=== PATIENT | female | born 1950 | race Caucasian/White ===

== ENCOUNTER → 2017-12-02 12:42 | Outpatient (CLI) | payer MEDICARE, OTHER, SELFPAY ==
[2017-12-02 14:00] LABS: BUN Creatinine Ratio 22.5 (6-22); Blood Urea Nitrogen 18 mg/dL (7-17); Carbon Dioxide 34 mmol/L (22-32); Chloride 103 mmol/L (98-107); Estimated Glomerular Filt Rate > 60.0 mL/min (>60); Glucose 76 mg/dL (80-110); HEMOLYSIS < 15 (0-50); Sodium 144 mmol/L (137-145)
== END ==
PROVIDERS: Visit Provider Internal Medicine
DX: M81.0 Age-related osteoporosis without current pathological fracture (principal)
CPT/HCPCS: 36415; 80048

== ENCOUNTER 2021-02-16 01:27 | Emergency (ER) | payer MEDICARE, SELFPAY ==
[2021-02-16] VITALS (14 sets, daily range): BP systolic 96–146; BP diastolic 52–76; PULSE 59–124; RESP 9–26; TEMP 36.6; O2SAT 96–100; BMI 19.6
--- NOTE | 2021-02-16 01:38 | DI.RAD.S_ITS ---
PROCEDURE: XR CHEST 1V INDICATIONS: chest pain TECHNIQUE: One view of the chest was acquired. COMPARISON: None. FINDINGS: Surgical changes and devices: None. Lungs and pleura: Lungs are clear. A nodular density in the left apex is probably caused by costochondral calcification of the. No pleural effusions or pneumothorax. Mediastinum: Mediastinal contours appear normal. Heart size is normal. Bones and chest wall: No suspicious bony lesions. Mild scoliosis. Overlying soft tissues appear unremarkable. IMPRESSION: No acute cardiopulmonary disease. A nodular density in the left apex is likely caused by costochondral calcification of the 1st rib. A nonurgent chest CT is suggested for follow-up. Dictated by: Marine Li M.D. on 02/16/2021 at 2:04 Approved by: Marine Li M.D. on 02/16/2021 at 2:04
--- NOTE | 2021-02-16 01:40 | ED_ITS ---
HPI - Chest Pain General Chief Complaint: Chest Pain Stated Complaint: Afib chest pain Time Seen by Provider: 02/16/21 01:35 History of Present Illness HPI narrative: 70-year-old female nonsmoker with history of hypertension presents by EMS for evaluation of a severe, 10 on a 10 retrosternal chest pressure that woke her from sleep just prior to arrival. She states she went to bed in her normal state of health and has had no other symptoms such as dizziness, weakness or lightheadedness. She denies any obvious provocation, palliation or radiation. She denies associated symptoms such as fatigue, nausea, vomiting or unexplained diaphoresis. She has never had any symptoms like this in the past. She denies any recent travel, injury or trauma. On arrival EMS found her to be in a rapid atrial fibrillation in the 130s with ST depressions, she was given diltiazem 15 mg and slowed to the upper 90s but has persistent symptoms. She was given a few nitro EN route and her pain improved to a 6 or 7 but states it is slowly creeping back up Related Data Previous Rx's Medication Instructions Recorded apixaban 5 mg tablet (Eliquis) 5 mg PO BID #60 tab 02/16/21 Allergies Allergy/AdvReac Type Severity Reaction Status Date / Time Sulfa (Sulfonamide Allergy Hives Verified 02/16/21 01:38 Antibiotics) Review of Systems Review of Systems Narrative: GENERAL: Denies chills, fatigue, malaise, fever, sweats. HEENT: Denies sinus pain, ear pain, sore throat, difficulty swallowing, dizz iness. RESPIRATORY: Denies dyspnea, cough, wheezing, hemoptysis, sputum. CARDIOVASCULAR: See HPI GASTROINTESTINAL: Denies nausea, vomiting, abdominal pain, diarrhea, constipation, melena. : Denies dysuria, frequency, incontinence, hematuria, urinary retention. MUSCULOSKELETAL: denies weakness, joint pain, or bony pain SKIN: Denies rash, skin lesions, or other NEUROLOGIC: Denies weakness, headache, numbness, change in speech, confusion, seizures, incoordination. PSYCHIATRIC: No concerning psychosocial issues. 12 point review of systems is negative except for those stated above Patient History Social History Smoking Status: Never smoker Exam Narrative Exam Narrative: GENERAL: [70 year old patient appears stated age. Well-developed patient, in moderate distress, obviously uncomfortable HEAD: Atraumatic. Normocephalic. EYES: Pupils equal round and reactive. Extraocular motions intact. No scleral icterus. No injection or drainage. ENT: Nose without bleeding, purulent drainage. Throat without erythema, tonsillar hypertrophy or exudate. Airway patent. NECK: Trachea midline. Non tender CARDIOVASCULAR: Tachycardic and irregular rhythm without murmurs, gallops, or rubs. RESPIRATORY: Clear to auscultation. Breath sounds equal bilaterally. No wheezes, rales, or rhonchi. GASTROINTESTINAL: Abdomen soft, non-tender, nondistended. EXTREMITIES: No edema or joint tenderness. BACK: Nontender without deformity or crepitance. No flank tenderness. NEURO: AOx3. SKIN: No rash or erythema of visible areas Initial Vital Signs Initial Vital Signs: Vital Signs Temperature 97.8 F 02/16/21 01:38 Pulse Rate 120 H 02/16/21 01:38 Respiratory Rate 19 02/16/21 01:38 Blood Pressure 146/76 H 02/16/21 01:38 Pulse Oximetry 98 02/16/21 01:38 Procedures Cardioversion Consent Signed: Yes Indication: Rapid AFib with chest pain ST segmental depressions Stability: Unstable Number of attempts (shocks): 1 Joules used: 120 Cardiac rhythm post-cardioversion: Normal sinus Procedural Sedation Consent signed: Yes Time out performed: Yes Indication: cardioversion ASA Class: II Preparation: color television console monitor applied, pulse oximeter, capnometry used, supplemental O2 applied and suction/airway equipment at bedside IV Propofol dose (mg): 100 Intraservice time/total sedation time (min): 12 ED Sedation Level: Moderate (Concious) Patient Tolerated Procedure: Well Complications: hypoventilation Interventions: Airway repositioned and Oxygen applied Course Orders Ordered: ED Orders 02/16/21 01:33 EKG-12 Lead Routine 02/16/21 01:38 XR chest 1V Stat COVID19 - ADMIT (STEAM ENGINEER swab/PCR) Stat 02/16/21 01:44 Complete Blood Count AUTO DIFF Stat Comprehensive Metabolic Panel Stat 02/16/21 02:11 EKG-12 Lead Routine Discontinued Medications Apixaban (Apixaban 5 Mg Tablet) 5 mg PO NOW ONE Stop: 02/16/21 02:34 Last Admin: 02/16/21 02:46 Dose: 5 mg Documented by: FAMILIA Sodium Chloride (Normal Saline 0.9%) 1,000 mls @ 1,000 mls/hr IV BOLUS ONE Stop: 02/16/21 03:23 Last Admin: 02/16/21 02:26 Dose: 1,000 mls/hr Documented by: FAMILIA Propofol (Propofol 200 Mg/20 Ml Vial) 95 mg 2 mg/kg (95 mg) IV NOW ONE Stop: 02/16/21 01:45 Last Admin: 02/16/21 02:21 Dose: 95 mg Documented by: FAMILIA Vital Signs Vital signs: Vital Signs - 8 hr 02/16/21 01:38 02/16/21 02:04 02/16/21 02:05 Temperature 97.8 F Pulse Rate 120 H 124 H 120 H Respiratory Rate 19 14 9 L Blood Pressure 146/76 H 113/74 Pulse Oximetry 98 100 100 02/16/21 02:10 02/16/21 02:15 02/16/21 02:20 Temperature Pulse Rate 72 62 62 Respiratory Rate 26 H 19 15 Blood Pressure 100/58 L 96/52 L 105/58 L Pulse Oximetry 99 96 97 02/16/21 02:25 02/16/21 02:30 02/16/21 02:35 Temperature Pulse Rate 60 62 60 Respiratory Rate 14 17 17 Blood Pressure 113/57 L 114/57 L 121/59 L Pulse Oximetry 99 98 99 02/16/21 02:40 02/16/21 02:45 02/16/21 03:00 Temperature Pulse Rate 59 L 63 61 Respiratory Rate 14 18 12 Blood Pressure 124/59 L 127/60 136/66 Pulse Oximetry 100 100 100 02/16/21 03:15 02/16/21 03:30 Temperature Pulse Rate 61 64 Respiratory Rate 16 21 Blood Pressure 129/62 134/67 Pulse Oximetry 99 99 MDM - Chest Pain Lab Data Result diagrams: 02/16/21 01:44 02/16/21 01:44 Labs: Lab Results 02/16/21 02/16/21 Range/Units 01:44 01:44 WBC 7.4 (4.5-11.0) X10^3/uL RBC 4.53 (4.0-5.2) X10^6/uL Hgb 14.9 (12.0-16.0) g/dL Hct 44.0 (36-46) % MCV 97.0 (80-100) fL MCH 32.9 (26-34) PG MCHC 33.9 (30-36) % RDW 13.2 (11.6-14.8) % Plt Count 293 (150-400) X10^3/uL Neut % (Auto) 47.7 L (50-75) % Lymph % (Auto) 35.5 (25-40) % [place] % (Auto) 11.6 (3-14) % Eos % (Auto) 1.5 L (2-4) % Baso % (Auto) 3.7 H (0-2) % Neut # (Auto) 3500 (7592-3311) /uL Lymph # (Auto) 2600 (0549-0771) /uL [place] # (Auto) 900 (0-900) /uL Eos # (Auto) 100 (0-450) /uL Baso # (Auto) 300 H (0-100) /uL Sodium 141 (137-145) mmol/L Potassium 3.5 (3.4-5.1) mmol/L Chloride 103 (98-107) mmol/L Carbon Dioxide 29 (22-32) mmol/L BUN 24 H (7-17) mg/dL Creatinine 1.10 H (0.52-1.04) mg/dL Estimated GFR 48.8 L (>60) mL/min BUN/Creatinine Ratio 21.8 (6-22) Glucose 98 (80-110) mg/dL Calcium 10.4 H (8.4-10.2) mg/dL Total Bilirubin 0.5 (0.2-1.3) mg/dL AST 29 (14-36) IU/L ALT 16 (<35) IU/L Alkaline Phosphatase 30 L (38-126) U/L Total Protein 7.8 (6.3-8.2) g/dL Albumin 4.7 (3.5-5.0) g/dL Globulin 3.1 (1.7-4.1) g/dL Albumin/Globulin Ratio 1.5 (1.0-2.8) Point of Care Testing Test Results Not applicable [facility] Narrative Medical decision making narrative: Patient presents with chest pain and a rapid irregular heart rate. Initially, when tachycardic she had ST depressions which resolved along with the rapid AFib. Her symptoms had only been present for a few hours, she was having chest pain and ST changes and was therefore clearly a good candidate for procedural sedation and cardioversion. She tolerated the procedure well, was observed for an hour afterwards and had complete resolution of symptoms. Return precautions given and questions answered to her apparent satisfaction Discharge Plan Departure Patient Disposition: Home Clinical Impression: Atrial fibrillation with rapid ventricular response Instructions: DI for Atrial Fibrillation Activity Restrictions/Additional Instructions: *You have been diagnosed with [rapid atrial fibrillation which has been controlled with electrocardioversion *What to do: *Please continue to take your regular medications as directed. [x ] New medication prescriptions sent to your pharmacy: [[facility]] [ ] New medication written as a paper prescription [ ] No new medications given *Please follow up with your primary care provider in 2-3 days, call for an appointment. Let them know you were seen in the Emergency Department and that we ask that you be seen in follow up. We will electronically transmit a record of today's note if your PCP is in our system *If you do not have a primary care provider please contact the [facility] Resource line at [phone]. They will ask some questions about your medical history and help get you set up with a doctor in the community. *Return to Emergency Department if you should have any new, worsening or concerning symptoms, such as [fever greater than 101 F, shaking chills, worsening pain, persistent vomiting or other bothersome symptoms] * as we discussed I have included the contact information for both of the cardiology offices here in town and electronically transmitted a copy of today's note. Please call them later today and let them know that you were seen in the emergency department and we request that you were seen in follow-up Prescriptions: New Eliquis 5 mg tablet 5 mg PO BID Qty: 60 0RF Referrals: Jose Francisco Bowling MD [Non-Staff] - Gabby Downing MD [Physician] -
[2021-02-16 01:49] LABS: Add Manual Diff / Slide Review NO; Basophils Absolute Auto 300 /uL (0-100); Basophils Percent Auto 3.7 % (0-2); Eosinophils Absolute Auto 100 /uL (0-450); Eosinophils Percent Auto 1.5 % (2-4); Hemoglobin 14.9 g/dL (12.0-16.0); Lymphocytes Absolute Auto 2600 /uL (1100-4500); Lymphocytes Percent Auto 35.5 % (25-40); Mean Corpuscular HGB Conc 33.9 % (30-36); Mean Corpuscular Hemoglobin 32.9 PG (26-34); Monocytes Absolute Auto 900 /uL (0-900); Monocytes Percent Auto 11.6 % (3-14); Neutrophils Absolute Auto 3500 /uL (1500-7000); Neutrophils Percent Auto 47.7 % (50-75); Platelet Count 293 X10^3/uL (150-400); Red Blood Cell Count 4.53 X10^6/uL (4.0-5.2); Red Cell Distribution Width 13.2 % (11.6-14.8); White Blood Cell Count 7.4 X10^3/uL (4.5-11.0)
[2021-02-16 01:53] LABS: Alanine Aminotransferase 16 IU/L (<35); Albumin 4.7 g/dL (3.5-5.0); Albumin Globulin Ratio 1.5 (1.0-2.8); Alkaline Phosphatase 30 U/L (38-126); Aspartate Aminotransferase 29 IU/L (14-36); BUN Creatinine Ratio 21.8 (6-22); Bilirubin Total 0.5 mg/dL (0.2-1.3); Blood Urea Nitrogen 24 mg/dL (7-17); Calcium 10.4 mg/dL (8.4-10.2); Carbon Dioxide 29 mmol/L (22-32); Chloride 103 mmol/L (98-107); Estimated Glomerular Filt Rate 48.8 mL/min (>60); Globulin 3.1 g/dL (1.7-4.1); Glucose 98 mg/dL (80-110); HEMOLYSIS 31 (0-50); Potassium 3.5 mmol/L (3.4-5.1); Sodium 141 mmol/L (137-145); Total Protein 7.8 g/dL (6.3-8.2)
[2021-02-16] MEDS: propofoL 200 MG/20 ML VIAL 95 MG IV (02:21)
[2021-02-16] MEDS: SODIUM CHLORIDE 0.9% 1,000 ML 1000 ML IV (02:26)
[2021-02-16] MEDS: APIXABAN 5 MG TABLET PO (02:46)
== END 2021-02-16 03:40 | disposition home or self-care (01) ==
PROVIDERS: Emergency Provider Emergency Medicine
DX: I48.91 Unspecified atrial fibrillation (principal)
CPT/HCPCS: 71045; 80053; 85025; 92960; 93005; 96360; 99152; 99285; J2704

== ENCOUNTER → 2021-02-28 14:12 | Outpatient (CLI) | payer MEDICARE, SELFPAY ==
--- NOTE | 2021-02-28 | DI.ECHO.S_ITS ---
[facility]---------+ [facility] +---------+ : : [address] : : : : [id number] : : : : Phone: [phone]+ Echocardiogram Report + + :Name: CHANO HAAS Study Date: 02/28/2021 Height: 61 in : :[facility] ReadingLocation: Weight: 104 lb : : Gender: Female BSA: 1.4 m2 : :: 1950 Age: 70 yrs BP: 137/66 mmHg: :Reason For Study: HYPERTENSION : :Ordering Physician: NATHANAEL, : :FLETCHER Performed By: Shantell Balderrama : :Referring: FLETCHER HUFFMAN : + + Interpretation Summary The ejection fraction is estimated to be 65-70%. Diastolic parameters suggest probable normal left ventricular diastolic function and normal filling pressures. The right ventricle is normal in size and function. There is trace aortic regurgitation. PASP is approximately 25 to 30 mmHg. Procedure: A two-dimensional transthoracic echocardiogram with color flow and Doppler was performed. The study quality was technically adequate. There is no prior echocardiogram noted for this patient. The patient was in sinus bradycardia with heart rates between 49-55 bpm during the exam. Left Ventricle: The left ventricle is normal in size and wall thickness. The ejection fraction is estimated to be 65-70%. Diastolic parameters suggest probable normal left ventricular diastolic function and normal filling pressures. Right Ventricle: The right ventricle is normal in size and function. Atria: The left atrium is borderline dilated. Right atrial size is normal. There is no Doppler evidence for an interatrial shunt. Mitral Valve: The mitral valve is normal in structure and function. There is mild mitral regurgitation. Aortic Valve: The aortic valve is trileaflet. The aortic valve opens well. There is no aortic valve stenosis. There is trace aortic regurgitation. Tricuspid Valve: The tricuspid valve is normal in structure and function. There is trace tricuspid regurgitation. PASP is approximately 25 to 30 mmHg. Pulmonic Valve: The pulmonic valve leaflets are thin and pliable; valve motion is normal. There is mild pulmonic regurgitation. Great Vessels: The aortic root is normal size. The dimensions of the ascending aorta are normal. The IVC is of normal diameter and collapses greater than 50% with a sniff. This suggests a low right atrial pressure of 3 mm Hg. Pericardium/ Pleura There is a trivial pericardial effusion noted. MMode/2D Measurements & Calculations LVIDd: 4.8 cm LVOT diam: 2.0 cm LVIDs: 2.8 cm Ao root diam: 3.4 cm FS: 41.6 % asc Aorta Diam: 2.9 cm IVSd: 0.55 cm Ao Arch Diam (Prox Trans): 2.8 cm LVPWd: 0.75 cm LV hogue. diameter/BSA (cm/m^2): 3.3 LV sys. diameter/BSA (cm/m^2): 1.9 LA A2 area: 19.1 cm2 RA long axis: 5.4 cm LA A4 area: 14.3 cm2 RA area: 15.9 cm2 LA length (vol): 4.8 cm RA vol: 39.7 ml LA vol: 48.1 ml RA : 27.8 ml/m2 LA vol index: 33.6 ml/m2 IVC diam: 1.7 cm RVD1 (basal): 3.4 cm TAPSE: 2.5 cm Doppler Measurements & Calculations Ao V2 max: 102.6 cm/sec LVOT Max Navin: 102.2 cm/sec Ao V2 mean: 65.9 cm/sec LV V1 max P.2 mmHg Ao max P.2 mmHg LV V1 VTI: 24.3 cm Ao mean P.0 mmHg MEI(I,D): 3.4 cm2 Ao V2 VTI: 22.1 cm MEI(V,D): 3.1 cm2 sev ratio: 1.1 MEI indexed to BSA (cm^2/m^2): 2.4 MV E max navin: 79.6 cm/sec TR max navin: 225.5 cm/sec MV A max navin: 52.8 cm/sec TR max P.3 mmHg MV E/A: 1.5 PA V2 max: 89.9 cm/sec Med Peak E' Navin: 8.1 cm/sec PA V2 mean: 59.4 cm/sec E/E' med: 9.8 PA mean P.6 mmHg Lat Peak E' Navin: 9.1 cm/sec PA pr(Accel): 44.7 mmHg E/E' lat: 8.8 E/e' average: 9.3 MV dec time: 0.27 sec SV(LVOT): 75.3 ml Reading Physician:04:35 PM
== END ==
PROVIDERS: PCP Internal Medicine Critical Care Medicine; Referring Provider Internal Medicine Critical Care Medicine; Visit Provider Internal Medicine Critical Care Medicine
DX: I34.0 Nonrheumatic mitral (valve) insufficiency (principal); I37.1 Nonrheumatic pulmonary valve insufficiency; I10 Essential (primary) hypertension; G47.00 Insomnia, unspecified; I48.0 Paroxysmal atrial fibrillation
CPT/HCPCS: 93306

== ENCOUNTER 2022-05-19 18:21 | Emergency (ER) | payer MEDICARE, SELFPAY ==
[2022-05-19 18:38] VITALS: BP 150/67; PULSE 64; RESP 18; TEMP 36.7; O2SAT 99; BMI 18.7
[2022-05-19] MEDS: ERYTHROMYCIN OPHTH 1 GM OINT 1 APPLIC EYE-LEFT (19:41)
[2022-05-19] MEDS: PROPARACAINE 0.5% OPHTH SOL 1 DROPS EYE-LEFT (19:42)
[2022-05-19] MEDS: FLUORESCEIN 1 MG STRIP EYE-LEFT (19:43)
--- NOTE | 2022-05-19 19:55 | ED.EYEPROB ---
HPI - Eye Problem <TAMI Lindquist - Last Filed: 05/19/22 20:03> General Chief complaint: Eye Problems Stated complaint: L eye issue Time Seen by Provider: 05/19/22 19:23 Source: patient Mode of arrival: Ambulatory History of Present Illness HPI Narrative: This is 71-year-old female with history of glaucoma, AFib with RVR, is anticoagulated on apixaban, states that she has a right eye implant for glaucoma and presents with concern for a left upper eyelid which has been red, more tender and painful over the last 2 days. She denies vision changes or eye pain with eye movement and endorses eyelid discomfort. She was seen in urgent care 2 days ago and prescribed ofloxacin which she states is not helping this go away. She denies any eye injury, denies discharge coming from her eye. Denies any pain to the lower eyelid, states that she thought it was a stye but the urgent care PA did not see this on her. Related Data Previous Rx's Medication Instructions Recorded apixaban 5 mg tablet (Eliquis) 5 mg PO BID #60 tabs 02/16/21 Allergies Allergy/AdvReac Type Severity Reaction Status Date / Time Sulfa (Sulfonamide Allergy Hives Verified 02/16/21 01:38 Antibiotics) Review of Systems <TAMI Lindquist - Last Filed: 05/19/22 20:03> Review of Systems ROS Unobtainable: All systems reviewed & are unremarkable except as noted in HPI and below Patient History <TAMI Lindquist - Last Filed: 05/19/22 20:03> Social History Smoking Status: Never smoker Smoking Status: Never smoker alcohol intake frequency: 0-2 drinks per day Substance Use Type: does not use Exam <TAMI Lindquist - Last Filed: 05/19/22 20:03> Narrative Exam Narrative: Reviewed vitals signs and nursing notes. General: cooperative, comfortable, in no acute distress, well groomed HEENT: symmetrical facial expressions, moist mucous membranes, upper eyelid with mild erythema and edema centralized, everted upper eyelid and there is a white central aspect which looks most like a chalazion, no discharge no conjunctival injection bilaterally, EOMI, pupils are equal and pinpoint/small at baseline without discharge coming from the eye Fluorescein exam with proparacaine does not show evidence of corneal abrasion, no uptake of fluorescein over the cornea or areas of her eye. Skin: brisk capillary refill, without pallor or erythema no periorbital cellulitis or diffuse edema surrounding the eye, without pain with eye movement Neuro: normal speech and cognition, A&O x3, ambulatory, clear speech Psych: mental status is grossly normal, congruent mood, normal affect, pleasant and cooperative Initial Vital Signs Initial Vital Signs: Vital Signs Temperature 98.1 F 05/19/22 18:38 Pulse Rate 64 05/19/22 18:38 Respiratory Rate 18 05/19/22 18:38 Blood Pressure 150/67 H 05/19/22 18:38 Pulse Oximetry 99 05/19/22 18:38 Oxygen Delivery Method 05/19/22 18:38 <Amparo Pete DO - Last Filed: 05/28/22 01:55> Initial Vital Signs Initial Vital Signs: Vital Signs Temperature 98.1 F 05/19/22 18:38 Pulse Rate 64 05/19/22 18:38 Respiratory Rate 18 05/19/22 18:38 Blood Pressure 150/67 H 05/19/22 18:38 Pulse Oximetry 99 05/19/22 18:38 Oxygen Delivery Method 05/19/22 18:38 Course <TAMI Lindquist - Last Filed: 05/19/22 20:03> Orders Ordered: Discontinued Medications Erythromycin (Erythromycin Ophth 1 Gm Oint) 1 applic EYE-LEFT NOW ONE Stop: 05/19/22 19:24 Last Admin: 05/19/22 19:41 Dose: 1 applic Documented By: BS Fluorescein Sodium (Fluorescein 1 Mg Strip) 1 mg EYE-LEFT NOW ONE Stop: 05/19/22 19:35 Last Admin: 05/19/22 19:43 Dose: 1 mg Documented By: BS Proparacaine HCl (Proparacaine 0.5% Ophth Jami) 1 drops EYE-LEFT NOW ONE Stop: 05/19/22 19:35 Last Admin: 05/19/22 19:42 Dose: 1 drop Documented By: BS Vital Signs Vital signs: Vital Signs - 8 hr 05/19/22 18:38 Temperature 98.1 F Pulse Rate 64 Respiratory Rate 18 Blood Pressure 150/67 H Pulse Oximetry 99 Oxygen Delivery Method Room Air <Amparo Pete DO - Last Filed: 05/28/22 01:55> Orders Ordered: Discontinued Medications Erythromycin (Erythromycin Ophth 1 Gm Oint) 1 applic EYE-LEFT NOW ONE Stop: 05/19/22 19:24 Last Admin: 05/19/22 19:41 Dose: 1 applic Documented By: BS Fluorescein Sodium (Fluorescein 1 Mg Strip) 1 mg EYE-LEFT NOW ONE Stop: 05/19/22 19:35 Last Admin: 05/19/22 19:43 Dose: 1 mg Documented By: BS Proparacaine HCl (Proparacaine 0.5% Ophth Jami) 1 drops EYE-LEFT NOW ONE Stop: 05/19/22 19:35 Last Admin: 05/19/22 19:42 Dose: 1 drop Documented By: BS Vital Signs Vital signs: Vital Signs - 8 hr 05/19/22 18:38 Temperature 98.1 F Pulse Rate 64 Respiratory Rate 18 Blood Pressure 150/67 H Pulse Oximetry 99 Oxygen Delivery Method Room Air MDM - Eye Problem <TAMI Lindquist - Last Filed: 05/19/22 20:03> MDM Narrative Medical decision making narrative: Chief Complaint: Left eyelid pain Independent historian: Patient Differential diagnoses include but are not limited to: Chalazion, hordeolum, periorbital cellulitis, dacryocystitis, conjunctivitis, iritis, foreign body I have independently reviewed the patient's vital signs and nursing notes as well as prior records if available. Fluorescein exam does not show evidence of uptake over the cornea or other areas concerning for trauma to the eye. On eversion of upper eyelid, there is evidence of chalazion to the upper eyelid. Encourage patient to start doing warm compresses 4 times a day, printed off information about chalazion versus hordeolum, she has a software development specialist name Dr. Cantu whom I encouraged her to follow-up with urgently for a recheck. She has an appointment with Dermatology tomorrow, she will follow-up with dermatology about this, I prescribed for her erythromycin ointment as she states the ofloxacin drops are not doing anything. I told her that this is more functional obstruction than a bacterial 1 as it does not appear to have evidence of bacterial infection today. She states that she is leaving town and was very concerned about periorbital infection so I gave her prescription of cephalexin to start if she develops redness or brought in edema to the periorbital skin but I told her that she needs to be re-evaluated if it progresses to that as soon as possible. She is anticoagulated so I did not treat her NSAIDs. Encouraged to continue with Tylenol, use the erythromycin ointment 4 times a day as a lubricant as needed. Social considerations that may affect disposition: none Questions are addressed and there is agreement with the plan and for follow-up. Patient is appropriate for outpatient management. MIPS: This encounter doesn't have any diagnosis' associated with MIPS criteria. Discharge Plan Departure Patient Disposition: Home Clinical Impression: Chalazion left upper eyelid Instructions: Chalazion Activity Restrictions/Additional Instructions: *You have been diagnosed with chalazion of your left upper eyelid. This is similar to a stye, warm compresses are the treatment, please make an appointment with your software development specialist and tell them you are in the emergency department for a left upper eyelid chalazion, and you have worsening of your symptoms and need urgent follow-up. No evidence of corneal abrasion on exam today, please use a warm washcloth lightly compress for 15-20 minutes at a time at least 4 times a day. Use the eye ointment to lubricate and prevent infection of this if it is worsening. Thank you for trusting us with your care, I hope this gets better soon and it should not get worse. This is typically not treated with antibiotics but if this worsens and you have a puffy whole eye, redness and edema surrounding the whole eyelid, please start the oral antibiotic. I want you to be seen urgently if this worsens a lot. Please call and or e-mail Dr. Cantu's office for urgent follow-up. Jessy Cantu M.D. [email or web address] tel:[phone] If you are not able to get in with Dr. Cantu, please call 1 of software development specialist attached below. *What to do: *Please continue to take your regular medications as directed. [x ] New medication prescriptions sent to your pharmacy: [ [facility]] [ ] New medication written as a paper prescription [ ] No new medications given *Please follow up with your primary care provider in 2-3 days, call for an appointment. Let them know you were seen in the Emergency Department and that we asked that you be seen for follow-up. We will electronically transmit a record of today's note if your PCP is in our system *If you do not have a primary care provider please contact [phone] to establish care with one of the [facility] primary care providers. *Return to Emergency Department if you should have any new, worsening, or concerning symptoms, such as [fever greater than 101F, chills, worsening pain, persistent vomiting or other bothersome symptoms]. Prescriptions: No Action Eliquis 5 mg tablet 5 mg PO BID Qty: 60 0RF Referrals: Mahad Lynch MD [Physician] - Sergio Hardwick MD [Primary Care Provider] - Sugar Cantu MD [Non-Staff] - ([email or web address] ) Stand Alone Forms: Patient Portal/API <Amparo Pete DO - Last Filed: 05/28/22 01:55> Cosign ED Attending Mary Kateature Attestation: I was immediately available in the department for consultation. Documentation has been reviewed.
== END 2022-05-19 20:04 | disposition home or self-care (01) ==
PROVIDERS: Emergency Provider Nurse Practitioner Critical Care Medicine; PCP Internal Medicine Critical Care Medicine
DX: H00.14 Chalazion left upper eyelid (principal); Z79.01 Long term (current) use of anticoagulants
CPT/HCPCS: 99282

== ENCOUNTER 2022-07-16 10:04 | Emergency (ER) | payer MEDICARE, SELFPAY ==
[2022-07-16] VITALS (16 sets, daily range): BP systolic 142–189; BP diastolic 69–101; PULSE 57–66; RESP 12–27; TEMP 36.6; O2SAT 96–99; BMI 19.1
--- NOTE | 2022-07-16 10:30 | DI.CT.S_ITS ---
PROCEDURE: CT ABDOMEN PELVIS W CON INDICATIONS: Constipation, left-sided abdominal pain, eval for obstructio TECHNIQUE: After the administration of intravenous contrast, axial sections acquired from the lung bases to the pubic symphysis. Coronal and sagittal reformats were performed. For radiation dose reduction, the following was used: automated exposure control, adjustment of mA and/or kV according to patient size. COMPARISON: None. FINDINGS: Image quality: Excellent. Lung bases: Minor left lower lung scarring. Heart: Slightly enlarged heart with very small pericardial effusion. ABDOMEN: Liver: No suspicious masses. Gallbladder: Partially decompressed. Biliary ducts: Nondilated. Pancreas: Normal. Spleen: Normal size. Adrenal Glands: No nodules. Kidneys and Ureters: Moderate to severe, chronic appearing right-sided hydronephrosis and mild left hydronephrosis. Punctate left lower pole intrarenal calculus. No hydroureter. No visible ureteral calcifications. Stomach and Bowel: Mildly increased quantity of solid stool throughout the colon. Stomach contains of small amount of fluid. Small bowel loops are nondilated. There are a few pelvic bowel loops demonstrating slight wall thickening and enhancement but no focal strictures or pathologic bowel dilatation. Peritoneum: No abnormal intraperitoneal fluid. No free air. Ventral Wall: No hernias. Abdominal Nodes: No retroperitoneal or mesenteric adenopathy by size criteria. Vessels: Aorta and inferior vena cava are normal in size. Moderate abdominal aortic atherosclerotic calcification. PELVIS: Pelvic Organs: The uterus is present, retroverted, and age-appropriate in size. Bladder: The urinary bladder is mildly distended and the wall is somewhat thickened. No stones. Pelvic Nodes: No enlarged lymph nodes. Miscellaneous: No hernias are seen. Bones: Multilevel lumbar disc degeneration. Anterolisthesis L4 on five. IMPRESSION: 1. Mild colonic obstipation. 2. Decompressed small bowel, with some scattered wall thickening suggesting enteritis. 3. Chronic hydronephrosis, right more severe than left. This may be secondary to chronic over distension of the urinary bladder. 4. Mild urinary bladder wall thickening may indicate cystitis. Correlate with UA. Dictated by: Loyda Nance M.D. on 07/16/2022 at 11:36 Approved by: Loyda Nance M.D. on 07/16/2022 at 11:42
--- NOTE | 2022-07-16 10:31 | ED.GENADULT ---
HPI - General Adult General Chief complaint: Abdominal Pain Stated complaint: severe abdominal pain for 10 days Time Seen by Provider: 07/16/22 10:17 Source: patient and family Mode of arrival: Ambulatory Limitations: no limitations History of Present Illness HPI narrative: Patient is a 71-year-old female. Approximately 4 weeks had an episode of diarrhea. At the time she had been several weeks into a trip to [facility]. The patient's who was with her also had diarrhea the time. He stated that symptoms lasted approximately 24 hours and then resolved however her diarrhea lasted for approximately 1 week afterwards. They stated was after the use the water in the hotel room to brush her teeth which they were warned not to do. At the time she was not having any other symptoms. She did take 1 dose of Keflex that was given to her by her primary doctor prior to leaving on a trip to take in case they need any antibiotics. She was also on antimalarial medication at the time. Since the episode of diarrhea the patient now has had issues with constipation. She was having hard stools up until approximately 7-10 days ago where she states that constipation became more of an issue. She is not having any vomiting. For the past 3 days she has had left upper quadrant abdominal pain. No fevers. No rashes. No urinary symptoms. No prior history of abdominal surgeries. Related Data Previous Rx's Medication Instructions Recorded apixaban 5 mg tablet (Eliquis) 5 mg PO BID #60 tabs 02/16/21 Allergies Allergy/AdvReac Type Severity Reaction Status Date / Time Sulfa (Sulfonamide Allergy Hives Verified 02/16/21 01:38 Antibiotics) Review of Systems Review of Systems ROS Unobtainable: All systems reviewed & are unremarkable except as noted in HPI and below Patient History Social History Smoking Status: Never smoker Smoking Status: Never smoker alcohol intake frequency: 0-2 drinks per day Substance Use Type: does not use Exam Initial Vital Signs Initial Vital Signs: Vital Signs Pulse Rate 66 07/16/22 10:10 Pulse Oximetry 98 07/16/22 10:10 Const General: cooperative, comfortable and No ill appearing HENMT Head: normal to inspection and normocephalic Resp Effort & Inspection: normal respiratory effort Auscultation: clear to auscultation bilaterally Cardio Rate: regular rate Rhythm: regular rhythm GI Inspection: normal to inspection Palpation: soft, No guarding and tender (Left upper quadrant) Skin General: no rashes or lesions noted Neuro General: patient alert, patient awake and patient oriented x3 Extrem General: normal to inspection and capillary refill normal Psych Appearance: grossly normal Course Orders Ordered: ED Orders 07/16/22 10:17 GI Panel (Film Array) Stat 07/16/22 10:23 Complete Blood Count AUTO DIFF Stat Comprehensive Metabolic Panel Stat Lipase Stat 07/16/22 10:30 CT abdomen pelvis w con Stat Discontinued Medications Al Hydrox/Mg Hydrox/Simethicone 20 ml/ Lidocaine HCl 15 ml 0 ml PO NOW ONE Stop: 07/16/22 12:00 Last Admin: 07/16/22 12:03 Dose: 35 ml Documented By: BHARAT Sodium Chloride (Normal Saline 0.9%) 1,000 mls @ 1,000 mls/hr IV BOLUS ONE Stop: 07/16/22 11:16 Last Infusion: 07/16/22 11:44 Dose: 0 mls/hr Documented By: Admin: 07/16/22 10:39 Dose: 1,000 mls/hr Documented By: BHARAT Vital Signs Vital signs: Vital Signs - 8 hr 07/16/22 10:14 07/16/22 10:10 07/16/22 10:12 Temperature 97.8 F Pulse Rate 62 66 Respiratory Rate 20 Blood Pressure 189/82 H 189/82 H Pulse Oximetry 99 98 Oxygen Delivery Method Room Air 07/16/22 10:12 07/16/22 10:15 07/16/22 10:15 Temperature Pulse Rate 64 60 Respiratory Rate 12 Blood Pressure 156/79 H Pulse Oximetry 99 99 Oxygen Delivery Method 07/16/22 10:23 07/16/22 10:23 07/16/22 10:30 Temperature Pulse Rate 60 Respiratory Rate Blood Pressure 158/78 H 156/76 H Pulse Oximetry 98 Oxygen Delivery Method 07/16/22 10:30 07/16/22 10:40 07/16/22 10:40 Temperature Pulse Rate 58 L 57 L Respiratory Rate 27 H 23 Blood Pressure 142/69 H Pulse Oximetry 98 98 Oxygen Delivery Method 07/16/22 10:50 07/16/22 10:50 07/16/22 11:09 Temperature Pulse Rate 59 L 63 Respiratory Rate 24 17 Blood Pressure 155/74 H Pulse Oximetry 97 99 Oxygen Delivery Method 07/16/22 11:30 07/16/22 11:57 07/16/22 11:57 Temperature Pulse Rate 61 64 Respiratory Rate 23 25 H Blood Pressure 146/101 H Pulse Oximetry 97 99 Oxygen Delivery Method 07/16/22 12:00 07/16/22 12:01 07/16/22 12:01 Temperature Pulse Rate 60 59 L Respiratory Rate 22 22 Blood Pressure 159/73 H Pulse Oximetry 98 98 Oxygen Delivery Method Medical Decision Making Lab Data Lab results reviewed: Yes I reviewed the patient's lab results. 07/16/22 10:23 07/16/22 10:23 Labs: Lab Results 07/16/22 07/16/22 Range/Units 10: 10:23 WBC 10.4 (4.5-11.0) X10^3/uL RBC 4.58 (4.0-5.2) X10^6/uL Hgb 15.2 (12.0-16.0) g/dL Hct 44.8 (36-46) % MCV 97.9 (80-100) fL MCH 33.2 (26-34) PG MCHC 33.9 (30-36) % RDW 12.9 (11.6-14.8) % Plt Count 306 (150-400) X10^3/uL Neut % (Auto) 80.4 H (50-75) % Lymph % (Auto) 10.9 L (25-40) % [place] % (Auto) 7.3 (3-14) % Eos % (Auto) 0.7 L (2-4) % Baso % (Auto) 0.7 (0-2) % Neut # (Auto) 8400 H (8281-5972) /uL Lymph # (Auto) 1100 (1806-1129) /uL [place] # (Auto) 800 (0-900) /uL Eos # (Auto) 100 (0-450) /uL Baso # (Auto) 100 (0-100) /uL Sodium 138 (137-145) mmol/L Potassium 4.0 (3.4-5.1) mmol/L Chloride 102 (98-107) mmol/L Carbon Dioxide 30 (22-32) mmol/L BUN 10 (7-17) mg/dL Creatinine 0.60 (0.52-1.04) mg/dL Estimated GFR > 60 (>60) mL/min BUN/Creatinine Ratio 16.7 (6-22) Glucose 119 H (80-110) mg/dL Calcium 8.9 (8.4-10.2) mg/dL Total Bilirubin 0.5 (0.2-1.3) mg/dL AST 22 (14-36) IU/L ALT 20 (<35) IU/L Alkaline Phosphatase 45 (38-126) U/L Total Protein 7.1 (6.3-8.2) g/dL Albumin 4.0 (3.5-5.0) g/dL Globulin 3.1 (1.7-4.1) g/dL Albumin/Globulin Ratio 1.3 (1.0-2.8) Lipase 153 (23-300) U/L Urine Dip Bedside Urine Glucose Negative Bedside Urine Bilirubin - Negative Bedside Urine Ketone - Negative Urine Specific [place] 1.005 Bedside Urine Occult Blood - Negative Bedside Urine pH 7.5 Bedside Urine Protein - Negative Bedside Urine Urobilinogen - Negative Bedside Urine Nitrite - Negative Bedside Urine Leukocytes - Negative Esterase Point of care testing: Urine Dip Bedside Urine Glucose Negative Bedside Urine Bilirubin - Negative Bedside Urine Ketone - Negative Urine Specific [place] 1.005 Bedside Urine Occult Blood - Negative Bedside Urine pH 7.5 Bedside Urine Protein - Negative Bedside Urine Urobilinogen - Negative Bedside Urine Nitrite - Negative Bedside Urine Leukocytes - Negative Esterase Imaging Data CT scan - abdomen/pelvis: Radiologist's Impression: PROCEDURE:? CT ABDOMEN PELVIS W CON ? INDICATIONS:? Constipation, left-sided abdominal pain, eval for obstructio ? TECHNIQUE:? After the administration of intravenous contrast, axial sections acquired from the lung bases to the pubic symphysis.? Coronal and sagittal reformats were performed.? For radiation dose reduction, the following was used:? automated exposure control, adjustment of mA and/or kV according to patient size.? ? COMPARISON:? None. ? FINDINGS:? Image quality:? Excellent.? ? Lung bases:? Minor left lower lung scarring. Heart:? Slightly enlarged heart with very small pericardial effusion. ? ABDOMEN: Liver:? No suspicious masses. Gallbladder:? Partially decompressed. Biliary ducts:? Nondilated. Pancreas:? Normal. Spleen:? Normal size. Adrenal Glands:? No nodules. Kidneys and Ureters:? Moderate to severe, chronic appearing right-sided hydronephrosis and mild left hydronephrosis.? Punctate left lower pole intrarenal calculus.? No hydroureter.? No visible ureteral calcifications. ? Stomach and Bowel:? Mildly increased quantity of solid stool throughout the colon.? Stomach contains of small amount of fluid.? Small bowel loops are nondilated.? There are a few pelvic bowel loops demonstrating slight wall thickening and enhancement but no focal strictures or pathologic bowel dilatation. Peritoneum:? No abnormal intraperitoneal fluid.? No free air.? ? Ventral Wall: ? No hernias.? Abdominal Nodes:? No retroperitoneal or mesenteric adenopathy by size criteria.? Vessels:? Aorta and inferior vena cava are normal in size.? Moderate abdominal aortic atherosclerotic calcification.? ? PELVIS: Pelvic Organs:? The uterus is present, retroverted, and age-appropriate in size. Bladder: The urinary bladder is mildly distended and the wall is somewhat thickened.? No stones. Pelvic Nodes: No enlarged lymph nodes.? Miscellaneous: No hernias are seen. ? ? ? Bones:? Multilevel lumbar disc degeneration.? Anterolisthesis L4 on five. ? ? IMPRESSION:? ? 1. Mild colonic obstipation. ? 2. Decompressed small bowel, with some scattered wall thickening suggesting enteritis. ? 3. Chronic hydronephrosis, right more severe than left.? This may be secondary to chronic over distension of the urinary bladder. ? 4. Mild urinary bladder wall thickening may indicate cystitis.? Correlate with UA.? MDM Narrative Medical decision making narrative: Labs are reassuring and CT scan here in the emergency department does show findings that are consistent with constipation. No indication for acute surgical consultation. No indication for antibiotics. Constipation does also fit her presenting symptoms. I did discuss this with her and her at bedside. We did discuss the use of laxatives at home. She does have MiraLax already at home. We discussed return precautions and follow-up instructions. She expressed understanding and agreement. Discharge Plan Departure Patient Disposition: Home Clinical Impression: Constipation Instructions: DI for Constipation Activity Restrictions/Additional Instructions: I recommend that you continue to take all of your medications as directed. I also recommend that she start using the MiraLax like we discussed. Contact your primary doctor for follow-up and return to the emergency department for any new or worsening symptoms. Prescriptions: No Action Eliquis 5 mg tablet 5 mg PO BID Qty: 60 0RF Referrals: Sergio Hardwick MD [Primary Care Provider] - Stand Alone Forms: Patient Portal/API
[2022-07-16 10:32] LABS: Add Manual Diff / Slide Review NO; Basophils Absolute Auto 100 /uL (0-100); Basophils Percent Auto 0.7 % (0-2); Eosinophils Absolute Auto 100 /uL (0-450); Eosinophils Percent Auto 0.7 % (2-4); Hematocrit 44.8 % (36-46); Hemoglobin 15.2 g/dL (12.0-16.0); Lymphocytes Absolute Auto 1100 /uL (1100-4500); Lymphocytes Percent Auto 10.9 % (25-40); Mean Corpuscular HGB Conc 33.9 % (30-36); Mean Corpuscular Hemoglobin 33.2 PG (26-34); Mean Corpuscular Volume 97.9 fL (80-100); Monocytes Absolute Auto 800 /uL (0-900); Monocytes Percent Auto 7.3 % (3-14); Neutrophils Absolute Auto 8400 /uL (1500-7000); Neutrophils Percent Auto 80.4 % (50-75); Platelet Count 306 X10^3/uL (150-400); Red Blood Cell Count 4.58 X10^6/uL (4.0-5.2); Red Cell Distribution Width 12.9 % (11.6-14.8); White Blood Cell Count 10.4 X10^3/uL (4.5-11.0)
[2022-07-16] MEDS: SODIUM CHLORIDE 0.9% 1,000 ML 1000 ML IV (10:39)
[2022-07-16 10:48] LABS: Alanine Aminotransferase 20 IU/L (<35); Albumin Globulin Ratio 1.3 (1.0-2.8); Alkaline Phosphatase 45 U/L (38-126); Aspartate Aminotransferase 22 IU/L (14-36); BUN Creatinine Ratio 16.7 (6-22); Bilirubin Total 0.5 mg/dL (0.2-1.3); Blood Urea Nitrogen 10 mg/dL (7-17); Calcium 8.9 mg/dL (8.4-10.2); Carbon Dioxide 30 mmol/L (22-32); Chloride 102 mmol/L (98-107); Estimated Glomerular Filt Rate > 60 mL/min (>60); Globulin 3.1 g/dL (1.7-4.1); Glucose 119 mg/dL (80-110); HEMOLYSIS < 15 (0-50); Lipase 153 U/L (23-300); Sodium 138 mmol/L (137-145); Total Protein 7.1 g/dL (6.3-8.2)
[2022-07-16] MEDS: MAG HYDROX/ALUMINUM/SIMETH SUS 20 ML, LIDOCAINE VISCOUS 2% 15 ML PO (12:03)
== END 2022-07-16 12:52 | disposition home or self-care (01) ==
PROVIDERS: Emergency Provider Emergency Medicine; PCP Internal Medicine Critical Care Medicine
DX: K59.00 Constipation, unspecified (principal); R10.9 Unspecified abdominal pain; Z79.01 Long term (current) use of anticoagulants
CPT/HCPCS: 36415; 74177; 80053; 81003; 83690; 85025; 99284; Q9967

== ENCOUNTER 2022-08-02 17:23 | Inpatient (IN) | payer MEDICARE, SELFPAY ==
[2022-08-02 17:44] VITALS: BP 146/66; PULSE 63; RESP 18; TEMP 36.2; O2SAT 98; BMI 17.9
--- NOTE | 2022-08-02 20:56 | ED_ITS ---
HPI - Female Genitourinary General Chief complaint: Urogenital-Female Stated complaint: Can't urinate Time Seen by Provider: 08/02/22 20:55 Source: patient Mode of arrival: Ambulatory History of Present Illness HPI Narrative: 71-year-old female nonsmoker with history of atrial fibrillation presents with her in the chief complaint of concerns about an inability to urinate. She is been having issues ever since returning from travel to [place] in which she developed GI symptoms that initially started with diarrhea and if since tr ansitioned into constipation. She had seen her primary care provider and had been put on various laxatives which have largely been effective. She had seen him a few days ago and on his exam and palpating her abdomen he felt she warranted a CT of the abdomen and pelvis as an outpatient. She states that she has this test or tomorrow but is here today because she had been feeling dizzy, lightheaded and a bit week if not slightly confused earlier today and was concerned that she was not producing urine. She denies fever or chills. She denies any chest pain or shortness of breath. She denies abdominal pain. She does admit that she would urinated a few hours prior to arrival and was also ab le to produce a urine early in her visit. Nursing bladder scan performed post void noting 31-50mL Related Data Previous Rx's Medication Instructions Recorded apixaban 5 mg tablet (Eliquis) 5 mg PO BID #60 tabs 02/16/21 Allergies Allergy/AdvReac Type Severity Reaction Status Date / Time Sulfa (Sulfonamide Allergy Hives Verified 08/02/22 21:02 Antibiotics) Review of Systems Review of Systems Narrative: GENERAL: See HPI HEENT: Denies sinus pain, ear pain, sore throat, difficulty swallowing, di zziness. RESPIRATORY: Denies dyspnea, cough, wheezing, hemoptysis, sputum. CARDIOVASCULAR: Denies chest pain, palpitations, orthopnea, edema, GASTROINTESTINAL: See HPI : See HPI MUSCULOSKELETAL: denies weakness, joint pain, or bony pain SKIN: Denies rash, skin lesions, or other NEUROLOGIC: Denies weakness, headache, numbness, change in speech, confusion, seizures, incoordination. PSYCHIATRIC: No concerning psychosocial issues. 12 point review of systems is negative except for those stated above Patient History alcohol intake frequency: a few times a week Alcohol type: wine Substance Use Type: does not use Exam Narrative Exam Narrative: GENERAL: [71] year old patient appears stated age. Well-developed patient, in mild distress. GCS 14 (confused) HEAD: Atraumatic. Normocephalic. EYES: Pupils equal round and reactive. Extraocular motions intact. No scleral icterus. No injection or drainage. ENT: Dry mucous membranes Nose without bleeding, purulent drainage. Throat without erythema, tonsillar hypertrophy or exudate. Airway patent. NECK: Trachea midline. Non tender CARDIOVASCULAR: Regular rate and rhythm without murmurs, gallops, or rubs. RESPIRATORY: Clear to auscultation. Breath sounds equal bilaterally. No wheezes, rales, or rhonchi. GASTROINTESTINAL: Abdomen soft, non-tender, nondistended. EXTREMITIES: No edema or joint tenderness. BACK: Nontender without deformity or crepitance. No flank tenderness. NEURO: AOx3. SKIN: No rash or erythema of visible areas Initial Vital Signs Initial Vital Signs: Vital Signs Temperature 97.2 F L 08/02/22 17:44 Pulse Rate 63 08/02/22 17:44 Respiratory Rate 18 08/02/22 17:44 Blood Pressure 146/66 H 08/02/22 17:44 Pulse Oximetry 98 08/02/22 17:44 Oxygen Delivery Method Room Air 08/02/22 17:44 Course Orders Ordered: ED Orders 08/02/22 21:53 XR acute abdomen series Stat 08/02/22 22:00 Complete Blood Count AUTO DIFF Stat Comprehensive Metabolic Panel Stat 08/02/22 23:25 COVID19 -Nasal RAPID Stat Acetaminophen (Acetaminophen 325 Mg Tablet) 650 mg PO Q6H PRN PRN Reason: Fever/Mild Pain (1-3) Heparin Sodium (Porcine) (Heparin 5,000 Unit/Ml Vial) 5,000 unit SUBCUT BID SAMSON Sodium Chloride (Normal Saline 0.9%) 1,000 mls @ 100 mls/hr IV CONT SAMSON Last Admin: 08/03/22 01:15 Dose: 100 mls/hr Documented By: DANIEL Naloxone HCl (Naloxone 0.4 Mg/Ml Vial) 0.2 mg IV Q2MIN PRN PRN Reason: Opiate Reversal Ondansetron HCl (Ondansetron 4 Mg/2 Ml Inj) 4 mg IV Q8HR PRN PRN Reason: Nausea And Vomiting Discontinued Medications Sodium Chloride (Normal Saline 0.9%) 1,000 mls @ 1,000 mls/hr IV BOLUS ONE Stop: 08/02/22 22:52 Last Infusion: 08/02/22 23:12 Dose: 0 mls/hr Documented By: Admin: 08/02/22 22:11 Dose: 1,000 mls/hr Documented By: MILTON Vital Signs Vital signs: Vital Signs - 8 hr 08/02/22 17:44 Temperature 97.2 F L Pulse Rate 63 Respiratory Rate 18 Blood Pressure 146/66 H Pulse Oximetry 98 Oxygen Delivery Method Room Air MDM - Female Genitourinary Lab Data 08/02/22 22:00 08/02/22 22:00 Labs: Lab Results 08/02/22 08/02/22 Range/Units 22:00 22:00 WBC 10.6 (4.5-11.0) X10^3/uL RBC 4.38 (4.0-5.2) X10^6/uL Hgb 14.7 (12.0-16.0) g/dL Hct 42.0 (36-46) % MCV 96.0 (80-100) fL MCH 33.6 (26-34) PG MCHC 35.0 (30-36) % RDW 12.5 (11.6-14.8) % Plt Count 304 (150-400) X10^3/uL Neut % (Auto) 75.0 (50-75) % Lymph % (Auto) 15.0 L (25-40) % [place] % (Auto) 9.2 (3-14) % Eos % (Auto) 0.3 L (2-4) % Baso % (Auto) 0.5 (0-2) % Neut # (Auto) 7900 H (0949-7336) /uL Lymph # (Auto) 1600 (9134-3754) /uL [place] # (Auto) 1000 H (0-900) /uL Eos # (Auto) 0 (0-450) /uL Baso # (Auto) 0 (0-100) /uL Sodium 125 L (137-145) mmol/L Potassium 4.2 (3.4-5.1) mmol/L Chloride 91 L (98-107) mmol/L Carbon Dioxide 27 (22-32) mmol/L BUN 8 (7-17) mg/dL Creatinine 0.62 (0.52-1.04) mg/dL Estimated GFR > 60 (>60) mL/min BUN/Creatinine Ratio 12.9 (6-22) Glucose 95 (80-110) mg/dL Calcium 7.9 L (8.4-10.2) mg/dL Total Bilirubin 0.5 (0.2-1.3) mg/dL AST 25 (14-36) IU/L ALT 26 (<35) IU/L Alkaline Phosphatase 39 (38-126) U/L Total Protein 6.6 (6.3-8.2) g/dL Albumin 4.2 (3.5-5.0) g/dL Globulin 2.4 (1.7-4.1) g/dL Albumin/Globulin Ratio 1.8 (1.0-2.8) Urine Dip Bedside Urine Glucose Negative Bedside Urine Bilirubin - Negative Bedside Urine Ketone +/- 5 Urine Specific [place] 1.010 Bedside Urine Occult Blood - Negative Bedside Urine pH 6 Bedside Urine Protein - Negative Bedside Urine Urobilinogen - Negative Bedside Urine Nitrite - Negative Bedside Urine Leukocytes - Negative Esterase MDM Narrative Medical decision making narrative: 71-year-old female slightly confused, concerned about inability to urinate has otherwise largely reassuring physical exam other than some dry mucous membranes, poor skin turgor. Heart and lungs without abnormality, abdomen is soft bowel sounds present. Labs ordered and she is found to be hyponatremic. Patient is certainly symptomatic and her dizziness, lightheadedness, shakiness and confusion most likely due to hyponatremia. Patient will need hospitalization for ongoing evaluation and stabilization. Dr. Nunes and I have discussed the clinical course and he will see patient in the ED. Discharge Plan Departure Patient Disposition: Admitted As Inpatient Clinical Impression: Acute hyponatremia Admit Date/Time: 08/02/22 23:24 Admit Provider: Monster Nunes
--- NOTE | 2022-08-02 21:53 | DI.RAD.S_ITS ---
PROCEDURE: XR ACUTE ABDOMEN SERIES INDICATIONS: Abdominal pain TECHNIQUE: One view chest and two views of the abdomen were acquired. COMPARISON: None. FINDINGS: Surgical changes and devices: None. Chest: Lungs are clear. Heart size is normal. No pleural effusions. No pneumoperitoneum. Abdomen: Bowel gas pattern is normal. No suspicious calcifications. Bones: No suspicious bony lesions. IMPRESSION: 1. No acute intra-abdominal radiographic abnormality. Dictated by: Hermes Aguilera M.D. on 08/02/2022 at 23:22 Approved by: Hermes Aguilera M.D. on 08/02/2022 at 23:22
[2022-08-02] MEDS: SODIUM CHLORIDE 0.9% 1,000 ML 1000 ML IV (22:11)
[2022-08-02 22:16] LABS: Add Manual Diff / Slide Review NO; Basophils Absolute Auto 0 /uL (0-100); Basophils Percent Auto 0.5 % (0-2); Eosinophils Absolute Auto 0 /uL (0-450); Eosinophils Percent Auto 0.3 % (2-4); Hemoglobin 14.7 g/dL (12.0-16.0); Lymphocytes Absolute Auto 1600 /uL (1100-4500); Mean Corpuscular Hemoglobin 33.6 PG (26-34); Monocytes Absolute Auto 1000 /uL (0-900); Monocytes Percent Auto 9.2 % (3-14); Neutrophils Absolute Auto 7900 /uL (1500-7000); Platelet Count 304 X10^3/uL (150-400); Red Blood Cell Count 4.38 X10^6/uL (4.0-5.2); Red Cell Distribution Width 12.5 % (11.6-14.8); White Blood Cell Count 10.6 X10^3/uL (4.5-11.0)
[2022-08-02 22:21] LABS: Alanine Aminotransferase 26 IU/L (<35); Albumin 4.2 g/dL (3.5-5.0); Albumin Globulin Ratio 1.8 (1.0-2.8); Alkaline Phosphatase 39 U/L (38-126); Aspartate Aminotransferase 25 IU/L (14-36); BUN Creatinine Ratio 12.9 (6-22); Bilirubin Total 0.5 mg/dL (0.2-1.3); Blood Urea Nitrogen 8 mg/dL (7-17); Calcium 7.9 mg/dL (8.4-10.2); Carbon Dioxide 27 mmol/L (22-32); Chloride 91 mmol/L (98-107); Estimated Glomerular Filt Rate > 60 mL/min (>60); Globulin 2.4 g/dL (1.7-4.1); Glucose 95 mg/dL (80-110); HEMOLYSIS 15 (0-50); Potassium 4.2 mmol/L (3.4-5.1); Sodium 125 mmol/L (137-145); Total Protein 6.6 g/dL (6.3-8.2)
[2022-08-02 23:49] LABS: COVID19 -Nasal RAPID Negative (Negative)
--- NOTE | 2022-08-02 23:53 | DI.CT.S_ITS ---
PROCEDURE: CT ABDOMEN PELVIS W CON INDICATIONS: abdominal discomfort, recent imaging with hydro, any change? TECHNIQUE: After the administration of IV contrast, axial sections were acquired from the lung bases to the pubic symphysis. Coronal and sagittal reformats were performed. For radiation dose reduction, the following was used: automated exposure control, adjustment of mA and/or kV according to patient size. COMPARISON: [facility], CT, CT ABDOMEN PELVIS W CON, 07/16/2022, 10:51. FINDINGS: Image quality: Excellent. Lung bases: Unremarkable. Heart: Heart is normal in size. There is a small pericardial effusion. ABDOMEN: Liver: No mass lesion. Gallbladder: Within normal limits without calcified gallstones. Biliary ducts: No biliary ductal dilatation. Pancreas: Unremarkable. Spleen: Normal in size. Adrenal Glands: No adrenal nodules. Kidneys and Ureters: There is bilateral hydronephrosis, moderate on the right and [id number] on the left, which appears slightly increased on the left. These demonstrate a transition at the ureteropelvic junction suggestive of chronic UPJ obstructions. No discrete obstructing stone or mass visualized. The ureters are nondistended. Stomach and Bowel: Stomach, small bowel loops, and colon are normal in caliber and wall thickness. Peritoneum: No abnormal intraperitoneal fluid. No free air. Ventral Wall: No hernia. Abdominal Nodes: No retroperitoneal or mesenteric adenopathy by size criteria. Vessels: Aorta and inferior vena cava are normal in size. PELVIS: Pelvic Organs: Unremarkable. Bladder: There is increased concentric bladder wall thickening.. Pelvic Nodes: No enlarged lymph nodes. Miscellaneous: No inguinal hernias are seen. Bones: Visualized osseous structures demonstrate no suspicious focal lesions. IMPRESSION: 1. Persistent bilateral hydronephrosis, including slight increase in [id number] hydronephrosis on the left. 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 No discrete obstructing stone or mass visualized. 2. Increased bladder wall thickening suggestive of a cystitis. Recommend correlation with urinalysis. Dictated by: Hermes Aguilera M.D. on 08/03/2022 at 1:28 Approved by: Hermes Aguilera M.D. on 08/03/2022 at 1:34
[2022-08-03] VITALS (7 sets, daily range): BP systolic 103–162; BP diastolic 41–67; PULSE 56–98; RESP 14–20; TEMP 36.2–36.6; O2SAT 96–99; BMI 17.9
[2022-08-03] MEDS: SODIUM CHLORIDE 0.9% 1,000 ML 100 ML IV ×3 (01:15→20:24)
--- NOTE | 2022-08-03 01:22 | PC.NURSE ---
Received patient from Ed in no distress via wheelchair. Patient awake alert and asking for something to eat. Able to walk to bathroom without assistance and UA. Patient oriented to room and family at bedside.
[2022-08-03 01:36] LABS: Creatinine Urine Random 6.1 mg/dL; Sodium Urine Random 15 mmol/L (30-90)
[2022-08-03 01:39] LABS: Appearance Urine UA CLEAR; Bilirubin Urine UA NEGATIVE (NEGATIVE); Glucose Urine UA NEGATIVE (Negative); Ketones Urine UA TRACE (NEGATIVE); Leukocyte Esterase Urine UA NEGATIVE (NEGATIVE); Nitrite Urine UA NEGATIVE (Negative); Occult Blood Urine UA NEGATIVE (Negative); Protein Urine UA NEGATIVE (Negative); Specific Gravity Urine UA <=1.005 (1.000-1.035); Urobilinogen Urine UA 0.2 E.U./dL (0.2)
[2022-08-03 01:41] LABS: Color Urine UA Straw
[2022-08-03 01:59] LABS: RBC Urine None Seen (0-5/HPF); WBC Urine None Seen (0-5/HPF)
[2022-08-03 02:00] LABS: Bacteria Urine None Seen; Culture Indicated Urine Cult Not Indicated
--- NOTE | 2022-08-03 03:15 | P.HP_ITS ---
History of Present Illness History of Present Illness Date Patient Seen: 08/03/22 Time Patient Seen: 00:30 Chief complaint: Can't urinate Narrative: Ms. Ortiz is a 71W with PMH atrial fibrillation who presents to the hospital with confusion and dehydration. She states she has had issues with her GI system since she traveled to [facility] weeks ago. She came back and initially was having diarrhea. Eventually she began to have constipation. She saw her PCP who pres cribed her laxatives. She has been taking them frequently and having diarrhea. She has been having dizziness, weakness, and feeling dehydrated. She has developed word finding difficulties and confusion. She has no fevers/chills. No cough. No vomiting. She has gas pain in her abdomen and sometimes feels bloated. In the ED workup was done, vitals notable for afebrile, heart rate in 60s, blood pressure 140s/60s, sats 98% on room air. Labs reviewed by me and notable for WBC 10.6, hgb 14.7, plts 304. Na 125, creatinine 0.62. LFTs normal. UA negative for infection. Chest xray reviewed by me and negative for infection. CT abdomen and pelvis shows persistent bilateral hydronephrosis consistent with chronic upj obstructions with notable mass or obstructing stone visualized. Thickened bladder wall also noted. [facility] Social History household members: spouse Smoking Status: Never smoker Meds Home Medications and Allergies Home Medications Medication Instructions Recorded Confirmed Type apixaban 5 mg tablet (Eliquis) 5 mg PO BID #60 tabs 02/16/21 Rx Allergies Allergy/AdvReac Type Severity Reaction Status Date / Time Sulfa (Sulfonamide Allergy Hives Verified 08/02/22 21:02 Antibiotics) Review of Systems Review of Systems Narrative: 14 systems reviewed and negative aside from what is noted in HPI Exam Vital Signs (past 8 hours): - 08/03/22 00:35 08/03/22 00:55 Temperature 97.2 F L Pulse Rate 59 L 56 L Respiratory Rate 18 20 Blood Pressure 162/67 H 150/55 H Pulse Oximetry 98 99 Oxygen Flow Rate 0 Oxygen Delivery Method Room Air Oxygen Flow Rate 0 Narrative Exam Narrative: GEN: confused, word finding difficulty HEENT: dry mucous membranes, PERRL NECK; trachea midline, no jvd PULM: clear bilaterally CV: irregular, no murmurs ABD: slightly distended, soft, no tenderness EXT; warm and well perfused with no edema NEURO: slight confusion noted, no other focal deficits noted Objective Labs 08/03/22 04:53 08/03/22 04:53 Labs: Laboratory Results - last 24 hr 08/02/22 08/02/22 08/02/22 22:00 22:00 23:25 WBC 10.6 RBC 4.38 Hgb 14.7 Hct 42.0 MCV 96.0 MCH 33.6 MCHC 35.0 RDW 12.5 Plt Count 304 Neut % (Auto) 75.0 Lymph % (Auto) 15.0 L [place] % (Auto) 9.2 Eos % (Auto) 0.3 L Baso % (Auto) 0.5 Neut # (Auto) 7900 H Lymph # (Auto) 1600 [place] # (Auto) 1000 H Eos # (Auto) 0 Baso # (Auto) 0 Sodium 125 L Potassium 4.2 Chloride 91 L Carbon Dioxide 27 BUN 8 Creatinine 0.62 Estimated GFR > 60 BUN/Creatinine Ratio 12.9 Glucose 95 Calcium 7.9 L Total Bilirubin 0.5 AST 25 ALT 26 Alkaline Phosphatase 39 Total Protein 6.6 Albumin 4.2 Globulin 2.4 Albumin/Globulin Ratio 1.8 Urine Color Urine Appearance Urine pH Ur Specific [place] Urine Protein Urine Glucose (UA) Urine Ketones Urine Occult Blood Urine Nitrate Urine Bilirubin Urine Urobilinogen Ur Leukocyte Esterase Urine RBC Urine WBC Urine Bacteria Ur Culture Indicated? Ur Random Sodium Urine Creatinine SARS-CoV-2 (PCR) Negative 08/03/22 08/03/22 01:19 01:23 WBC RBC Hgb Hct MCV MCH MCHC RDW Plt Count Neut % (Auto) Lymph % (Auto) [place] % (Auto) Eos % (Auto) Baso % (Auto) Neut # (Auto) Lymph # (Auto) [place] # (Auto) Eos # (Auto) Baso # (Auto) Sodium Potassium Chloride Carbon Dioxide BUN Creatinine Estimated GFR BUN/Creatinine Ratio Glucose Calcium Total Bilirubin AST ALT Alkaline Phosphatase Total Protein Albumin Globulin Albumin/Globulin Ratio Urine Color Straw Urine Appearance Clear Urine pH 7.0 Ur Specific [place] <=1.005 Urine Protein Negative Urine Glucose (UA) Negative Urine Ketones Trace H Urine Occult Blood Negative Urine Nitrate Negative Urine Bilirubin Negative Urine Urobilinogen 0.2 Ur Leukocyte Esterase Negative Urine RBC None seen Urine WBC None seen Urine Bacteria None seen Ur Culture Indicated? Cult not indicated Ur Random Sodium 15 L Urine Creatinine 6.1 SARS-CoV-2 (PCR) Assessment & Plan Assessment & Plan narrative: 1. Acute hyponatremia with encephalopathy -labs notable for na of 125, with last sodium less than 3 weeks ago was 138 -urine sodium low, unlikely to be siadh -etiology most likely secondary to laxative use -stop laxatives -continue gentle iv fluid resuscitation -check sodium in AM 2. Constipation -etiolgoy not clear -has been having diarrhea with laxatives 3. Hydronephrosis -chronic on her imaging -may be related to her abdominal symptoms -UA fairly unremarkale -also has thick urinary bladder wall -will probably benefit from follow up with urology, possibly with outpatient referral 4. Atrial fibrillation -rate is currently controlled -continue eliquis I have discussed plan and obtained history from patient and . I have discussed plan of care with ED physician and bedside nurse. I have reviewed labs and imaging CODE: Full Proxy: Pee Dhaliwalt, Quality VTE Deep Vein Thrombosis/Pulmonary Embolism Present on Admission: No [facility] - Meds 'Current medications' to include all prescriptions, [id number] products, herbals, cannabis/cannabidiol products, and vitamin/mineral/dietary (nutritional) supplements. I have utilized all available resources to obtain, update, or review the patient?s current medications. [If Yes, STOP here]: Yes
[2022-08-03 05:51] LABS: Add Manual Diff / Slide Review NO; Basophils Absolute Auto 100 /uL (0-100); Basophils Percent Auto 0.7 % (0-2); Eosinophils Absolute Auto 0 /uL (0-450); Eosinophils Percent Auto 0.2 % (2-4); Hematocrit 40.1 % (36-46); Hemoglobin 13.6 g/dL (12.0-16.0); Lymphocytes Absolute Auto 1200 /uL (1100-4500); Lymphocytes Percent Auto 9.5 % (25-40); Mean Corpuscular HGB Conc 33.8 % (30-36); Mean Corpuscular Hemoglobin 32.9 PG (26-34); Mean Corpuscular Volume 97.3 fL (80-100); Monocytes Absolute Auto 1300 /uL (0-900); Monocytes Percent Auto 10.2 % (3-14); Neutrophils Absolute Auto 9900 /uL (1500-7000); Neutrophils Percent Auto 79.4 % (50-75); Platelet Count 295 X10^3/uL (150-400); Red Blood Cell Count 4.12 X10^6/uL (4.0-5.2); Red Cell Distribution Width 12.4 % (11.6-14.8); White Blood Cell Count 12.5 X10^3/uL (4.5-11.0)
[2022-08-03 06:12] LABS: BUN Creatinine Ratio 10.6 (6-22); Blood Urea Nitrogen 7 mg/dL (7-17); Calcium 7.7 mg/dL (8.4-10.2); Carbon Dioxide 28 mmol/L (22-32); Chloride 103 mmol/L (98-107); Estimated Glomerular Filt Rate > 60 mL/min (>60); Glucose 112 mg/dL (80-110); HEMOLYSIS < 15 (0-50); Potassium 4.3 mmol/L (3.4-5.1); Sodium 135 mmol/L (137-145)
[2022-08-03] MEDS: APIXABAN 5 MG TABLET PO ×2 (10:11→20:20)
--- NOTE | 2022-08-03 10:36 | CM.DANOTE ---
Initial Discharge Assessment Note: Case reviewed, met with patient. Introduced self and role. Payer: Yuliana Soares and self pay PCP: Sergio Hardwick 71 year old female admitted yesterday for constipation/diarrhea. On imaging a mass/obstruction in kidney observed. Patient sitting up in bed, talkative, alert and oriented, in no apparent distress. Patient lives with spouse in [place] and is independent. She and spouse Pee were recently in [place] and she thinks this is where her troubles started. Plan: When medically cleared, return home to previous living arrangement. MASSIEL Discharge Planning/Care Management CM Discharge Assessment Start: 08/03/22 09:39 Freq: Status: Active Protocol: Document 08/03/22 09:39 (Rec: 08/03/22 10:35 [id number]) Discharge Planning Assessment Assigned Rn Birthing Maggie Reza RN/DCP Advance Directives? Yes Advance Directives on File Yes History Provided By Patient Prior Living Arrangements House Household Members spouse Type of transporation used prior to Drives own vehicle admit Independent with ADL's Yes Is patient alert and oriented? Yes Caregiver for Another No Discharge Plan Home Review Status In Process Next Review Type Continued Stay Review
[2022-08-03] MEDS: ACETAMINOPHEN 325 MG TABLET 650 MG PO (12:41)
--- NOTE | 2022-08-03 13:13 | PM.PN.1 ---
Subjective Subjective Interval history: Feeling slightly better but frustrated with being sick. Still has a generally not well feeling stomach but no real pain. Loose stools have subsided mostly/ Exam Vital Signs (past 8 hours): - 08/03/22 06:00 08/03/22 07:00 Temperature 97.8 F Pulse Rate 57 L Respiratory Rate 16 Blood Pressure 103/41 L Pulse Oximetry 97 96 Oxygen Delivery Method Room Air Oxygen Flow Rate 0 Oxygen Delivery Method Room Air Oxygen Flow Rate 0 Narrative Exam Narrative: GEN: In no acute medical distress HEENT: most mucous membranes, PERRL NECK; trachea midline, no jvd PULM: clear bilaterally CV: irregular, no murmurs ABD: soft, no tenderness, bowel sounds normal EXT; warm and well perfused with no edema NEURO: Currently no confusion, no other focal deficits noted Objective Labs 08/03/22 04:53 08/03/22 04:53 Labs: Laboratory Results - last 24 hr 08/02/22 08/02/22 08/02/22 22:00 22:00 23:25 WBC 10.6 RBC 4.38 Hgb 14.7 Hct 42.0 MCV 96.0 MCH 33.6 MCHC 35.0 RDW 12.5 Plt Count 304 Neut % (Auto) 75.0 Lymph % (Auto) 15.0 L [place] % (Auto) 9.2 Eos % (Auto) 0.3 L Baso % (Auto) 0.5 Neut # (Auto) 7900 H Lymph # (Auto) 1600 [place] # (Auto) 1000 H Eos # (Auto) 0 Baso # (Auto) 0 Sodium 125 L Potassium 4.2 Chloride 91 L Carbon Dioxide 27 BUN 8 Creatinine 0.62 Estimated GFR > 60 BUN/Creatinine Ratio 12.9 Glucose 95 Calcium 7.9 L Total Bilirubin 0.5 AST 25 ALT 26 Alkaline Phosphatase 39 Total Protein 6.6 Albumin 4.2 Globulin 2.4 Albumin/Globulin Ratio 1.8 Urine Color Urine Appearance Urine pH Ur Specific [place] Urine Protein Urine Glucose (UA) Urine Ketones Urine Occult Blood Urine Nitrate Urine Bilirubin Urine Urobilinogen Ur Leukocyte Esterase Urine RBC Urine WBC Urine Bacteria Ur Culture Indicated? Ur Random Sodium Urine Creatinine SARS-CoV-2 (PCR) Negative 08/03/22 08/03/22 08/03/22 01:19 01:23 04:53 WBC 12.5 H RBC 4.12 Hgb 13.6 Hct 40.1 MCV 97.3 MCH 32.9 MCHC 33.8 RDW 12.4 Plt Count 295 Neut % (Auto) 79.4 H Lymph % (Auto) 9.5 L [place] % (Auto) 10.2 Eos % (Auto) 0.2 L Baso % (Auto) 0.7 Neut # (Auto) 9900 H Lymph # (Auto) 1200 [place] # (Auto) 1300 H Eos # (Auto) 0 Baso # (Auto) 100 Sodium Potassium Chloride Carbon Dioxide BUN Creatinine Estimated GFR BUN/Creatinine Ratio Glucose Calcium Total Bilirubin AST ALT Alkaline Phosphatase Total Protein Albumin Globulin Albumin/Globulin Ratio Urine Color Straw Urine Appearance Clear Urine pH 7.0 Ur Specific [place] <=1.005 Urine Protein Negative Urine Glucose (UA) Negative Urine Ketones Trace H Urine Occult Blood Negative Urine Nitrate Negative Urine Bilirubin Negative Urine Urobilinogen 0.2 Ur Leukocyte Esterase Negative Urine RBC None seen Urine WBC None seen Urine Bacteria None seen Ur Culture Indicated? Cult not indicated Ur Random Sodium 15 L Urine Creatinine 6.1 SARS-CoV-2 (PCR) 08/03/22 04:53 WBC RBC Hgb Hct MCV MCH MCHC RDW Plt Count Neut % (Auto) Lymph % (Auto) [place] % (Auto) Eos % (Auto) Baso % (Auto) Neut # (Auto) Lymph # (Auto) [place] # (Auto) Eos # (Auto) Baso # (Auto) Sodium 135 L D Potassium 4.3 Chloride 103 Carbon Dioxide 28 BUN 7 Creatinine 0.66 Estimated GFR > 60 BUN/Creatinine Ratio 10.6 Glucose 112 H Calcium 7.7 L Total Bilirubin AST ALT Alkaline Phosphatase Total Protein Albumin Globulin Albumin/Globulin Ratio Urine Color Urine Appearance Urine pH Ur Specific [place] Urine Protein Urine Glucose (UA) Urine Ketones Urine Occult Blood Urine Nitrate Urine Bilirubin Urine Urobilinogen Ur Leukocyte Esterase Urine RBC Urine WBC Urine Bacteria Ur Culture Indicated? Ur Random Sodium Urine Creatinine SARS-CoV-2 (PCR) [facility] Social History household members: spouse Smoking Status: Never smoker Assessment & Plan Assessment & Plan narrative: 1. Acute hyponatremia with encephalopathy -labs notable for na of 125, with last sodium less than 3 weeks ago was 138, today improved to 135 -urine sodium low, unlikely to be siadh -etiology most likely secondary to laxative use (Miralax, which patient normally uses) -stopped laxatives on admission -continue gentle iv fluid resuscitation -check sodium in AM, continue 2. Constipation -etiolgoy not clear, was treating with MiraLax -has been having diarrhea with laxatives 3. Hydronephrosis -chronic on her imaging -may be related to her abdominal symptoms -UA fairly unremarkale -also has thick urinary bladder wall -will probably benefit from follow up with urology, possibly with outpatient referral 4. Atrial fibrillation -rate is currently controlled -continue eliquis 5. Leukocytosis -this is new today since admission -follow tomorrow and obtain urinalysis/urine culture if indicated. With diarrhea there is a significant increase in urinary tract infection. Follow labs and patient clinically. DVT prophylaxis: Patient is on Eliquis CODE: Full Proxy: Pee Ortiz, Quality VTE Deep Vein Thrombosis/Pulmonary Embolism Present on Admission: No
[2022-08-03 18:07] LABS: Appearance Urine UA CLEAR; Bilirubin Urine UA NEGATIVE (NEGATIVE); Color Urine UA YELLOW; Glucose Urine UA NEGATIVE (Negative); Ketones Urine UA NEGATIVE (NEGATIVE); Leukocyte Esterase Urine UA TRACE (NEGATIVE); Nitrite Urine UA NEGATIVE (Negative); Occult Blood Urine UA NEGATIVE (Negative); Protein Urine UA NEGATIVE (Negative)
[2022-08-03 18:29] LABS: Bacteria Urine None Seen; Culture Indicated Urine Cult Not Indicated; Mucus Urine 1+ (Negative); RBC Urine None Seen (0-5/HPF); WBC Urine 0-1/HPF (0-5/HPF)
[2022-08-03] MEDS: SIMETHICONE 80 MG TABLET PO (21:38)
[2022-08-04] VITALS: BP 128/55; PULSE 49; RESP 14; TEMP 36.6; O2SAT 97
[2022-08-04 05:12] LABS: Add Manual Diff / Slide Review NO; Basophils Absolute Auto 100 /uL (0-100); Basophils Percent Auto 1.2 % (0-2); Eosinophils Absolute Auto 100 /uL (0-450); Eosinophils Percent Auto 0.8 % (2-4); Hematocrit 36.7 % (36-46); Hemoglobin 12.6 g/dL (12.0-16.0); Lymphocytes Absolute Auto 1300 /uL (1100-4500); Lymphocytes Percent Auto 15.3 % (25-40); Mean Corpuscular HGB Conc 34.4 % (30-36); Mean Corpuscular Hemoglobin 33.4 PG (26-34); Mean Corpuscular Volume 97.1 fL (80-100); Monocytes Absolute Auto 900 /uL (0-900); Monocytes Percent Auto 11.1 % (3-14); Neutrophils Absolute Auto 6000 /uL (1500-7000); Neutrophils Percent Auto 71.6 % (50-75); Platelet Count 244 X10^3/uL (150-400); Red Blood Cell Count 3.78 X10^6/uL (4.0-5.2); Red Cell Distribution Width 12.5 % (11.6-14.8); White Blood Cell Count 8.3 X10^3/uL (4.5-11.0)
[2022-08-04 05:14] LABS: BUN Creatinine Ratio 13.6 (6-22); Blood Urea Nitrogen 8 mg/dL (7-17); Calcium 7.4 mg/dL (8.4-10.2); Carbon Dioxide 24 mmol/L (22-32); Chloride 109 mmol/L (98-107); Estimated Glomerular Filt Rate > 60 mL/min (>60); Glucose 83 mg/dL (80-110); HEMOLYSIS < 15 (0-50); Sodium 136 mmol/L (137-145)
[2022-08-04] MEDS: SODIUM CHLORIDE 0.9% 1,000 ML 100 ML IV (05:31)
[2022-08-04] MEDS: SIMETHICONE 80 MG TABLET PO ×2 (05:33→20:50)
[2022-08-04 06:00] VITALS: BP 114/51; PULSE 50; RESP 15; TEMP 36.2; O2SAT 100
[2022-08-04 07:00] VITALS: O2SAT 97
[2022-08-04] MEDS: CALCIUM GLUCONATE 4.65 MEQ in SODIUM CHLORIDE 0.9% 50 ML 180 MEQ IV (07:53)
[2022-08-04 08:05] VITALS: BP 121/53; PULSE 54; RESP 22; TEMP 36.2; O2SAT 97
[2022-08-04] MEDS: APIXABAN 5 MG TABLET PO ×2 (09:18→20:50)
--- NOTE | 2022-08-04 12:21 | CM.DPNOTE ---
Discharge Planning Note: Patient improving, tests are pending. Spouse visiting. Possible dc? Plan: When medically cleared, dc home to care of who will transport. Maggie Reza RN/DCP
--- NOTE | 2022-08-04 14:33 | P.PN_ITS ---
Subjective Subjective Interval history: Feeling somewhat better today with clear mind. How has ever is c oncerned that over the last couple of months she has had intermittent confusion. Wonders if related to intermittent hypo natremia and what could cause this. Discussed the various causes with the patient and in regards to hyponatremia. We will assess the patient for type 2 diabetes with a hemoglobin A1c to see if patient intermittently has had hyperglycemia as a cause of hyponatremia. Also patient complaining of intestinal gas and significant abdominal pain in regards to this. Exam Vital Signs (past 8 hours): - 08/04/22 08:05 08/04/22 07:00 Temperature 97.2 F L Pulse Rate 54 L Respiratory Rate 22 Blood Pressure 121/53 L Pulse Oximetry 97 97 Oxygen Delivery Method Room Air Oxygen Flow Rate 0 Oxygen Delivery Method Room Air Oxygen Flow Rate 0 Narrative Exam Narrative: GEN:? In no acute medical distress HEENT: most mucous membranes, PERRL NECK; trachea midline, no jvd PULM: clear bilaterally CV: irregular, no murmurs ABD:? soft, no tenderness, bowel sounds hyperactive EXT; warm and well perfused with no edema NEURO:? Currently no confusion, no other focal deficits noted Objective Labs 08/04/22 04:43 08/04/22 04:43 Labs: Laboratory Results - last 24 hr 08/03/22 08/04/22 08/04/22 18:00 04:43 04:43 WBC 8.3 RBC 3.78 L Hgb 12.6 Hct 36.7 MCV 97.1 MCH 33.4 MCHC 34.4 RDW 12.5 Plt Count 244 Neut % (Auto) 71.6 Lymph % (Auto) 15.[address] [place] % (Auto) 11.1 Eos % (Auto) 0.8 L Baso % (Auto) 1.2 Neut # (Auto) 6000 Lymph # (Auto) 1300 [place] # (Auto) 900 Eos # (Auto) 100 Baso # (Auto) 100 Sodium 136 L Potassium 4.0 Chloride 109 H Carbon Dioxide 24 BUN 8 Creatinine 0.59 Estimated GFR > 60 BUN/Creatinine Ratio 13.6 Glucose 83 Calcium 7.4 L Urine Color Yellow Urine Appearance Clear Urine pH 7.0 Ur Specific [place] 1.020 Urine Protein Negative Urine Glucose (UA) Negative Urine Ketones Negative Urine Occult Blood Negative Urine Nitrate Negative Urine Bilirubin Negative Urine Urobilinogen 1.0 Ur Leukocyte Esterase Trace H Urine RBC None seen Urine WBC 0-1/hpf Urine Bacteria None seen Urine Mucus 1+ H Ur Culture Indicated? Cult not indicated PFSH Social History household members: spouse Smoking Status: Never smoker Assessment & Plan Assessment & Plan narrative: 1. Acute hyponatremia with encephalopathy -labs notable for na of 125, with last sodium less than 3 weeks ago was 138, today improved to 136 -urine sodium low, unlikely to be siadh improvement with intravenous fluids. -etiology most likely secondary to laxative use (Miralax, which patient normally uses) -stopped laxatives on admission -continue gentle iv fluid resuscitation -check sodium in AM, continue -hemoglobin A1c pending in regards to potential cause of hyponatremia 2. Constipation -etiolgoy not clear, was treating with MiraLax -has been having diarrhea with laxatives -still episode of loose stools this morning and then a formed stool. Continue to monitor. -plain film x-ray of abdomen today to assess for persistent fecal loading 3. Hydronephrosis -chronic on her imaging -may be related to her abdominal symptoms -UA fairly unremarkale -also has thick urinary bladder wall -will probably benefit from follow up with urology, possibly with outpatient referral -on discharge we will refer to Urology. -intermittent constipation may be the cause of her hydronephrosis. We will obtain a abdominal plain films today to assess for fecal loading. 4. Atrial fibrillation -rate is currently controlled -continue eliquis 5. Leukocytosis -this is new today since admission -follow tomorrow and obtain urinalysis/urine culture if indicated.? Urinalysis yesterday not indicative of doing the urine culture. Leukocytosis resolved today. 6. Hypocalcemia -intravenous replacement today and follow 7. Intestinal gas with cramping -dicyclomine 20 mg p.o. q.6H as needed Follow labs and patient clinically. DVT prophylaxis:? Patient is on Eliquis CODE: Full Proxy: Pee Ortiz, Quality VTE Deep Vein Thrombosis/Pulmonary Embolism Present on Admission: No
--- NOTE | 2022-08-04 14:44 | DI.RAD.S_ITS ---
PROCEDURE: XR ABDOMEN 3V INDICATIONS: Assess for fecal loading TECHNIQUE: One view chest and two views of the abdomen were acquired. COMPARISON: None. FINDINGS: Surgical changes and devices: None. Chest: Lungs are clear. Heart size is normal. No pleural effusions. No pneumoperitoneum. Abdomen: Bowel gas pattern is normal. No suspicious calcifications. Visualized solid organ contours appear normal. Moderate stool. Bones: No suspicious bony lesions. Spondylitic changes of the lumbosacral junction. IMPRESSION: Moderate stool. Dictated by: Sergio Leslie M.D. on 08/04/2022 at 14:53 Approved by: Sergio Leslie M.D. on 08/04/2022 at 14:54
[2022-08-04] MEDS: DICYCLOMINE 10 MG CAPSULE 20 MG PO (16:17)
[2022-08-04 19:00] VITALS: O2SAT 100
[2022-08-04 21:00] VITALS: BP 148/56; PULSE 58; RESP 19; TEMP 36.3; O2SAT 100
[2022-08-05] VITALS: BP 133/58; PULSE 61; RESP 15; TEMP 36.2; O2SAT 98
[2022-08-05 05:37] LABS: Add Manual Diff / Slide Review NO; Basophils Absolute Auto 100 /uL (0-100); Basophils Percent Auto 1.3 % (0-2); Eosinophils Absolute Auto 100 /uL (0-450); Hematocrit 39.5 % (36-46); Hemoglobin 13.6 g/dL (12.0-16.0); Lymphocytes Absolute Auto 1500 /uL (1100-4500); Lymphocytes Percent Auto 18.5 % (25-40); Mean Corpuscular HGB Conc 34.3 % (30-36); Mean Corpuscular Hemoglobin 33.1 PG (26-34); Mean Corpuscular Volume 96.5 fL (80-100); Monocytes Absolute Auto 800 /uL (0-900); Monocytes Percent Auto 9.4 % (3-14); Neutrophils Absolute Auto 5600 /uL (1500-7000); Neutrophils Percent Auto 69.8 % (50-75); Platelet Count 257 X10^3/uL (150-400); Red Blood Cell Count 4.09 X10^6/uL (4.0-5.2); Red Cell Distribution Width 12.7 % (11.6-14.8)
[2022-08-05 06:00] VITALS: BP 142/62; PULSE 51; RESP 15; TEMP 36.3; O2SAT 99
[2022-08-05 06:01] LABS: BUN Creatinine Ratio 12.1 (6-22); Blood Urea Nitrogen 7 mg/dL (7-17); Calcium 8.2 mg/dL (8.4-10.2); Carbon Dioxide 27 mmol/L (22-32); Chloride 106 mmol/L (98-107); Estimated Glomerular Filt Rate > 60 mL/min (>60); Glucose 73 mg/dL (80-110); HEMOLYSIS < 15 (0-50); Potassium 3.8 mmol/L (3.4-5.1); Sodium 138 mmol/L (137-145)
[2022-08-05 07:00] VITALS: O2SAT 99
[2022-08-05 08:00] VITALS: BP 124/59; PULSE 65; RESP 17; TEMP 36.6; O2SAT 100
[2022-08-05] MEDS: APIXABAN 5 MG TABLET PO (08:40)
[2022-08-05] MEDS: SIMETHICONE 80 MG TABLET PO (08:44)
--- NOTE | 2022-08-05 11:27 | CM.DPC ---
DCP/continued: Reviewed EMR, per provider in AM rounds patient will be discharged today without any d/c planning needs. P: Home. GUMARO
--- NOTE | 2022-08-05 12:31 | PC.NURSE ---
Discharge Note Patient A&O, VSS, RA, no complaints of pain/discomfort. Patient agreeable to discharge plan. Discharge packet reviewed with patient all questions/concerns addressed. PIV/tele discontinued. Patient able to dress self and pack all belongings. Patient taken down via wheelchair to POV accompanied by .
--- NOTE | 2022-08-05 18:34 | PM.DS.1 ---
History of Present Illness History of Present Illness Date Patient Seen: 08/05/22 Chief complaint: Can't urinate Discharge Providers Provider Date of admission: 08/02/22 23:24 Discharge Date: 08/05/22 Primary care physician: Sergio Hardwick MD Consults: 08/03/22 01:06 Consult to Dietitian, Adult Routine Comment: Reason For Exam: food intake Discharge provider: Nickie Rodriguez MD Summary Hospital Course Discharge Diagnosis: Metabolic encephalopathy secondary to hyponatremia Constipation Hydronephrosis Atrial fibrillation Leukocytosis Hypocalcemia Intestinal gas with cramping Hospital Course: Ms. Ortiz is a 71W with PMH atrial fibrillation who presented to the hospital with confusion and dehydration. She states she has had issues with her GI system since she traveled to [place] weeks ago. She came back and initially was having diarrhea. Eventually she began to have constipation. She saw her PCP who prescribed her laxatives. She has been taking them frequently and having diarrhea. She has been having dizziness, weakness, and feeling dehydrated. She has developed word finding difficulties and confusion. She has no fevers/chills. No cough. No vomiting. She has gas pain in her abdomen and sometimes feels bloated. In the ED workup was done, vitals notable for afebrile, heart rate in 60s, blood pressure 140s/60s, sats 98% on room air. Labs reviewed by me and notable for WBC 10.6, hgb 14.7, plts 304. Na 125, creatinine 0.62. LFTs normal. UA negative for infection. Chest xray was negative for infection. CT abdomen and pelvis shows persistent bilateral hydronephrosis consistent with chronic upj obstructions the need to be further assessed with urological workup. Thickened bladder wall also noted. Patient continued to have significant fecal loading despite having repeated loose stools. She needs to continue on Mirapex program and only skip a daily noon dose if she has watery stools in the morning. She likely is chronically constipated and this was exacerbated in [place]. Her chronic constipation may be contributing to her hydronephrosis. This will be evaluated by a urologist as an outpatient. It was thought that her hyponatremia likely was secondary to decreased fluid intake however possible intermittent hyperglycemia was a possibility as well. To this determine this, hemoglobin A1c was ordered however the machine was not available for result on an urgent basis and therefore could not be assessed. Interestingly the patient did have a hypoglycemic blood tests on the morning of discharge and therefore it is highly unlikely that the patient has undiagnosed type 2 diabetes or and chronic hyperglycemia. With noted hypocalcemia the patient was given replacement and this improved during the hospital stay. Goal and discharges with the patient to have regular bowel movements without remaining fecal loading chronically and to have the bilateral hydronephrosis assessed by a urologist. Status at Discharge Cognitive/behavioral status at discharge: oriented Functional status at discharge: independent ambulation Overall status at discharge: patient is back to baseline Time Spent with Patient Time spent: Greater than 30 minutes Exam Vital Signs (past 8 hours): Oxygen Delivery Method Room Air Oxygen Flow Rate 0 Narrative Exam Narrative: GEN:? In no acute medical distress HEENT: most mucous membranes, PERRL NECK; trachea midline, no jvd PULM: clear bilaterally CV: irregular, no murmurs ABD:? soft, no tenderness, bowel sounds hyperactive EXT; warm and well perfused with no edema NEURO:? Currently no confusion, no other focal deficits noted Objective Labs 08/05/22 04:51 08/05/22 04:51 Labs: Laboratory Results - last 24 hr 08/05/22 08/05/22 04:51 04:51 WBC 8.0 RBC 4.09 Hgb 13.6 Hct 39.5 MCV 96.5 MCH 33.1 MCHC 34.3 RDW 12.7 Plt Count 257 Neut % (Auto) 69.8 Lymph % (Auto) 18.5 L [place] % (Auto) 9.4 Eos % (Auto) 1.0 L Baso % (Auto) 1.3 Neut # (Auto) 5600 Lymph # (Auto) 1500 [place] # (Auto) 800 Eos # (Auto) 100 Baso # (Auto) 100 Sodium 138 Potassium 3.8 Chloride 106 Carbon Dioxide 27 BUN 7 Creatinine 0.58 Estimated GFR > 60 BUN/Creatinine Ratio 12.1 Glucose 73 L Calcium 8.2 L PFSH Social History household members: spouse Smoking Status: Never smoker Discharge Plan Discharge Plan Patient Disposition: Home Discharge orders & Medications Prescriptions: New dicyclomine 10 mg Capsule 20 mg PO Q6HR Qty: 30 0RF simethicone [Gas Relief 80 (simethicone)] 80 mg Tablet,Chewable 80 mg PO QID PRN (Reason: Flatulence) Qty: 30 0RF Continued Eliquis 5 mg tablet 5 mg PO BID Qty: 60 0RF Follow up/Referrals: Sergio Hardwick MD [Primary Care Provider] - Visit Report/Discharge Packet Stand Alone Forms: Patient Portal/API, Stroke Signs & Symptoms Discharge Data Primary Care Provider: Sergio Hardwick Discharges patient from system. Discharge Date/Time: 08/05/22 12:30 Quality VTE Deep Vein Thrombosis/Pulmonary Embolism Present on Admission: No
[2022-08-06 08:10] LABS: x Labcorp Estim. Avg Glu (eAG) 108 mg/dL (.); x Labcorp Hemoglobin A1c 5.4 % (4.8-5.6)
== END 2022-08-05 12:30 | disposition home or self-care (01) | DRG 640 ==
LOC: ED 23:15 → AC 23:25
PROVIDERS: Neuromusculoskeletal Medicine, Sports Medicine; Admitting Provider Internal Medicine; Emergency Provider Emergency Medicine; PCP Internal Medicine Critical Care Medicine; Referring Provider Emergency Medicine; Visit Provider Internal Medicine
DX: E87.1 Hypo-osmolality and hyponatremia (principal); G93.41 Metabolic encephalopathy; N13.30 Unspecified hydronephrosis; K59.00 Constipation, unspecified; I48.91 Unspecified atrial fibrillation; E83.51 Hypocalcemia; R14.1 Gas pain; Z20.822 Contact with and (suspected) exposure to COVID-19; Z79.01 Long term (current) use of anticoagulants
CPT/HCPCS: 36415; 51798; 74021; 74022; 74177; 80048; 80053; 81001; 81003; 82570; 83036; 84300; 85025; 87635; 99284; C9803; J0612; Q9967

== ENCOUNTER → 2022-08-19 11:48 | Outpatient (CLI) | payer MEDICARE, SELFPAY ==
[2022-08-03 00:48] VITALS: BMI 17.9
[2022-08-19 13:01] LABS: Add Manual Diff / Slide Review NO; Basophils Absolute Auto 100 /uL (0-100); Basophils Percent Auto 0.9 % (0-2); Eosinophils Absolute Auto 100 /uL (0-450); Eosinophils Percent Auto 0.5 % (2-4); Hematocrit 42.2 % (36-46); Hemoglobin 14.3 g/dL (12.0-16.0); Lymphocytes Absolute Auto 900 /uL (1100-4500); Mean Corpuscular Hemoglobin 33.3 PG (26-34); Monocytes Absolute Auto 1000 /uL (0-900); Monocytes Percent Auto 9.9 % (3-14); Neutrophils Absolute Auto 8100 /uL (1500-7000); Neutrophils Percent Auto 79.7 % (50-75); Platelet Count 315 X10^3/uL (150-400); Red Cell Distribution Width 12.8 % (11.6-14.8); White Blood Cell Count 10.2 X10^3/uL (4.5-11.0)
[2022-08-19 13:20] LABS: BUN Creatinine Ratio 14.3 (6-22); Blood Urea Nitrogen 12 mg/dL (7-17); Carbon Dioxide 31 mmol/L (22-32); Chloride 96 mmol/L (98-107); Estimated Glomerular Filt Rate > 60 mL/min (>60); Glucose 82 mg/dL (80-110); HEMOLYSIS < 15 (0-50); Potassium 4.9 mmol/L (3.4-5.1); Sodium 132 mmol/L (137-145)
== END ==
PROVIDERS: PCP Family Medicine; Referring Provider Family Medicine; Visit Provider Family Medicine
DX: E87.1 Hypo-osmolality and hyponatremia (principal); N13.30 Unspecified hydronephrosis; K59.00 Constipation, unspecified; P76.1 Transitory ileus of newborn
CPT/HCPCS: 36415; 80048; 85025

== ENCOUNTER 2022-08-27 08:44 | Emergency (ER) | payer MEDICARE, SELFPAY ==
[2022-08-03 00:48] VITALS: BMI 17.9
[2022-08-27] VITALS (28 sets, daily range): BP systolic 124–147; BP diastolic 56–73; PULSE 58–76; RESP 17–24; TEMP 36.6; O2SAT 95–100; BMI 16.2
[2022-08-27 09:18] LABS: Add Manual Diff / Slide Review NO; Basophils Absolute Auto 0 /uL (0-100); Basophils Percent Auto 0.5 % (0-2); Eosinophils Absolute Auto 0 /uL (0-450); Eosinophils Percent Auto 0.2 % (2-4); Hematocrit 43.3 % (36-46); Hemoglobin 14.8 g/dL (12.0-16.0); Lymphocytes Absolute Auto 1100 /uL (1100-4500); Lymphocytes Percent Auto 10.7 % (25-40); Mean Corpuscular Hemoglobin 32.9 PG (26-34); Mean Corpuscular Volume 96.8 fL (80-100); Monocytes Absolute Auto 1000 /uL (0-900); Monocytes Percent Auto 9.7 % (3-14); Neutrophils Absolute Auto 7900 /uL (1500-7000); Neutrophils Percent Auto 78.9 % (50-75); Platelet Count 326 X10^3/uL (150-400); Red Blood Cell Count 4.48 X10^6/uL (4.0-5.2); Red Cell Distribution Width 12.7 % (11.6-14.8)
--- NOTE | 2022-08-27 09:31 | ED.WEAKNESS ---
HPI - Weakness General Chief complaint: Weakness Stated complaint: weak/loosing weight/lightheaded Time Seen by Provider: 08/27/22 09:05 Source: patient and family Mode of arrival: Ambulatory History of Present Illness HPI Narrative: Patient brought here from home by for complaints of generalized malaise weakness decreased appetite and weight loss. Three months ago she weighed 96 lb. Currently she is 86.5 lb this morning. Patient was admitted here August 02, 2022 for hyponatremia. Patient has progressively gotten more weak in the past 1 week with similar symptoms earlier this month. Patient states she did feel better after leaving the hospital earlier this month. CT scan imaging did show some chronic bilateral hydronephrosis. She states she is getting ultrasound outpatient for continued workup. Good variation denies any pain chest pain abdominal pain back pain. No fever chills. No night sweats. CT abdomen pelvis was done last admission here August 02, 2022. Denies any urinary complaints. No known history of cancer. Related Data Previous Rx's Medication Instructions Recorded apixaban 5 mg tablet (Eliquis) 5 mg PO BID #60 tabs 02/16/21 dicyclomine 10 mg capsule 20 mg PO Q6HR #30 caps 08/05/22 simethicone 80 mg chewable tablet 80 mg PO QID PRN Flatulence #30 08/05/22 (Gas Relief 80 (simethicone)) tabs metronidazole 250 mg tablet 250 mg PO TID #15 tabs 08/27/22 Allergies Allergy/AdvReac Type Severity Reaction Status Date / Time Sulfa (Sulfonamide Allergy Hives Verified 08/02/22 21:02 Antibiotics) Review of Systems Review of Systems Narrative: GENERAL: negative chills, positive fatigue, malaise, weight loss, negative fever, sweats. HEENT: negative sinus pain, ear pain, sore throat RESPIRATORY: negative dyspnea, cough CARDIOVASCULAR: negative chest pain, palpitations GASTROINTESTINAL: negative nausea, vomiting, abdominal pain : negative dysuria, frequency, hematuria MUSCULOSKELETAL: negative muscle or bony pain SKIN: negative rash, skin lesions NEUROLOGIC: negative weakness, numbness ROS Unobtainable: All systems reviewed & are unremarkable except as noted in HPI and below Patient History Social History household members: spouse Smoking Status: Never smoker Smoking Status: Never smoker alcohol intake frequency: a few times a week Alcohol type: wine Substance Use Type: does not use Exam Narrative Exam Narrative: GENERAL: in no distress, not toxic not dyspneic, patient is emaciated appearing HEAD: Normocephalic. EYES: Pupils equal round ENT: Mucous membranes moist. NECK: Trachea midline. CARDIOVASCULAR: Regular rate and rhythm without murmurs RESPIRATORY: Clear to auscultation. Breath sounds equal bilaterally. No wheezes, rales, or rhonchi. GASTROINTESTINAL: Abdomen soft, non-tender abdomen is soft flat nontender no peritoneal signs bowel sounds are present. EXTREMITIES: No gross deformities. BACK: No flank tenderness. NEURO: AOx4. SKIN: Warm and dry PSYCH: Not anxious, is cooperative Initial Vital Signs Initial Vital Signs: Vital Signs Temperature 97.9 F 08/27/22 08:51 Pulse Rate 67 08/27/22 08:51 Respiratory Rate 18 08/27/22 08:51 Blood Pressure 140/67 08/27/22 08:51 Pulse Oximetry 99 08/27/22 08:51 Oxygen Delivery Method Room Air 08/27/22 08:51 Course Orders Ordered: Discontinued Medications Sodium Chloride (Normal Saline 0.9%) 500 mls @ 1,000 mls/hr IV BOLUS ONE Stop: 08/27/22 10:00 Last Infusion: 08/27/22 10:36 Dose: 0 mls/hr Documented By: Admin: 08/27/22 09:35 Dose: 1,000 mls/hr Documented By: JL Sodium Chloride (Normal Saline 0.9%) 500 mls @ 1,000 mls/hr IV BOLUS ONE Stop: 08/27/22 11:39 Last Infusion: 08/27/22 12:45 Dose: 0 mls/hr Documented By: Admin: 08/27/22 11:22 Dose: 1,000 mls/hr Documented By: RB Metronidazole (Metronidazole 500 Mg Tablet) 250 mg PO NOW ONE Stop: 08/27/22 16:01 Last Admin: 08/27/22 16:27 Dose: 250 mg Documented By: FARHAD Vital Signs Vital signs: Vital Signs - 8 hr 08/27/22 10:30 08/27/22 10:30 08/27/22 11:00 Pulse Rate 63 67 Respiratory Rate 18 17 Blood Pressure 143/65 H Pulse Oximetry 99 100 Oxygen Delivery Method 08/27/22 11:30 08/27/22 11:30 08/27/22 11:45 Pulse Rate 60 61 Respiratory Rate 22 22 Blood Pressure 147/69 H Pulse Oximetry 100 100 Oxygen Delivery Method 08/27/22 11:45 08/27/22 12:00 08/27/22 12:00 Pulse Rate 70 Respiratory Rate 23 Blood Pressure 138/64 132/62 Pulse Oximetry 100 Oxygen Delivery Method 08/27/22 12:15 08/27/22 12:15 08/27/22 14:23 Pulse Rate 66 71 Respiratory Rate 24 Blood Pressure 145/69 H Pulse Oximetry 99 98 Oxygen Delivery Method Room Air 08/27/22 14:24 08/27/22 14:24 08/27/22 14:30 Pulse Rate 70 Respiratory Rate 17 Blood Pressure 135/63 125/65 Pulse Oximetry 98 Oxygen Delivery Method 08/27/22 14:30 08/27/22 14:45 08/27/22 14:45 Pulse Rate 65 66 Respiratory Rate 19 20 Blood Pressure 128/68 Pulse Oximetry 98 98 Oxygen Delivery Method 08/27/22 15:00 08/27/22 15:00 08/27/22 15:15 Pulse Rate 63 Respiratory Rate 21 Blood Pressure 124/62 128/64 Pulse Oximetry 97 Oxygen Delivery Method 08/27/22 15:15 08/27/22 15:30 08/27/22 15:30 Pulse Rate 61 62 Respiratory Rate 22 21 Blood Pressure 131/61 Pulse Oximetry 97 96 Oxygen Delivery Method 08/27/22 16:31 08/27/22 16:31 Pulse Rate 62 Respiratory Rate 19 Blood Pressure 135/73 Pulse Oximetry 97 Oxygen Delivery Method MDM - Weakness Lab Data 08/27/22 09:10 08/27/22 14:40 Labs: Lab Results 08/27/22 08/27/22 08/27/22 Range/Units 09:10 09:10 09:10 WBC 10.0 (4.5-11.0) X10^3/uL RBC 4.48 (4.0-5.2) X10^6/uL Hgb 14.8 (12.0-16.0) g/dL Hct 43.3 (36-46) % MCV 96.8 (80-100) fL MCH 32.9 (26-34) PG MCHC 34.0 (30-36) % RDW 12.7 (11.6-14.8) % Plt Count 326 (150-400) X10^3/uL Neut % (Auto) 78.9 H (50-75) % Lymph % (Auto) 10.7 L (25-40) % Glades % (Auto) 9.7 (3-14) % Eos % (Auto) 0.2 L (2-4) % Baso % (Auto) 0.5 (0-2) % Neut # (Auto) 7900 H (6467-1196) /uL Lymph # (Auto) 1100 (8773-6482) /uL Glades # (Auto) 1000 H (0-900) /uL Eos # (Auto) 0 (0-450) /uL Baso # (Auto) 0 (0-100) /uL Sodium 132 L (137-145) mmol/L Potassium 3.7 D (3.4-5.1) mmol/L Chloride 97 L (98-107) mmol/L Carbon Dioxide 28 (22-32) mmol/L BUN 17 (7-17) mg/dL Creatinine 0.64 (0.52-1.04) mg/dL Estimated GFR > 60 (>60) mL/min BUN/Creatinine Ratio 26.6 H (6-22) Glucose 102 (80-110) mg/dL Calcium 8.7 (8.4-10.2) mg/dL Magnesium 2.4 H (1.6-2.3) mg/dL Total Bilirubin 0.4 (0.2-1.3) mg/dL AST 31 (14-36) IU/L ALT 41 H (<35) IU/L Alkaline Phosphatase 37 L (38-126) U/L Total Protein 6.8 (6.3-8.2) g/dL Albumin 4.0 (3.5-5.0) g/dL Globulin 2.8 (1.7-4.1) g/dL Albumin/Globulin Ratio 1.4 (1.0-2.8) Vitamin B12 (239-931) pg/mL TSH 0.787 (0.47-4.68) uIU/mL 08/27/22 08/27/22 Range/Units 09:10 14:40 WBC (4.5-11.0) X10^3/uL RBC (4.0-5.2) X10^6/uL Hgb (12.0-16.0) g/dL Hct (36-46) % MCV (80-100) fL MCH (26-34) PG MCHC (30-36) % RDW (11.6-14.8) % Plt Count (150-400) X10^3/uL Neut % (Auto) (50-75) % Lymph % (Auto) (25-40) % Glades % (Auto) (3-14) % Eos % (Auto) (2-4) % Baso % (Auto) (0-2) % Neut # (Auto) (6946-6793) /uL Lymph # (Auto) (5531-4169) /uL Glades # (Auto) (0-900) /uL Eos # (Auto) (0-450) /uL Baso # (Auto) (0-100) /uL Sodium 133 L (137-145) mmol/L Potassium 3.9 (3.4-5.1) mmol/L Chloride 102 (98-107) mmol/L Carbon Dioxide 28 (22-32) mmol/L BUN 12 (7-17) mg/dL Creatinine 0.54 (0.52-1.04) mg/dL Estimated GFR > 60 (>60) mL/min BUN/Creatinine Ratio 22.2 H (6-22) Glucose 133 H (80-110) mg/dL Calcium 7.6 L (8.4-10.2) mg/dL Magnesium (1.6-2.3) mg/dL Total Bilirubin (0.2-1.3) mg/dL AST (14-36) IU/L ALT (<35) IU/L Alkaline Phosphatase (38-126) U/L Total Protein (6.3-8.2) g/dL Albumin (3.5-5.0) g/dL Globulin (1.7-4.1) g/dL Albumin/Globulin Ratio (1.0-2.8) Vitamin B12 270 (239-931) pg/mL TSH (0.47-4.68) uIU/mL Urine Dip Bedside Urine Glucose Negative Bedside Urine Bilirubin - Negative Bedside Urine Ketone +/- 5 Urine Specific Seltzer 1.005 Bedside Urine Occult Blood - Negative Bedside Urine pH 8.0 Bedside Urine Protein - Negative Bedside Urine Urobilinogen - Negative Bedside Urine Nitrite - Negative Bedside Urine Leukocytes - Negative Esterase Imaging Data CT chest abdomen pelvis: Radiologist Impression: [address] [address] [address] Scan Report Signed Patient: Chika Ortiz MR#: [id number] : 1950 Acct:[id number] Age/Sex: 71 / F Date of Service: 08/27/22 Loc: ED Accession Number: [id number] ?? Procedure: CT chest abd pel w con Ordering Provider: Sergio Mix MD PROCEDURE:? CT CHEST ABD PEL W CON ? INDICATIONS:? cough/wt loss ? TECHNIQUE:? After the administration of intravenous contrast, 5 mm thick sections acquired from the lung apices to the symphysis.? 5 mm coronal and sagittal reformats were performed, with additional 7 mm MIP reformats through the lungs.? For radiation dose reduction, the following was used:? automated exposure control, adjustment of mA and/or kV according to patient size.? ? COMPARISON:? [facility], CT, CT ABDOMEN PELVIS W CON, 08/03/2022, 0:36. ? FINDINGS:? Image quality:? Excellent.? ? CHEST:? Lungs and pleura:? No acute airspace opacities.? No pleural effusions or pneumothorax.? Central and peripheral airways appear patent and normal in caliber.? ? Mediastinum:? Heart size is normal.? Trace amount of pericardial effusion is seen measures up to 4 mm in thickness anterior to right ventricle..? No mediastinal or hilar adenopathy by size criteria.? Mild atherosclerotic calcifications in coronary vessels and thoracic aorta are seen.? Thoracic aorta and central pulmonary arteries are normal in size.? Esophagus is normal in caliber.? No hiatal hernia.? ? Chest wall:? No axillary or supraclavicular adenopathy by size criteria.? Thyroid gland is within normal limits..? ? ? ABDOMEN:? Solid organs:? Liver is normal in size and enhancement.? Gallbladder is within normal limits..? Biliary system is non dilated.? Pancreas enhances normally.? Spleen is normal in size and enhancement.? No adrenal nodules.? Kidneys demonstrate normal size and enhancement.? Bilateral moderate hydronephrosis worse on the right side is seen not significantly changed from previous study.? There is a transition at bilateral UPJ suggestive of chronic UPJ obstruction.? No obstructing stone is seen.? No hydroureter.? No significant perinephric fat stranding. ? Peritoneum and bowel:? Significant fecal stasis in the colon is seen.? Bowel loops demonstrate normal wall thickness and caliber.? No free fluid or air.? ? Nodes and vessels:? No retroperitoneal or mesenteric adenopathy by size criteria.? Aorta and inferior vena cava are normal in size.? ? Miscellaneous:? No ventral hernias.? ? ? PELVIS:? Genitourinary:? Mild diffuse bladder wall thickening is seen improved compared to prior study.? No pericystic fluid collection. ? Miscellaneous:? No inguinal hernias or adenopathy.? Generalized anasarca is seen. ? Bones:? No suspicious bony lesions.? No vertebral body compression fractures.? ? IMPRESSION:? ? 1. Persistent right worse than left bilateral moderate hydronephrosis.? Finding is concerning for bilateral chronic UPJ obstructions.? No obstructing stones.? No hydroureter.? No significant perinephric fat stranding or fluid collection. ? ? 2. Mild diffuse bladder wall thickening improved since 08/03/2022 study, concerning for cystitis. ? 3. No bowel obstruction or abnormal bowel wall thickening.? [id number] constipation.? No abscess collection.? No free fluid or free air. ? 4. Generalized anasarca. ? 5. Bilateral lungs are clear.? No mediastinal or hilar lymphadenopathy. ? 6. Trace amount of pericardial effusion.? ? Dictated by: Juan Jose Pradhan M.D. on 08/27/2022 at 9:53 ? ? Approved by: Juan Jose Pradhan M.D. on 08/27/2022 at 10:17 ? Renal ultrasound: Radiologist Impression: [address] [address] Ultrasound Report Signed Patient: Chika Ortiz MR#: [id number] : 1950 Acct:[id number] Age/Sex: 71 / F Date of Service: 08/27/22 Loc: ED Accession Number: [id number] ?? Procedure: US renal complete Ordering Provider: Sergio Mix MD PROCEDURE:? US RENAL COMPLETE ? INDICATIONS:? Hydronephrosis ? TECHNIQUE:? Real-time scanning was performed of the kidneys and bladder, with image documentation.? ? COMPARISON:? None. ? FINDINGS:? ? Kidneys:? Kidneys are normal in size.? Right kidney measures 12.2 cm long; left kidney measures 12.3 cm long.? Right renal cortical thickness is 1.7 cm; left renal cortical thickness is 0.8 cm.? Renal cortical echotexture is normal.? There is severe right hydronephrosis which persists after voiding. ? Bladder:? Pre-void bladder volume is 208 mL.? Post-void residual is 7 mL.? Pre-void images demonstrate no intraluminal masses or stones.? On pre-void images, bilateral ureteral jets are noted with color Doppler interrogation.? (Of note, ureteral jets may not be detectable in up to 25% of cases due to insufficient differences in specific gravity between ureteral and bladder urine).? ? Miscellaneous:? No free pelvic fluid.? ? IMPRESSION:? ? 1. Severe right hydronephrosis which does not resolve after void. ? 2. No significant postvoid residual. ? 3. Left renal cortical thinning.? ? ? Dictated by: Jessica Mcgarry M.D. on 08/27/2022 at 12:59 ? ? Approved by: Jessica Mcgarry M.D. on 08/27/2022 at 13:04 ? [facility] Narrative Medical decision making narrative: Patient brought here from home by for complaints of generalized malaise weakness decreased appetite and weight loss. Three months ago she weighed 96 lb. Currently she is 86.5 lb this morning. Patient was admitted here August 02, 2022 for hyponatremia. Patient has progressively gotten more weak in the past 1 week with similar symptoms earlier this month. Patient states she did feel better after leaving the hospital earlier this month. CT scan imaging did show some chronic bilateral hydronephrosis. She states she is getting ultrasound outpatient for continued workup. Good variation denies any pain chest pain abdominal pain back pain. No fever chills. No night sweats. CT abdomen pelvis was done last admission here August 02, 2022. Denies any urinary complaints. No known history of cancer. After history and exam CBC CMP urinalysis magnesium TSH vitamin B12 CT chest abdomen and pelvis EKG [facility] CC: Weakness and weight loss Complicating co-morbidities: None Data collected from: Patient and Medical records reviewed: Hospital records here at this [facility] August 02, 2022 Differential considered: Includes but not limited to cancer, failure to thrive, electrolyte imbalance/hypothyroidism, vitamin B12 deficiency Exam documented above, pertinent findings include: Thin-appearing/emaciated Lab Test results independently reviewed as above. Pertinent findings: WBC 10 hemoglobin 14.8 hematocrit 43.3 platelets 326 sodium 132 repeat 133, potassium 3.9 chloride 102 BUN 12 creatinine 0.54 GFR greater than 60 calcium 7.6 magnesium 2.4 AST 31 ALT 41 point of care urinalysis negative nitrite negative leukocyte Imaging studies independently reviewed: CT chest abdomen pelvis persistent right worse than left bilateral moderate hydronephrosis. Finding is concerning for bilateral chronic UPJ obstructions. No hydroureter. No significant perinephric fat stranding or fluid collection. Renal ultrasound results severe right hydronephrosis which does not resolve after void. No significant postvoid residual. Left renal cortical thinning Consultations: 11:10 a.m.. Spoke with hospitalist, Dr. Mays, at this time he has reviewed patient's chart from today as well as last visit. There is no admission criteria for today. Recommends giving IV normal saline here. Get dietary consult from here. We do not have infectious disease or gastroenterology. Patient will need outpatient referral for that. Patient needs to follow up for Urology regarding CT scan findings of hydronephrosis. Patient is scheduled for ultrasound of the kidneys. 11:23 a.m.. I spoke with [facility] Infectious Disease, Dr. Moon. No blood work indicated at this time. Patient does not have diarrhea or abdominal pain. Does have a lot of gas/flatus, this could be Giardia. Would recommend giving Flagyl 250 mg 3 times a day for 5 or 7 days. Or possibly give 2 g 1 time dose 12:11 p.m.. Spoke with [facility] Gastroenterology Dr. Shabbir Penaloza, recommends further evaluating for parasitic with ova and parasites before proceeding with outpatient endoscopy. Patient can follow up in the clinic outpatient 1:40 p.m.. Spoke with [facility] urology Dr Crews, given lack of flank pain no vomiting no fever still able to void make urine. This is likely incidental finding and no urgent intervention indicated. In addition these may be calices with cysts, recommends outpatient CT IVP to distinguish. Patient already had CT with IV contrast here today. We will need to do outpatient IVP. Again, nothing urgent emergent or surgical indicated. No stents indicated this time. Treatments: Normal saline Re-evaluations: 11:00 a.m.. Reviewed results so far with patient and . At this time sodium levels are low but not critical as he was last visit. I will speak with hospitalist as well as suggestions for further testing. Also I will reach out to Infectious Disease and Gastroenterology at [facility] as we do not have those services here. I will also reach out to urology services. 5:00 p.m.. I spoke with patient and results of my discussions with Urology as well as Gastroenterology as well as Infectious Disease and they hospitalist. They do agree with treatment plan. We are still waiting for dietary consult. Patient has already met with social alyce Gonzalez as well. Discussion: Appropriate for discharge home. I have spoken with multiple providers at this time no indication for admission or observation. Patient can have outpatient follow-up each of their services. Return precautions reviewed with patient and . Social work has seen patient as well. Patient has met with medical social worker as well with dietary/pasteurizing machine operator Diagnosis: Acute hyponatremia Discharge Plan Departure Patient Disposition: Home Clinical Impression: Acute hyponatremia Instructions: DI for Hyponatremia Activity Restrictions/Additional Instructions: Please continue antibiotics tomorrow morning. If not improving in next 48 hours then call provided gastroenterology Dr. Penaloza's office discussed show endoscopy/colonoscopy. Please call office for please see your family doctor to schedule outpatient CT IVP of your kidneys as requested by urology services. Please use resources follow instructions provided by dietary consult from our department. Keep well hydrated. I do encourage increased salts in your diet to maintain good sodium levels. See family doctor this week for repeat outpatient sodium levels. Return if worse if any questions or concerns Prescriptions: New metronidazole 250 mg tablet 250 mg PO TID Qty: 15 0RF No Action Eliquis 5 mg tablet 5 mg PO BID Qty: 60 0RF dicyclomine 10 mg Capsule 20 mg PO Q6HR Qty: 30 0RF simethicone [Gas Relief 80 (simethicone)] 80 mg Tablet,Chewable 80 mg PO QID PRN (Reason: Flatulence) Qty: 30 0RF Referrals: Sergio Hardwick DO [Primary Care Provider] - Sergio Penaloza MD [Non-Staff] - Velvet Crews MD [Non-Staff] - Stand Alone Forms: Patient Portal/API
[2022-08-27 09:32] LABS: Alanine Aminotransferase 41 IU/L (<35); Albumin Globulin Ratio 1.4 (1.0-2.8); Alkaline Phosphatase 37 U/L (38-126); Aspartate Aminotransferase 31 IU/L (14-36); BUN Creatinine Ratio 26.6 (6-22); Bilirubin Total 0.4 mg/dL (0.2-1.3); Blood Urea Nitrogen 17 mg/dL (7-17); Calcium 8.7 mg/dL (8.4-10.2); Carbon Dioxide 28 mmol/L (22-32); Chloride 97 mmol/L (98-107); Estimated Glomerular Filt Rate > 60 mL/min (>60); Globulin 2.8 g/dL (1.7-4.1); Glucose 102 mg/dL (80-110); HEMOLYSIS < 15 (0-50); Magnesium 2.4 mg/dL (1.6-2.3); Potassium 3.7 mmol/L (3.4-5.1); Sodium 132 mmol/L (137-145); Total Protein 6.8 g/dL (6.3-8.2)
[2022-08-27] MEDS: SODIUM CHLORIDE 0.9% 500 ML 1000 ML IV ×2 (09:35→11:22)
--- NOTE | 2022-08-27 09:37 | DI.CT.S_ITS ---
PROCEDURE: CT CHEST ABD PEL W CON INDICATIONS: cough/wt loss TECHNIQUE: After the administration of intravenous contrast, 5 mm thick sections acquired from the lung apices to the symphysis. 5 mm coronal and sagittal reformats were performed, with additional 7 mm MIP reformats through the lungs. For radiation dose reduction, the following was used: automated exposure control, adjustment of mA and/or kV according to patient size. COMPARISON: [facility], CT, CT ABDOMEN PELVIS W CON, 08/03/2022, 0:36. FINDINGS: Image quality: Excellent. CHEST: Lungs and pleura: No acute airspace opacities. No pleural effusions or pneumothorax. Central and peripheral airways appear patent and normal in caliber. Mediastinum: Heart size is normal. Trace amount of pericardial effusion is seen measures up to 4 mm in thickness anterior to right ventricle.. No mediastinal or hilar adenopathy by size criteria. Mild atherosclerotic calcifications in coronary vessels and thoracic aorta are seen. Thoracic aorta and central pulmonary arteries are normal in size. Esophagus is normal in caliber. No hiatal hernia. Chest wall: No axillary or supraclavicular adenopathy by size criteria. Thyroid gland is within normal limits.. ABDOMEN: Solid organs: Liver is normal in size and enhancement. Gallbladder is within normal limits.. Biliary system is non dilated. Pancreas enhances normally. Spleen is normal in size and enhancement. No adrenal nodules. Kidneys demonstrate normal size and enhancement. Bilateral moderate hydronephrosis worse on the right side is seen not significantly changed from previous study. There is a transition at bilateral UPJ suggestive of chronic UPJ obstruction. No obstructing stone is seen. No hydroureter. No significant perinephric fat stranding. Peritoneum and bowel: Significant fecal stasis in the colon is seen. Bowel loops demonstrate normal wall thickness and caliber. No free fluid or air. Nodes and vessels: No retroperitoneal or mesenteric adenopathy by size criteria. Aorta and inferior vena cava are normal in size. Miscellaneous: No ventral hernias. PELVIS: Genitourinary: Mild diffuse bladder wall thickening is seen improved compared to prior study. No pericystic fluid collection. Miscellaneous: No inguinal hernias or adenopathy. Generalized anasarca is seen. Bones: No suspicious bony lesions. No vertebral body compression fractures. IMPRESSION: 1. Persistent right worse than left bilateral moderate hydronephrosis. Finding is concerning for bilateral chronic UPJ obstructions. No obstructing stones. No hydroureter. No significant perinephric fat stranding or fluid collection. 2. Mild diffuse bladder wall thickening improved since 08/03/2022 study, concerning for cystitis. 3. No bowel obstruction or abnormal bowel wall thickening. [id number] constipation. No abscess collection. No free fluid or free air. 4. Generalized anasarca. 5. Bilateral lungs are clear. No mediastinal or hilar lymphadenopathy. 6. Trace amount of pericardial effusion. Dictated by: Juan Jose Pradhan M.D. on 08/27/2022 at 9:53 Approved by: Juan Jose Pradhan M.D. on 08/27/2022 at 10:17
[2022-08-27 10:22] LABS: Thyroid Stimulating Hormone 0.787 uIU/mL (0.47-4.68)
[2022-08-27 10:44] LABS: Vitamin B12 270 pg/mL (239-931)
--- NOTE | 2022-08-27 11:15 | DI.US.S_ITS ---
PROCEDURE: US RENAL COMPLETE INDICATIONS: Hydronephrosis TECHNIQUE: Real-time scanning was performed of the kidneys and bladder, with image documentation. COMPARISON: None. FINDINGS: Kidneys: Kidneys are normal in size. Right kidney measures 12.2 cm long; left kidney measures 12.3 cm long. Right renal cortical thickness is 1.7 cm; left renal cortical thickness is 0.8 cm. Renal cortical echotexture is normal. There is severe right hydronephrosis which persists after voiding. Bladder: Pre-void bladder volume is 208 mL. Post-void residual is 7 mL. Pre-void images demonstrate no intraluminal masses or stones. On pre-void images, bilateral ureteral jets are noted with color Doppler interrogation. (Of note, ureteral jets may not be detectable in up to 25% of cases due to insufficient differences in specific gravity between ureteral and bladder urine). Miscellaneous: No free pelvic fluid. IMPRESSION: 1. Severe right hydronephrosis which does not resolve after void. 2. No significant postvoid residual. 3. Left renal cortical thinning. Dictated by: Jessica Mcgarry M.D. on 08/27/2022 at 12:59 Approved by: Jessica Mcgarry M.D. on 08/27/2022 at 13:04
[2022-08-27 14:57] LABS: BUN Creatinine Ratio 22.2 (6-22); Blood Urea Nitrogen 12 mg/dL (7-17); Calcium 7.6 mg/dL (8.4-10.2); Carbon Dioxide 28 mmol/L (22-32); Chloride 102 mmol/L (98-107); Estimated Glomerular Filt Rate > 60 mL/min (>60); Glucose 133 mg/dL (80-110); HEMOLYSIS < 15 (0-50); Potassium 3.9 mmol/L (3.4-5.1); Sodium 133 mmol/L (137-145)
[2022-08-27] MEDS: metroNIDAZOLE 500 MG TABLET 250 MG PO (16:27)
--- NOTE | 2022-08-27 18:32 | DIET.CONS ---
Dietary Consultation Note Assessment: 71y F in ED for ongoing unintentional weight loss and GI distress referred to nutrition for same. Pt travelled to [place] 1mo ago and accidentally used tap water to brush her teeth (despite signs posted it was not safe), within 4h pt had diarrhea which continued intermixed with constipation for several weeks. Pts spouse also sick with same but only for 1d. Since that time, pt has not recovered from GI sx though they are intermittent, largest complaint at this time is significant abd bloating which worsens as the day goes by. Walking and flatulence resolves but pt found no relief with Gas-x. Currently pt consuming daily: 1 egg omelet and a smoothie with 1/2 ensure max (low kcal), almond yogurt (low kcal, low pro) and fresh fruit. Pt has lost 13% body weight in 1mo (severe) with BMI 16.2 (severe). Pt starting tx with flagyl per ED physician. Ht: 154.94 cm Wt: 39.009 kg (-13% in 1mo, severe) BMI: 16.2 (severe) UBW: 44.9kg Last BM: 08/26/22 (08/27/22 09:01) Labs: RBC 4.48 X10^6/uL (4.0-5.2) 08/27/22 09:10 Hgb 14.8 g/dL (12.0-16.0) 08/27/22 09:10 Hct 43.3 % (36-46) 08/27/22 09:10 Creatinine 0.54 mg/dL (0.52-1.04) 08/27/22 14:40 Nutrition Diagnosis: Severe Acute Protein Calorie Malnutrition r/t GI sx aeb 13% unintentional weight loss in 1mo (severe), BMI 16.2 (severe), pt with GI distress since brushing teeth with non-potable water in [facility]. Interventions: 1. Encouraged pt to consume high kcal/high pro diet focusing intake early in the day when she feels the best. Collaborated on ways to improve content of current meals including switch to coconut yogurt from almond and change from Ensure Max to Ensure Plus. 2. Counselled pt extensively on past nutrition conditioning around long-term food restriction for figure preservation and maintaining body weight below 100#. Encouraged pt to eat when hungry and worry less on kcal content and portion sizes until weight meets or exceeds UBW. 3. Encouraged walking and light strength training to support lean body mass when pt feels energetic enough to support healthy weight. Pt enjoys walking pet dog. 4. Reiterated reccs from ED physician on getting adequate sodium in diet by drinking a small V8 juice or having a salty snack daily until sodium levels sustained longterm. Monitoring/Evaluations: RD to follow pt as OP Electronically Signed by: Margarita Rivera 08/27/22 18:32 Clinical Dietitian [address] [address]
--- NOTE | 2022-08-27 18:45 | CM.SWNOTE ---
ED DISPATCHER MAINTENANCE/DCP Note Patient is 71 y/o female who presents to ED due to continued GI issues, weight loss and no appetite. Patient recently discharged from on 08/05/22 due to similar presentation and concern for low sodium levels. Patient endorses she was going to go to PCP in today but decided she needed to go to ED instead due to discomfort. Patient's PCP is Sergio Hardwick at [facility] in [place], [place], patient has [facility] [employer], [employer] and Medicare insurance. DISPATCHER MAINTENANCE enters room to meet with patient, patient presents as A/Ox3, anxious and frustrated about pain from gas and how it is impacting her daily life the last 10 days. Patient endorses independence with ADLs, patient endorses preference to stay with current PCP for now. Patient resides with spouse in [place]. Patient denies needs from DISPATCHER MAINTENANCE and endorses plan to f/u with ED providers suggestions and recommendations. Staff Radiation Therapist consult was placed and referral for gastoenterologist for endoscopy or colonoscopy. Plan: patient to d/c to home with spouse upon medical clearance. , patient to f/u with gastroentologist and to f/u with ground service equipment mechanic's recommendations. DISPATCHER MAINTENANCE encouraged patient to f/u with PCP as well. ERNESTO Talavera
== END 2022-08-27 18:34 | disposition home or self-care (01) ==
PROVIDERS: Emergency Provider Emergency Medicine; PCP Family Medicine
DX: E87.1 Hypo-osmolality and hyponatremia (principal); R63.4 Abnormal weight loss; N13.30 Unspecified hydronephrosis; Z68.1 Body mass index [BMI] 19.9 or less, adult
CPT/HCPCS: 71260; 74177; 76770; 80048; 80053; 81003; 82607; 83735; 84443; 85025; 99284; Q9967

== ENCOUNTER → 2022-08-29 11:17 | Outpatient (CLI) | payer MEDICARE, SELFPAY ==
[2022-08-03 00:48] VITALS: BMI 17.9
[2022-08-29 12:37] LABS: Add Manual Diff / Slide Review NO; Basophils Absolute Auto 100 /uL (0-100); Basophils Percent Auto 0.7 % (0-2); Eosinophils Absolute Auto 0 /uL (0-450); Eosinophils Percent Auto 0.2 % (2-4); Hematocrit 39.2 % (36-46); Hemoglobin 13.5 g/dL (12.0-16.0); Lymphocytes Absolute Auto 1000 /uL (1100-4500); Lymphocytes Percent Auto 14.1 % (25-40); Mean Corpuscular HGB Conc 34.6 % (30-36); Mean Corpuscular Hemoglobin 33.1 PG (26-34); Mean Corpuscular Volume 95.7 fL (80-100); Monocytes Absolute Auto 500 /uL (0-900); Monocytes Percent Auto 7.3 % (3-14); Neutrophils Absolute Auto 5500 /uL (1500-7000); Neutrophils Percent Auto 77.7 % (50-75); Platelet Count 319 X10^3/uL (150-400); Red Blood Cell Count 4.09 X10^6/uL (4.0-5.2); Red Cell Distribution Width 12.9 % (11.6-14.8); White Blood Cell Count 7.1 X10^3/uL (4.5-11.0)
[2022-08-29 12:44] LABS: Alanine Aminotransferase 39 IU/L (<35); Albumin 3.5 g/dL (3.5-5.0); Albumin Globulin Ratio 1.4 (1.0-2.8); Alkaline Phosphatase 28 U/L (38-126); Aspartate Aminotransferase 30 IU/L (14-36); Bilirubin Total 0.2 mg/dL (0.2-1.3); Blood Urea Nitrogen 12 mg/dL (7-17); Calcium 7.9 mg/dL (8.4-10.2); Carbon Dioxide 31 mmol/L (22-32); Chloride 98 mmol/L (98-107); Estimated Glomerular Filt Rate > 60 mL/min (>60); Globulin 2.5 g/dL (1.7-4.1); Glucose 99 mg/dL (80-110); HEMOLYSIS < 15 (0-50); Potassium 4.1 mmol/L (3.4-5.1); Sodium 132 mmol/L (137-145)
== END ==
PROVIDERS: PCP Family Medicine; Referring Provider Family Medicine; Visit Provider Family Medicine
DX: K59.9 Functional intestinal disorder, unspecified (principal); K59.00 Constipation, unspecified; E87.1 Hypo-osmolality and hyponatremia
CPT/HCPCS: 36415; 80053; 85025

== ENCOUNTER → 2022-09-05 12:06 | Outpatient (CLI) | payer MEDICARE, SELFPAY ==
[2022-08-03 00:48] VITALS: BMI 17.9
[2022-09-05 20:47] LABS: Clostridium Difficile Tox PCR Negative for C. diff (Negative)
[2022-09-07 18:19] LABS: Fats, Neutral Normal (.); Fats, Total Normal (.)
[2022-09-09 15:20] LABS: H. Pylori Antigen Stool Negative (Negative)
== END ==
PROVIDERS: PCP Family Medicine; Referring Provider Family Medicine; Visit Provider Family Medicine
DX: K59.9 Functional intestinal disorder, unspecified (principal); K59.00 Constipation, unspecified; Z65.8 Other specified problems related to psychosocial circumstances; K58.9 Irritable bowel syndrome, unspecified
CPT/HCPCS: 82705; 87177; 87205; 87338; 87493

== ENCOUNTER 2022-10-21 20:56 | Emergency (ER) | payer MEDICARE, SELFPAY ==
[2022-08-03 00:48] VITALS: BMI 17.9
[2022-10-21 21:19] VITALS: BP 135/67; PULSE 66; RESP 16; TEMP 36.6; O2SAT 97; BMI 18.5
--- NOTE | 2022-10-21 21:29 | ED_ITS ---
HPI - Abdominal Pain General Chief Complaint: Abdominal Pain Stated Complaint: ABD pain Time Seen by Provider: 10/21/22 21:24 Source: patient Mode of arrival: Ambulatory History of Present Illness HPI narrative: 71-year-old female nonsmoker, atrial fibrillation on Eliquis and Giardia presents with her in the chief complaint of feeling bloated and gassy again. She denies nausea, vomiting or diarrhea. She has had no fevers. She states it seems to come and go without obvious provocation or palliation. She states it was quite severe earlier in the day but is essentially gone at this point in time. She states she is been employing a mild diet and does not consume alcohol or spicy foods. Her symptoms started initially upon return from a trip to [place]. She had a visit to the emergency department in July and after thorough evaluation she was started on a trial of Flagyl given concern for possible Giardia. She felt significant improvement for few weeks but then symptoms started again. She saw her primary care provider and was started on another round of Flagyl along with ciprofloxacin which made little to no improv ement. Since then she is had various episodes of crampy abdominal pain and bloating and is establishing with a new primary care provider soon. Related Data Previous Rx's Medication Instructions Recorded apixaban 5 mg tablet (Eliquis) 5 mg PO BID #60 tabs 02/16/21 dicyclomine 10 mg capsule 20 mg PO Q6HR #30 caps 08/05/22 simethicone 80 mg chewable tablet 80 mg PO QID PRN Flatulence #30 08/05/22 (Gas Relief 80 (simethicone)) tabs metronidazole 250 mg tablet 250 mg PO TID #15 tabs 08/27/22 dicyclomine 20 mg tablet 20 mg PO QID PRN abdominal pain 10/22/22 #30 tabs Allergies Allergy/AdvReac Type Severity Reaction Status Date / Time Sulfa (Sulfonamide Allergy Hives Verified 08/02/22 21:02 Antibiotics) Review of Systems Review of Systems Narrative: GENERAL: Denies chills, fatigue, malaise, fever, sweats. HEENT: Denies sinus pain, ear pain, sore throat, difficulty swallowing, d izziness. RESPIRATORY: Denies dyspnea, cough, wheezing, hemoptysis, sputum. CARDIOVASCULAR: Denies chest pain, palpitations, orthopnea, edema, GASTROINTESTINAL: See HPI : Denies dysuria, frequency, incontinence, hematuria, urinary retention. MUSCULOSKELETAL: denies weakness, joint pain, or bony pain SKIN: Denies rash, skin lesions, or other NEUROLOGIC: Denies weakness, headache, numbness, change in speech, confusion, seizures, incoordination. PSYCHIATRIC: No concerning psychosocial issues. 12 point review of systems is negative except for those stated above Patient History Social History household members: spouse Smoking Status: Never smoker Smoking Status: Never smoker alcohol intake frequency: a few times a week Alcohol type: wine Substance Use Type: does not use Exam Narrative Exam Narrative: GENERAL: [71] year old patient appears stated age. Well-developed patient, in mild distress. HEAD: Atraumatic. Normocephalic. EYES: Pupils equal round and reactive. Extraocular motions intact. No scleral icterus. No injection or drainage. ENT: Nose without bleeding, purulent drainage. Throat without erythema, tonsillar hypertrophy or exudate. Airway patent. NECK: Trachea midline. Non tender CARDIOVASCULAR: Regular rate and rhythm without murmurs, gallops, or rubs. RESPIRATORY: Clear to auscultation. Breath sounds equal bilaterally. No wheezes, rales, or rhonchi. GASTROINTESTINAL: Abdomen soft, non-tender, nondistended. Bowel sounds present in all 4 quadrants EXTREMITIES: No edema or joint tenderness. BACK: Nontender without deformity or crepitance. No flank tenderness. NEURO: AOx3. SKIN: No rash or erythema of visible areas Initial Vital Signs Initial Vital Signs: Vital Signs Temperature 97.9 F 10/21/22 21:19 Pulse Rate 66 10/21/22 21:19 Respiratory Rate 16 10/21/22 21:19 Blood Pressure 135/67 10/21/22 21:19 Pulse Oximetry 97 10/21/22 21:19 Oxygen Delivery Method Room Air 10/21/22 21:19 Course Orders Ordered: ED Orders 10/21/22 21:54 Complete Blood Count AUTO DIFF Stat Comprehensive Metabolic Panel Stat Lipase Stat Discontinued Medications Sodium Chloride (Normal Saline 0.9%) 1,000 mls @ 1,000 mls/hr IV BOLUS ONE Stop: 10/21/22 22:29 Last Infusion: 10/21/22 22:46 Dose: 0 mls/hr Documented By: Admin: 10/21/22 21:51 Dose: 1,000 mls/hr Documented By: Pantoprazole Sodium (Pantoprazole 40 Mg Vial) 40 mg IV NOW ONE Stop: 10/21/22 21:31 Last Admin: 10/21/22 21:51 Dose: 40 mg Documented By: Vital Signs Vital signs: Vital Signs - 8 hr 10/22/22 01:12 Pulse Rate 53 L Respiratory Rate 16 Blood Pressure 166/70 H Pulse Oximetry 99 Oxygen Delivery Method Room Air MDM - Abdominal Pain Lab Data 10/21/22 21:54 10/21/22 21:54 Labs: Lab Results 10/21/22 10/21/22 Range/Units 21:54 21:54 WBC 9.2 (4.5-11.0) X10^3/uL RBC 4.29 (4.0-5.2) X10^6/uL Hgb 14.1 (12.0-16.0) g/dL Hct 41.9 (36-46) % MCV 97.6 (80-100) fL MCH 32.9 (26-34) PG MCHC 33.7 (30-36) % RDW 14.1 (11.6-14.8) % Plt Count 273 (150-400) X10^3/uL Neut % (Auto) 74.3 (50-75) % Lymph % (Auto) 15.0 L (25-40) % [place] % (Auto) 9.8 (3-14) % Eos % (Auto) 0.3 L (2-4) % Baso % (Auto) 0.6 (0-2) % Neut # (Auto) 6800 (8575-0557) /uL Lymph # (Auto) 1400 (3205-5698) /uL [place] # (Auto) 900 (0-900) /uL Eos # (Auto) 0 (0-450) /uL Baso # (Auto) 100 (0-100) /uL Sodium 136 L (137-145) mmol/L Potassium 4.1 (3.4-5.1) mmol/L Chloride 101 (98-107) mmol/L Carbon Dioxide 30 (22-32) mmol/L BUN 18 H (7-17) mg/dL Creatinine 0.69 (0.52-1.04) mg/dL Estimated GFR > 60 (>60) mL/min BUN/Creatinine Ratio 26.1 H (6-22) Glucose 99 (80-110) mg/dL Calcium 9.3 (8.4-10.2) mg/dL Total Bilirubin 0.4 (0.2-1.3) mg/dL AST 23 (14-36) IU/L ALT 20 (<35) IU/L Alkaline Phosphatase 32 L (38-126) U/L Total Protein 6.9 (6.3-8.2) g/dL Albumin 4.1 (3.5-5.0) g/dL Globulin 2.8 (1.7-4.1) g/dL Albumin/Globulin Ratio 1.5 (1.0-2.8) Lipase 218 (23-300) U/L MDM Narrative Medical decision making narrative: CC: 71-year-old female with episodes of crampy abdominal pain Complicating co-morbidities: He age, atrial fibrillation, anticoagulation Data collected from: Patient Medical records reviewed: Prior notes reviewed in our EMR Differential considered, but not limited to: Irritable bowel syndrome versus bowel obstruction versus constipation versus other Exam documented above, pertinent findings include: Heart rate regular, lungs clear, abdomen soft and nontender with bowel sounds present Lab Test results independently reviewed as above. Pertinent findings: No significant abnormalities that would require a specific or immediate intervention Independently reviewed EKG as above Imaging studies independently reviewed: Acute abdominal series without acute findings Discussion: Patient with multiple months of episodes of crampy abdominal pain in the absence of fever, vomiting or diarrhea. At 1 point she had improved symptoms after a round of Flagyl but since then has had no improvement with subsequent rounds of antibiotics. She is never had evaluation by Gastroenterology and likely would benefit from colonoscopy. She has been employing a mild diet which may help somewhat. She had previously been prescribed a prescription for Bentyl but never took it. We discussed the likely benefit of taking this medication prior to her upcoming appointment with her newly established primary care provider. Return precautions discussed include increasing severity or persistence of pain, vomiting, fever or shaking chills or other bothersome symptoms Disposition: see below, along with detailed discharge instructions that have been reviewed with patient as well as indications for ED re-evaluation and additional outpatient follow up Discharge Plan Departure Patient Disposition: Home Clinical Impression: Abdominal bloating with cramps Instructions: DI for Abdominal Pain-Adult Activity Restrictions/Additional Instructions: *You have been diagnosed with [episodic crampingabdominal pain] * As we discussed your history and physical exam as well as labs and imaging are very reassuring. There is no evidence of any severe diagnoses that would require a specific or immediate intervention. *What to do: *Please consider the use of the dicyclomine you have been prescribed *Please follow up with Dr. Lindquist as previously planned *Return to Emergency Department if you should have any new, worsening or concerning symptoms, such as [fever greater than 101 F, shaking chills, worsening pain, persistent vomiting or other bothersome symptoms] Prescriptions: New dicyclomine 20 mg tablet 20 mg PO QID PRN (Reason: abdominal pain) Qty: 30 0RF No Action Eliquis 5 mg tablet 5 mg PO BID Qty: 60 0RF metronidazole 250 mg tablet 250 mg PO TID Qty: 15 0RF dicyclomine 10 mg Capsule 20 mg PO Q6HR Qty: 30 0RF simethicone [Gas Relief 80 (simethicone)] 80 mg Tablet,Chewable 80 mg PO QID PRN (Reason: Flatulence) Qty: 30 0RF Referrals: Sergio Hardwick DO [Primary Care Provider] - Stand Alone Forms: Patient Portal/API
--- NOTE | 2022-10-21 21:30 | DI.RAD.S_ITS ---
PROCEDURE: XR ACUTE ABDOMEN SERIES INDICATIONS: abdominal pain, cramping TECHNIQUE: One view chest and two views of the abdomen were acquired. COMPARISON: [facility], , XR ACUTE ABDOMEN SERIES, 08/02/2022, 22:12. FINDINGS: Surgical changes and devices: None. Chest: Lungs are clear. Heart size is normal. No pleural effusions. No pneumoperitoneum. Abdomen: Bowel gas pattern is normal. No suspicious calcifications. Bones: No suspicious bony lesions. IMPRESSION: 1. No acute intra-abdominal radiographic abnormality. 2. No acute cardiopulmonary disease. Dictated by: Hermes Aguilera M.D. on 10/21/2022 at 22:45 Approved by: Hermes Aguilera M.D. on 10/21/2022 at 22:46
[2022-10-21] MEDS: SODIUM CHLORIDE 0.9% 1,000 ML 1000 ML IV (21:51)
[2022-10-21] MEDS: PANTOPRAZOLE 40 MG VIAL IV (21:51)
[2022-10-21 22:09] LABS: Add Manual Diff / Slide Review NO; Basophils Absolute Auto 100 /uL (0-100); Basophils Percent Auto 0.6 % (0-2); Eosinophils Absolute Auto 0 /uL (0-450); Eosinophils Percent Auto 0.3 % (2-4); Hematocrit 41.9 % (36-46); Hemoglobin 14.1 g/dL (12.0-16.0); Lymphocytes Absolute Auto 1400 /uL (1100-4500); Mean Corpuscular HGB Conc 33.7 % (30-36); Mean Corpuscular Hemoglobin 32.9 PG (26-34); Mean Corpuscular Volume 97.6 fL (80-100); Monocytes Absolute Auto 900 /uL (0-900); Monocytes Percent Auto 9.8 % (3-14); Neutrophils Absolute Auto 6800 /uL (1500-7000); Neutrophils Percent Auto 74.3 % (50-75); Platelet Count 273 X10^3/uL (150-400); Red Blood Cell Count 4.29 X10^6/uL (4.0-5.2); Red Cell Distribution Width 14.1 % (11.6-14.8); White Blood Cell Count 9.2 X10^3/uL (4.5-11.0)
[2022-10-21 22:18] LABS: Alanine Aminotransferase 20 IU/L (<35); Albumin 4.1 g/dL (3.5-5.0); Albumin Globulin Ratio 1.5 (1.0-2.8); Alkaline Phosphatase 32 U/L (38-126); Aspartate Aminotransferase 23 IU/L (14-36); BUN Creatinine Ratio 26.1 (6-22); Bilirubin Total 0.4 mg/dL (0.2-1.3); Blood Urea Nitrogen 18 mg/dL (7-17); Calcium 9.3 mg/dL (8.4-10.2); Carbon Dioxide 30 mmol/L (22-32); Chloride 101 mmol/L (98-107); Estimated Glomerular Filt Rate > 60 mL/min (>60); Globulin 2.8 g/dL (1.7-4.1); Glucose 99 mg/dL (80-110); HEMOLYSIS < 15 (0-50); Lipase 218 U/L (23-300); Potassium 4.1 mmol/L (3.4-5.1); Sodium 136 mmol/L (137-145); Total Protein 6.9 g/dL (6.3-8.2)
[2022-10-22 01:12] VITALS: BP 166/70; PULSE 53; RESP 16; O2SAT 99
== END 2022-10-22 01:13 | disposition home or self-care (01) ==
PROVIDERS: Emergency Provider Emergency Medicine; PCP Family Medicine
DX: R10.9 Unspecified abdominal pain (principal); Z79.01 Long term (current) use of anticoagulants
CPT/HCPCS: 36415; 74022; 80053; 83690; 85025; 96361; 96374; 99284; C9113

== ENCOUNTER 2022-10-23 19:41 | Emergency (ER) | payer MEDICARE, SELFPAY ==
[2022-08-03 00:48] VITALS: BMI 17.9
[2022-10-23 19:43] VITALS: BP 185/84; PULSE 67; RESP 16; TEMP 36.3; O2SAT 100; BMI 18.5
[2022-10-23 20:02] LABS: Add Manual Diff / Slide Review NO; Basophils Absolute Auto 100 /uL (0-100); Basophils Percent Auto 0.7 % (0-2); Eosinophils Absolute Auto 0 /uL (0-450); Eosinophils Percent Auto 0.1 % (2-4); Hematocrit 41.5 % (36-46); Hemoglobin 14.2 g/dL (12.0-16.0); Lymphocytes Absolute Auto 1200 /uL (1100-4500); Lymphocytes Percent Auto 13.5 % (25-40); Mean Corpuscular HGB Conc 34.2 % (30-36); Mean Corpuscular Hemoglobin 33.3 PG (26-34); Mean Corpuscular Volume 97.5 fL (80-100); Monocytes Absolute Auto 800 /uL (0-900); Monocytes Percent Auto 8.6 % (3-14); Neutrophils Absolute Auto 7000 /uL (1500-7000); Neutrophils Percent Auto 77.1 % (50-75); Platelet Count 265 X10^3/uL (150-400); Red Blood Cell Count 4.25 X10^6/uL (4.0-5.2); Red Cell Distribution Width 14.2 % (11.6-14.8); White Blood Cell Count 9.1 X10^3/uL (4.5-11.0)
[2022-10-23 20:18] LABS: Alanine Aminotransferase 19 IU/L (<35); Albumin 4.5 g/dL (3.5-5.0); Albumin Globulin Ratio 1.6 (1.0-2.8); Alkaline Phosphatase 37 U/L (38-126); Aspartate Aminotransferase 24 IU/L (14-36); Bilirubin Total 0.7 mg/dL (0.2-1.3); Blood Urea Nitrogen 17 mg/dL (7-17); Calcium 9.1 mg/dL (8.4-10.2); Carbon Dioxide 29 mmol/L (22-32); Chloride 101 mmol/L (98-107); Estimated Glomerular Filt Rate > 60 mL/min (>60); Globulin 2.9 g/dL (1.7-4.1); Glucose 88 mg/dL (80-110); HEMOLYSIS < 15 (0-50); Lipase 186 U/L (23-300); Potassium 3.4 mmol/L (3.4-5.1); Sodium 136 mmol/L (137-145); Total Protein 7.4 g/dL (6.3-8.2)
[2022-10-24] VITALS (7 sets, daily range): BP systolic 164–188; BP diastolic 78–95; PULSE 52–61; O2SAT 99–100
--- NOTE | 2022-10-24 00:50 | ED.ABDPAIN ---
HPI - Abdominal Pain General Chief Complaint: Abdominal Pain Stated Complaint: stomach issues Time Seen by Provider: 10/24/22 00:40 Source: patient Mode of arrival: Ambulatory History of Present Illness HPI narrative: Patient is a 71-year-old female who has a history of atrial fibrillation on Eliquis diagnosed with Giardia had 2 rounds of Flagyl the 2nd time she had Cipro Flagyl presents with a 2nd time this week with increasing abdominal pain. She reports that she is not having any more diarrhea she actually is constipated. She was given prescription for dicyclomine for abdominal cramping but she is been hesitant to use it. She was actually admitted in July for hyponatremia diarrhea dehydration. Seen again diagnosed with Giardia that time she had chest abdomen pelvis CT found to have some hydronephrosis but discharged. She was then seen again on the October 21 for increasing abdominal pain chin x-ray and blood work. Sodium was stable thought to be her regular pain. Tonight she reports that she still having some discomfort no nausea vomiting. Reports constipation says that the diarrhea has stopped. She is not taken Tylenol or ibuprofen confused about what she can take. Related Data Previous Rx's Medication Instructions Recorded apixaban 5 mg tablet (Eliquis) 5 mg PO BID #60 tabs 02/16/21 dicyclomine 10 mg capsule 20 mg PO Q6HR #30 caps 08/05/22 simethicone 80 mg chewable tablet 80 mg PO QID PRN Flatulence #30 08/05/22 (Gas Relief 80 (simethicone)) tabs metronidazole 250 mg tablet 250 mg PO TID #15 tabs 08/27/22 dicyclomine 20 mg tablet 20 mg PO QID PRN abdominal pain 10/22/22 #30 tabs Allergies Allergy/AdvReac Type Severity Reaction Status Date / Time Sulfa (Sulfonamide Allergy Hives Verified 08/02/22 21:02 Antibiotics) Review of Systems Review of Systems ROS Unobtainable: All systems reviewed & are unremarkable except as noted in HPI and below Patient History Social History household members: spouse Smoking Status: Never smoker Smoking Status: Never smoker alcohol intake frequency: a few times a week Alcohol type: wine Substance Use Type: does not use Exam Initial Vital Signs Initial Vital Signs: Vital Signs Temperature 97.3 F L 10/23/22 19:43 Pulse Rate 67 10/23/22 19:43 Respiratory Rate 16 10/23/22 19:43 Blood Pressure 185/84 H 10/23/22 19:43 Pulse Oximetry 100 10/23/22 19:43 Oxygen Delivery Method Room Air 10/23/22 19:43 GENERAL: Alert pleasant thin 71-year-old female and in no acute distress. HEENT: Head atraumatic,EOMI, pupils reactive, face symmetric, moist mucous membranes CARDIOVASCULAR: Regular rate and rhythm without murmurs, rubs or gallops. RESPIRATORY: Breath sounds equal bilaterally, no wheezes rales or rhonchi. ABDOMEN: Soft, increased bowel sounds nondistended mildly tender left upper quadrant no guarding no rebound EXTREMITIES: Normal range of motion, no clubbing or edema. Neurovascularly intact NEUROLOGICAL: Alert and oriented x4.Normal gait and speech. SKIN: Warm, dry, no laceration, no petechiae, no rashes or lesions. Course Orders Ordered: ED Orders 10/24/22 01:05 CT abdomen pelvis w con Stat Discontinued Medications Ketorolac Tromethamine (Ketorolac 30 Mg/Ml Vial) 15 mg IV NOW ONE Stop: 10/24/22 01:06 Last Admin: 10/24/22 01:11 Dose: 15 mg Documented By: Ondansetron HCl (Ondansetron 4 Mg Odt) 4 mg PO NOW PRN PRN Reason: Nausea And Vomiting Ondansetron HCl (Ondansetron 4 Mg/2 Ml Inj) 4 mg IV NOW PRN PRN Reason: Nausea And Vomiting Vital Signs Vital signs: Vital Signs - 8 hr 10/24/22 00:32 10/24/22 00:33 10/24/22 00:33 Pulse Rate 53 L Blood Pressure 188/82 H Pulse Oximetry 100 100 10/24/22 01:00 10/24/22 01:00 10/24/22 01:30 Pulse Rate 56 L 61 Blood Pressure 164/95 H Pulse Oximetry 100 99 10/24/22 02:00 10/24/22 02:08 10/24/22 02:08 Pulse Rate 53 L 52 L Blood Pressure 177/78 H Pulse Oximetry 99 99 10/24/22 02:30 Pulse Rate 55 L Blood Pressure Pulse Oximetry 99 MDM - Abdominal Pain Lab Data 10/23/22 19:50 10/23/22 19:50 Labs: Lab Results 10/23/22 10/23/22 Range/Units 19:50 19:50 WBC 9.1 (4.5-11.0) X10^3/uL RBC 4.25 (4.0-5.2) X10^6/uL Hgb 14.2 (12.0-16.0) g/dL Hct 41.5 (36-46) % MCV 97.5 (80-100) fL MCH 33.3 (26-34) PG MCHC 34.2 (30-36) % RDW 14.2 (11.6-14.8) % Plt Count 265 (150-400) X10^3/uL Neut % (Auto) 77.1 H (50-75) % Lymph % (Auto) 13.5 L (25-40) % [place] % (Auto) 8.6 (3-14) % Eos % (Auto) 0.1 L (2-4) % Baso % (Auto) 0.7 (0-2) % Neut # (Auto) 7000 (6179-7852) /uL Lymph # (Auto) 1200 (9777-7906) /uL [place] # (Auto) 800 (0-900) /uL Eos # (Auto) 0 (0-450) /uL Baso # (Auto) 100 (0-100) /uL Sodium 136 L (137-145) mmol/L Potassium 3.4 (3.4-5.1) mmol/L Chloride 101 (98-107) mmol/L Carbon Dioxide 29 (22-32) mmol/L BUN 17 (7-17) mg/dL Creatinine 0.63 (0.52-1.04) mg/dL Estimated GFR > 60 (>60) mL/min BUN/Creatinine Ratio 27.0 H (6-22) Glucose 88 (80-110) mg/dL Calcium 9.1 (8.4-10.2) mg/dL Total Bilirubin 0.7 (0.2-1.3) mg/dL AST 24 (14-36) IU/L ALT 19 (<35) IU/L Alkaline Phosphatase 37 L (38-126) U/L Total Protein 7.4 (6.3-8.2) g/dL Albumin 4.5 (3.5-5.0) g/dL Globulin 2.9 (1.7-4.1) g/dL Albumin/Globulin Ratio 1.6 (1.0-2.8) Lipase 186 (23-300) U/L Imaging Data CT scan - abdomen/pelvis: Radiologist's Impression: PROCEDURE:? CT ABDOMEN PELVIS W CON ? INDICATIONS:? Persistent abdominal pain ? TECHNIQUE:? After the administration of IV contrast, axial sections were acquired from the lung bases to the pubic symphysis.? Coronal and sagittal reformats were performed.? For radiation dose reduction, the following was used:? automated exposure control, adjustment of mA and/or kV according to patient size. ? COMPARISON:? [facility], CT, CT ABDOMEN PELVIS W CON, 08/03/2022, 0:36. ? FINDINGS:? Image quality:? Excellent.? ? Lung bases:? Unremarkable.? ? Heart:? Heart is normal in size.? There is a small hiatal hernia. ? ? ABDOMEN: Liver:? No mass lesion. Gallbladder:? Within normal limits without calcified gallstones.? ? Biliary ducts:? No biliary ductal dilatation.? ? Pancreas:? Unremarkable.? ? Spleen:? Normal in size.? ? Adrenal Glands:? No adrenal nodules.? ? Kidneys and Ureters:? There is persistent bilateral hydronephrosis, moderate on the right and [id number] on the left extending to the ureteropelvic junctions.? No obstructing stones visualized.? The ureters are nondistended distal to the PEJ. ? Stomach and Bowel:? Stomach, small bowel loops, and colon are normal in caliber and wall thickness.? The appendix is normal.? Moderate stool demonstrated throughout the colon suggestive of constipation.? No evidence of bowel obstruction. Peritoneum:? No abnormal intraperitoneal fluid.? No free air.? ? Ventral Wall: ? No hernia.? Abdominal Nodes:? No retroperitoneal or mesenteric adenopathy by size criteria.? Vessels:? Aorta and inferior vena cava are normal in size.? ? PELVIS: Pelvic Organs:? Unremarkable.? ? Bladder:? Unremarkable.? ? Pelvic Nodes: No enlarged lymph nodes.? Miscellaneous: No inguinal hernias are seen. ? ? ? Bones:? There is anterolisthesis of L4 on L5 measuring approximately 0.7 cm.? Mild retrolisthesis demonstrated at T12-L1 and L1-L2.? Findings are similar to the prior study.? Visualized osseous structures demonstrate no suspicious focal lesions. ? IMPRESSION:? ? 1. 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 ? ? Dictated by: Hermes Aguilera M.D. on 10/24/2022 at 2:34 ? ? MDM Narrative Medical decision making narrative: Patient 71-year-old female feeling do the ongoing abdominal pain. She recently had a history of Giardia she is been to the ED handful of times for the same. She is taking Bentyl as needed for pain but it does not seem to be working and she is very worried about constipation. CT does not show any significant abnormality blood work is overall reassuring. Discussion with her of how you can still have some cramping after infection. Encouraged outpatient follow-up possible GI consultation but mostly this is just going to take time. He has some persistent right hydronephrosis which has been evaluated previously remains unchanged. No evidence of nephrolithiasis. Blood work does not show any clinical significant abnormality including leukocytosis anemia electrolyte abnormality CONNIE or elevated liver enzymes. She actually does have an appointment with a new primary care provider this week or next week. Discharge Plan Departure Patient Disposition: Home Clinical Impression: Abdominal bloating with cramps, Hydronephrosis Instructions: DI for Abdominal Pain-Adult Activity Restrictions/Additional Instructions: *You have been diagnosed with abdominal pain *What to do: At this time please talk with your PCP in regards to your ongoing abdominal pain. I think reasonable for GI referral possible colonoscopy. *Continue to take medications as directed *Follow up with your primary care provider in 2-3 days or call [phone] *Return to ER if you should have increasing pain persistent vomiting fever or any new, worsening or concerning symptoms Prescriptions: No Action Eliquis 5 mg tablet 5 mg PO BID Qty: 60 0RF metronidazole 250 mg tablet 250 mg PO TID Qty: 15 0RF dicyclomine 20 mg tablet 20 mg PO QID PRN (Reason: abdominal pain) Qty: 30 0RF dicyclomine 10 mg Capsule 20 mg PO Q6HR Qty: 30 0RF simethicone [Gas Relief 80 (simethicone)] 80 mg Tablet,Chewable 80 mg PO QID PRN (Reason: Flatulence) Qty: 30 0RF Referrals: Turner Lindquist MD [Physician] - Sergio Hardwick DO [Primary Care Provider] - Stand Alone Forms: Patient Portal/API
--- NOTE | 2022-10-24 01:05 | DI.CT.S_ITS ---
PROCEDURE: CT ABDOMEN PELVIS W CON INDICATIONS: Persistent abdominal pain TECHNIQUE: After the administration of IV contrast, axial sections were acquired from the lung bases to the pubic symphysis. Coronal and sagittal reformats were performed. For radiation dose reduction, the following was used: automated exposure control, adjustment of mA and/or kV according to patient size. COMPARISON: [facility], CT, CT ABDOMEN PELVIS W CON, 08/03/2022, 0:36. FINDINGS: Image quality: Excellent. Lung bases: Unremarkable. Heart: Heart is normal in size. There is a small hiatal hernia. ABDOMEN: Liver: No mass lesion. Gallbladder: Within normal limits without calcified gallstones. Biliary ducts: No biliary ductal dilatation. Pancreas: Unremarkable. Spleen: Normal in size. Adrenal Glands: No adrenal nodules. Kidneys and Ureters: There is persistent bilateral hydronephrosis, moderate on the right and [id number] on the left extending to the ureteropelvic junctions. No obstructing stones visualized. The ureters are nondistended distal to the PEJ. Stomach and Bowel: Stomach, small bowel loops, and colon are normal in caliber and wall thickness. The appendix is normal. Moderate stool demonstrated throughout the colon suggestive of constipation. No evidence of bowel obstruction. Peritoneum: No abnormal intraperitoneal fluid. No free air. Ventral Wall: No hernia. Abdominal Nodes: No retroperitoneal or mesenteric adenopathy by size criteria. Vessels: Aorta and inferior vena cava are normal in size. PELVIS: Pelvic Organs: Unremarkable. Bladder: Unremarkable. Pelvic Nodes: No enlarged lymph nodes. Miscellaneous: No inguinal hernias are seen. Bones: There is anterolisthesis of L4 on L5 measuring approximately 0.7 cm. Mild retrolisthesis demonstrated at T12-L1 and L1-L2. Findings are similar to the prior study. Visualized osseous structures demonstrate no suspicious focal lesions. IMPRESSION: 1. 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 Dictated by: Hermes Aguilera M.D. on 10/24/2022 at 2:34 Approved by: Hermes Aguilera M.D. on 10/24/2022 at 2:39
[2022-10-24] MEDS: KETOROLAC 30 MG/ML VIAL 15 MG IV (01:11)
== END 2022-10-24 03:07 | disposition home or self-care (01) ==
PROVIDERS: Emergency Provider Emergency Medicine; PCP Family Medicine
DX: R14.0 Abdominal distension (gaseous) (principal); N13.30 Unspecified hydronephrosis; K59.00 Constipation, unspecified
CPT/HCPCS: 36415; 74177; 80053; 83690; 85025; 93005; 96374; 99284; J1885; Q9967

== ENCOUNTER 2022-11-12 13:18 | Day surgery (SDC) | payer MEDICARE, SELFPAY ==
[2022-10-30 14:01] VITALS: BMI 17.9
[2022-11-12] VITALS (9 sets, daily range): BP systolic 154–186; BP diastolic 69–98; PULSE 58–69; RESP 12–22; TEMP 36.2–36.6; O2SAT 95–100; BMI 18.1
--- NOTE | 2022-11-12 | PATH_ITS ---
[facility] Accession Number: [id number] No. of containers..03 Tissue . 01 Material submitted: . PART A: gastrointestinal site - GASTRIC BIOPSIES PART B: esophagus - ESOPHAGUS BIOPSIES PART C: colon - RANDOM COLON BIOPSIES . 01 Diagnosis: A. Stomach, Biopsies: Gastric oxyntic mucosa with no diagnostic abnormality. No evidence of Helicobacter organisms on H/E stain. Negative for intestinal metaplasia. Negative for dysplasia or malignancy. . B. Esophagus, Biopsies: Squamous mucosa with no diagnostic abnormality. Intraepithelial eosinophils are not increased. Negative for dysplasia and malignancy. . C. Random Colon, Biopsies: Colonic mucosa with mild melanosis coli. Negative for active or microscopic colitis. Negative for granulomas, dysplasia or malignancy. [facility] 11/26/2022 1322 Local . 01 Electronically signed: . Camilo Helton MD, PhD, Pathologist NPI- [id number] . 01 Gross description: . Part A: GASTRIC BIOPSIES: Received in formalin is 1 fragment(s) of camacho, soft tissue measuring 0.4 x 0.3 x 0.2 cm submitted entirely in 1 cassette(s) Part B: ESOPHAGUS BIOPSIES: Received in formalin is multiple fragment(s) of camacho, soft tissue measuring 0.7 x 0.5 x 0.1 cm in aggregate submitted entirely in 1 cassette(s) Part C: RANDOM COLON BIOPSIES: Received in formalin is multiple fragment(s) of camacho, soft tissue measuring 1.0 x 0.7 x 0.1 cm in aggregate submitted entirely in 1 cassette(s) /AA 11/18/2022 2324 Local . 01 Pathologist provided ICD-10: R10.13, R13.10, R19.4, K52.89 . 01 CPT . 722165, 012523, 183041 Specimen Comment: A courtesy copy of this report has been sent to [phone] Performed at: 01 [facility] [address] [place] [address], [place], [place] [id number] MD Hermes Ledezma MD Phone: [phone]
[2022-11-12] MEDS: LACTATED RINGERS 1,000 ML 200 ML IV ×2 (13:59→14:53)
--- NOTE | 2022-11-12 14:04 | PM.PREOP ---
Pre-operative Note Interval Note History & Physical reviewed/Exam performed by Physician: Yes Changes to H&P: No
--- NOTE | 2022-11-12 15:38 | PM.OP.EC ---
Operative Date/Time/Diagnoses Date of procedure: 11/12/22 Time of procedure: 15:38 Pre-op diagnosis: Abdominal pain Post-op diagnosis: same Procedure & Clinicians Study performed: Diagnostic esophagoduodenoscopy and colonoscopy Same procedure as scheduled: Yes Indications: 72-year-old woman with persistent abdominal pain following travels to [place]. Infectious workup has been negative. Surgeon: Eber Doyle Procedure Notes Procedure in detail: The history and physical was performed/updated and the patient is ASA class is 2. The procedure was discussed in detail with the patient. Potential risks complications including infection, bleeding, missed diagnosis, perforation, need for surgery, and were explained. Their questions were answered and informed consent was obtained. Patient placed in left lateral decubitus position. Time out was performed. Procedural sedation was administered by Anesthesia. A bite block was placed. the scope was inserted into the mouth and advanced through the esophagus and into the stomach. The stomach had mild gastritis no ulcers biopsies of the stomach were performed with forceps. Duodenum was intubated and was normal in appearance. Scope was then withdrawn into the esophagus and GE junction was seen at 35 cm from the incisors. Biopsies of the esophagus were taken. The scope was withdrawn into the esophagus the Z line was seen at 35 cm from the incisions. There was no Blair's esophagitis, esophageal masses or strictures. Stomach was desufflated and scope removed. Examination began with a thorough inspection of the perianal area there was no evidence of fissures, fistulae, external hemorrhoids or cutaneous malignancy. The colonoscopy scope was then placed into the anal canal and was advanced to the cecum, which was identified by the ileocecal valve, the appendiceal orifice and the confluence of the taenia. The scope was then slowly withdrawn examining colon thoroughly in all directions, irrigating it of any residual stool. The entirety of the colon was notable for diffuse yellow plaques and mild colitis suggestive of C diff. numerous biopsy of the of the colon were performed The patient tolerated the procedure well. They will be discharged once criteria are met. The prep was of good/excellent quality. The withdrawl time was 8 minutes. Specimen(s): other (Gastric, esophagus, colon) Impression: Colitis Post-procedure Plan for aftercare: Will notify with biopsy results Disposition: same day surgery
== END 2022-11-12 17:24 | disposition home or self-care (01) ==
PROVIDERS: PCP Internal Medicine; Referring Provider Surgery; Visit Provider Surgery
PROC: 0DJ08ZZ Inspection of Upper Intestinal Tract, Via Natural or Artificial Opening Endoscopic (ICD-10-PCS; CPT 43235; principal; 2022-11-12 14:45)
PROC: 0DJD8ZZ Inspection of Lower Intestinal Tract, Via Natural or Artificial Opening Endoscopic (ICD-10-PCS; CPT 45378; 2022-11-12 14:45)
DX: R10.9 Unspecified abdominal pain (principal); K63.89 Other specified diseases of intestine
CPT/HCPCS: 45380; 43239; J2704

== ENCOUNTER 2022-11-17 22:26 | Emergency (ER) | payer MEDICARE, SELFPAY ==
[2022-10-30 14:01] VITALS: BMI 17.9
[2022-11-17 22:40] VITALS: BP 133/61; PULSE 68; RESP 18; TEMP 36.6; O2SAT 98; BMI 18.5
--- NOTE | 2022-11-17 22:54 | ED.GENADULT ---
HPI - General Adult General Chief complaint: Abdominal Pain Stated complaint: C DIFF post colonoscopy Time Seen by Provider: 11/17/22 22:35 Source: patient Mode of arrival: Ambulatory History of Present Illness HPI narrative: Patient is a 71-year-old female who has a history of atrial fibrillation on Eliquis diagnosed with Giardia had 2 rounds of Flagyl the 2nd time she had Cipro Flagyl with recent colonoscopy presents at the request of her primary care provider for evaluation of abdominal burning and cramping. She had a colonoscopy last Friday and findings were consistent with C diff. She was recently started on oral vancomycin. She denies fever or chills. She is not dizzy nor weak or lightheaded. She denies chest pain or shortness of breath. Related Data Home Medications Medication Instructions Recorded Confirmed amlodipine 2.5 mg tablet 2.5 mg PO DAILY 10/25/22 11/12/22 atorvastatin 10 mg tablet 10 mg PO DAILY 10/25/22 11/12/22 cholecalciferol (vitamin D3) 125 125 mcg PO DAILY 10/25/22 11/12/22 mcg (5,000 unit) capsule diltiazem HCl 120 mg 120 mg PO DAILY 10/25/22 11/12/22 capsule,extended release 24 hr flecainide 50 mg tablet 50 mg PO BID 10/25/22 11/12/22 olmesartan 40 mg tablet 40 mg PO DAILY 10/25/22 11/12/22 pregabalin 50 mg capsule 50 mg PO DAILY PRN 10/25/22 11/06/22 tafluprost (PF) 0.0015 % eye drops 1 drp EYE-BOTH ONCE PM 10/25/22 11/06/22 in a dropperette timolol maleate 0.5 % eye drops 0 drp EYE-BOTH 10/25/22 11/06/22 zolpidem 5 mg tablet (Ambien) 2.5 mg PO BEDTIME PRN 10/25/22 11/06/22 Previous Rx's Medication Instructions Recorded apixaban 5 mg tablet (Eliquis) 5 mg PO BID #60 tabs 02/16/21 dicyclomine 20 mg tablet 20 mg PO TID PRN abdominal pain 10/31/22 #90 tabs vancomycin 125 mg capsule 125 mg PO QID #40 caps 11/16/22 Allergies Allergy/AdvReac Type Severity Reaction Status Date / Time Sulfa (Sulfonamide Allergy Hives Verified 11/12/22 14:05 Antibiotics) Review of Systems Review of Systems Narrative: GENERAL: Denies chills, fatigue, malaise, fever, sweats. HEENT: Denies sinus pain, ear pain, sore throat, difficulty swallowing, dizziness. RESPIRATORY: Denies dyspnea, cough, wheezing, hemoptysis, sputum. CARDIOVASCULAR: Denies chest pain, palpitations, orthopnea, edema, GASTROINTESTINAL: See HPI : Denies dysuria, frequency, incontinence, hematuria, urinary retention. MUSCULOSKELETAL: denies weakness, joint pain, or bony pain SKIN: Denies rash, skin lesions, or other NEUROLOGIC: Denies weakness, headache, numbness, change in speech, confusion, seizures, incoordination. PSYCHIATRIC: No concerning psychosocial issues. 12 point review of systems is negative except for those stated above Patient History Medical History Chicken pox Chronic anticoagulation Essential hypertension (~2000) Irritable bowel syndrome Kidney stones Malaria Measles Melanoma (~2019) Mixed hyperlipidemia Osteopenia Osteoporosis Paroxysmal atrial fibrillation (~2021) Rubella Skin cancer (~2011) Slow transit constipation Social History marital status: household members: spouse lives independently: Yes occupational status: previously employed Smoking Status: Never smoker alcohol intake: current substance use type: does not use Smoking Status: Never smoker alcohol intake frequency: a few times a month Alcohol type: wine Substance Use Type: does not use Exam Narrative Exam Narrative: GENERAL: [72] year old patient appears stated age. Well-developed patient, in mild distress. HEAD: Atraumatic. Normocephalic. EYES: Pupils equal round and reactive. Extraocular motions intact. No scleral icterus. No injection or drainage. ENT: Nose without bleeding, purulent drainage. Throat without erythema, tonsillar hypertrophy or exudate. Airway patent. NECK: Trachea midline. Non tender CARDIOVASCULAR: Regular rate and rhythm without murmurs, gallops, or rubs. RESPIRATORY: Clear to auscultation. Breath sounds equal bilaterally. No wheezes, rales, or rhonchi. GASTROINTESTINAL: Soft, nontender, bowel sounds present in all 4 quadrants EXTREMITIES: No edema or joint tenderness. BACK: Nontender without deformity or crepitance. No flank tenderness. NEURO: AOx3. SKIN: No rash or erythema of visible areas Initial Vital Signs Initial Vital Signs: Vital Signs Temperature 97.9 F 11/17/22 22:40 Pulse Rate 68 11/17/22 22:40 Respiratory Rate 18 11/17/22 22:40 Blood Pressure 133/61 11/17/22 22:40 Pulse Oximetry 98 11/17/22 22:40 Oxygen Delivery Method Room Air 11/17/22 22:40 Course Orders Ordered: ED Orders 11/17/22 22:56 Urine Microscopic Stat 11/17/22 23:00 Complete Blood Count AUTO DIFF Stat Comprehensive Metabolic Panel Stat Lactate (Lactic Acid) Stat Lipase Stat Magnesium Stat 11/17/22 23:46 CT abdomen pelvis w con Stat Discontinued Medications Lactated Ringer's (Lactated Ringers) 1,000 mls @ 1,000 mls/hr IV BOLUS ONE Stop: 11/17/22 23:42 Last Infusion: 11/18/22 00:07 Dose: 0 mls/hr Documented By: Admin: 11/17/22 23:07 Dose: 1,000 mls/hr Documented By: OG Vital Signs Vital signs: Vital Signs - 8 hr 11/17/22 22:40 11/17/22 23:40 11/17/22 23:42 Temperature 97.9 F Pulse Rate 68 58 L 56 L Respiratory Rate 18 Blood Pressure 133/61 Pulse Oximetry 98 100 99 Oxygen Delivery Method Room Air 11/17/22 23:42 11/18/22 00:00 11/18/22 00:00 Temperature Pulse Rate 55 L Respiratory Rate 18 Blood Pressure 168/78 H 175/77 H Pulse Oximetry 99 Oxygen Delivery Method 11/18/22 02:18 11/18/22 00:02 11/18/22 00:18 Temperature 97.2 F L Pulse Rate 58 L Respiratory Rate Blood Pressure 167/80 H Pulse Oximetry 99 Oxygen Delivery Method 11/18/22 00:30 11/18/22 00:30 11/18/22 01:00 Temperature Pulse Rate 61 59 L Respiratory Rate Blood Pressure 169/79 H Pulse Oximetry 98 97 Oxygen Delivery Method 11/18/22 01:02 11/18/22 01:02 11/18/22 01:30 Temperature Pulse Rate 59 L 57 L Respiratory Rate Blood Pressure 171/76 H Pulse Oximetry 97 98 Oxygen Delivery Method 11/18/22 02:00 11/18/22 02:01 11/18/22 02:01 Temperature Pulse Rate 63 64 Respiratory Rate Blood Pressure 172/82 H Pulse Oximetry 96 97 Oxygen Delivery Method 11/18/22 02:15 11/18/22 02:18 Temperature Pulse Rate 59 L Respiratory Rate 16 Blood Pressure 169/81 H Pulse Oximetry 97 Oxygen Delivery Method Medical Decision Making Lab Data 11/17/22 23:00 11/17/22 23:00 Labs: Lab Results 11/17/22 11/17/22 11/17/22 Range/Units 22:56 23:00 23:00 WBC 9.1 (4.5-11.0) X10^3/uL RBC 4.46 (4.0-5.2) X10^6/uL Hgb 15.0 (12.0-16.0) g/dL Hct 43.3 (36-46) % MCV 97.2 (80-100) fL MCH 33.7 (26-34) PG MCHC 34.7 (30-36) % RDW 13.2 (11.6-14.8) % Plt Count 293 (150-400) X10^3/uL Neut % (Auto) 73.7 (50-75) % Lymph % (Auto) 15.8 L (25-40) % [facility] % (Auto) 9.4 (3-14) % Eos % (Auto) 0.3 L (2-4) % Baso % (Auto) 0.8 (0-2) % Neut # (Auto) 6700 (1785-8255) /uL Lymph # (Auto) 1400 (7255-8141) /uL [facility] # (Auto) 900 (0-900) /uL Eos # (Auto) 0 (0-450) /uL Baso # (Auto) 100 (0-100) /uL Sodium 138 (137-145) mmol/L Potassium 4.6 (3.4-5.1) mmol/L Chloride 105 (98-107) mmol/L Carbon Dioxide 26 (22-32) mmol/L BUN 22 H (7-17) mg/dL Creatinine 0.81 (0.52-1.04) mg/dL Estimated GFR > 60 (>60) mL/min BUN/Creatinine Ratio 27.2 H (6-22) Glucose 94 (80-110) mg/dL Lactate (0.7-2.1) mmol/L Calcium 9.4 (8.4-10.2) mg/dL Magnesium 2.2 (1.6-2.3) mg/dL Total Bilirubin 0.5 (0.2-1.3) mg/dL AST 27 (14-36) IU/L ALT 23 (<35) IU/L Alkaline Phosphatase 33 L (38-126) U/L Total Protein 7.3 (6.3-8.2) g/dL Albumin 4.3 (3.5-5.0) g/dL Globulin 3.0 (1.7-4.1) g/dL Albumin/Globulin Ratio 1.4 (1.0-2.8) Lipase 226 (23-300) U/L Urine RBC 0-1/hpf (0-5/HPF) Urine WBC None seen (0-5/HPF) Ur Squamous Epith Cells 1-5 /hpf (0-5/HPF) Calcium Oxalate Crystal Many H Urine Bacteria Occasional (0-1) (None) Hyaline Casts 0-1/lpf (None) Urine Mucus 2+ H (Negative) Ur Culture Indicated? Cult not indicated 11/17/22 Range/Units 23:00 WBC (4.5-11.0) X10^3/uL RBC (4.0-5.2) X10^6/uL Hgb (12.0-16.0) g/dL Hct (36-46) % MCV (80-100) fL MCH (26-34) PG MCHC (30-36) % RDW (11.6-14.8) % Plt Count (150-400) X10^3/uL Neut % (Auto) (50-75) % Lymph % (Auto) (25-40) % [facility] % (Auto) (3-14) % Eos % (Auto) (2-4) % Baso % (Auto) (0-2) % Neut # (Auto) (6724-0844) /uL Lymph # (Auto) (4853-3870) /uL [facility] # (Auto) (0-900) /uL Eos # (Auto) (0-450) /uL Baso # (Auto) (0-100) /uL Sodium (137-145) mmol/L Potassium (3.4-5.1) mmol/L Chloride (98-107) mmol/L Carbon Dioxide (22-32) mmol/L BUN (7-17) mg/dL Creatinine (0.52-1.04) mg/dL Estimated GFR (>60) mL/min BUN/Creatinine Ratio (6-22) Glucose (80-110) mg/dL Lactate 1.2 (0.7-2.1) mmol/L Calcium (8.4-10.2) mg/dL Magnesium (1.6-2.3) mg/dL Total Bilirubin (0.2-1.3) mg/dL AST (14-36) IU/L ALT (<35) IU/L Alkaline Phosphatase (38-126) U/L Total Protein (6.3-8.2) g/dL Albumin (3.5-5.0) g/dL Globulin (1.7-4.1) g/dL Albumin/Globulin Ratio (1.0-2.8) Lipase (23-300) U/L Urine RBC (0-5/HPF) Urine WBC (0-5/HPF) Ur Squamous Epith Cells (0-5/HPF) Calcium Oxalate Crystal Urine Bacteria (None) Hyaline Casts (None) Urine Mucus (Negative) Ur Culture Indicated? Urine Dip Bedside Urine Glucose Negative Bedside Urine Bilirubin - Negative Bedside Urine Ketone - Negative Urine Specific Alba 1.025 Bedside Urine Occult Blood +/- Bedside Urine pH 6 Bedside Urine Protein - Negative Bedside Urine Urobilinogen - Negative Bedside Urine Nitrite - Negative Bedside Urine Leukocytes - Negative Esterase Point of care testing: Urine Dip Bedside Urine Glucose Negative Bedside Urine Bilirubin - Negative Bedside Urine Ketone - Negative Urine Specific Alba 1.025 Bedside Urine Occult Blood +/- Bedside Urine pH 6 Bedside Urine Protein - Negative Bedside Urine Urobilinogen - Negative Bedside Urine Nitrite - Negative Bedside Urine Leukocytes - Negative Esterase MDM Narrative Medical decision making narrative: [72] year old patient presents with crampy lower abdominal pain Multiple etiologies for patient's symptoms considered including, but not limited to: [Clostridium difficile versus bowel perforation from procedure versus enteritis versus bowel obstruction versus other] Prior Charts reviewed in our EMR Primary Historian: patient Labs reviewed and interpreted by myself: No leukocytosis, left shift or signs of anemia, electrolytes without significant abnormalities Imaging reviewed: No evidence of perforation or obstruction Patient's history and physical exam are reassuring, she likely has a multifactorial set of elements contributing to her chronic abdominal issues which seemed to all stem from bowel infection after a trip to [place]. Patient's symptoms improved over duration of stay with above-stated therapies. Findings and discharge diagnosis discussed with patient/family followed by verbalization of understanding Return precautions discussed with patient/family whom verbalize understanding of diagnosis and plan Discharge Plan Departure Patient Disposition: Home Clinical Impression: Abdominal pain Instructions: DI for Abdominal Pain-Adult Activity Restrictions/Additional Instructions: *You have been diagnosed with [abdominal pain. As we discussed your history and physical exam as well as labs and imaging are very reassuring and there is no evidence of bowel perforation or other significant abnormality that is related to your recent colonoscopy.] *What to do: *Please continue to take your regular medications as directed. *Please follow up with your primary care provider in 2-3 days, call for an appointment. Let them know you were seen in the Emergency Department and that we ask that you be seen in follow up. We will electronically transmit a record of today's note if your PCP is in our system *If you do not have a primary care provider please contact the [facility] Resource line at [phone]. They will ask some questions about your medical history and help get you set up with a doctor in the community. *Return to Emergency Department if you should have any new, worsening or concerning symptoms, such as [fever greater than 101 F, shaking chills, worsening pain, persistent vomiting or other bothersome symptoms] Prescriptions: No Action dicyclomine 20 mg tablet 20 mg PO TID PRN (Reason: abdominal pain) Qty: 90 3RF vancomycin 125 mg capsule 125 mg PO QID Qty: 40 1RF atorvastatin 10 mg tablet 10 mg PO DAILY amlodipine 2.5 mg tablet 2.5 mg PO DAILY flecainide 50 mg tablet 50 mg PO BID diltiazem HCl 120 mg capsule,extended release 24hr 120 mg PO DAILY olmesartan 40 mg tablet 40 mg PO DAILY tafluprost (PF) 0.0015 % dropperette 1 drp EYE-BOTH ONCE PM timolol maleate 0.5 % drops 0 drp EYE-BOTH zolpidem [Ambien] 5 mg tablet 2.5 mg PO BEDTIME PRN pregabalin 50 mg capsule 50 mg PO DAILY PRN cholecalciferol (vitamin D3) 125 mcg (5,000 unit) capsule 125 mcg PO DAILY Eliquis 5 mg tablet 5 mg PO BID Qty: 60 0RF Referrals: Turner Lindquist MD [Primary Care Provider] - Stand Alone Forms: Patient Portal/API
[2022-11-17] MEDS: LACTATED RINGERS 1,000 ML 1000 ML IV (23:07)
[2022-11-17 23:08] LABS: Add Manual Diff / Slide Review NO; Basophils Absolute Auto 100 /uL (0-100); Basophils Percent Auto 0.8 % (0-2); Eosinophils Absolute Auto 0 /uL (0-450); Eosinophils Percent Auto 0.3 % (2-4); Hematocrit 43.3 % (36-46); Lymphocytes Absolute Auto 1400 /uL (1100-4500); Lymphocytes Percent Auto 15.8 % (25-40); Mean Corpuscular HGB Conc 34.7 % (30-36); Mean Corpuscular Hemoglobin 33.7 PG (26-34); Mean Corpuscular Volume 97.2 fL (80-100); Monocytes Absolute Auto 900 /uL (0-900); Monocytes Percent Auto 9.4 % (3-14); Neutrophils Absolute Auto 6700 /uL (1500-7000); Neutrophils Percent Auto 73.7 % (50-75); Platelet Count 293 X10^3/uL (150-400); Red Blood Cell Count 4.46 X10^6/uL (4.0-5.2); Red Cell Distribution Width 13.2 % (11.6-14.8); White Blood Cell Count 9.1 X10^3/uL (4.5-11.0)
[2022-11-17 23:15] LABS: Bacteria Urine Occasional (0-1); Calcium Oxalate Crystals Urine Many; Culture Indicated Urine Cult Not Indicated; Hyaline Casts Urine 0-1/LPF; Mucus Urine 2+ (Negative); RBC Urine 0-1/HPF (0-5/HPF); Squamous Epithelial Cell Urine 1-5 /HPF (0-5/HPF); WBC Urine None Seen (0-5/HPF)
[2022-11-17 23:19] LABS: Alanine Aminotransferase 23 IU/L (<35); Albumin 4.3 g/dL (3.5-5.0); Albumin Globulin Ratio 1.4 (1.0-2.8); Alkaline Phosphatase 33 U/L (38-126); Aspartate Aminotransferase 27 IU/L (14-36); BUN Creatinine Ratio 27.2 (6-22); Bilirubin Total 0.5 mg/dL (0.2-1.3); Blood Urea Nitrogen 22 mg/dL (7-17); Calcium 9.4 mg/dL (8.4-10.2); Carbon Dioxide 26 mmol/L (22-32); Chloride 105 mmol/L (98-107); Estimated Glomerular Filt Rate > 60 mL/min (>60); Glucose 94 mg/dL (80-110); HEMOLYSIS 43 (0-50); Lipase 226 U/L (23-300); Magnesium 2.2 mg/dL (1.6-2.3); Potassium 4.6 mmol/L (3.4-5.1); Sodium 138 mmol/L (137-145); Total Protein 7.3 g/dL (6.3-8.2)
[2022-11-17 23:20] LABS: Lactate (Lactic Acid) 1.2 mmol/L (0.7-2.1)
[2022-11-17 23:40] VITALS: PULSE 58; O2SAT 100
[2022-11-17 23:42] VITALS: BP 168/78; PULSE 56; O2SAT 99
--- NOTE | 2022-11-17 23:46 | DI.CT.S_ITS ---
PROCEDURE: CT ABDOMEN PELVIS W CON INDICATIONS: Abdominal pain after recent colonoscopy; worsening abdominal distention. TECHNIQUE: After the administration of intravenous contrast, axial sections acquired from the lung bases to the pubic symphysis. Coronal and sagittal reformats were performed. For radiation dose reduction, the following was used: automated exposure control, adjustment of mA and/or kV according to patient size. COMPARISON: [facility], CT, CT ABDOMEN PELVIS W CON, 10/24/2022, 1:18. [facility], CT, CT ABDOMEN PELVIS W CON, 08/03/2022, 0:36. FINDINGS: Image quality: Excellent. Lung bases: Unremarkable. Heart: No significant findings. ABDOMEN: Liver: Unremarkable. Gallbladder: Suspected non radiopaque gallstones. No signs of acute cholecystitis. Biliary ducts: Unremarkable. Pancreas: Unremarkable. Spleen: Unremarkable. Adrenal Glands: Unremarkable. Kidneys and Ureters: Stable moderate right and [id number] left hydronephrosis to the level of the ureteropelvic junctions. There is a 2 mm nonobstructing calculus at the inferior pole of left kidney. Kidneys are mildly malrotated bilaterally. Findings appear stable when compared to the exam from 10/24/2022. Stomach and Bowel: Moderate stool is seen throughout the colon. Small bowel loops and stomach are unremarkable. Normal appendix. Peritoneum: No abnormal intraperitoneal fluid. No free air. Ventral Wall: No hernias. Abdominal Nodes: No retroperitoneal or mesenteric adenopathy by size criteria. Vessels: Aorta and inferior vena cava are normal in size. PELVIS: Pelvic Organs: Unremarkable. Bladder: Unremarkable. Pelvic Nodes: No enlarged lymph nodes. Miscellaneous: No hernias are seen. Bones: Multilevel degenerative changes and degenerative spondylolisthesis in the spine. No acute osseous abnormality. IMPRESSION: 1. Moderate stool burden. No signs of bowel obstruction or perforation. 2. Bilateral hydronephrosis again seen, right greater than left, again likely secondary to chronic ureteropelvic junction obstructions and unchanged when compared to 10/24/2022. 3. Tiny nonobstructing 2 mm left renal calculus. Approved by: Ralph Nathan M.D. on 11/18/2022 at 0:33
[2022-11-18] VITALS (11 sets, daily range): BP systolic 167–175; BP diastolic 76–82; PULSE 55–64; RESP 16–18; TEMP 36.2; O2SAT 96–99
== END 2022-11-18 02:25 | disposition home or self-care (01) ==
PROVIDERS: Emergency Provider Emergency Medicine; PCP Internal Medicine
DX: R10.9 Unspecified abdominal pain (principal); Z79.899 Other long term (current) drug therapy
CPT/HCPCS: 36415; 74177; 80053; 81003; 81015; 83605; 83690; 83735; 85025; 96360; 99284; Q9967

== ENCOUNTER 2022-11-20 12:16 | Emergency (ER) | payer MEDICARE, SELFPAY ==
[2022-10-30 14:01] VITALS: BMI 17.9
[2022-11-20 12:35] VITALS: BP 129/60; PULSE 64; RESP 18; TEMP 36.6; O2SAT 97; BMI 18.3
[2022-11-20 13:13] LABS: Add Manual Diff / Slide Review NO; Basophils Absolute Auto 100 /uL (0-100); Basophils Percent Auto 0.7 % (0-2); Eosinophils Absolute Auto 0 /uL (0-450); Eosinophils Percent Auto 0.1 % (2-4); Hematocrit 42.5 % (36-46); Hemoglobin 14.7 g/dL (12.0-16.0); Lymphocytes Absolute Auto 1000 /uL (1100-4500); Lymphocytes Percent Auto 11.7 % (25-40); Mean Corpuscular HGB Conc 34.5 % (30-36); Mean Corpuscular Hemoglobin 33.6 PG (26-34); Mean Corpuscular Volume 97.3 fL (80-100); Monocytes Absolute Auto 700 /uL (0-900); Monocytes Percent Auto 8.5 % (3-14); Neutrophils Absolute Auto 6800 /uL (1500-7000); Platelet Count 294 X10^3/uL (150-400); Red Blood Cell Count 4.37 X10^6/uL (4.0-5.2); Red Cell Distribution Width 13.2 % (11.6-14.8); White Blood Cell Count 8.6 X10^3/uL (4.5-11.0)
[2022-11-20 13:35] LABS: Alanine Aminotransferase 28 IU/L (<35); Albumin 4.3 g/dL (3.5-5.0); Albumin Globulin Ratio 1.5 (1.0-2.8); Alkaline Phosphatase 39 U/L (38-126); Aspartate Aminotransferase 26 IU/L (14-36); BUN Creatinine Ratio 23.7 (6-22); Bilirubin Total 0.4 mg/dL (0.2-1.3); Blood Urea Nitrogen 14 mg/dL (7-17); Calcium 9.6 mg/dL (8.4-10.2); Carbon Dioxide 27 mmol/L (22-32); Chloride 102 mmol/L (98-107); Estimated Glomerular Filt Rate > 60 mL/min (>60); Globulin 2.8 g/dL (1.7-4.1); Glucose 95 mg/dL (80-110); HEMOLYSIS < 15 (0-50); Lipase 159 U/L (23-300); Potassium 4.3 mmol/L (3.4-5.1); Sodium 135 mmol/L (137-145); Total Protein 7.1 g/dL (6.3-8.2)
[2022-11-20 15:26] VITALS: BP 191/88; PULSE 59; O2SAT 95
[2022-11-20 15:30] VITALS: BP 143/74; PULSE 64; O2SAT 93
[2022-11-20 16:00] VITALS: BP 181/79; PULSE 55; O2SAT 98
--- NOTE | 2022-11-20 16:07 | ED_ITS ---
HPI - Abdominal Pain <Tigist Gonzalez PA-C - Last Filed: 11/20/22 18:44> General Chief Complaint: Abdominal Pain Stated Complaint: Cdef infection burning pain Time Seen by Provider: 11/20/22 15:20 Source: patient Mode of arrival: Ambulatory History of Present Illness HPI narrative: Patient is a 72-year-old woman who has a history of atrial fibrillation on Eliquis, diagnosed with Giardia after a trip to [place]: had 2 rounds of Flagyl the 2nd time she had Cipro Flagyl with recent colonoscopy presents with lower abdominal, mostly on the left lower quadrant, cramping and burning pain.? She had a colonoscopy last Friday and findings were consistent with C diff.? She was recently started on oral vancomycin.? She sees Dr. Lindquist who recommended she start a bowel regimen for likely constipation with seepage of liquid stool around the impacted fecal bolus. She was feeling better 2 days ago but then this morning had acute pain and presented to the emergency room. She is had no fever or chills, chest pain, nausea vomiting. She denies any urinary symptoms. She is taking tramadol 50 mg t.i.d. for pain and has as needed dicyclomine, which she is not taking because she is worried about the side effects, although she admits it has helped her in the past. Related Data Home Medications Medication Instructions Recorded Confirmed amlodipine 2.5 mg tablet 2.5 mg PO DAILY 10/25/22 11/21/22 atorvastatin 10 mg tablet 10 mg PO DAILY 10/25/22 11/21/22 cholecalciferol (vitamin D3) 125 125 mcg PO DAILY 10/25/22 11/21/22 mcg (5,000 unit) capsule diltiazem HCl 120 mg 120 mg PO DAILY 10/25/22 11/21/22 capsule,extended release 24 hr flecainide 50 mg tablet 50 mg PO BID 10/25/22 11/21/22 olmesartan 40 mg tablet 40 mg PO DAILY 10/25/22 11/21/22 pregabalin 50 mg capsule 50 mg PO DAILY PRN 10/25/22 11/21/22 tafluprost (PF) 0.0015 % eye drops 1 drp EYE-BOTH ONCE PM 10/25/22 11/21/22 in a dropperette timolol maleate 0.5 % eye drops 0 drp EYE-BOTH 10/25/22 11/21/22 zolpidem 5 mg tablet (Ambien) 2.5 mg PO BEDTIME PRN 10/25/22 11/21/22 Previous Rx's Medication Instructions Recorded apixaban 5 mg tablet (Eliquis) 5 mg PO BID #60 tabs 02/16/21 dicyclomine 20 mg tablet 20 mg PO TID PRN abdominal pain 10/31/22 #90 tabs vancomycin 125 mg capsule 125 mg PO QID #40 caps 11/16/22 tramadol 50 mg tablet 50 mg PO Q6H PRN pain #30 tabs 11/18/22 lorazepam 0.5 mg tablet 0.5 mg PO TID PRN abdominal 11/21/22 discomfort #30 tabs Allergies Allergy/AdvReac Type Severity Reaction Status Date / Time Sulfa (Sulfonamide Allergy Hives Verified 11/21/22 12:35 Antibiotics) Review of Systems <Tigist Gonzalez PA-C - Last Filed: 11/20/22 18:44> Review of Systems ROS Unobtainable: All systems reviewed & are unremarkable except as noted in HPI and below Patient History <Tigist Gonzalez PA-C - Last Filed: 11/20/22 18:44> Medical History Chicken pox Chronic anticoagulation Essential hypertension (~2000) Irritable bowel syndrome Kidney stones Malaria Measles Melanoma (~2019) Mixed hyperlipidemia Osteopenia Osteoporosis Paroxysmal atrial fibrillation (~2021) Rubella Skin cancer (~2011) Slow transit constipation Social History marital status: household members: spouse lives independently: Yes occupational status: previously employed Smoking Status: Never smoker alcohol intake: current substance use type: does not use Smoking Status: Never smoker alcohol intake frequency: a few times a month Alcohol type: wine Substance Use Type: does not use Exam <Tigist Gonzalez PA-C - Last Filed: 11/20/22 18:44> Narrative Exam Narrative: GENERAL: 72 year old patient appears stated age. Well-developed patient, in mild distress. NEURO: AOx3. Somewhat tangential speech, some word searching noted. HEAD: Atraumatic. Normocephalic. CARDIOVASCULAR: Regular rate and rhythm without murmurs, gallops, or rubs. RESPIRATORY: Clear to auscultation. Breath sounds equal bilaterally. No wheezes, rales, or rhonchi. GASTROINTESTINAL: Abdomen soft, nondistended, tender to palpation of the left lower quadrant. No peritoneal signs. SKIN: No rash or erythema of visible areas Initial Vital Signs Initial Vital Signs: Vital Signs Temperature 97.9 F 11/20/22 12:35 Pulse Rate 64 11/20/22 12:35 Respiratory Rate 18 11/20/22 12:35 Blood Pressure 129/60 11/20/22 12:35 Pulse Oximetry 97 11/20/22 12:35 Oxygen Delivery Method Room Air 11/20/22 12:35 <Aric Sosa DO - Last Filed: 11/22/22 14:54> Initial Vital Signs Initial Vital Signs: Vital Signs Temperature 97.9 F 11/20/22 12:35 Pulse Rate 64 11/20/22 12:35 Respiratory Rate 18 11/20/22 12:35 Blood Pressure 129/60 11/20/22 12:35 Pulse Oximetry 97 11/20/22 12:35 Oxygen Delivery Method Room Air 11/20/22 12:35 Course <Tigist Gonzalez PA-C - Last Filed: 11/20/22 18:44> Orders Ordered: Discontinued Medications Dicyclomine HCl (Dicyclomine 10 Mg Capsule) 20 mg PO NOW ONE Stop: 11/20/22 16:08 Last Admin: 11/20/22 16:39 Dose: 20 mg Documented By: GOMEZ Ondansetron HCl (Ondansetron 4 Mg Odt) 4 mg PO NOW PRN PRN Reason: Nausea And Vomiting Ondansetron HCl (Ondansetron 4 Mg/2 Ml Inj) 4 mg IV NOW PRN PRN Reason: Nausea And Vomiting Tramadol HCl (Tramadol 50 Mg Tablet) 50 mg PO NOW ONE Stop: 11/20/22 16:08 Last Admin: 11/20/22 16:39 Dose: 50 mg Documented By: GOMEZ Vital Signs Vital signs: Vital Signs - 8 hr 11/20/22 12:35 11/20/22 16:52 11/20/22 15:26 Temperature 97.9 F 98.2 F Pulse Rate 64 55 L Respiratory Rate 18 16 Blood Pressure 129/60 156/82 H 191/88 H Pulse Oximetry 97 99 Oxygen Delivery Method Room Air Room Air 11/20/22 15:26 11/20/22 15:30 11/20/22 15:30 Temperature Pulse Rate 59 L 64 Respiratory Rate Blood Pressure 143/74 H Pulse Oximetry 95 93 Oxygen Delivery Method 11/20/22 16:00 11/20/22 16:00 11/20/22 16:30 Temperature Pulse Rate 55 L Respiratory Rate Blood Pressure 181/79 H 181/79 H Pulse Oximetry 98 Oxygen Delivery Method 11/20/22 16:30 Temperature Pulse Rate 54 L Respiratory Rate Blood Pressure Pulse Oximetry 98 Oxygen Delivery Method <Aric Sosa, DO - Last Filed: 11/22/22 14:54> Orders Ordered: Discontinued Medications Dicyclomine HCl (Dicyclomine 10 Mg Capsule) 20 mg PO NOW ONE Stop: 11/20/22 16:08 Last Admin: 11/20/22 16:39 Dose: 20 mg Documented By: GOMEZ Ondansetron HCl (Ondansetron 4 Mg Odt) 4 mg PO NOW PRN PRN Reason: Nausea And Vomiting Ondansetron HCl (Ondansetron 4 Mg/2 Ml Inj) 4 mg IV NOW PRN PRN Reason: Nausea And Vomiting Tramadol HCl (Tramadol 50 Mg Tablet) 50 mg PO NOW ONE Stop: 11/20/22 16:08 Last Admin: 11/20/22 16:39 Dose: 50 mg Documented By: GOMEZ Vital Signs Vital signs: Vital Signs - 8 hr 11/20/22 12:35 11/20/22 16:52 11/20/22 15:26 Temperature 97.9 F 98.2 F Pulse Rate 64 55 L Respiratory Rate 18 16 Blood Pressure 129/60 156/82 H 191/88 H Pulse Oximetry 97 99 Oxygen Delivery Method Room Air Room Air 11/20/22 15:26 11/20/22 15:30 11/20/22 15:30 Temperature Pulse Rate 59 L 64 Respiratory Rate Blood Pressure 143/74 H Pulse Oximetry 95 93 Oxygen Delivery Method 11/20/22 16:00 11/20/22 16:00 11/20/22 16:30 Temperature Pulse Rate 55 L Respiratory Rate Blood Pressure 181/79 H 181/79 H Pulse Oximetry 98 Oxygen Delivery Method 11/20/22 16:30 Temperature Pulse Rate 54 L Respiratory Rate Blood Pressure Pulse Oximetry 98 Oxygen Delivery Method MDM - Abdominal Pain <Tigist Gonzalez PA-C - Last Filed: 11/20/22 18:44> Lab Data 11/20/22 12:55 11/20/22 12:55 Labs: Lab Results 11/20/22 11/20/22 Range/Units 12:55 12:55 WBC 8.6 (4.5-11.0) X10^3/uL RBC 4.37 (4.0-5.2) X10^6/uL Hgb 14.7 (12.0-16.0) g/dL Hct 42.5 (36-46) % MCV 97.3 (80-100) fL MCH 33.6 (26-34) PG MCHC 34.5 (30-36) % RDW 13.2 (11.6-14.8) % Plt Count 294 (150-400) X10^3/uL Neut % (Auto) 79.0 H (50-75) % Lymph % (Auto) 11.7 L (25-40) % Piatt % (Auto) 8.5 (3-14) % Eos % (Auto) 0.1 L (2-4) % Baso % (Auto) 0.7 (0-2) % Neut # (Auto) 6800 (8059-9189) /uL Lymph # (Auto) 1000 L (1397-0863) /uL Piatt # (Auto) 700 (0-900) /uL Eos # (Auto) 0 (0-450) /uL Baso # (Auto) 100 (0-100) /uL Sodium 135 L (137-145) mmol/L Potassium 4.3 (3.4-5.1) mmol/L Chloride 102 (98-107) mmol/L Carbon Dioxide 27 (22-32) mmol/L BUN 14 (7-17) mg/dL Creatinine 0.59 (0.52-1.04) mg/dL Estimated GFR > 60 (>60) mL/min BUN/Creatinine Ratio 23.7 H (6-22) Glucose 95 (80-110) mg/dL Calcium 9.6 (8.4-10.2) mg/dL Total Bilirubin 0.4 (0.2-1.3) mg/dL AST 26 (14-36) IU/L ALT 28 (<35) IU/L Alkaline Phosphatase 39 (38-126) U/L Total Protein 7.1 (6.3-8.2) g/dL Albumin 4.3 (3.5-5.0) g/dL Globulin 2.8 (1.7-4.1) g/dL Albumin/Globulin Ratio 1.5 (1.0-2.8) Lipase 159 (23-300) U/L MDM Narrative Medical decision making narrative: Multiple etiologies for patient's symptoms considered including, but not limited to: Colitis, diverticulitis, bowel perforation, small-bowel obstruction, UTI. Prior Charts reviewed: Dr. Sosa and Dr. Lindquist's last notes Labs reviewed and interpreted by myself: Labs today with no clinically significant abnormalities Imaging reviewed: Last CT Consultations: Discussed case with Dr. Sosa who knows the patient quite well. She has a nonsurgical abdomen today, stable vital signs, no fever. Advised supportive care and pain control, encouraged patient to take her dicyclomine since it does help her and to continue a bowel regimen as prescribed by Dr. Lindquist. She has follow-up tomorrow with Dr. Lindquist. She was given a dose of tramadol and a dose of dicyclomine while in the emergency department. Patient's symptoms improved over duration of stay with above-stated therapies. Findings and discharge diagnosis discussed with patient/family followed by verbalization of understanding Return precautions discussed with patient/family whom verbalize understanding of diagnosis and plan <Aric Sosa, DO - Last Filed: 11/22/22 14:54> Lab Data Labs: Lab Results 11/20/22 11/20/22 Range/Units 12:55 12:55 WBC 8.6 (4.5-11.0) X10^3/uL RBC 4.37 (4.0-5.2) X10^6/uL Hgb 14.7 (12.0-16.0) g/dL Hct 42.5 (36-46) % MCV 97.3 (80-100) fL MCH 33.6 (26-34) PG MCHC 34.5 (30-36) % RDW 13.2 (11.6-14.8) % Plt Count 294 (150-400) X10^3/uL Neut % (Auto) 79.0 H (50-75) % Lymph % (Auto) 11.7 L (25-40) % Piatt % (Auto) 8.5 (3-14) % Eos % (Auto) 0.1 L (2-4) % Baso % (Auto) 0.7 (0-2) % Neut # (Auto) 6800 (2811-3650) /uL Lymph # (Auto) 1000 L (9228-5832) /uL Piatt # (Auto) 700 (0-900) /uL Eos # (Auto) 0 (0-450) /uL Baso # (Auto) 100 (0-100) /uL Sodium 135 L (137-145) mmol/L Potassium 4.3 (3.4-5.1) mmol/L Chloride 102 (98-107) mmol/L Carbon Dioxide 27 (22-32) mmol/L BUN 14 (7-17) mg/dL Creatinine 0.59 (0.52-1.04) mg/dL Estimated GFR > 60 (>60) mL/min BUN/Creatinine Ratio 23.7 H (6-22) Glucose 95 (80-110) mg/dL Calcium 9.6 (8.4-10.2) mg/dL Total Bilirubin 0.4 (0.2-1.3) mg/dL AST 26 (14-36) IU/L ALT 28 (<35) IU/L Alkaline Phosphatase 39 (38-126) U/L Total Protein 7.1 (6.3-8.2) g/dL Albumin 4.3 (3.5-5.0) g/dL Globulin 2.8 (1.7-4.1) g/dL Albumin/Globulin Ratio 1.5 (1.0-2.8) Lipase 159 (23-300) U/L Discharge Plan Departure Patient Disposition: Home Clinical Impression: Abdominal pain Instructions: DI for Abdominal Pain-Adult Activity Restrictions/Additional Instructions: *You have been diagnosed with abdominal pain. Your labs are normal, your belly is soft, and I think you need to continue to manage your pain while your bowel heels. I would encourage you to take the dicyclomine as ordered and the tramadol. Follow-up with your primary care as scheduled. If you start vomiti ng, have an acute change where your abdomen becomes rigid and painful, or if you develop a fever, you should return for re-evaluation. *What to do: *Please continue to take your regular medications as directed. [ ] New medication prescriptions sent to your pharmacy: [ ] [ ] New medication written as a paper prescription [x ] No new medications given *Please follow up with your primary care provider in 2-3 days, call for an appointment. Let them know you were seen in the Emergency Department and that we ask that you be seen in follow up. We will electronically transmit a record of today's note if your PCP is in our system *If you do not have a primary care provider please contact the [facility] Resource line at [phone]. They will ask some questions about your medical history and help get you set up with a doctor in the community. *Return to Emergency Department if you should have any new, worsening or concerning symptoms, such as [fever greater than 101 F, shaking chills, worsening pain, persistent vomiting or other bothersome symptoms] Prescriptions: No Action dicyclomine 20 mg tablet 20 mg PO TID PRN (Reason: abdominal pain) Qty: 90 3RF vancomycin 125 mg capsule 125 mg PO QID Qty: 40 1RF atorvastatin 10 mg tablet 10 mg PO DAILY amlodipine 2.5 mg tablet 2.5 mg PO DAILY flecainide 50 mg tablet 50 mg PO BID diltiazem HCl 120 mg capsule,extended release 24hr 120 mg PO DAILY olmesartan 40 mg tablet 40 mg PO DAILY tafluprost (PF) 0.0015 % dropperette 1 drp EYE-BOTH ONCE PM timolol maleate 0.5 % drops 0 drp EYE-BOTH zolpidem [Ambien] 5 mg tablet 2.5 mg PO BEDTIME PRN pregabalin 50 mg capsule 50 mg PO DAILY PRN cholecalciferol (vitamin D3) 125 mcg (5,000 unit) capsule 125 mcg PO DAILY tramadol 50 mg tablet 50 mg PO Q6H PRN (Reason: pain) Qty: 30 1RF lorazepam 0.5 mg tablet 0.5 mg PO TID PRN (Reason: abdominal discomfort) Qty: 30 1RF Eliquis 5 mg tablet 5 mg PO BID Qty: 60 0RF Referrals: Turner Lindquist MD [Primary Care Provider] - Stand Alone Forms: Patient Portal/API <Aric Sosa DO - Last Filed: 11/22/22 14:54> Cosign ED Attending Cosignature Attestation: I was immediately available in the department for consultation. Documentation has been reviewed. I agree with assessment and plan.
[2022-11-20 16:30] VITALS: BP 181/79; PULSE 54; O2SAT 98
[2022-11-20] MEDS: TRAMADOL 50 MG TABLET PO (16:39)
[2022-11-20] MEDS: DICYCLOMINE 10 MG CAPSULE 20 MG PO (16:39)
[2022-11-20 16:52] VITALS: BP 156/82; PULSE 55; RESP 16; TEMP 36.8; O2SAT 99
== END 2022-11-20 16:54 | disposition home or self-care (01) ==
PROVIDERS: Emergency Medicine; Emergency Provider Physician Assistant; PCP Internal Medicine
DX: R10.30 Lower abdominal pain, unspecified (principal); I10 Essential (primary) hypertension
CPT/HCPCS: 36415; 80053; 83690; 85025; 93005; 99283; 99284

== ENCOUNTER → 2022-12-12 12:53 | Outpatient (CLI) | payer MEDICARE, SELFPAY ==
[2022-10-30 14:01] VITALS: BMI 17.9
--- NOTE | 2022-12-12 12:54 | DI.NM.S_ITS ---
PROCEDURE: NM RENAL FUNCTION W LASIX RADIOPHARMACEUTICAL: 11 0.0 mCi Tc-99m MAG3 IV and 20 mg furosemide IV. INDICATIONS: Bilateral Hydronephrosis TECHNIQUE: The patient was hydrated orally before the examination was begun. After intravenous administration of Tc-99m MAG3, posterior abdominal radionuclide angiogram and sequential (1 minute each frame) renal images were obtained. A time-activity curve for each kidney was generated and analyzed. To evaluate for obstruction, the patient was given 40 mg furosemide via slow intravenous injection after the start of the examination. Sequential images were obtained for up to an additional 20 minutes. COMPARISON: [facility], CT, CT ABDOMEN PELVIS W CON, 10/24/2022, 1:18. [facility], CT, CT ABDOMEN PELVIS W CON, 11/18/2022, 0:17. [facility], US, US RENAL COMPLETE, 08/27/2022, 11:51. FINDINGS: Perfusion: There is normal vascular flow to both kidneys. Morphology: Both kidneys are normal in size and shape. The right renal pelvis is dilated. The ureters and bladder fill with tracer, and appear normal. Function: Both kidneys demonstrate normal cortical tracer uptake, with [id number] activity ranging from 3 to 5 minutes. The right kidney contributes 45.3% of total renal function. The left kidney contributes 54.7% of total renal function. Lasix stimulation: After diuretic administration, there is prompt clearance of tracer activity from the renal collecting systems in both kidneys. The half-time of emptying of tracer activity from the right pelvicaliceal system is > 30 minutes. The half-time of emptying from the left pelvicaliceal system is 6 minutes. Normal emptying half-times are less than 10 minutes; borderline ranges are from 10 to 20 minutes. IMPRESSION: 1. Right UPJ obstruction. 2. Left kidney is not obstructed. 3. Right kidney contributes 45.3% of total renal function; left kidney contributes 54.7% of total renal function. Dictated by: Marine Li M.D. on 12/12/2022 at 17:09 Approved by: Marine Li M.D. on 12/13/2022 at 11:27
--- NOTE | 2022-12-12 12:54 | DI.RAD.S_ITS ---
PROCEDURE: XR KNEE RT 3V INDICATIONS: right knee pain TECHNIQUE: 3 views of the knee were acquired. COMPARISON: None. FINDINGS: Bones: No fractures or dislocations. No suspicious bony lesions. Mild tricompartmental osteoarthritis with osseous hypertrophy. Soft tissues: No joint effusion. No suspicious soft tissue calcifications. IMPRESSION: Mild right knee tricompartmental osteoarthritis. Dictated by: Loly Nayak MD, PhD on 12/12/2022 at 14:49 Approved by: Loly Nayak MD, PhD on 12/12/2022 at 14:49
== END ==
PROVIDERS: PCP Internal Medicine; Referring Provider Specialist; Visit Provider Specialist
DX: N13.5 Crossing vessel and stricture of ureter without hydronephrosis (principal); M17.11 Unilateral primary osteoarthritis, right knee; M25.561 Pain in right knee; G89.29 Other chronic pain
CPT/HCPCS: 73562; 78708; A9562

== ENCOUNTER 2023-01-18 01:43 | Emergency (ER) | payer MEDICARE, SELFPAY ==
[2022-10-30 14:01] VITALS: BMI 17.9
[2023-01-18] VITALS (9 sets, daily range): BP systolic 134–154; BP diastolic 65–77; PULSE 49–133; RESP 16–21; TEMP 36.5; O2SAT 91–98; BMI 17.9
--- NOTE | 2023-01-18 02:00 | DI.CT.S_ITS ---
PROCEDURE: CT HEAD/BRAIN WO CON INDICATIONS: Confusion. TECHNIQUE: Noncontrast 4.5 mm thick angled axial sections acquired from the foramen magnum to the vertex, with coronal and sagittal reformats. For radiation dose reduction, the following was used: automated exposure control, adjustment of mA and/or kV according to patient size. COMPARISON: None. FINDINGS: Image quality: Excellent. CSF spaces: Basal cisterns are patent. No extra-axial fluid collections. Ventricles are normal in size and shape. Brain: No midline shift. No intracranial masses or hemorrhage. Cox-white matter interface is normal. Skull and face: Calvarium and visualized facial bones are intact, without suspicious lesions. Sinuses: Visualized sinuses and mastoids are clear. IMPRESSION: Unremarkable CT of the brain Note: This final report is concordant with the preliminary after-hours interpretation provided by [facility] Approved by: Kyaw Christina M.D. on 01/18/2023 at 9:03
--- NOTE | 2023-01-18 02:00 | DI.RAD.S_ITS ---
PROCEDURE: XR CHEST 1V INDICATIONS: Confusion. TECHNIQUE: One view of the chest was acquired. COMPARISON: [facility], CR, XR CHEST 1V, 02/16/2021, 1:39. FINDINGS: Surgical changes and devices: None. Lungs and pleura: Lungs are clear. No pleural effusions or pneumothorax. Mediastinum: Mediastinal contours appear normal. Heart size is normal. Atherosclerotic vascular calcification noted in the aortic arch. Bones and chest wall: No suspicious bony lesions. Overlying soft tissues appear unremarkable. IMPRESSION: No acute cardiopulmonary findings Approved by: Kyaw Christina M.D. on 01/18/2023 at 9:04
[2023-01-18 02:40] LABS: Add Manual Diff / Slide Review NO; Basophils Absolute Auto 100 /uL (0-100); Basophils Percent Auto 0.9 % (0-2); Eosinophils Absolute Auto 100 /uL (0-450); Eosinophils Percent Auto 0.6 % (2-4); Hematocrit 39.8 % (36-46); Hemoglobin 13.7 g/dL (12.0-16.0); Lymphocytes Absolute Auto 2300 /uL (1100-4500); Lymphocytes Percent Auto 23.5 % (25-40); Mean Corpuscular HGB Conc 34.3 % (30-36); Mean Corpuscular Hemoglobin 33.4 PG (26-34); Mean Corpuscular Volume 97.2 fL (80-100); Monocytes Absolute Auto 900 /uL (0-900); Monocytes Percent Auto 9.6 % (3-14); Neutrophils Absolute Auto 6400 /uL (1500-7000); Neutrophils Percent Auto 65.4 % (50-75); Platelet Count 294 X10^3/uL (150-400); Red Cell Distribution Width 12.9 % (11.6-14.8); White Blood Cell Count 9.7 X10^3/uL (4.5-11.0)
[2023-01-18 02:41] LABS: INR 1.5 (0.9-1.3); Prothrombin Time 17.1 SECONDS (10.1-12.7)
[2023-01-18 02:44] LABS: PTT Partial Thromboplastin Tim 34 SECONDS (26-36)
[2023-01-18 02:59] LABS: Acetaminophen < 10 ug/mL (10-30); Alanine Aminotransferase 16 IU/L (<35); Albumin 4.5 g/dL (3.5-5.0); Albumin Globulin Ratio 1.6 (1.0-2.8); Alkaline Phosphatase 49 U/L (38-126); Aspartate Aminotransferase 24 IU/L (14-36); Bilirubin Total 0.6 mg/dL (0.2-1.3); Blood Urea Nitrogen 18 mg/dL (7-17); Calcium 10.4 mg/dL (8.4-10.2); Carbon Dioxide 27 mmol/L (22-32); Chloride 100 mmol/L (98-107); Estimated Glomerular Filt Rate > 60 mL/min (>60); Ethanol (ETOH) < 10 mg/dL; Globulin 2.8 g/dL (1.7-4.1); Glucose 79 mg/dL (80-110); HEMOLYSIS 16 (0-50); Potassium 3.3 mmol/L (3.4-5.1); Salicylate < 1.0 mg/dL (<20); Sodium 136 mmol/L (137-145); Total Protein 7.3 g/dL (6.3-8.2)
[2023-01-18 03:14] LABS: Prolactin 34.6 ng/mL (3.0-18.6)
[2023-01-18 03:26] LABS: Thyroid Stimulating Hormone 1.78 uIU/mL (0.47-4.68)
[2023-01-18 03:39] LABS: UR Morphine/Opiate cutoff 300 Positive (Negative); Ur Creatinine 20 (Normal); Ur Specific Gravity >1.030 (Normal); Urine Amphetamines Negative (Negative); Urine Barbiturates Negative (Negative); Urine Benzodiazepines Negative (Negative); Urine Cocaine Negative (Negative); Urine MDMA Negative (Negative); Urine Methadone Negative (Negative); Urine Methamphetamines Negative (Negative); Urine Oxycodone Negative (Negative); Urine Phencyclidine Negative (Negative); Urine Tetrahydrocannabinol Negative (Negative); Urine Tricyclic Antidepressant Negative (Negative); Urine pH 5 (Normal)
[2023-01-18 03:42] LABS: Appearance Urine UA CLEAR; Bilirubin Urine UA NEGATIVE (NEGATIVE); Color Urine UA YELLOW; Glucose Urine UA NEGATIVE (Negative); Ketones Urine UA NEGATIVE (NEGATIVE); Leukocyte Esterase Urine UA NEGATIVE (NEGATIVE); Nitrite Urine UA NEGATIVE (Negative); Occult Blood Urine UA NEGATIVE (Negative); Protein Urine UA NEGATIVE (Negative); Specific Gravity Urine UA >=1.030 (1.000-1.035); Urobilinogen Urine UA 0.2 E.U./dL (0.2)
--- NOTE | 2023-01-18 03:49 | ED.AMS ---
HPI - Altered Mental Status General Chief Complaint: Altered Mental Status Stated Complaint: confused/ thinks low sodium Time Seen by Provider: 01/18/23 01:59 Source: patient and family Mode of arrival: Ambulatory History of Present Illness HPI narrative: 72-year-old female presents for concern for altered mental status. Patient has some baseline history of dementia, atrial fibrillation on Eliquis, diltiazem and flecainide, hypertension, dyslipidemia, irritable bowel syndrome, osteopenia. Patient presents with her . He states her mentation seems to be improving at this time but this morning she was normal at her baseline, he states then he went and found her in the kitchen looking for things and see me confused. She is continued to be confused throughout the day although has had improvement this afternoon significantly improved this evening. Patient is alert, oriented to self and location, she denies headache, no chest pain no shortness of breath, no nausea or vomiting, no diarrhea. She is chronic constipation, no dysuria urgency or frequency, no new numbness, tingling or weakness. states no facial droop or difficulty with speech or slurred speech. States she had a similar episode where she had low sodium and was admitted. Patient has not had any new medication changes. No surgeries. Allergic to sulfa, no tobacco, alcohol or illicit. She does have a prescription for tramadol she takes this intermittently. Tobacco, occasional alcohol, no illicit or recreational drugs. She is accompanied by her . He notes that she did not eat as much today as she typically does but had dinner this evening. Dr. Lindquist is her primary care physician. Related Data Home Medications Medication Instructions Recorded Confirmed amlodipine 2.5 mg tablet 2.5 mg PO DAILY 10/25/22 01/14/23 atorvastatin 10 mg tablet 10 mg PO DAILY 10/25/22 01/14/23 cholecalciferol (vitamin D3) 125 125 mcg PO DAILY 10/25/22 01/14/23 mcg (5,000 unit) capsule diltiazem HCl 120 mg 120 mg PO DAILY 10/25/22 01/14/23 capsule,extended release 24 hr flecainide 50 mg tablet 50 mg PO BID 10/25/22 01/14/23 olmesartan 40 mg tablet 40 mg PO DAILY 10/25/22 01/14/23 pregabalin 50 mg capsule 50 mg PO DAILY PRN 10/25/22 01/14/23 tafluprost (PF) 0.0015 % eye drops 1 drp EYE-BOTH ONCE PM 10/25/22 01/14/23 in a dropperette timolol maleate 0.5 % eye drops 0 drp EYE-BOTH 10/25/22 01/14/23 zolpidem 5 mg tablet (Ambien) 2.5 mg PO BEDTIME PRN 10/25/22 01/14/23 Previous Rx's Medication Instructions Recorded apixaban 5 mg tablet (Eliquis) 5 mg PO BID #60 tabs 02/16/21 dicyclomine 20 mg tablet 20 mg PO TID PRN abdominal pain 10/31/22 #90 tabs lorazepam 0.5 mg tablet 0.5 mg PO TID PRN abdominal 11/21/22 discomfort #30 tabs denosumab 60 mg/mL subcutaneous 60 mg SUBCUT [id number] #1 mL 12/12/22 syringe (Prolia) tramadol 50 mg tablet 50 mg PO Q6H PRN pain #60 tabs 12/31/22 linaclotide 72 mcg capsule 72 mcg PO DAILY #30 caps 01/14/23 Allergies Allergy/AdvReac Type Severity Reaction Status Date / Time Sulfa (Sulfonamide Allergy Hives Verified 01/14/23 16:01 Antibiotics) Review of Systems Review of Systems ROS Unobtainable: All systems reviewed & are unremarkable except as noted in HPI and below Patient History Medical History Renal calculus, left Obstruction of right ureteropelvic junction (UPJ) Right inguinal hernia H/O nephrolithotomy with removal of calculi Osteopenia Rubella Measles Malaria Chicken pox Kidney stones Irritable bowel syndrome Skin cancer (~2011) Melanoma (~2019) Mixed hyperlipidemia Essential hypertension (~2000) Paroxysmal atrial fibrillation (~2021) Slow transit constipation Chronic anticoagulation Surgical History History of tubal ligation History of breast biopsy History of colon surgery Previous back surgery Family History Mother Cancer Hyperlipidemia Father CAD in [place] artery Hypertension Family/Other Bacterial UTI Social History marital status: number of children: 3 household members: spouse lives independently: Yes occupational status: previously employed Smoking Status: Never smoker alcohol intake: current substance use type: does not use Type(s) of exercise: walking frequency: daily Smoking Status: Never smoker alcohol intake frequency: 0-2 drinks per day Alcohol type: wine Substance Use Type: does not use Exam Narrative Exam Narrative: GEN: well nourished, well appearing female, alert and oriented, patient appears to be in mild distress. HEENT: Atraumatic, pupils are equal round reactive to light, extraocular movements are intact, nares are clear, TMs are clear with no fluid, there is no conjunctival pallor. Throat is clear without any exudates, erythema, tonsillar enlargement or uvular deviation, no facial droop. HEART: Regular rate and rhythm without murmur, clicks, rubs. pulses are equal in upper and lower extremities LUNGS:Lungs clear to auscultation, no wheezes, rales, crackles, chest moves symmetrically ABD:bowel sounds normal, soft, non-tender, no guarding, rebound, rigidity, no masses noted, no hepatosplenomegaly :No CVA tenderness MSCL: Non-tender, no muscle atrophy, muscles strength 5/5 upper and lower extremities, full range of motion, normal gait NEURO:CN 2-12 intact, sensation normal, finger nose finger test normal, heel pozo test normal, romberg normal SKIN: No rash, erythema or other skin changes Initial Vital Signs Initial Vital Signs: Vital Signs Temperature 97.7 F 01/18/23 01:47 Pulse Rate 59 L 01/18/23 01:47 Respiratory Rate 18 01/18/23 01:47 Blood Pressure 152/67 H 01/18/23 01:47 Pulse Oximetry 95 01/18/23 01:47 Oxygen Delivery Method Room Air 01/18/23 01:47 Scores NIH Stroke Scale Level of Conciousness: Alert, keenly responsive Ask month/age: Answers both questions correctly. Open/close eyes, close hand: Performs both tasks correctly Best gaze horizontal: Normal Visual georges: No visual loss Facial palsy: Normal symetrical movement Left arm drift: No drift for full 10 sec Right arm drift: No drift for full 10 sec Left leg drift: No drift for full 5 sec Right leg drift: No drift for full 5 sec Limb ataxia: Absent Sensory on face/arms/legs: Normal, no sensory loss Best language: No aphasia, normal Dysarthria: Normal Extinction or inattention: No abnormality Total NIH Stroke scale score: 0 Course Orders Ordered: ED Orders 01/18/23 01:59 EKG-12 Lead Stat 01/18/23 02:00 CT head/brain wo con Stat XR chest 1V Stat 01/18/23 02:25 Acetaminophen Stat Complete Blood Count AUTO DIFF Stat Comprehensive Metabolic Panel Stat Ethanol (ETOH) Stat Lactate (Lactic Acid) Stat Osmolality, Serum Stat PTT Partial Thromboplastin Uday Stat Prolactin Stat Prothrombin Time INR Stat Salicylate Stat Thyroid Stimulating Hormone Stat 01/18/23 02:30 Urinalysis and Microscopic Stat Urine Culture Stat Urine Drug Screen, Rapid Stat Vital Signs Vital signs: Vital Signs - 8 hr 01/18/23 01:47 01/18/23 02:32 01/18/23 02:34 Temperature 97.7 F Pulse Rate 59 L 54 L Respiratory Rate 18 Blood Pressure 152/67 H 154/68 H Pulse Oximetry 95 91 Oxygen Delivery Method Room Air 01/18/23 02:34 01/18/23 03:00 01/18/23 03:00 Temperature Pulse Rate 58 L 51 L Respiratory Rate 17 Blood Pressure 146/66 H Pulse Oximetry 98 97 Oxygen Delivery Method Room Air 01/18/23 03:38 01/18/23 03:40 01/18/23 03:40 Temperature Pulse Rate 133 H 52 L Respiratory Rate 18 20 Blood Pressure 148/70 H Pulse Oximetry 95 97 Oxygen Delivery Method 01/18/23 04:00 01/18/23 04:00 01/18/23 04:30 Temperature Pulse Rate 54 L Respiratory Rate 16 Blood Pressure 146/77 H 134/68 Pulse Oximetry 98 Oxygen Delivery Method 01/18/23 04:30 01/18/23 05:00 01/18/23 05:00 Temperature Pulse Rate 50 L 49 L Respiratory Rate 21 16 Blood Pressure 138/65 Pulse Oximetry 96 96 Oxygen Delivery Method Room Air MDM - Altered Mental Status Lab Data 01/18/23 02:25 01/18/23 02:25 Labs: Lab Results 01/18/23 01/18/23 Range/Units 02:25 02:30 WBC 9.7 (4.5-11.0) X10^3/uL RBC 4.10 (4.0-5.2) X10^6/uL Hgb 13.7 (12.0-16.0) g/dL Hct 39.8 (36-46) % MCV 97.2 (80-100) fL MCH 33.4 (26-34) PG MCHC 34.3 (30-36) % RDW 12.9 (11.6-14.8) % Plt Count 294 (150-400) X10^3/uL Neut % (Auto) 65.4 (50-75) % Lymph % (Auto) 23.5 L (25-40) % Ness % (Auto) 9.6 (3-14) % Eos % (Auto) 0.6 L (2-4) % Baso % (Auto) 0.9 (0-2) % Neut # (Auto) 6400 (7607-8543) /uL Lymph # (Auto) 2300 (6895-5779) /uL Ness # (Auto) 900 (0-900) /uL Eos # (Auto) 100 (0-450) /uL Baso # (Auto) 100 (0-100) /uL PT 17.1 H (10.1-12.7) SECONDS INR 1.5 H (0.9-1.3) APTT 34 (26-36) SECONDS Sodium 136 L (137-145) mmol/L Potassium 3.3 L (3.4-5.1) mmol/L Chloride 100 (98-107) mmol/L Carbon Dioxide 27 (22-32) mmol/L BUN 18 H (7-17) mg/dL Creatinine 0.82 (0.52-1.04) mg/dL Estimated GFR > 60 (>60) mL/min BUN/Creatinine Ratio 22.0 (6-22) Glucose 79 L (80-110) mg/dL Lactate 1.0 (0.7-2.1) mmol/L Calcium 10.4 H (8.4-10.2) mg/dL Total Bilirubin 0.6 (0.2-1.3) mg/dL AST 24 (14-36) IU/L ALT 16 (<35) IU/L Alkaline Phosphatase 49 (38-126) U/L Total Protein 7.3 (6.3-8.2) g/dL Albumin 4.5 (3.5-5.0) g/dL Globulin 2.8 (1.7-4.1) g/dL Albumin/Globulin Ratio 1.6 (1.0-2.8) TSH 1.78 (0.47-4.68) uIU/mL Prolactin 34.6 H (3.0-18.6) ng/mL Urine Color Yellow Urine Appearance Clear Urine pH 5.5 (4.5-8.0) Ur Specific [place] >=1.030 H (1.000-1.035) Urine Protein Negative (Negative) Urine Glucose (UA) Negative (Negative) g/dL Urine Ketones Negative (NEGATIVE) Urine Occult Blood Negative (Negative) Urine Nitrate Negative (Negative) Urine Bilirubin Negative (NEGATIVE) Urine Urobilinogen 0.2 (0.2) E.U./dL Ur Leukocyte Esterase Negative (NEGATIVE) Urine RBC None seen (0-5/HPF) Urine WBC 1-5/hpf (0-5/HPF) Ur Squamous Epith Cells 1-5 /hpf (0-5/HPF) Urine Bacteria None seen (None) Micro UA Comment * Salicylates < 1.0 (<20) mg/dL U Opiates 300ng/mL cut Positive H (Negative) Ur Oxycodone Screen Negative (Negative) Urine Methadone Screen Negative (Negative) Acetaminophen < 10 (10-30) ug/mL Ur Barbiturates Screen Negative (Negative) U Tricyclic Antidepress Negative (Negative) Ur Phencyclidine Scrn Negative (Negative) Ur Amphetamines Screen Negative (Negative) U Methamphetamines Scrn Negative (Negative) Ur MDMA Scrn (Ecstasy) Negative (Negative) U Benzodiazepines Scrn Negative (Negative) Urine Cocaine Screen Negative (Negative) U Marijuana (THC) Screen Negative (Negative) Ethyl Alcohol < 10 ( - 10) mg/dL Point of Care Testing Glucose POC [address] scan - head: Radiologist's Impression: No acute intra cranial abnormality. Chest x-ray: Radiologist's Impression: No acute change. ECG Data Attestation: I personally reviewed and interpreted this ECG as follows: Prior ECG tracings: available for review Interpretation: Sinus bradycardia rate of 52 [place] 176 QRS of 104 QTC 409, no acute ST elevation, nonspecific change. No acute change. Patient has prior from 11/20/2022 no acute changes appreciated. MDM Narrative Medical decision making narrative: 72-year-old female who presents with complaint of altered mental status states she was at her normal baseline yesterday morning and then later found her in the kitchen seemingly confused, no acute neurologic changes otherwise were noted such as weakness facial droop, no aphasia or dysarthria he states her sort of nonsensical. Patient exam is overall reassuring mentation appears to be at baseline at this time her NIH is 0, head CT showed no acute change, chest x-ray showed no acute changes. CBC shows a white count of 9.7 hemoglobin 13, platelets 294 INR is 1.5 electrolytes are appropriate including her sodium 136 with no hyponatremia, glucose is 79, on repeat was 70 and then 82, patient's LFTs are negative. Toxicology was positive for opiates, patient does take tramadol intermittently but not regularly discussed this could be component. UA did not show clear infection today. Pro who lactate was elevated but no reported seizure history patient and were in the house together the entire time he was seem less likely source. Discussed need for follow-up, watchful waiting and return precautions. Discharge Plan Departure Patient Disposition: Home Clinical Impression: Altered mental status Instructions: DI for Altered Mental Status Activity Restrictions/Additional Instructions: Please follow up with your physician for recheck. Your glucose was a little on the low side, this could be contributing to her symptoms, your tramadol could also potentially exacerbate or cause mental status changes and I would hold this medication to see if it makes any difference. You can continue your other home medications as prescribed. Please return for new or worsening symptoms, severe headaches, altered mental status, chest pain, shortness of breath, facial droop, difficulty with speech, numbness, tingling weakness or other new or concerning changes. Prescriptions: No Action dicyclomine 20 mg tablet 20 mg PO TID PRN (Reason: abdominal pain) Qty: 90 3RF tramadol 50 mg tablet 50 mg PO Q6H PRN (Reason: pain) Qty: 60 3RF atorvastatin 10 mg tablet 10 mg PO DAILY amlodipine 2.5 mg tablet 2.5 mg PO DAILY flecainide 50 mg tablet 50 mg PO BID diltiazem HCl 120 mg capsule,extended release 24hr 120 mg PO DAILY olmesartan 40 mg tablet 40 mg PO DAILY tafluprost (PF) 0.0015 % dropperette 1 drp EYE-BOTH ONCE PM timolol maleate 0.5 % drops 0 drp EYE-BOTH zolpidem [Ambien] 5 mg tablet 2.5 mg PO BEDTIME PRN pregabalin 50 mg capsule 50 mg PO DAILY PRN cholecalciferol (vitamin D3) 125 mcg (5,000 unit) capsule 125 mcg PO DAILY lorazepam 0.5 mg tablet 0.5 mg PO TID PRN (Reason: abdominal discomfort) Qty: 30 1RF Prolia 60 mg/mL syringe 60 mg SUBCUT [id number] Qty: 1 1RF linaclotide 72 mcg capsule 72 mcg PO DAILY Qty: 30 5RF Eliquis 5 mg tablet 5 mg PO BID Qty: 60 0RF Referrals: Turner Lindquist MD [Primary Care Provider] - Stand Alone Forms: Patient Portal/API
[2023-01-18 03:58] LABS: Bacteria Urine None Seen; RBC Urine None Seen (0-5/HPF); Squamous Epithelial Cell Urine 1-5 /HPF (0-5/HPF); WBC Urine 1-5/HPF (0-5/HPF); pH Urine UA 5.5 (4.5-8.0)
[2023-01-20 11:43] LABS: Osmolality, Serum 283 mOsmol/kg (280-301)
== END 2023-01-18 05:37 | disposition home or self-care (01) ==
PROVIDERS: Emergency Provider Emergency Medicine; PCP Internal Medicine
DX: R41.82 Altered mental status, unspecified (principal); R79.89 Other specified abnormal findings of blood chemistry; Z79.01 Long term (current) use of anticoagulants; Z79.899 Other long term (current) drug therapy; I10 Essential (primary) hypertension; R00.1 Bradycardia, unspecified
CPT/HCPCS: 36415; 70450; 71045; 80053; 80305; 80320; 80329; 81001; 82962; 83605; 83930; 84146; 84443; 85025; 85610; 85730; 87086; 93005; 93010; 99284; G0480

== ENCOUNTER → 2023-02-11 15:59 | Outpatient (CLI) | payer MEDICARE, SELFPAY ==
[2022-10-30 14:01] VITALS: BMI 17.9
[2023-02-11 18:32] LABS: Folate 6.7 ng/mL (2.76-20.0); Vitamin B12 325 pg/mL (239-931)
[2023-02-15 04:53] LABS: Methylmalonic Acid,Serum 216 nmol/L (0-378)
== END ==
PROVIDERS: PCP Internal Medicine; Referring Provider Internal Medicine; Visit Provider Internal Medicine
DX: E53.8 Deficiency of other specified B group vitamins (principal)
CPT/HCPCS: 36415; 82607; 82746; 83921

== ENCOUNTER → 2023-04-22 13:07 | Outpatient (CLI) | payer MEDICARE, SELFPAY ==
[2022-10-30 14:01] VITALS: BMI 17.9
--- NOTE | 2023-04-22 13:10 | DI.NM.S_ITS ---
PROCEDURE: [place] RENAL FUNCTION W LASIX RADIOPHARMACEUTICAL: 10 mCi Tc-99m MAG3 IV and 40 mg furosemide IV. INDICATIONS: Bilateral Hydronephrosis TECHNIQUE: The patient was hydrated orally before the examination was begun. After intravenous administration of Tc-99m MAG3, posterior abdominal radionuclide angiogram and sequential (1 minute each frame) renal images were obtained. A time-activity curve for each kidney was generated and analyzed. To evaluate for obstruction, the patient was given 40 mg furosemide via slow intravenous injection after the start of the examination. Sequential images were obtained for up to an additional 20 minutes. COMPARISON: [place], [place], [place] RENAL FUNCTION W LASIX, 12/12/2022, 13:06. FINDINGS: Perfusion: There is normal vascular flow to both kidneys. Morphology: Both kidneys are normal in size and shape. Bilateral hydronephrosis can be seen. Function: Both kidneys demonstrate normal cortical tracer uptake, with [id number] activity ranging from 3 to 5 minutes. The right kidney contributes 45.8% of total renal function. The left kidney contributes 54.2% of total renal function. Lasix stimulation: After diuretic administration, there is prompt clearance of tracer activity from the renal collecting systems in both kidneys. The half-time of emptying of tracer activity from the right pelvicaliceal system is considered to be greater than 30 minutes. The half-time of emptying from the left pelvicaliceal system is 18.6 minutes. Normal emptying half-times are less than 10 minutes; borderline ranges are from 10 to 20 minutes. IMPRESSION: Obstructed right kidney again demonstrated. Borderline elevated left post Lasix emptying time, which is consistent with a borderline obstruction. Dictated by: Endy Mason M.D. on 04/22/2023 at 15:36 Approved by: Endy Mason M.D. on 04/22/2023 at 15:39
== END ==
PROVIDERS: PCP Internal Medicine; Referring Provider Specialist; Visit Provider Specialist
DX: N13.30 Unspecified hydronephrosis (principal); N28.89 Other specified disorders of kidney and ureter
CPT/HCPCS: 78708; A9562

== ENCOUNTER 2023-05-13 08:19 | Emergency (ER) | payer MEDICARE, SELFPAY ==
[2022-10-30 14:01] VITALS: BMI 17.9
[2023-05-13] VITALS (10 sets, daily range): BP systolic 126–161; BP diastolic 55–89; PULSE 55–69; RESP 18; TEMP 36; O2SAT 96–98; BMI 20.2
--- NOTE | 2023-05-13 09:53 | PC.NURSE ---
Pt reports having recent dental filling done t-3 weeks ago, and was seen for follow up last week for her pain. Since the follow up appointment pt reports new onset tightness in her jaw that prevents her from fully opening her mouth. Pt has had difficulty chewing and cuts up food thoroughly, which she is then able to swallow. Pt denies tightness sensation in her throat, and is able to swallow secretions. Pt reports being anxious for her new symptoms on top of all my other health problems.
--- NOTE | 2023-05-13 10:55 | DI.RAD.S_ITS ---
PROCEDURE: XR MANDIBLE MIN 4V INDICATIONS: jaw pain TECHNIQUE: 4 views of the mandible were acquired. COMPARISON: None. FINDINGS: Bones: No fractures or dislocations. No suspicious bony lesions. Soft tissues: Visualized sinuses appear clear. No suspicious soft tissue densities. IMPRESSION: No acute fracture. No osseous lesion. If symptoms and/or clinical suspicion for pathology persist, further assessment with repeat, or advanced imaging (e.g., CT, MRI, or bone scan) may be helpful for further assessment. Dictated by: Elva Esposito M.D. on 05/13/2023 at 11:20 Approved by: Elva Esposito M.D. on 05/13/2023 at 11:21
--- NOTE | 2023-05-13 10:56 | ED_ITS ---
HPI - Dental/Oral General Chief complaint: Dental/Oral Stated complaint: can't open mouth all the way Time Seen by Provider: 05/13/23 09:01 History of Present Illness HPI Narrative: This is a 72-year-old female with a history of atrial fibrillation anticoagulated on Eliquis who presents complaining of left-sided jaw pain. She says it about 3 weeks ago she saw a new dentist and had a filling replaced in her left upper molar. This is a retained wisdom tooth. Since then she is developed increasing pain in the left jaw. It hurts to open her mouth. She has had difficulty with eating and is primarily on a soft or liquid diet. She has not had any fevers notices maybe a little bit of facial swelling. She has been using acetaminophen for pain at 500 mg up to 3 times a day. Her dentist called her a prescription for Flexeril which she is tried but has not had any improvement with it. Related Data Home Medications Medication Instructions Recorded Confirmed atorvastatin 10 mg tablet 10 mg PO DAILY 10/25/22 05/08/23 cholecalciferol (vitamin D3) 125 125 mcg PO DAILY 10/25/22 05/08/23 mcg (5,000 unit) capsule diltiazem HCl 120 mg 120 mg PO DAILY 10/25/22 05/08/23 capsule,extended release 24 hr flecainide 50 mg tablet 50 mg PO BID 10/25/22 05/08/23 pregabalin 50 mg capsule 50 mg PO DAILY PRN 10/25/22 05/08/23 tafluprost (PF) 0.0015 % eye drops 1 drp EYE-BOTH ONCE PM 10/25/22 05/08/23 in a dropperette timolol maleate 0.5 % eye drops 0 drp EYE-BOTH 10/25/22 05/08/23 Previous Rx's Medication Instructions Recorded apixaban 5 mg tablet (Eliquis) 5 mg PO BID #60 tabs 02/16/21 dicyclomine 20 mg tablet 20 mg PO TID PRN abdominal pain 10/31/22 #90 tabs lorazepam 0.5 mg tablet 0.5 mg PO TID PRN abdominal 11/21/22 discomfort #30 tabs tramadol 50 mg tablet 50 mg PO Q6H PRN pain #60 tabs 12/31/22 linaclotide 72 mcg capsule 72 mcg PO DAILY #30 caps 01/14/23 denosumab 60 mg/mL subcutaneous 60 mg SUBCUT [id number] #1 mL 01/30/23 syringe (Prolia) zolpidem 5 mg tablet (Ambien) 2.5 mg (1/2 x 5 mg) PO BEDTIME PRN 02/17/23 insomnia #30 tabs amlodipine 2.5 mg tablet 2.5 mg PO DAILY #90 tabs 03/27/23 mirtazapine 15 mg tablet 15 mg PO BEDTIME #30 tabs 04/08/23 olmesartan 40 mg tablet 40 mg PO DAILY #90 tabs 04/14/23 penicillin V potassium 500 mg 500 mg PO QID #40 tabs 05/13/23 tablet Allergies Allergy/AdvReac Type Severity Reaction Status Date / Time Sulfa (Sulfonamide Allergy Hives Verified 05/13/23 08:42 Antibiotics) Patient History Medical History (Updated 05/13/23 @ 12:17 by Sylvain Osullivan MD) Strain of right knee History of nephrolithiasis Mild cognitive impairment B12 deficiency Renal calculus, left Obstruction of right ureteropelvic junction (UPJ) Right inguinal hernia H/O nephrolithotomy with removal of calculi Osteopenia Rubella Measles Malaria Chicken pox Kidney stones Irritable bowel syndrome Skin cancer (~2011) Melanoma (~2019) Mixed hyperlipidemia Essential hypertension (~2000) Paroxysmal atrial fibrillation (~2021) Slow transit constipation Chronic anticoagulation Surgical History History of tubal ligation History of breast biopsy History of colon surgery Previous back surgery Family History Mother Cancer Hyperlipidemia Father CAD in [place] artery Hypertension Family/Other Bacterial UTI Social History marital status: number of children: 3 household members: spouse lives independently: Yes occupational status: previously employed Smoking Status: Never smoker alcohol intake: current substance use type: does not use Type(s) of exercise: walking frequency: daily Smoking Status: Never smoker alcohol intake frequency: 0-2 drinks per day Alcohol type: wine Substance Use Type: does not use Exam Initial Vital Signs Initial Vital Signs: Vital Signs Temperature 96.8 F L 05/13/23 08:35 Pulse Rate 66 05/13/23 08:35 Respiratory Rate 18 05/13/23 08:35 Blood Pressure 143/67 H 05/13/23 08:35 Pulse Oximetry 98 05/13/23 08:35 Oxygen Delivery Method Room Air 05/13/23 08:35 Const Other: Alert appears to be in no distress, speaking normally. [facility] Head: normocephalic, atraumatic and other (I do not appreciate any facial swelling or erythema, ) Mouth: restricted motion and other (Oral cavity appears grossly normal. No palpable tenderness or swelling. ) Neck Other: No cervical adenopathy Resp Effort & Inspection: normal respiratory effort Cardio Other: Normal heart rate Course Orders Ordered: ED Orders 05/13/23 10:55 XR mandible min 4V Stat Vital Signs Vital signs: Vital Signs - 8 hr 05/13/23 11:30 05/13/23 11:30 05/13/23 12:00 Pulse Rate 55 L 57 L Blood Pressure 149/89 H Pulse Oximetry 97 96 Oxygen Delivery Method Room Air 05/13/23 12:00 05/13/23 12:30 05/13/23 12:30 Pulse Rate 56 L Blood Pressure 149/67 H 161/71 H Pulse Oximetry 96 Oxygen Delivery Method Room Air MDM - Dental/Oral MDM Narrative Medical decision making narrative: 72-year-old female who has had pain with opening her mouth since having a recent dental procedure. Does not appear to have any threat to her airway, she is able to hydrate and nourished herself orally. She may be infected although I doubt it I did start her on penicillin. The patient has an appointment to see her dentist tomorrow. I think that is appropriate. Mandible films were taken and are negative for bony abnormality. Discharge Plan Departure Patient Disposition: Home Clinical Impression: Pain in upper jaw Activity Restrictions/Additional Instructions: Emergency department today is reassuring. I think it is safe to follow up tomorrow with your dentist, in the meantime continue with a no chew diet. You can use acetaminophen (Tylenol) 650 mg up to 4 times a day or 1000 mg up to 3 times a day as needed for pain. Continuing with ice is likely a good idea, rem ember to keep the ice away from direct skin contact. I have sent a prescription for penicillin that you can start in case this is an infection. Follow up tomorrow with your dentist as scheduled. Return to the emergency department for fevers shortness of breath or other acute symptoms. Prescriptions: New penicillin V potassium 500 mg tablet 500 mg PO QID Qty: 40 0RF No Action dicyclomine 20 mg tablet 20 mg PO TID PRN (Reason: abdominal pain) Qty: 90 3RF Prolia 60 mg/mL syringe 60 mg SUBCUT [id number] Qty: 1 1RF zolpidem [Ambien] 5 mg tablet 2.5 mg PO BEDTIME PRN (Reason: insomnia) Qty: 30 1RF amlodipine 2.5 mg tablet 2.5 mg PO DAILY Qty: 90 3RF olmesartan 40 mg tablet 40 mg PO DAILY Qty: 90 3RF tramadol 50 mg tablet 50 mg PO Q6H PRN (Reason: pain) Qty: 60 3RF mirtazapine 15 mg tablet 15 mg PO BEDTIME Qty: 30 5RF atorvastatin 10 mg tablet 10 mg PO DAILY flecainide 50 mg tablet 50 mg PO BID diltiazem HCl 120 mg capsule,extended release 24hr 120 mg PO DAILY tafluprost (PF) 0.0015 % dropperette 1 drp EYE-BOTH ONCE PM timolol maleate 0.5 % drops 0 drp EYE-BOTH pregabalin 50 mg capsule 50 mg PO DAILY PRN cholecalciferol (vitamin D3) 125 mcg (5,000 unit) capsule 125 mcg PO DAILY lorazepam 0.5 mg tablet 0.5 mg PO TID PRN (Reason: abdominal discomfort) Qty: 30 1RF linaclotide 72 mcg capsule 72 mcg PO DAILY Qty: 30 5RF Eliquis 5 mg tablet 5 mg PO BID Qty: 60 0RF Referrals: Turner Lindquist MD [Primary Care Provider] - Stand Alone Forms: Patient Portal/API
== END 2023-05-13 12:46 | disposition home or self-care (01) ==
PROVIDERS: Emergency Provider Emergency Medicine; PCP Internal Medicine
DX: R68.84 Jaw pain (principal)
CPT/HCPCS: 70110; 99281; 99283

== ENCOUNTER 2023-06-20 09:09 | Day surgery (SDC) | payer MEDICARE, SELFPAY ==
[2022-10-30 14:01] VITALS: BMI 17.9
[2023-06-19 14:52] VITALS: BMI 20.7
--- NOTE | 2023-06-20 | DI.RAD.S_ITS ---
PROCEDURE: XR ABDOMEN 1V INDICATIONS: RIGHT STENT PLACMENT TECHNIQUE: 7 intra-operative images acquired by the Urology service. COMPARISON: [facility], CR, XR ABDOMEN 3V, 08/04/2022, 14:50. FINDINGS: Intraoperative fluoroscopic images shows markedly distended right renal collecting system. A right-sided ureteral stent is placed under fluoroscopic guidance. IMPRESSION: Fluoro guidance was provided intraoperatively for retrograde urogram and right-sided ureteral stent placement. Moderate to severe right-sided hydronephrosis. Dictated by: Juan Jose Pradhan M.D. on 06/20/2023 at 13:19 Approved by: Juan Jose Pradhan M.D. on 06/20/2023 at 13:20
[2023-06-20] MEDS: LACTATED RINGERS 1,000 ML 100 ML IV ×2 (09:51→11:07)
[2023-06-20 10:05] VITALS: BP 147/69; PULSE 68; RESP 18; TEMP 36.6; O2SAT 100; BMI 20.7
--- NOTE | 2023-06-20 10:24 | PM.PREOP ---
Pre-operative Note Interval Note History & Physical reviewed/Exam performed by Physician: Yes Changes to H&P: No
[2023-06-20] MEDS: CEFAZOLIN 2 GM/100 ML PREMIX 100 ML IV (10:49)
[2023-06-20] MEDS: iopamidoL 30 ML VIAL INJ (10:49)
--- NOTE | 2023-06-20 10:58 | SUR.OPER ---
Supine on padded OR bed, head on pillow, left arm secured on padded arm boards at <90 degrees abduction, right arm tucked and padded by right side legs uncrossed, safety belt at thigh, tape over blanket over lower legs.
[2023-06-20 11:25] VITALS: BP 134/70; PULSE 72; RESP 14; TEMP 36.9; O2SAT 95
[2023-06-20 11:35] VITALS: BP 131/71; PULSE 66; RESP 12; O2SAT 97
--- NOTE | 2023-06-20 11:36 | PM.OP.1 ---
Operative Date/Time/Diagnoses Date of procedure: 06/20/23 Time of procedure: 11:20 Pre-op diagnosis: 1. Right ureteropelvic junction obstruction. Post-op diagnosis: same Procedure & Clinicians Procedure: 1. Cystoscopy/right retrograde pyelogram/dilation right ureteropelvic junction/placement right double-J ureteral stent (7 Wallisian by 22-32 cm multi-length). Same procedure as scheduled: Yes Indications: 1. Right ureteropelvic junction obstruction. Surgeon: Michael Forman Click Yes if Unassisted: Yes Anesthesia Type: General Operative Notes Findings: 1. Normal caliber right ureter. 2. Impressive dilation of intrarenal calices and pelvis. 3. Right proximal ureteral insertion/junction was at inferior, dependent aspect of the dilated renal pelvis. There was a tight narrowing at the UPJ. 4. No evidence of urothelial filling defect, or indirect evidence of a crossing vessel. Closure Type: not applicable Specimen(s): none sent Applied: other (Seven [place]isian by 22-32 cm multi-length ureteral stent) Estimated Blood Loss (mL): 0 Blood products transfused: none Procedure in detail: Patient supine is was administered general anesthesia. She was then straightened semilithotomy and the lower abdomen, genitalia, groin, and vaginal vault were prepped and draped in sterile fashion. A 22 Wallisian panendoscope was then passed into urinary tract. There was some amorphous debris in the base of the depressed bladder floor and suspended within the urine. A sample was obtained and submitted to the laboratory for urinalysis and reflex culture. Next, a 5 Wallisian whistle tip catheter was prepared and advanced through the working port of the scope, into the right ureteral orifice, and advanced proximally under direct and fluoroscopic guidance. A 50:50 dilated Isovue solution was then used to perform retrograde pyelography. Wood Room Supervisor intraoperative images were obtained retained for documentation and future reference. A cine fluoro video was also obtained during retrograde instillation of the contrast with the findings as described above. The whistle-tip catheter was then removed. A 0.35 hybrid catheter was then advanced through the working port of the scope, into the right ureteral orifice, and then advanced proximally under direct and fluoroscopic guidance. Next a cm length balloon dilating catheter was advanced over the 0.35 hybrid guidewire and positioned across the right ureteropelvic junction with fluoroscopic guidance. The balloon was then inflated to 18 atmospheres and held in position for 5 minutes. The balloon was then deflated and backloaded off the hybrid guidewire. Next, a 7 Wallisian by 22-32 cm multi-length stent was selected. This was then advanced over the hybrid guidewire under direct and fluoroscopic guidance and positioned in satisfactory position with the proximal coil confirmed in the superior right renal collecting system distal coil within the bladder. The retrieval line was then divided and removed. NO RETRIEVAL LINE WAS LEFT ATTACHED. The bladder was then drained completely and all instrumentation was removed. The patient was then repositioned in supine awakened, then transferred to a rcondon for transport to PACU awake and in stable condition. Complications: none Post-operative Condition: stable Disposition: PACU Plan for aftercare: Discharge home.
[2023-06-20 11:42] VITALS: BP 133/73; PULSE 63; RESP 12; TEMP 36.7; O2SAT 95
[2023-06-20 11:51] LABS: Appearance Urine UA SL CLOUDY; Bilirubin Urine UA NEGATIVE (NEGATIVE); Color Urine UA YELLOW; Glucose Urine UA NEGATIVE (Negative); Ketones Urine UA NEGATIVE (NEGATIVE); Leukocyte Esterase Urine UA NEGATIVE (NEGATIVE); Nitrite Urine UA NEGATIVE (Negative); Occult Blood Urine UA NEGATIVE (Negative); Protein Urine UA NEGATIVE (Negative); Urobilinogen Urine UA 0.2 E.U./dL (0.2)
[2023-06-20 12:01] LABS: Amorphous Sediment Urine 2+; Bacteria Urine None Seen; Culture Indicated Urine Cult Not Indicated; RBC Urine None Seen (0-5/HPF); Squamous Epithelial Cell Urine None Seen (0-5/HPF); Urine Volume 10mL (spun); WBC Urine None Seen (0-5/HPF)
[2023-06-20 12:21] VITALS: BP 145/71; PULSE 55; RESP 17; TEMP 36.6; O2SAT 97
== END 2023-06-20 12:31 | disposition home or self-care (01) ==
PROVIDERS: PCP Internal Medicine; Referring Provider Specialist; Visit Provider Specialist
PROC: (CPT 52342; principal; 2023-06-20 10:45)
DX: N13.5 Crossing vessel and stricture of ureter without hydronephrosis (principal)
CPT/HCPCS: 52342; 52332; 74420; 74018; 76000; 81001; J0690; J1100; J2405; J2704; J3010; Q9967

== ENCOUNTER → 2023-06-26 12:08 | Outpatient (CLI) | payer MEDICARE, SELFPAY ==
[2022-10-30 14:01] VITALS: BMI 17.9
[2023-06-26 12:43] LABS: Appearance Urine UA SL CLOUDY; Bilirubin Urine UA NEGATIVE (NEGATIVE); Color Urine UA RED; Glucose Urine UA NEGATIVE (Negative); Ketones Urine UA NEGATIVE (NEGATIVE); Leukocyte Esterase Urine UA 1+ (NEGATIVE); Nitrite Urine UA NEGATIVE (Negative); Occult Blood Urine UA 3+ (Negative); Protein Urine UA 2+ (Negative); Specific Gravity Urine UA 1.015 (1.000-1.035); Urobilinogen Urine UA 0.2 E.U./dL (0.2)
[2023-06-26 13:37] LABS: Bacteria Urine Few (2-10); Culture Indicated Urine Specimen Cultured; RBC Urine 30-100/HPF (0-5/HPF); Squamous Epithelial Cell Urine None Seen (0-5/HPF); Urine Volume 10mL (spun); WBC Urine 0-1/HPF (0-5/HPF)
== END ==
PROVIDERS: PCP Internal Medicine; Referring Provider Specialist; Visit Provider Specialist
DX: N13.5 Crossing vessel and stricture of ureter without hydronephrosis (principal)
CPT/HCPCS: 81001; 87077; 87086; 87186

== ENCOUNTER → 2023-06-30 16:17 | Outpatient (CLI) | payer MEDICARE, SELFPAY ==
[2022-10-30 14:01] VITALS: BMI 17.9
[2023-06-30 17:37] LABS: Appearance Urine UA CLOUDY; Bilirubin Urine UA NEGATIVE (NEGATIVE); Color Urine UA RED; Glucose Urine UA NEGATIVE (Negative); Ketones Urine UA NEGATIVE (NEGATIVE); Leukocyte Esterase Urine UA TRACE (NEGATIVE); Nitrite Urine UA NEGATIVE (Negative); Occult Blood Urine UA 3+ (Negative); Protein Urine UA 2+ (Negative); Urobilinogen Urine UA 0.2 E.U./dL (0.2)
[2023-06-30 17:41] LABS: Bacteria Urine Occasional (0-1); Calcium Oxalate Crystals Urine Occasional; Culture Indicated Urine Specimen Cultured; Mucus Urine 1+ (Negative); RBC Urine >100/HPF (0-5/HPF); Squamous Epithelial Cell Urine 0-1 /HPF (0-5/HPF); Urine Volume 10mL (spun); WBC Urine 1-5/HPF (0-5/HPF)
== END ==
PROVIDERS: PCP Internal Medicine; Referring Provider Specialist; Visit Provider Specialist
DX: Z87.442 Personal history of urinary calculi (principal); R31.9 Hematuria, unspecified
CPT/HCPCS: 81001; 87086

== ENCOUNTER → 2023-07-02 11:39 | Outpatient (CLI) | payer MEDICARE, SELFPAY ==
[2022-10-30 14:01] VITALS: BMI 17.9
[2023-07-02 11:54] LABS: Appearance Urine UA CLOUDY; Bilirubin Urine UA NEGATIVE (NEGATIVE); Color Urine UA RED; Glucose Urine UA NEGATIVE (Negative); Ketones Urine UA 1+ (NEGATIVE); Leukocyte Esterase Urine UA 1+ (NEGATIVE); Nitrite Urine UA POSITIVE (Negative); Occult Blood Urine UA 3+ (Negative); Protein Urine UA 3+ (Negative); Specific Gravity Urine UA 1.015 (1.000-1.035)
[2023-07-02 12:07] LABS: Urine Volume 10mL (spun); pH Urine UA 6.5 (4.5-8.0)
[2023-07-02 12:08] LABS: Bacteria Urine Moderate (10-30); Culture Indicated Urine Specimen Cultured; RBC Urine >100/HPF (0-5/HPF); Squamous Epithelial Cell Urine 0-1 /HPF (0-5/HPF); WBC Urine 30-100/HPF (0-5/HPF)
== END ==
PROVIDERS: PCP Internal Medicine; Visit Provider Specialist
DX: Z87.442 Personal history of urinary calculi (principal)
CPT/HCPCS: 81001; 87086

== ENCOUNTER → 2023-07-07 13:18 | Outpatient (CLI) | payer MEDICARE, SELFPAY ==
[2022-10-30 14:01] VITALS: BMI 17.9
--- NOTE | 2023-07-07 13:19 | DI.NM.S_ITS ---
PROCEDURE: HI RENAL FUNCTION W LASIX RADIOPHARMACEUTICAL: 11 mCi Tc-99m MAG3 IV and 20 mg furosemide IV. INDICATIONS: p/o placement right double-J ureteral stent, kidney stone TECHNIQUE: The patient was hydrated orally before the examination was begun. After intravenous administration of Tc-99m MAG3, posterior abdominal radionuclide angiogram and sequential (1 minute each frame) renal images were obtained. A time-activity curve for each kidney was generated and analyzed. To evaluate for obstruction, the patient was given 40 mg furosemide via slow intravenous injection after the start of the examination. Sequential images were obtained for up to an additional 20 minutes. COMPARISON: [place], [place], HI RENAL FUNCTION W LASIX, 04/22/2023, 13:51. FINDINGS: Perfusion: There is normal vascular flow to both kidneys. Morphology: Both kidneys are normal in size and shape. Bilateral hydronephrosis is redemonstrated. Function: Both kidneys demonstrate normal cortical tracer uptake, with jrlp-my-[id number] activity ranging from 3 to 5 minutes. The right kidney contributes 53.1 % of total renal function. The left kidney contributes 46.9 % of total renal function. Lasix stimulation: After diuretic administration, there is prompt clearance of tracer activity from the renal collecting systems in both kidneys. The half-time of emptying of tracer activity from the right pelvicaliceal system is greater than 30 minutes minutes. The half-time of emptying from the left pelvicaliceal system is 21.7 minutes. Normal emptying half-times are less than 10 minutes; borderline ranges are from 10 to 20 minutes. IMPRESSION: 1. Redemonstration of obstructed right kidney with half time of radiotracer emptying greater than 30 minutes. 2. Emptying of the left pelvocaliceal system is mildly elevated, likely representing mild obstruction. Dictated by: Eder Celeste M.D. on 07/07/2023 at 15:23 Approved by: Eder Celeste M.D. on 07/07/2023 at 15:31
== END ==
LOC: NUCM 13:18
PROVIDERS: PCP Internal Medicine; Referring Provider Specialist; Visit Provider Specialist
DX: N20.0 Calculus of kidney (principal); N13.5 Crossing vessel and stricture of ureter without hydronephrosis
CPT/HCPCS: 78708; A9562

== ENCOUNTER 2023-07-18 13:49 | Emergency (ER) | payer MEDICARE, SELFPAY ==
[2022-10-30 14:01] VITALS: BMI 17.9
[2023-07-18 14:02] VITALS: BP 177/72; PULSE 73; RESP 18; TEMP 36.8; O2SAT 98
[2023-07-18 14:21] LABS: Bilirubin Urine UA NEGATIVE (NEGATIVE); Glucose Urine UA NEGATIVE (Negative); Ketones Urine UA NEGATIVE (NEGATIVE); Leukocyte Esterase Urine UA TRACE (NEGATIVE); Nitrite Urine UA POSITIVE (Negative); Occult Blood Urine UA 3+ (Negative); Protein Urine UA 3+ (Negative); Specific Gravity Urine UA 1.025 (1.000-1.035); Urobilinogen Urine UA 0.2 E.U./dL (0.2)
--- NOTE | 2023-07-18 14:23 | ED_ITS ---
HPI - Female Genitourinary <Sabine De La Cruz PA-C - Last Filed: 07/18/23 15:16> General Chief complaint: Urogenital-Female Stated complaint: URINARY PAIN Time Seen by Provider: 07/18/23 14:22 Source: patient Mode of arrival: Ambulatory History of Present Illness HPI Narrative: 72-year-old female presents with urinary symptoms began this morning and a bit last night. She reports some discomfort overall but no fever, chills, vomiting or abdominal pain. She currently has a right ureteral stent in place for a kidney stone which she has had roughly a month, she is supposed to have it re- evaluated this coming Friday and possible removal on . She is denying any flank pain more so than regular discomfort from having the stent placed. She was seen July 01 and had a negative urine culture, she reports not wanting to bother anyone or have a false alarm with her urine but again wanted to have it checked out. All other systems are reviewed and are negative. 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 Related Data Home Medications Medication Instructions Recorded Confirmed cholecalciferol (vitamin D3) 125 125 mcg PO DAILY 10/25/22 07/24/23 mcg (5,000 unit) capsule diltiazem HCl 120 mg 120 mg PO DAILY 10/25/22 07/24/23 capsule,extended release 24 hr flecainide 50 mg tablet 50 mg PO BID 10/25/22 07/24/23 tafluprost (PF) 0.0015 % eye drops 1 drp EYE-BOTH ONCE PM 10/25/22 07/24/23 in a dropperette timolol maleate 0.5 % eye drops 1 drp EYE-BOTH DAILY 10/25/22 07/24/23 Previous Rx's Medication Instructions Recorded apixaban 5 mg tablet (Eliquis) 5 mg PO BID #60 tabs 02/16/21 linaclotide 72 mcg capsule 72 mcg PO DAILY #30 caps 01/14/23 amlodipine 2.5 mg tablet 2.5 mg PO DAILY #90 tabs 03/27/23 mirtazapine 15 mg tablet 15 mg PO BEDTIME #30 tabs 04/08/23 olmesartan 40 mg tablet 40 mg PO DAILY #90 tabs 04/14/23 atorvastatin 10 mg tablet 10 mg PO DAILY #90 tabs 07/03/23 phenazopyridine 100 mg tablet 100 mg PO TID PRN pain #20 tabs 07/07/23 (Pyridium) zolpidem 5 mg tablet (Ambien) 2.5 mg (1/2 x 5 mg) PO BEDTIME PRN 07/07/23 insomnia #30 tabs levofloxacin 750 mg tablet 750 mg PO DAILY 7 days #7 tabs 07/18/23 Allergies Allergy/AdvReac Type Severity Reaction Status Date / Time Sulfa (Sulfonamide Allergy Hives Verified 07/18/23 20:35 Antibiotics) doxycycline AdvReac Verified 07/19/23 18:16 Review of Systems <Sabine De La Cruz PA-C - Last Filed: 07/18/23 15:16> Review of Systems Narrative: SEE HPI Patient History <Sabine De La Cruz PA-C - Last Filed: 07/18/23 15:16> Medical History (Updated 07/24/23 @ 09:11 by Michael Forman MD) History of UTI Hyponatremia Hydronephrosis History of cardioversion (01/2021) Mouth problem Strain of right knee History of nephrolithiasis Mild cognitive impairment B12 deficiency Renal calculus, left Obstruction of right ureteropelvic junction (UPJ) Right inguinal hernia H/O nephrolithotomy with removal of calculi Osteopenia Rubella Measles Malaria Chicken pox Kidney stones Irritable bowel syndrome Skin cancer (~2011) Melanoma (~2019) Mixed hyperlipidemia Essential hypertension (~2000) Paroxysmal atrial fibrillation (~2021) Slow transit constipation Chronic anticoagulation Surgical History History of tubal ligation History of breast biopsy History of colon surgery Previous back surgery Family History Mother Cancer Hyperlipidemia Father CAD in [place] artery Hypertension Family/Other Bacterial UTI alcohol intake frequency: 0-2 drinks per day Alcohol type: wine Substance Use Type: does not use Exam <Sabine De La Cruz PA-C - Last Filed: 07/18/23 15:16> Initial Vital Signs Initial Vital Signs: Vital Signs Temperature 98.2 F 07/18/23 14:02 Pulse Rate 73 07/18/23 14:02 Respiratory Rate 18 07/18/23 14:02 Blood Pressure 177/72 H 07/18/23 14:02 Pulse Oximetry 98 07/18/23 14:02 Oxygen Delivery Method Room Air 07/18/23 14:02 Reviewed and are normal except for elevated systolic reading today. Const Other: Smiling, seated, reading a book, no distress. Nontoxic appearing. Resp Other: Clear to auscultation throughout. Cardio Other: Currently regular rate and rhythm. GI Other: Soft nontender no suprapubic tenderness or distention of her bladder. No CVA tenderness. <Amparo Pete DO - Last Filed: 07/24/23 20:59> Initial Vital Signs Initial Vital Signs: Vital Signs Temperature 98.2 F 07/18/23 14:02 Pulse Rate 73 07/18/23 14:02 Respiratory Rate 18 07/18/23 14:02 Blood Pressure 177/72 H 07/18/23 14:02 Pulse Oximetry 98 07/18/23 14:02 Oxygen Delivery Method Room Air 07/18/23 14:02 Course <Sabine De La Cruz PA-C - Last Filed: 07/18/23 15:16> Orders Ordered: ED Orders 07/18/23 14:15 Urinalysis and Microscopic Stat Urine Culture Stat Vital Signs Vital signs: Vital Signs - 8 hr 07/18/23 14:02 Temperature 98.2 F Pulse Rate 73 Respiratory Rate 18 Blood Pressure 177/72 H Pulse Oximetry 98 Oxygen Delivery Method Room Air <Amparo Pete DO - Last Filed: 07/24/23 20:59> Orders Ordered: ED Orders 07/18/23 14:15 Urinalysis and Microscopic Stat Urine Culture Stat Vital Signs Vital signs: Vital Signs - 8 hr 07/18/23 14:02 Temperature 98.2 F Pulse Rate 73 Respiratory Rate 18 Blood Pressure 177/72 H Pulse Oximetry 98 Oxygen Delivery Method Room Air MDM - Female Genitourinary <Sabine De La Cruz PA-C - Last Filed: 07/18/23 15:16> Lab Data Lab results narrative: Nitrite positive 3+ blood, urine sent for culture pending. Labs: Lab Results 07/18/23 Range/Units 14:15 Urine Color Red Urine Appearance Turbid Urine pH 7.0 (4.5-8.0) Ur Specific [place] 1.025 (1.000-1.035) Urine Protein 3+ H (Negative) Urine Glucose (UA) Negative (Negative) g/dL Urine Ketones Negative (NEGATIVE) Urine Occult Blood 3+ H (Negative) Urine Nitrate Positive H (Negative) Urine Bilirubin Negative (NEGATIVE) Urine Urobilinogen 0.2 (0.2) E.U./dL Ur Leukocyte Esterase Trace H (NEGATIVE) Urine RBC >100/hpf H (0-5/HPF) Urine WBC 1-5/hpf (0-5/HPF) Ur Squamous Epith Cells None seen (0-5/HPF) Calcium Oxalate Crystal Few H Urine Bacteria Few (2-10) H (None) Urine Mucus 2+ H (Negative) Ur Culture Indicated? Specimen cultured Vol Urine Centrifuged 10ml (spun) MDM Narrative Medical decision making narrative: Urine dip was positive for nitrates, leukocytes as well as blood. It is been sent for culture and sensitivity which is pending. I will start her on Macrobid at this point and she will see her urologist this Friday regarding her right ureteral stent. Red flag warning signs reviewed in detail she will seek medical attention if she develops a fever, flank pain, any abdominal pain inability to urinate or gross hematuria passing clots or any other worrisome symptoms. She is allergic to sulfa and mild allergy to doxycycline which causes headache, currently taking Eliquis for paroxysmal atrial fibrillation so I have opted for Macrobid at this time. <Amparo Pete, DO - Last Filed: 07/24/23 20:59> Lab Data Labs: Lab Results 07/18/23 Range/Units 14:15 Urine Color Red Urine Appearance Turbid Urine pH 7.0 (4.5-8.0) Ur Specific [place] 1.025 (1.000-1.035) Urine Protein 3+ H (Negative) Urine Glucose (UA) Negative (Negative) g/dL Urine Ketones Negative (NEGATIVE) Urine Occult Blood 3+ H (Negative) Urine Nitrate Positive H (Negative) Urine Bilirubin Negative (NEGATIVE) Urine Urobilinogen 0.2 (0.2) E.U./dL Ur Leukocyte Esterase Trace H (NEGATIVE) Urine RBC >100/hpf H (0-5/HPF) Urine WBC 1-5/hpf (0-5/HPF) Ur Squamous Epith Cells None seen (0-5/HPF) Calcium Oxalate Crystal Few H Urine Bacteria Few (2-10) H (None) Urine Mucus 2+ H (Negative) Ur Culture Indicated? Specimen cultured Vol Urine Centrifuged 10ml (spun) Discharge Plan Departure Patient Disposition: Home Clinical Impression: UTI (urinary tract infection) Qualifiers: Urinary tract infection type: site unspecified Hematuria presence: with hemat uria Qualified Code(s): N39.0 - Urinary tract infection, site not specified Instructions: DI for Urinary Tract Infection (UTI) Activity Restrictions/Additional Instructions: I have started you on Macrobid for 7 days. Please follow-up with your urologist as previously scheduled. Monitor for any worsening signs, hydrate, seek medical attention if you have any fever, any abdominal pain any increase in your flank pain passing clots, inability to urinate or any other worrisome symptoms. We have sent her urine for culture those are pending we will contact you if any changes need to be made. Prescriptions: No Action amlodipine 2.5 mg tablet 2.5 mg PO DAILY Qty: 90 3RF olmesartan 40 mg tablet 40 mg PO DAILY Qty: 90 3RF atorvastatin 10 mg tablet 10 mg PO DAILY Qty: 90 3RF phenazopyridine [Pyridium] 100 mg tablet 100 mg PO TID PRN (Reason: pain) Qty: 20 0RF zolpidem [Ambien] 5 mg tablet 2.5 mg PO BEDTIME PRN (Reason: insomnia) Qty: 30 1RF mirtazapine 15 mg tablet 15 mg PO BEDTIME Qty: 30 5RF flecainide 50 mg tablet 50 mg PO BID diltiazem HCl 120 mg capsule,extended release 24hr 120 mg PO DAILY tafluprost (PF) 0.0015 % dropperette 1 drp EYE-BOTH ONCE PM timolol maleate 0.5 % drops 1 drp EYE-BOTH DAILY cholecalciferol (vitamin D3) 125 mcg (5,000 unit) capsule 125 mcg PO DAILY linaclotide 72 mcg capsule 72 mcg PO DAILY Qty: 30 5RF Eliquis 5 mg tablet 5 mg PO BID Qty: 60 0RF levofloxacin 750 mg tablet 750 mg PO DAILY 7 Days Qty: 7 0RF Referrals: Turner Lindquist MD [Primary Care Provider] - Stand Alone Forms: Patient Portal/API ED Sign-out <Amparo Pete DO - Last Filed: 07/24/23 20:59> Cosign ED Attending Cosignature Attestation: I was available for consultation.
[2023-07-18 14:27] LABS: Appearance Urine UA TURBID; Color Urine UA RED
[2023-07-18 14:28] LABS: Bacteria Urine Few (2-10); Calcium Oxalate Crystals Urine Few; Culture Indicated Urine Specimen Cultured; Mucus Urine 2+ (Negative); RBC Urine >100/HPF (0-5/HPF); Squamous Epithelial Cell Urine None Seen (0-5/HPF); Urine Volume 10mL (spun); WBC Urine 1-5/HPF (0-5/HPF)
[2023-07-18 15:31] VITALS: BP 146/67; PULSE 67; RESP 16; O2SAT 100
== END 2023-07-18 15:31 | disposition home or self-care (01) ==
PROVIDERS: Emergency Medicine; Emergency Provider Physician Assistant Medical; PCP Internal Medicine
DX: N39.0 Urinary tract infection, site not specified (principal)
CPT/HCPCS: 81001; 87086; 99281

== ENCOUNTER 2023-07-18 20:31 | Emergency (ER) | payer MEDICARE, SELFPAY ==
[2022-10-30 14:01] VITALS: BMI 17.9
[2023-07-18 20:35] VITALS: BP 189/76; PULSE 65; RESP 22; TEMP 36.4; O2SAT 99
--- NOTE | 2023-07-18 21:15 | ED_ITS ---
HPI - Female Genitourinary General Chief complaint: Urogenital-Female Stated complaint: Bladder inf/cannot urinate Time Seen by Provider: 07/18/23 21:13 Source: patient Mode of arrival: Ambulatory History of Present Illness HPI Narrative: 72-year-old female history of atrial fibrillation on Eliquis, hypertension, dyslipidemia, known kidney stones with current right ureteral stent presents urinary symptoms that began in the morning and last night. She was seen earlier today was found to have nitrate positive urine does have a known right ureteral stent for kidney stone approximately a month ago and plan for removal in the next week. Patient was seen and prescribed Macrobid earlier today. Bladder scan of the department at this time is 50 mL. Patient's that she has had some dysuria, urgency and frequency but feels like she has not making enough urine and that it is sort of been decreasing. She denies fevers. She states she has a little bit of right flank pain but describes it more as twisting her back and causing a muscle spasm last night. She states it is very mild. She denies any abdominal pain. Denies any nausea or vomiting no other GI or urinary symptoms. She is supposed to have her ureteral stent out on with Urology. She was prescribed Pyridium but has not been taking it. She is taken 1 dose of her Macrobid today. Patient states she had a right ureteral stent placed about a month ago, has a remote history of lithotripsy. Had some sort of soft tissue mass removed from her left side remotely which was benign. Allergic to sulfa. No tobacco, occasional alcohol, no recreational drugs. Related Data Home Medications Medication Instructions Recorded Confirmed cholecalciferol (vitamin D3) 125 125 mcg PO DAILY 10/25/22 07/16/23 mcg (5,000 unit) capsule diltiazem HCl 120 mg 120 mg PO DAILY 10/25/22 07/16/23 capsule,extended release 24 hr flecainide 50 mg tablet 50 mg PO BID 10/25/22 07/16/23 tafluprost (PF) 0.0015 % eye drops 1 drp EYE-BOTH ONCE PM 10/25/22 07/16/23 in a dropperette timolol maleate 0.5 % eye drops 1 drp EYE-BOTH DAILY 10/25/22 07/16/23 Previous Rx's Medication Instructions Recorded apixaban 5 mg tablet (Eliquis) 5 mg PO BID #60 tabs 02/16/21 linaclotide 72 mcg capsule 72 mcg PO DAILY #30 caps 01/14/23 amlodipine 2.5 mg tablet 2.5 mg PO DAILY #90 tabs 03/27/23 mirtazapine 15 mg tablet 15 mg PO BEDTIME #30 tabs 04/08/23 olmesartan 40 mg tablet 40 mg PO DAILY #90 tabs 04/14/23 atorvastatin 10 mg tablet 10 mg PO DAILY #90 tabs 07/03/23 phenazopyridine 100 mg tablet 100 mg PO TID PRN pain #20 tabs 07/07/23 (Pyridium) zolpidem 5 mg tablet (Ambien) 2.5 mg (1/2 x 5 mg) PO BEDTIME PRN 07/07/23 insomnia #30 tabs levofloxacin 750 mg tablet 750 mg PO DAILY 7 days #7 tabs 07/18/23 nitrofurantoin 100 mg PO BID #14 caps 07/18/23 monohydrate/macrocrystals 100 mg capsule (Macrobid) Allergies Allergy/AdvReac Type Severity Reaction Status Date / Time Sulfa (Sulfonamide Allergy Hives Verified 07/18/23 20:35 Antibiotics) doxycycline AdvReac Severe Headache Uncoded 07/18/23 20:35 Review of Systems Review of Systems ROS Unobtainable: All systems reviewed & are unremarkable except as noted in HPI and below Patient History Medical History Hydronephrosis History of cardioversion (01/2021) Mouth problem Strain of right knee History of nephrolithiasis Mild cognitive impairment B12 deficiency Renal calculus, left Obstruction of right ureteropelvic junction (UPJ) Right inguinal hernia H/O nephrolithotomy with removal of calculi Osteopenia Rubella Measles Malaria Chicken pox Kidney stones Irritable bowel syndrome Skin cancer (~2011) Melanoma (~2019) Mixed hyperlipidemia Essential hypertension (~2000) Paroxysmal atrial fibrillation (~2021) Slow transit constipation Chronic anticoagulation Surgical History History of tubal ligation History of breast biopsy History of colon surgery Previous back surgery Family History Mother Cancer Hyperlipidemia Father CAD in [place] artery Hypertension Family/Other Bacterial UTI alcohol intake frequency: 0-2 drinks per day Alcohol type: wine Substance Use Type: does not use Exam Narrative Exam Narrative: GENERAL: Alert and oriented x three, thin, well-appearing female in mild distress. HEENT: Head normocephalic, atraumatic, EOMI, pupils reactive, face symmetric, moist mucous membranes NECK: Supple, full range of motion CARDIOVASCULAR: Regular rate and rhythm without murmurs, rubs or gallops. RESPIRATORY: Breath sounds equal bilaterally, no wheezes rales or rhonchi. ABDOMEN: Soft, nontender. Normoactive bowel sounds all 4 quadrants. No guarding or rebound, rigidity, no mass : No CVA tenderness EXTREMITIES: Normal range of motion, no clubbing or edema. Neurovascularly intact NEUROLOGICAL: Cranial nerves II through XII grossly intact. Moving all extremities SKIN: Warm, dry, no petechiae, no rashes or lesions. Initial Vital Signs Initial Vital Signs: Vital Signs Temperature 97.6 F 07/18/23 20:35 Pulse Rate 65 07/18/23 20:35 Respiratory Rate 22 07/18/23 20:35 Blood Pressure 189/76 H 07/18/23 20:35 Pulse Oximetry 99 07/18/23 20:35 Oxygen Delivery Method Room Air 07/18/23 20:35 Course Orders Ordered: ED Orders 07/18/23 21:26 CT kidney ureter bladder (KUB) Stat 07/18/23 22:14 UA Complete [Urinalysis and Microscopic] Stat 07/18/23 22:19 CBC Auto Diff [Complete Blood Count AUTO DIFF] Stat CMP [Comprehensive Metabolic Panel] Stat Discontinued Medications Levofloxacin (Levofloxacin 250 Mg Tablet) 750 mg PO NOW ONE Stop: 07/18/23 23:31 Last Admin: 07/18/23 23:36 Dose: 750 mg Documented By: AILIN Vital Signs Vital signs: Vital Signs - 8 hr 07/18/23 20:35 07/18/23 23:46 Temperature 97.6 F Pulse Rate 65 58 L Respiratory Rate 22 18 Blood Pressure 189/76 H 175/71 H Pulse Oximetry 99 97 Oxygen Delivery Method Room Air Room Air MDM - Female Genitourinary Lab Data 07/18/23 22:19 07/18/23 22:19 Labs: Lab Results 07/18/23 07/18/23 Range/Units 22:14 22:19 WBC 14.3 H (4.5-11.0) X10^3/uL RBC 3.28 L (4.0-5.2) X10^6/uL Hgb 10.9 L (12.0-16.0) g/dL Hct 32.7 L (36-46) % MCV 99.7 (80-100) fL MCH 33.1 (26-34) PG MCHC 33.2 (30-36) % RDW 13.6 (11.6-14.8) % Plt Count 338 (150-400) X10^3/uL Neut % (Auto) 75.1 H (50-75) % Lymph % (Auto) 13.7 L (25-40) % [place] % (Auto) 8.5 (3-14) % Eos % (Auto) 1.4 L (2-4) % Baso % (Auto) 1.3 (0-2) % Neut # (Auto) 25327 H (0015-2537) /uL Lymph # (Auto) 2000 (0408-4929) /uL [place] # (Auto) 1200 H (0-900) /uL Eos # (Auto) 200 (0-450) /uL Baso # (Auto) 200 H (0-100) /uL Sodium 134 L (137-145) mmol/L Potassium 4.2 (3.4-5.1) mmol/L Chloride 103 (98-107) mmol/L Carbon Dioxide 27 (22-32) mmol/L BUN 17 (7-17) mg/dL Creatinine 0.76 (0.52-1.04) mg/dL Estimated GFR > 60 (>60) mL/min BUN/Creatinine Ratio 22.4 H (6-22) Glucose 83 (80-110) mg/dL Calcium 9.6 (8.4-10.2) mg/dL Total Bilirubin 0.5 (0.2-1.3) mg/dL AST 26 (14-36) IU/L ALT 17 (<35) IU/L Alkaline Phosphatase 38 (38-126) U/L Total Protein 7.0 (6.3-8.2) g/dL Albumin 4.7 (3.5-5.0) g/dL Globulin 2.3 (1.7-4.1) g/dL Albumin/Globulin Ratio 2.0 (1.0-2.8) Urine Color Red Urine Appearance Turbid Urine pH 7.5 (4.5-8.0) Ur Specific [place] 1.010 (1.000-1.035) Urine Protein TNP Urine Glucose (UA) TNP Urine Ketones TNP Urine Occult Blood 3+ H (Negative) Urine Nitrate TNP Urine Bilirubin TNP Urine Urobilinogen 2.0 H (0.2) E.U./dL Ur Leukocyte Esterase TNP Urine RBC >100/hpf H (0-5/HPF) Urine WBC None seen (0-5/HPF) Ur Squamous Epith Cells None seen (0-5/HPF) Urine Bacteria None seen (None) Ur Culture Indicated? Cult not indicated Vol Urine Centrifuged 10ml (spun) MDM Narrative Medical decision making narrative: 72-year-old female with known recent kidney stones with right ureteral stent with recent UTI diagnosed earlier today positive for nitrates started on Macrobid she has had 1 dose. She describes having a decrease in urine output and feels like she has not making enough urine. Bladder scan shows 50 mL. She initially denied any pain but notes that she strained her back and has a little bit of right flank discomfort which he describes as very mild. Patient's most recent available labs are from 2022. Plan for labs, CT KUB to evaluate. Patient has a white count of 14.3 hemoglobin of 10.9, platelets are 338 last labs are from December of 2022. Sodium is 134 potassium 4.2 chloride 103 with CO2 of 27 BUN 17 creatinine 0.76, glucose is 83 with normal LFTs. Patient had a UA at 2:00 a.m. this afternoon which was nitrate positive with trace leuks greater than 100 RBCs few crystals, few bacteria with 2+ mucus. It was sent for culture patient was started on Macrobid. CT KUB shows interval placement of right ureteral stent increased now moderate to right severe hydro mild to stable left hydro, stable punctate calcification inferior pole of the left kidney. Discharge Plan Departure Patient Disposition: Home Clinical Impression: Acute UTI, S/P ureteral stent placement Activity Restrictions/Additional Instructions: Follow up with Dr. Forman on Friday, see if they would like to see you sooner than your appointment. Take antibiotic as prescribed. Please start the new antibiotic Levaquin and stop the macrobid. Prescription was sent to [facility] in [place]. Please return for fevers, new or worsening abdominal back or flank pain, persistent vomiting, increasing difficulty with urination or other new or concerning changes. Prescriptions: New levofloxacin 750 mg tablet 750 mg PO DAILY 7 Days Qty: 7 0RF No Action amlodipine 2.5 mg tablet 2.5 mg PO DAILY Qty: 90 3RF olmesartan 40 mg tablet 40 mg PO DAILY Qty: 90 3RF atorvastatin 10 mg tablet 10 mg PO DAILY Qty: 90 3RF phenazopyridine [Pyridium] 100 mg tablet 100 mg PO TID PRN (Reason: pain) Qty: 20 0RF zolpidem [Ambien] 5 mg tablet 2.5 mg PO BEDTIME PRN (Reason: insomnia) Qty: 30 1RF mirtazapine 15 mg tablet 15 mg PO BEDTIME Qty: 30 5RF flecainide 50 mg tablet 50 mg PO BID diltiazem HCl 120 mg capsule,extended release 24hr 120 mg PO DAILY tafluprost (PF) 0.0015 % dropperette 1 drp EYE-BOTH ONCE PM timolol maleate 0.5 % drops 1 drp EYE-BOTH DAILY cholecalciferol (vitamin D3) 125 mcg (5,000 unit) capsule 125 mcg PO DAILY linaclotide 72 mcg capsule 72 mcg PO DAILY Qty: 30 5RF Eliquis 5 mg tablet 5 mg PO BID Qty: 60 0RF nitrofurantoin monohyd/m-cryst [Macrobid] 100 mg capsule 100 mg PO BID Qty: 14 0RF Rx Instructions: must administer with a meal/food Referrals: Turner Lindquist MD [Primary Care Provider] - Stand Alone Forms: Patient Portal/API
--- NOTE | 2023-07-18 21:26 | DI.CT.S_ITS ---
PROCEDURE: CT KIDNEY URETER BLADDER (KUB) INDICATIONS: r ureteral stent, decreased urine output, known uti TECHNIQUE: Axial sections were acquired from the lung bases to the pubic symphysis. Coronal and sagittal reformats were performed. For radiation dose reduction, the following was used: automated exposure control, adjustment of mA and/or kV according to patient size. COMPARISON: [facility], CT, CT ABDOMEN PELVIS W CON, 11/18/2022, 0:17. FINDINGS: Image quality: Diagnostic. Lower Chest: No significant findings. URINARY: Right Kidney: Right ureteral stent in place. Hydronephrosis is mildly increased, now moderate to severe. Mildly mal rotated Right Ureter: No hydroureter. Ureteral stent in place. Left Kidney: Punctate nonobstructing calcification at the inferior pole left kidney. Stable mild to moderate left hydronephrosis versus prominent extrarenal pelvis. Mild mal rotated. Left Ureter: No hydroureter. Bladder: Normal wall thickness. No stones. ABDOMEN: Liver: No contour-deforming solid mass. Gallbladder: No radiopaque gallstones or wall thickening. Biliary ducts: No biliary dilation. Pancreas: No ductal dilation. Spleen: Size is within normal limits. Adrenal Glands: No adrenal nodules. Stomach and Bowel: Normal colonic caliber, without significant wall thickening. Normal appendix. Peritoneum: No abnormal intraperitoneal fluid. No free air. Ventral Wall: No hernia. Abdominal Nodes: No enlarged retroperitoneal or mesenteric lymph nodes. Vessels: Aorta and inferior vena cava are normal in size. Atherosclerotic vascular calcifications. PELVIS: Pelvic Organs: Unremarkable. Pelvic Nodes: Unremarkable. Miscellaneous: No inguinal hernias are seen. Bones: Multilevel degenerative changes spine. Retrolisthesis of T12 on L1 and L1 on L2. Grade 1 anterolisthesis of L4 on L5. IMPRESSION: 1. Interval placement of right ureteral stent. Increased, now moderate to severe right hydronephrosis. Stable mild to moderate left hydronephrosis. 2. Stable punctate calcification at the inferior pole the left kidney. Dictated by: Eder Celeste M.D. on 07/18/2023 at 21:54 Approved by: Eder Celeste M.D. on 07/18/2023 at 22:02
[2023-07-18 22:42] LABS: Add Manual Diff / Slide Review NO; Basophils Absolute Auto 200 /uL (0-100); Basophils Percent Auto 1.3 % (0-2); Eosinophils Absolute Auto 200 /uL (0-450); Eosinophils Percent Auto 1.4 % (2-4); Hematocrit 32.7 % (36-46); Hemoglobin 10.9 g/dL (12.0-16.0); Lymphocytes Absolute Auto 2000 /uL (1100-4500); Lymphocytes Percent Auto 13.7 % (25-40); Mean Corpuscular HGB Conc 33.2 % (30-36); Mean Corpuscular Hemoglobin 33.1 PG (26-34); Mean Corpuscular Volume 99.7 fL (80-100); Monocytes Absolute Auto 1200 /uL (0-900); Monocytes Percent Auto 8.5 % (3-14); Neutrophils Absolute Auto 10700 /uL (1500-7000); Neutrophils Percent Auto 75.1 % (50-75); Platelet Count 338 X10^3/uL (150-400); Red Blood Cell Count 3.28 X10^6/uL (4.0-5.2); Red Cell Distribution Width 13.6 % (11.6-14.8); White Blood Cell Count 14.3 X10^3/uL (4.5-11.0)
[2023-07-18 22:51] LABS: Alanine Aminotransferase 17 IU/L (<35); Albumin 4.7 g/dL (3.5-5.0); Alkaline Phosphatase 38 U/L (38-126); Aspartate Aminotransferase 26 IU/L (14-36); BUN Creatinine Ratio 22.4 (6-22); Bilirubin Total 0.5 mg/dL (0.2-1.3); Blood Urea Nitrogen 17 mg/dL (7-17); Calcium 9.6 mg/dL (8.4-10.2); Carbon Dioxide 27 mmol/L (22-32); Chloride 103 mmol/L (98-107); Estimated Glomerular Filt Rate > 60 mL/min (>60); Globulin 2.3 g/dL (1.7-4.1); Glucose 83 mg/dL (80-110); HEMOLYSIS < 15 (0-50); Potassium 4.2 mmol/L (3.4-5.1); Sodium 134 mmol/L (137-145)
[2023-07-18] MEDS: levoFLOXacin 250 MG TABLET 750 MG PO (23:36)
[2023-07-18 23:46] VITALS: BP 175/71; PULSE 58; RESP 18; O2SAT 97
[2023-07-19 00:23] LABS: Appearance Urine UA TURBID; Occult Blood Urine UA 3+ (Negative)
[2023-07-19 00:24] LABS: Color Urine UA RED; pH Urine UA 7.5 (4.5-8.0)
[2023-07-19 00:25] LABS: Bacteria Urine None Seen; RBC Urine >100/HPF (0-5/HPF); Squamous Epithelial Cell Urine None Seen (0-5/HPF); Urine Volume 10mL (spun); WBC Urine None Seen (0-5/HPF)
[2023-07-19 00:26] LABS: Culture Indicated Urine Cult Not Indicated
== END 2023-07-18 23:48 | disposition home or self-care (01) ==
PROVIDERS: Emergency Provider Emergency Medicine; PCP Internal Medicine
DX: N39.0 Urinary tract infection, site not specified (principal); Z96.0 Presence of urogenital implants
CPT/HCPCS: 36415; 51798; 74176; 80053; 81001; 85025; 87086; 99281; 99284

== ENCOUNTER 2023-07-19 18:03 | Emergency (ER) | payer MEDICARE, SELFPAY ==
[2022-10-30 14:01] VITALS: BMI 17.9
[2023-07-19 18:17] VITALS: BP 134/65; PULSE 75; RESP 18; TEMP 36.9; O2SAT 98
[2023-07-19 18:42] LABS: Add Manual Diff / Slide Review NO; Basophils Absolute Auto 0 /uL (0-100); Basophils Percent Auto 0.3 % (0-2); Eosinophils Absolute Auto 0 /uL (0-450); Eosinophils Percent Auto 0.2 % (2-4); Hematocrit 29.6 % (36-46); Hemoglobin 10.1 g/dL (12.0-16.0); Lymphocytes Absolute Auto 1100 /uL (1100-4500); Lymphocytes Percent Auto 10.2 % (25-40); Mean Corpuscular Hemoglobin 33.8 PG (26-34); Mean Corpuscular Volume 99.3 fL (80-100); Monocytes Absolute Auto 1100 /uL (0-900); Monocytes Percent Auto 10.3 % (3-14); Neutrophils Absolute Auto 8200 /uL (1500-7000); Platelet Count 287 X10^3/uL (150-400); Red Blood Cell Count 2.98 X10^6/uL (4.0-5.2); Red Cell Distribution Width 12.9 % (11.6-14.8); White Blood Cell Count 10.3 X10^3/uL (4.5-11.0)
[2023-07-19 18:52] LABS: Alanine Aminotransferase 16 IU/L (<35); Albumin 4.4 g/dL (3.5-5.0); Albumin Globulin Ratio 1.8 (1.0-2.8); Alkaline Phosphatase 40 U/L (38-126); Aspartate Aminotransferase 26 IU/L (14-36); BUN Creatinine Ratio 20.2 (6-22); Bilirubin Total 0.6 mg/dL (0.2-1.3); Blood Urea Nitrogen 17 mg/dL (7-17); Calcium 8.8 mg/dL (8.4-10.2); Carbon Dioxide 25 mmol/L (22-32); Chloride 99 mmol/L (98-107); Estimated Glomerular Filt Rate > 60 mL/min (>60); Globulin 2.4 g/dL (1.7-4.1); Glucose 86 mg/dL (80-110); HEMOLYSIS < 15 (0-50); Potassium 4.3 mmol/L (3.4-5.1); Sodium 129 mmol/L (137-145); Total Protein 6.8 g/dL (6.3-8.2)
--- NOTE | 2023-07-19 18:57 | ED.FEMALEGU ---
HPI - Female Genitourinary General Chief complaint: Urogenital-Female Stated complaint: bladder problems, was here yesterday Time Seen by Provider: 07/19/23 18:11 Source: patient Mode of arrival: Ambulatory Limitations: no limitations History of Present Illness HPI Narrative: 72-year-old female with history of atrial fibrillation on Eliquis, hypertension, dyslipidemia, known kidney stones with current right ureteral stent presenting with urinary symptoms patient did have a nitrate positive urine yesterday initially had a dose of Macrobid but returned because she felt like she was not making urine had labs and CT KUB performed. Patient was then changed over to Levaquin. She had a dose last night. At that time she had bladder scan of 50 mL. Normal labs and a CT KUB which showed right ureteral stent with some hydro. She is scheduled to have her ureteral stent out on this upcoming with Urology. Patient presents with same symptoms she does not feel like she is really make any urine. She still had some dysuria, urgency and frequency. She has been some urine today. Fevers. No chest pain, no nausea or vomiting. She does note she has a little bit more right flank pain today than she did yesterday. She has been mildly constipated. Her notes she seems to be little bit off today slightly confused here and there. He notes that she has had hyponatremia in the past and had similar symptoms. She has had for 5 water bottles of water but they state no more than that today. She did take a 2nd dose of Levaquin today she has stopped her Macrobid. Her right ureteral stent was placed about a month ago, remote history lithotripsy. Allergic to sulfa. No tobacco, alcohol or recreational drugs. Related Data Home Medications Medication Instructions Recorded Confirmed cholecalciferol (vitamin D3) 125 125 mcg PO DAILY 10/25/22 07/16/23 mcg (5,000 unit) capsule diltiazem HCl 120 mg 120 mg PO DAILY 10/25/22 07/16/23 capsule,extended release 24 hr flecainide 50 mg tablet 50 mg PO BID 10/25/22 07/16/23 tafluprost (PF) 0.0015 % eye drops 1 drp EYE-BOTH ONCE PM 10/25/22 07/16/23 in a dropperette timolol maleate 0.5 % eye drops 1 drp EYE-BOTH DAILY 10/25/22 07/16/23 Previous Rx's Medication Instructions Recorded apixaban 5 mg tablet (Eliquis) 5 mg PO BID #60 tabs 02/16/21 linaclotide 72 mcg capsule 72 mcg PO DAILY #30 caps 01/14/23 amlodipine 2.5 mg tablet 2.5 mg PO DAILY #90 tabs 03/27/23 mirtazapine 15 mg tablet 15 mg PO BEDTIME #30 tabs 04/08/23 olmesartan 40 mg tablet 40 mg PO DAILY #90 tabs 04/14/23 atorvastatin 10 mg tablet 10 mg PO DAILY #90 tabs 07/03/23 phenazopyridine 100 mg tablet 100 mg PO TID PRN pain #20 tabs 07/07/23 (Pyridium) zolpidem 5 mg tablet (Ambien) 2.5 mg (1/2 x 5 mg) PO BEDTIME PRN 07/07/23 insomnia #30 tabs levofloxacin 750 mg tablet 750 mg PO DAILY 7 days #7 tabs 07/18/23 nitrofurantoin 100 mg PO BID #14 caps 07/18/23 monohydrate/macrocrystals 100 mg capsule (Macrobid) Allergies Allergy/AdvReac Type Severity Reaction Status Date / Time Sulfa (Sulfonamide Allergy Hives Verified 07/18/23 20:35 Antibiotics) doxycycline AdvReac Verified 07/19/23 18:16 Review of Systems Review of Systems ROS Unobtainable: All systems reviewed & are unremarkable except as noted in HPI and below Patient History Medical History Hydronephrosis History of cardioversion (01/2021) Mouth problem Strain of right knee History of nephrolithiasis Mild cognitive impairment B12 deficiency Renal calculus, left Obstruction of right ureteropelvic junction (UPJ) Right inguinal hernia H/O nephrolithotomy with removal of calculi Osteopenia Rubella Measles Malaria Chicken pox Kidney stones Irritable bowel syndrome Skin cancer (~2011) Melanoma (~2019) Mixed hyperlipidemia Essential hypertension (~2000) Paroxysmal atrial fibrillation (~2021) Slow transit constipation Chronic anticoagulation Surgical History History of tubal ligation History of breast biopsy History of colon surgery Previous back surgery Family History Mother Cancer Hyperlipidemia Father CAD in robinson artery Hypertension Family/Other Bacterial UTI alcohol intake frequency: 0-2 drinks per day Alcohol type: wine Substance Use Type: does not use Exam Narrative Exam Narrative: GENERAL: Alert and oriented x three, female in mild distress. HEENT: Head normocephalic, atraumatic, EOMI, pupils reactive, face symmetric, moist mucous membranes NECK: Supple, full range of motion CARDIOVASCULAR: Regular rate and rhythm without murmurs, rubs or gallops. RESPIRATORY: Breath sounds equal bilaterally, no wheezes rales or rhonchi. ABDOMEN: Soft, nontender. Normoactive bowel sounds all 4 quadrants. No guarding or rebound, rigidity, no mass : Very mild right CVA tenderness, no left CVA tenderness. EXTREMITIES: Normal range of motion, no clubbing or edema. Neurovascularly intact NEUROLOGICAL: Cranial nerves II through XII grossly intact. Moving all extremities SKIN: Warm, dry, no petechiae, no rashes or lesions. Initial Vital Signs Initial Vital Signs: Vital Signs Temperature 98.4 F 07/19/23 18:17 Pulse Rate 75 07/19/23 18:17 Respiratory Rate 18 07/19/23 18:17 Blood Pressure 134/65 07/19/23 18:17 Pulse Oximetry 98 07/19/23 18:17 Oxygen Delivery Method Room Air 07/19/23 18:17 Course Orders Ordered: ED Orders 07/19/23 18:35 CBC Auto Diff [Complete Blood Count AUTO DIFF] Stat CMP [Comprehensive Metabolic Panel] Stat 07/19/23 19:05 US renal complete Stat Discontinued Medications Sodium Chloride (Normal Saline 0.9%) 1,000 mls @ 1,000 mls/hr IV BOLUS ONE Stop: 07/19/23 20:04 Last Infusion: 07/19/23 21:47 Dose: Infused Documented By: Admin: 07/19/23 19:29 Dose: 1,000 mls/hr Documented By: GISELA Vital Signs Vital signs: Vital Signs - 8 hr 07/19/23 18:17 07/19/23 21:47 Temperature 98.4 F Pulse Rate 75 82 Respiratory Rate 18 18 Blood Pressure 134/65 130/60 Pulse Oximetry 98 97 Oxygen Delivery Method Room Air Room Air MDM - Female Genitourinary Lab Data 07/19/23 18:35 07/19/23 18:35 Labs: Lab Results 07/19/23 Range/Units 18:35 WBC 10.3 (4.5-11.0) X10^3/uL RBC 2.98 L (4.0-5.2) X10^6/uL Hgb 10.1 L (12.0-16.0) g/dL Hct 29.6 L (36-46) % MCV 99.3 (80-100) fL MCH 33.8 (26-34) PG MCHC 34.0 (30-36) % RDW 12.9 (11.6-14.8) % Plt Count 287 (150-400) X10^3/uL Neut % (Auto) 79.0 H (50-75) % Lymph % (Auto) 10.2 L (25-40) % [place] % (Auto) 10.3 (3-14) % Eos % (Auto) 0.2 L (2-4) % Baso % (Auto) 0.3 (0-2) % Neut # (Auto) 8200 H (7795-9031) /uL Lymph # (Auto) 1100 (1974-5163) /uL [place] # (Auto) 1100 H (0-900) /uL Eos # (Auto) 0 (0-450) /uL Baso # (Auto) 0 (0-100) /uL Sodium 129 L (137-145) mmol/L Potassium 4.3 (3.4-5.1) mmol/L Chloride 99 (98-107) mmol/L Carbon Dioxide 25 (22-32) mmol/L BUN 17 (7-17) mg/dL Creatinine 0.84 (0.52-1.04) mg/dL Estimated GFR > 60 (>60) mL/min BUN/Creatinine Ratio 20.2 (6-22) Glucose 86 (80-110) mg/dL Calcium 8.8 (8.4-10.2) mg/dL Total Bilirubin 0.6 (0.2-1.3) mg/dL AST 26 (14-36) IU/L ALT 16 (<35) IU/L Alkaline Phosphatase 40 (38-126) U/L Total Protein 6.8 (6.3-8.2) g/dL Albumin 4.4 (3.5-5.0) g/dL Globulin 2.4 (1.7-4.1) g/dL Albumin/Globulin Ratio 1.8 (1.0-2.8) Imaging Data US renal: Radiologist's Impression: Chika Ortiz??72??F??1950 ? Allergy/Adv: Sulfa (Sulfonamide Antibiotics), doxycycline (More??) Close Renal Ultrasound (Signed) Collette Gomez - 07/19/23 Abdomen/Pelvis CT (Signed) CelesteEder - 07/18/23 Renal Scan Nuclear Medicine (Signed) Eder Celeste - 07/07/23 Abdomen X-Ray (Signed) Juan Jose Pradhan - 06/20/23 Mandible X-Ray (Signed) Elva Esposito - 05/13/23 Renal Scan Nuclear Medicine (Signed) Endy Mason - 04/22/23 DI Result 04/08/[address] (Signed) Kyaw Christina - 01/18/23 Chest X-Ray (Signed) Kyaw Christina - 01/18/23 Renal Scan Nuclear Medicine (Signed) Marine Li - 12/12/22 Knee X-Ray (Signed) Loly Nayak - 12/12/22 Abdomen/Pelvis CT (Signed) Ralph Nathan - 11/17/22 Abdomen/Pelvis CT (Signed) AguileraHermes lindsey - 10/24/22 Chest/Abdomen X-ray (Signed) AguileraMitch lindseyel - 10/21/22 Renal Ultrasound (Signed) Jessica Mcgarry - 08/27/22 Chest/Abdomen/Pelvis CT (Signed) Juan Jose Pradhan - 08/27/22 Abdomen X-Ray (Signed) Sergio Leslie - 08/04/22 Abdomen/Pelvis CT (Signed) AguileraHermes lindsey - 08/02/22 Chest/Abdomen X-ray (Signed) Aguilera,Hermes - 08/02/22 Abdomen/Pelvis CT (Signed) Loyda Nance - 07/16/22 DI Result CC 05/30/22 Echocardiogram Ultrasound (Signed) Maile Escobar - 02/28/21 Chest X-Ray (Signed) Deepa Li - 02/16/[address] [place] [address] Ultrasound Report Signed Patient: Chika Ortiz MR#: [id number] : 1950 Acct:[id number] Age/Sex: 72 / F Date of Service: 07/19/23 Loc: ED Accession Number: [id number] Procedure: US renal complete Ordering Provider: Nani Judd D.O. PROCEDURE: US RENAL COMPLETE INDICATIONS: right flank pain, ureteral stent, flank pain, uti TECHNIQUE: Real-time scanning was performed of the kidneys and bladder, with image documentation. COMPARISON: [facility], , US RENAL COMPLETE, 08/27/2022, 11:51., CT KUB 07/18/2023 FINDINGS: Kidneys: Kidneys are normal in size. Right kidney measures 10.9 cm long; left kidney measures 11.5 cm long. Right renal cortical thickness is 1.2 cm; left renal cortical thickness is 0.8 cm. Renal cortical echotexture is normal. There is severe right hydronephrosis with visible stent seen within the proximal ureter. No nephrolithiasis. Bladder: Pre-void bladder volume was not calculated as patient voided prior to exam. Stent is seen within the bladder. Miscellaneous: No free pelvic fluid. IMPRESSION: Severe right hydronephrosis with partially visualized double-J nephroureteral stent in place, which was better seen on prior CT 07/18/2023. No nephrolithiasis. Approved by: Collette Gomez M.D.,Ph.D. on 07/19/2023 at 20:01 MDM Narrative Medical decision making narrative: 2-year-old female represents with complaint of persistent flank pain and sensation of not urinating. Patient had normal renal function yesterday. Had a white count yesterday of 14 appears improved today at 10, hemoglobin stable at 10.1 was 10.9 yesterday. Normal platelets. Sodium is trending down words from yesterday she is 134 is 129 today, creatinine 0.84 otherwise normal electrolytes, she has not had any bump or increase in her creatinine. Patient had urine culture from 07/02/2023 which showed no growth. There is a culture pending from yesterday so far shows no growth but patient did have an nitrate positive urine yesterday. CT KUB yesterday showed interval placement right ureteral stent increased now moderate to severe right hydro but [id number] left hydro shows stable and punctate calcification inferior pole left kidney. Had a repeat ultrasound today. Renal ultrasound shows severe right hydro with partially visualized double-J nephroureteral stent placed better seen on CT yesterday, no nephrolithiasis. No pelvic free fluid. Patient's confusion maybe secondary to her hyponatremia. Her white count has improved she still has sensation of urinary changes but creatinine continues to be stable. She was given a L of NS. Discussed with Urology, Dr. Forman's patient's urologist is unavailable. Spoke with Dr. Quiñones pulmonary physical therapist for [facility]. He notes would allow the antibiotics to continue currently, could add Pyridium or oxybutynin for symptoms does not feel that stent needs to be removed emergently. Dr. Forman, did call back. He is very familiar with the patient. He states there is a component of memory issues with the patient and also possibly with her he notes they have had this conversation multiple times he recommends to continue with current plan for antibiotics he notes that there is a recent UA to check sensitivities and looks like Levaquin is appropriate from the culture from 06/26/2023. He is affected to see the patient this week for removal of the stent but he states he expects her to have some discomfort. Reviewed patient's chart and her primary care does note cognitive impairment as well. Discharge Plan Departure Patient Disposition: Home Clinical Impression: Acute UTI, Ureteral stent present Activity Restrictions/Additional Instructions: I spoke with your urology team. They encourage you to continue with your antibiotics. Please take these as prescribed. You can take Pyridium 1 tablet every 6 hours as needed for symptoms. You can use the prescription you have leftover from when you had your stent placed. Your imaging does show your stent appears to be in place, you do continued to have some hydro nephrosis or swelling of the kidney but sure kidney function is normal. Your sodium is slightly low please follow up Friday to have your level rechecked. Please return for fevers, worsening back or flank pain, persistent vomiting, lightheadedness or passing out, black or bloody stools or other new or concerning changes. Prescriptions: No Action amlodipine 2.5 mg tablet 2.5 mg PO DAILY Qty: 90 3RF olmesartan 40 mg tablet 40 mg PO DAILY Qty: 90 3RF atorvastatin 10 mg tablet 10 mg PO DAILY Qty: 90 3RF phenazopyridine [Pyridium] 100 mg tablet 100 mg PO TID PRN (Reason: pain) Qty: 20 0RF zolpidem [Ambien] 5 mg tablet 2.5 mg PO BEDTIME PRN (Reason: insomnia) Qty: 30 1RF mirtazapine 15 mg tablet 15 mg PO BEDTIME Qty: 30 5RF flecainide 50 mg tablet 50 mg PO BID diltiazem HCl 120 mg capsule,extended release 24hr 120 mg PO DAILY tafluprost (PF) 0.0015 % dropperette 1 drp EYE-BOTH ONCE PM timolol maleate 0.5 % drops 1 drp EYE-BOTH DAILY cholecalciferol (vitamin D3) 125 mcg (5,000 unit) capsule 125 mcg PO DAILY linaclotide 72 mcg capsule 72 mcg PO DAILY Qty: 30 5RF Eliquis 5 mg tablet 5 mg PO BID Qty: 60 0RF nitrofurantoin monohyd/m-cryst [Macrobid] 100 mg capsule 100 mg PO BID Qty: 14 0RF Rx Instructions: must administer with a meal/food levofloxacin 750 mg tablet 750 mg PO DAILY 7 Days Qty: 7 0RF Referrals: Michael Forman MD [Physician] - Turner Lindquist MD [Primary Care Provider] - Stand Alone Forms: Patient Portal/API
--- NOTE | 2023-07-19 19:05 | DI.US.S_ITS ---
PROCEDURE: US RENAL COMPLETE INDICATIONS: right flank pain, ureteral stent, flank pain, uti TECHNIQUE: Real-time scanning was performed of the kidneys and bladder, with image documentation. COMPARISON: [facility], US, US RENAL COMPLETE, 08/27/2022, 11:51., CT KUB 07/18/2023 FINDINGS: Kidneys: Kidneys are normal in size. Right kidney measures 10.9 cm long; left kidney measures 11.5 cm long. Right renal cortical thickness is 1.2 cm; left renal cortical thickness is 0.8 cm. Renal cortical echotexture is normal. There is severe right hydronephrosis with visible stent seen within the proximal ureter. No nephrolithiasis. Bladder: Pre-void bladder volume was not calculated as patient voided prior to exam. Stent is seen within the bladder. Miscellaneous: No free pelvic fluid. IMPRESSION: Severe right hydronephrosis with partially visualized double-J nephroureteral stent in place, which was better seen on prior CT 07/18/2023. No nephrolithiasis. Approved by: Collette Gomez M.D.,Ph.D. on 07/19/2023 at 20:01
[2023-07-19] MEDS: SODIUM CHLORIDE 0.9% 1,000 ML 1000 ML IV (19:29)
[2023-07-19 21:47] VITALS: BP 130/60; PULSE 82; RESP 18; O2SAT 97
== END 2023-07-19 21:48 | disposition home or self-care (01) ==
PROVIDERS: Emergency Provider Emergency Medicine; PCP Internal Medicine
DX: N39.0 Urinary tract infection, site not specified (principal); Z96.0 Presence of urogenital implants
CPT/HCPCS: 36415; 51798; 76770; 80053; 85025; 99283; 99284

== ENCOUNTER → 2023-07-21 15:23 | Outpatient (CLI) | payer MEDICARE, SELFPAY ==
[2022-10-30 14:01] VITALS: BMI 17.9
[2023-07-21 17:59] LABS: Appearance Urine UA TURBID; Bilirubin Urine UA NEGATIVE (NEGATIVE); Color Urine UA RED; Glucose Urine UA NEGATIVE (Negative); Ketones Urine UA TRACE (NEGATIVE); Leukocyte Esterase Urine UA 1+ (NEGATIVE); Nitrite Urine UA NEGATIVE (Negative); Occult Blood Urine UA 3+ (Negative); Protein Urine UA 3+ (Negative); Specific Gravity Urine UA 1.025 (1.000-1.035); Urobilinogen Urine UA 0.2 E.U./dL (0.2)
[2023-07-21 18:04] LABS: Bacteria Urine Occasional (0-1); Culture Indicated Urine Specimen Cultured; RBC Urine >100/HPF (0-5/HPF); Squamous Epithelial Cell Urine None Seen (0-5/HPF); Urine Volume 10mL (spun); WBC Urine 5-10/HPF (0-5/HPF)
== END ==
PROVIDERS: Specialist; PCP Internal Medicine; Referring Provider Internal Medicine; Visit Provider Internal Medicine
DX: E78.1 Pure hyperglyceridemia (principal); N20.0 Calculus of kidney; N13.5 Crossing vessel and stricture of ureter without hydronephrosis; N13.30 Unspecified hydronephrosis
CPT/HCPCS: 81001; 87086

== ENCOUNTER → 2023-07-23 11:41 | Outpatient (CLI) | payer MEDICARE, SELFPAY ==
[2022-10-30 14:01] VITALS: BMI 17.9
--- NOTE | 2023-07-23 11:42 | DI.RAD.S_ITS ---
PROCEDURE: XR KUB INDICATIONS: Right Renal Calculus TECHNIQUE: One view of the abdomen acquired. COMPARISON: [facility], CT, CT KIDNEY URETER BLADDER (KUB), 07/18/2023, 21:36. [facility], CR, XR ACUTE ABDOMEN SERIES, 10/21/2022, 21:32. [facility], CR, XR ACUTE ABDOMEN SERIES, 08/02/2022, 22:12. FINDINGS: Surgical changes and devices: Right double-J ureteral stent projects in the expected locations. Bowel: Bowel gas pattern is within normal limits. Soft tissues: No kidney stones identified. No suspicious abdominal calcifications. Visualized solid organ contours appear normal in size. Lung bases are clear. Bones: No suspicious bony lesions. IMPRESSION: Right double-J ureteral stent projects in the expected location. Dictated by: Deejay Grey M.D. on 07/23/2023 at 22:25 Approved by: Deejay Grey M.D. on 07/23/2023 at 22:27
== END ==
PROVIDERS: PCP Internal Medicine; Referring Provider Specialist; Visit Provider Specialist
DX: N20.0 Calculus of kidney (principal); E87.1 Hypo-osmolality and hyponatremia; Z96.0 Presence of urogenital implants
CPT/HCPCS: 36415; 74018; 80048

== ENCOUNTER → 2023-07-23 14:25 | Outpatient (CLI) | payer MEDICARE, SELFPAY ==
[2022-10-30 14:01] VITALS: BMI 17.9
[2023-07-23 15:55] LABS: BUN Creatinine Ratio 13.8 (6-22); Blood Urea Nitrogen 11 mg/dL (7-17); Calcium 9.2 mg/dL (8.4-10.2); Carbon Dioxide 26 mmol/L (22-32); Chloride 104 mmol/L (98-107); Estimated Glomerular Filt Rate > 60 mL/min (>60); Glucose 91 mg/dL (80-110); HEMOLYSIS < 15 (0-50); Potassium 4.3 mmol/L (3.4-5.1); Sodium 135 mmol/L (137-145)
== END ==
PROVIDERS: PCP Internal Medicine; Referring Provider Internal Medicine; Visit Provider Internal Medicine
DX: E87.1 Hypo-osmolality and hyponatremia (principal)
CPT/HCPCS: 36415; 80048

== ENCOUNTER → 2023-07-24 08:38 | Outpatient (CLI) | payer MEDICARE, SELFPAY ==
[2022-10-30 14:01] VITALS: BMI 17.9
== END ==
PROVIDERS: PCP Internal Medicine; Visit Provider Specialist
DX: N39.0 Urinary tract infection, site not specified (principal)
CPT/HCPCS: 87086

== ENCOUNTER → 2023-08-29 13:24 | Outpatient (CLI) | payer MEDICARE, SELFPAY ==
[2022-10-30 14:01] VITALS: BMI 17.9
--- NOTE | 2023-08-29 13:25 | DI.NM.S_ITS ---
PROCEDURE: DE RENAL FUNCTION W LASIX RADIOPHARMACEUTICAL: 10.3 mCi Tc-99m MAG3 IV and 20 mg furosemide IV. INDICATIONS: Hydronephrosis TECHNIQUE: The patient was hydrated orally before the examination was begun. After intravenous administration of Tc-99m MAG3, posterior abdominal radionuclide angiogram and sequential (1 minute each frame) renal images were obtained. A time-activity curve for each kidney was generated and analyzed. To evaluate for obstruction, the patient was given 40 mg furosemide via slow intravenous injection after the start of the examination. Sequential images were obtained for up to an additional 20 minutes. COMPARISON: [place], [place] RENAL FUNCTION W LASIX, 12/12/2022, 13:06. [facility], CR, XR KUB, 07/23/2023, 11:47. [place], [place] RENAL FUNCTION W LASIX, 07/07/2023, 13:58. [facility], US, US RENAL COMPLETE, 07/19/2023, 19:35. [facility], CT, CT KIDNEY URETER BLADDER (KUB), 07/18/2023, 21:36. [place], [place] RENAL FUNCTION W LASIX, 04/22/2023, 13:51. FINDINGS: Perfusion: There is normal vascular flow to both kidneys. Morphology: Both kidneys are normal in size and shape. No dilated collecting system is seen in left kidney. The right renal collecting system is dilated. The ureters and bladder fill with tracer, and appear normal. Function: Both kidneys demonstrate delayed cortical tracer uptake and excretion, with [id number] activity ranging greater than 10 minutes. The right kidney contributes 41.8% of total renal function. The left kidney contributes 58.4% of total renal function. Lasix stimulation: After diuretic administration, there is prompt clearance of tracer activity from the left renal collecting systems. The half-time of emptying from the left pelvicaliceal system is 6.3 minutes. Clearance tracer activity from the left renal collecting system is borderline normal with half-time of emptying at 14 minutes, which is improved. Normal emptying half-times are less than 10 minutes; borderline ranges are from 10 to 20 minutes. IMPRESSION: 1. High-grade right renal obstruction is no longer present. T1/2 of the right kidney is now borderline normal at 14 minutes. The right renal pelvis remains dilated. 2. No left renal obstruction. 3. There is delayed cortical uptake and excretion by both kidneys with delayed [id number] activity. 4. Split renal function: 41.8% right Kidney and 58.4% left kidney. Dictated by: Marine Li M.D. on 08/29/2023 at 15:43 Approved by: Marine Li M.D. on 08/30/2023 at 19:47
== END ==
PROVIDERS: PCP Internal Medicine; Referring Provider Specialist; Visit Provider Specialist
DX: N13.1 Hydronephrosis with ureteral stricture, not elsewhere classified; N39.0 Urinary tract infection, site not specified; N20.0 Calculus of kidney
CPT/HCPCS: 78708; A9562

== ENCOUNTER → 2023-11-04 12:56 | Outpatient (CLI) | payer MEDICARE, SELFPAY ==
[2022-10-30 14:01] VITALS: BMI 17.9
[2023-11-04 14:42] LABS: Hematocrit 40.9 % (36-46); Hemoglobin 13.5 g/dL (12.0-16.0); Mean Corpuscular Hemoglobin 30.9 PG (26-34); Mean Corpuscular Volume 93.5 fL (80-100); Platelet Count 350 X10^3/uL (150-400); Red Blood Cell Count 4.37 X10^6/uL (4.0-5.2); White Blood Cell Count 9.1 X10^3/uL (4.5-11.0)
[2023-11-04 15:01] LABS: Aspartate Aminotransferase 25 IU/L (14-36); BUN Creatinine Ratio 21.4 (6-22); Blood Urea Nitrogen 18 mg/dL (7-17); Calcium 9.4 mg/dL (8.4-10.2); Carbon Dioxide 27 mmol/L (22-32); Chloride 103 mmol/L (98-107); Cholesterol 181 mg/dL (140-199); Estimated Glomerular Filt Rate > 60 mL/min (>60); Glucose 121 mg/dL (80-110); HDL Cholesterol 86 mg/dL (40-60); HEMOLYSIS < 15 (0-50); LDL Cholesterol Calculated 78 mg/dL (<100); Potassium 3.9 mmol/L (3.4-5.1); Sodium 137 mmol/L (137-145); Triglycerides 84 mg/dL (35-150)
== END ==
PROVIDERS: PCP Internal Medicine; Referring Provider Internal Medicine; Visit Provider Internal Medicine
DX: E78.2 Mixed hyperlipidemia (principal); I10 Essential (primary) hypertension; I48.0 Paroxysmal atrial fibrillation
CPT/HCPCS: 36415; 80048; 80061; 84450; 85027

== ENCOUNTER 2023-11-23 06:29 | Emergency (ER) | payer MEDICARE, SELFPAY ==
[2022-10-30 14:01] VITALS: BMI 17.9
[2023-11-23 06:48] VITALS: BP 145/67; PULSE 58; RESP 16; TEMP 36.4; O2SAT 99; BMI 18.8
--- NOTE | 2023-11-23 07:09 | ED_ITS ---
HPI - General Adult General Chief complaint: Abdominal Pain Stated complaint: ABD PAIN. T-1 Time Seen by Provider: 11/23/23 06:35 Source: patient and family Mode of arrival: Ambulatory History of Present Illness HPI narrative: 73-year-old woman with a history of hyperlipidemia, hypertension, chronic constipation on Linzess, atrial fibrillation anticoagulated on Eliquis and controlled with flecainide, chronic kidney issues, cognitive decline awakened at 3:00 a.m. with severe stomach burning and cramping that did not resolve with Pepcid AC and yogurt. She and her have a large trip to [facility] planned in a week so she comes in for further evaluation. She states that she is having left-sided mid abdominal pain did not improve after taking Pepcid, has had similar pain about 2 days ago. She and her describes no recent fevers, dysuria. With her bowel regimen she feels that she has been having regular bowel movements most recently yesterday morning. There was no fevers, vomiting, flank pain, chest pain, palpitations. Related Data Home Medications Medication Instructions Recorded Confirmed cholecalciferol (vitamin D3) 125 125 mcg PO DAILY 10/25/22 11/19/23 mcg (5,000 unit) capsule diltiazem HCl 120 mg 120 mg PO DAILY 10/25/22 11/19/23 capsule,extended release 24 hr flecainide 50 mg tablet 50 mg PO BID 10/25/22 11/19/23 tafluprost (PF) 0.0015 % eye drops 1 drp EYE-BOTH ONCE PM 10/25/22 11/19/23 in a dropperette timolol maleate 0.5 % eye drops 1 drp EYE-BOTH DAILY 10/25/22 11/19/23 Previous Rx's Medication Instructions Recorded apixaban 5 mg tablet (Eliquis) 5 mg PO BID #60 tabs 02/16/21 linaclotide 72 mcg capsule 72 mcg PO DAILY #30 caps 01/14/23 amlodipine 2.5 mg tablet 2.5 mg PO DAILY #90 tabs 03/27/23 mirtazapine 15 mg tablet 15 mg PO BEDTIME #30 tabs 04/08/23 olmesartan 40 mg tablet 40 mg PO DAILY #90 tabs 04/14/23 atorvastatin 10 mg tablet 10 mg PO DAILY #90 tabs 07/03/23 benzonatate 200 mg capsule 200 mg PO TID PRN cough #30 caps 10/18/23 fluticasone propionate 50 1 spray intranasal DAILY #16 grams 10/18/23 mcg/actuation nasal spray,suspension (Flonase Allergy Relief) guaifenesin 1,200 mg tablet, 1,200 mg PO Q12H #30 tabs 10/18/23 extended release 12 hr donepezil 5 mg tablet 5 mg PO BEDTIME #30 tabs 11/06/23 Allergies Allergy/AdvReac Type Severity Reaction Status Date / Time Sulfa (Sulfonamide Allergy Hives Verified 11/19/23 13:59 Antibiotics) Review of Systems Review of Systems Narrative: Pertinent positive and negative findings as per HPI Patient History Medical History History of UTI Hyponatremia Hydronephrosis History of cardioversion (01/2021) Mouth problem Strain of right knee History of nephrolithiasis Mild cognitive impairment B12 deficiency Renal calculus, left Obstruction of right ureteropelvic junction (UPJ) Right inguinal hernia H/O nephrolithotomy with removal of calculi Osteopenia Rubella Measles Malaria Chicken pox Kidney stones Irritable bowel syndrome Skin cancer (~2011) Melanoma (~2019) Mixed hyperlipidemia Essential hypertension (~2000) Paroxysmal atrial fibrillation (~2021) Slow transit constipation Chronic anticoagulation Surgical History History of tubal ligation History of breast biopsy History of colon surgery Previous back surgery Family History Mother Cancer Hyperlipidemia Father CAD in [place] artery Hypertension Family/Other Bacterial UTI Social History marital status: number of children: 3 household members: spouse lives independently: Yes occupational status: previously employed Smoking Status: Never smoker alcohol intake: current substance use type: does not use Type(s) of exercise: walking frequency: daily Smoking Status: Never smoker alcohol intake frequency: 0-2 drinks per day Alcohol type: wine Substance Use Type: does not use Exam Initial Vital Signs Initial Vital Signs: Vital Signs Temperature 97.6 F 11/23/23 06:48 Pulse Rate 58 L 11/23/23 06:48 Respiratory Rate 16 11/23/23 06:48 Blood Pressure 145/67 H 11/23/23 06:48 Pulse Oximetry 99 11/23/23 06:48 Oxygen Delivery Method Room Air 11/23/23 06:48 General: Healthy appearing, in no acute distress. Her supplements most of the questions asked HEENT: Moist mucous membranes, normal sclera with reactive pupils, Respiratory: Lungs are clear to auscultation, no wheezing no rales no rhonchi. Full and symmetrical air movement Cardiac: Regular rate and rhythm no murmurs no bruits Abdomen: Soft, thin, palpable aorta, no tenderness with palpation and no flank pain. Skin: Warm and dry, no rashes Neurologic: Grossly neurologically intact with no obvious asymmetries or abnormalities Extremities: No trauma, well perfused Psych: Cooperative, appropriate insight and affect Course Orders Ordered: ED Orders 11/23/23 07:25 XR abdomen 1V Stat Vital Signs Vital signs: Vital Signs - 8 hr 11/23/23 06:48 11/23/23 08:18 11/23/23 08:19 Temperature 97.6 F Pulse Rate 58 L 57 L 59 L Respiratory Rate 16 Blood Pressure 145/67 H Pulse Oximetry 99 98 98 Oxygen Delivery Method Room Air 11/23/23 08:20 Temperature Pulse Rate Respiratory Rate Blood Pressure 166/74 H Pulse Oximetry Oxygen Delivery Method Medical Decision Making Lab Data Labs: Urine Dip Bedside Urine Glucose Negative Bedside Urine Bilirubin - Negative Bedside Urine Ketone - Negative Urine Specific [place] 1.020 Bedside Urine Occult Blood - Negative Bedside Urine pH 6.0 Bedside Urine Protein - Negative Bedside Urine Urobilinogen - Negative Bedside Urine Nitrite - Negative Bedside Urine Leukocytes - Negative Esterase Point of care testing: Urine Dip Bedside Urine Glucose Negative Bedside Urine Bilirubin - Negative Bedside Urine Ketone - Negative Urine Specific [place] 1.020 Bedside Urine Occult Blood - Negative Bedside Urine pH 6.0 Bedside Urine Protein - Negative Bedside Urine Urobilinogen - Negative Bedside Urine Nitrite - Negative Bedside Urine Leukocytes - Negative Esterase MDM Narrative Medical decision making narrative: CC: Left-sided abdominal pain nonreproducible on palpation Complicating co-morbidities: Slow transit constipation, hydronephrosis with right ureteral stent in place in June removed in August, cognitive decline Data collected from: patient, Social determinants of health that may influence the patients condition: Anxious about an upcoming trip to [facility] Medical records reviewed: Notes from primary care doctor, Dr. Lindquist reviewed Differential considered: Constipation, UTI, pyelonephritis, hydronephrosis, bowel obstruction Exam documented above, pertinent findings include: Majority of questions are answered by her , she has in no acute distress abdomen is entirely soft, thin enough that aorta is palpable Lab Test results independently reviewed as above. Pertinent findings: Point of care urine is entirely normal Imaging studies independently reviewed: Given the palpable aorta brief review of recent imaging studies shows a normally aorta on a CT scan in June and no mentioned of incidental aortic abnormalities with renal ultrasounds KUB or renal nuclear medicine studies through the end of July X-ray shows quite a bit of air throughout the entire colon and a moderate amount of stool particularly distally consistent with constipation Discussion: Findings route viewed with the patient and her . X-rays reviewed in real-time. The significant amount of gas throughout the transverse colon likely is the source for pain. We talked about going home doing her usual routine perhaps adding a few extra prunes to her morning meal and using the senna/stool softener the she has found helpful when she has been constipated and actually needs a laxative. Not finding any sign perforation, infection or reason for additional workup or imaging. Questions are answered and she is safe for discharge Discharge Plan Departure Patient Disposition: Home Clinical Impression: Abdominal pain Qualifiers: Abdominal location: unspecified location Qualified Code(s): R10.9 - Unspecified abdominal pain Constipation Qualifiers: Constipation type: slow transit constipation Qualified Code(s): K59.01 - Slow transit constipation Instructions: DI for Constipation Activity Restrictions/Additional Instructions: Thank you for coming in today I did not find anything life-threatening. You do not have a bladder infection Your x-ray shows quite a bit of gas throughout the transverse colon. When your colon is distended it causes quite a bit of pain. I suspect this is the source of your pain. There is a moderate amount of stool in your sigmoid colon and rectum. There was no evidence of bowel perforation or other infection I am going to recommend that you have some extra prunes with breakfast this morning and use your senna/stool softener that has been helpful in the past. I suspect getting much of the air out is going to be much more comfortable. If you find that you are having new or worsening symptoms please feel free to return to the emergency department. I hope you enjoy your trip to [facility]! Prescriptions: No Action benzonatate 200 mg capsule 200 mg PO TID PRN (Reason: cough) Qty: 30 0RF guaifenesin 1,200 mg tablet extended release 12hr 1,200 mg PO Q12H Qty: 30 0RF fluticasone propionate [Flonase Allergy Relief] 50 mcg/actuation spray,suspension 1 spray intranasal DAILY Qty: 16 2RF Rx Instructions: administer into each nostril amlodipine 2.5 mg tablet 2.5 mg PO DAILY Qty: 90 3RF olmesartan 40 mg tablet 40 mg PO DAILY Qty: 90 3RF atorvastatin 10 mg tablet 10 mg PO DAILY Qty: 90 3RF donepezil 5 mg tablet 5 mg PO BEDTIME Qty: 30 0RF mirtazapine 15 mg tablet 15 mg PO BEDTIME Qty: 30 5RF flecainide 50 mg tablet 50 mg PO BID diltiazem HCl 120 mg capsule,extended release 24hr 120 mg PO DAILY tafluprost (PF) 0.0015 % dropperette 1 drp EYE-BOTH ONCE PM timolol maleate 0.5 % drops 1 drp EYE-BOTH DAILY cholecalciferol (vitamin D3) 125 mcg (5,000 unit) capsule 125 mcg PO DAILY linaclotide 72 mcg capsule 72 mcg PO DAILY Qty: 30 5RF Eliquis 5 mg tablet 5 mg PO BID Qty: 60 0RF Referrals: Turner Lindquist MD [Primary Care Provider] - Stand Alone Forms: Patient Portal/API
--- NOTE | 2023-11-23 07:25 | DI.RAD.S_ITS ---
PROCEDURE: XR ABDOMEN 1V INDICATIONS: abdominal pain, prior issues with constipation TECHNIQUE: One view of the abdomen acquired. COMPARISON: [facility], CR, XR KUB, 07/23/2023, 11:47. [facility], CT, CT KIDNEY URETER BLADDER (KUB), 07/18/2023, 21:36. [facility], CR, XR ABDOMEN 1V, 06/20/2023, 10:57. FINDINGS: Surgical changes and devices: None. Bowel: Bowel gas pattern is normal. A moderate volume of stool seen within the colon, particularly distally. Soft tissues: No suspicious abdominal calcifications. Visualized solid organ contours appear normal in size. Bones: No suspicious bony lesions. Age-appropriate bony degenerative changes are seen. Mild dextroconvex scoliotic curvature is seen. Note is made of osteitis pubis, which is not considered to be frankly abnormal in a woman of this age. IMPRESSION: There is a moderate amount of stool seen within the colon, particularly distally, which is attributed to constipation. Dictated by: Endy Mason M.D. on 11/23/2023 at 6:56 Approved by: Endy Mason M.D. on 11/23/2023 at 6:57
[2023-11-23 08:18] VITALS: PULSE 57; O2SAT 98
[2023-11-23 08:19] VITALS: PULSE 59; O2SAT 98
[2023-11-23 08:20] VITALS: BP 166/74
[2023-11-23 08:49] VITALS: TEMP 36.6
== END 2023-11-23 08:50 | disposition home or self-care (01) ==
PROVIDERS: Emergency Provider Emergency Medicine; PCP Internal Medicine
DX: K59.01 Slow transit constipation (principal)
CPT/HCPCS: 74018; 81003; 99282; 99283

== ENCOUNTER 2023-11-24 09:20 | Emergency (ER) | payer MEDICARE, SELFPAY ==
[2022-10-30 14:01] VITALS: BMI 17.9
[2023-11-24 09:28] VITALS: BP 151/67; PULSE 64; RESP 18; TEMP 36.4; O2SAT 99; BMI 18.8
--- NOTE | 2023-11-24 09:32 | EKG_ITS ---
[address] [address] Test Date: 2023-11-24 Pat Name: Chika Ortiz Department: Room: Gender: Female City Magistrate: AMANDA : 1950 Requested By: Order Number: [id number] Reading MD: Zaid Porter Measurements Intervals [place] Rate: 63 P: 55 MT: 164 QRS: 17 QRSD: 92 T: 57 QT: 432 QTc: 442 Interpretive Statements Normal sinus rhythm Electronically Signed On 11-24-2023 15:29:42 PDT by Zaid Porter
[2023-11-24 09:38] VITALS: BP 151/67; PULSE 61; O2SAT 98
--- NOTE | 2023-11-24 09:57 | ED_ITS ---
HPI - Abdominal Pain General Chief Complaint: Abdominal Pain Stated Complaint: ABD PAIN Time Seen by Provider: 11/24/23 09:50 Source: patient, RN notes reviewed and old records reviewed Mode of arrival: Ambulatory Limitations: no limitations History of Present Illness HPI narrative: 73-year-old woman with history of hyperlipidemia, hypertension, chronic constipation on Linzess, atrial fibrillation anticoagulated with Eliquis and on flecainide, chronic kidney issues, cognitive decline who presented yesterday with a abdominal discomfort found to be constipated on x-ray imaging patient took set, Dulcolax x3 and ultimately had a large bowel movement, she also produced a lot of flatus. She continued to have abdominal discomfort which she describes as lower but also upper abdomen. No fevers or chills but was up all night with her discomfort. She has been nauseated but not had any vomiting. She states no hematochezia or melena. Patient states she has since had loose diarrhea like stools after the large bowel movement. She states she took Tylenol last night but nothing for discomfort since. Her are planning to travel to [facility] on Friday and are concerned as she still has discomfort. Patient is on medication for hypertension, dyslipidemia, atrial fibrillation, constipation. She is allergic to sulfa. She has had a prior renal stent for structural narrowing but had a recent renogram with Dr. Forman her urologist which showed improvement. Related Data Home Medications Medication Instructions Recorded Confirmed cholecalciferol (vitamin D3) 125 125 mcg PO DAILY 10/25/22 11/19/23 mcg (5,000 unit) capsule diltiazem HCl 120 mg 120 mg PO DAILY 10/25/22 11/19/23 capsule,extended release 24 hr flecainide 50 mg tablet 50 mg PO BID 10/25/22 11/19/23 tafluprost (PF) 0.0015 % eye drops 1 drp EYE-BOTH ONCE PM 10/25/22 11/19/23 in a dropperette timolol maleate 0.5 % eye drops 1 drp EYE-BOTH DAILY 10/25/22 11/19/23 Previous Rx's Medication Instructions Recorded apixaban 5 mg tablet (Eliquis) 5 mg PO BID #60 tabs 02/16/21 linaclotide 72 mcg capsule 72 mcg PO DAILY #30 caps 01/14/23 amlodipine 2.5 mg tablet 2.5 mg PO DAILY #90 tabs 03/27/23 mirtazapine 15 mg tablet 15 mg PO BEDTIME #30 tabs 04/08/23 olmesartan 40 mg tablet 40 mg PO DAILY #90 tabs 04/14/23 atorvastatin 10 mg tablet 10 mg PO DAILY #90 tabs 07/03/23 benzonatate 200 mg capsule 200 mg PO TID PRN cough #30 caps 10/18/23 fluticasone propionate 50 1 spray intranasal DAILY #16 grams 10/18/23 mcg/actuation nasal spray,suspension (Flonase Allergy Relief) guaifenesin 1,200 mg tablet, 1,200 mg PO Q12H #30 tabs 10/18/23 extended release 12 hr donepezil 5 mg tablet 5 mg PO BEDTIME #30 tabs 11/06/23 Allergies Allergy/AdvReac Type Severity Reaction Status Date / Time Sulfa (Sulfonamide Allergy Hives Verified 11/19/23 13:59 Antibiotics) Review of Systems Review of Systems ROS Unobtainable: All systems reviewed & are unremarkable except as noted in HPI and below Patient History Medical History History of UTI Hyponatremia Hydronephrosis History of cardioversion (01/2021) Mouth problem Strain of right knee History of nephrolithiasis Mild cognitive impairment B12 deficiency Renal calculus, left Obstruction of right ureteropelvic junction (UPJ) Right inguinal hernia H/O nephrolithotomy with removal of calculi Osteopenia Rubella Measles Malaria Chicken pox Kidney stones Irritable bowel syndrome Skin cancer (~2011) Melanoma (~2019) Mixed hyperlipidemia Essential hypertension (~2000) Paroxysmal atrial fibrillation (~2021) Slow transit constipation Chronic anticoagulation Surgical History History of tubal ligation History of breast biopsy History of colon surgery Previous back surgery Family History Mother Cancer Hyperlipidemia Father CAD in elem artery Hypertension Family/Other Bacterial UTI Social History marital status: number of children: 3 household members: spouse lives independently: Yes occupational status: previously employed Smoking Status: Never smoker alcohol intake: current substance use type: does not use Type(s) of exercise: walking frequency: daily Smoking Status: Never smoker alcohol intake frequency: 0-2 drinks per day Alcohol type: wine Substance Use Type: does not use Exam Narrative Exam Narrative: GENERAL: Alert and oriented x three, thin elderly female in mild distress. HEENT: Head normocephalic, atraumatic, EOMI, pupils reactive, face symmetric, moist mucous membranes NECK: Supple, full range of motion CARDIOVASCULAR: Regular rate and rhythm without murmurs, rubs or gallops. RESPIRATORY: Breath sounds equal bilaterally, no wheezes rales or rhonchi. ABDOMEN: Soft, mild tenderness lower abdomen greater than upper. Nondistended. Normoactive bowel sounds all 4 quadrants. No guarding or rebound, rigidity, no mass, no pulsatile mass or bruit. : No CVA tenderness EXTREMITIES: Normal range of motion, no clubbing or edema. Neurovascularly intact NEUROLOGICAL: Cranial nerves II through XII grossly intact. Moving all extremities SKIN: Warm, dry, no petechiae, no rashes or lesions. Initial Vital Signs Initial Vital Signs: Vital Signs Temperature 97.5 F L 11/24/23 09:28 Pulse Rate 64 11/24/23 09:28 Respiratory Rate 18 11/24/23 09:28 Blood Pressure 151/67 H 11/24/23 09:28 Pulse Oximetry 99 11/24/23 09:28 Oxygen Delivery Method Room Air 11/24/23 09:28 Course Orders Ordered: ED Orders 11/24/23 10:28 CT abdomen pelvis w con Stat 11/24/23 10:40 Urinalysis and Microscopic Stat Discontinued Medications Acetaminophen (Acetaminophen 325 Mg Tablet) 975 mg PO NOW ONE Stop: 11/24/23 10:29 Last Admin: 11/24/23 10:38 Dose: 975 mg Documented By: WILMER Sodium Chloride (Normal Saline 0.9%) 1,000 mls @ 1,000 mls/hr IV BOLUS ONE Stop: 11/24/23 11:27 Last Infusion: 11/24/23 11:42 Dose: Infused Documented By: Admin: 11/24/23 10:38 Dose: 1,000 mls/hr Documented By: WILMER Vital Signs Vital signs: Vital Signs - 8 hr 11/24/23 11:49 Pulse Rate 62 Respiratory Rate 18 Blood Pressure 136/62 Pulse Oximetry 96 Oxygen Delivery Method Room Air [facility] - Abdominal Pain Lab Data 11/24/23 09:30 11/24/23 09:30 Labs: Lab Results 11/24/23 11/24/23 Range/Units 09:30 10:40 WBC 8.9 (4.5-11.0) X10^3/uL RBC 4.69 (4.0-5.2) X10^6/uL Hgb 14.7 (12.0-16.0) g/dL Hct 44.0 (36-46) % MCV 93.8 (80-100) fL MCH 31.3 (26-34) PG MCHC 33.3 (30-36) % RDW 15.2 H (11.6-14.8) % Plt Count 306 (150-400) X10^3/uL Neut % (Auto) 73.6 (50-75) % Lymph % (Auto) 16.2 L (25-40) % Lea % (Auto) 8.0 (3-14) % Eos % (Auto) 1.6 L (2-4) % Baso % (Auto) 0.6 (0-2) % Neut # (Auto) 6600 (9848-8280) /uL Lymph # (Auto) 1400 (1661-3611) /uL Lea # (Auto) 700 (0-900) /uL Eos # (Auto) 100 (0-450) /uL Baso # (Auto) 100 (0-100) /uL Sodium 136 L (137-145) mmol/L Potassium 3.7 (3.4-5.1) mmol/L Chloride 104 (98-107) mmol/L Carbon Dioxide 26 (22-32) mmol/L BUN 14 (7-17) mg/dL Creatinine 0.82 (0.52-1.04) mg/dL Estimated GFR > 60 (>60) mL/min BUN/Creatinine Ratio 17.1 (6-22) Glucose 98 (80-110) mg/dL Calcium 10.0 (8.4-10.2) mg/dL Total Bilirubin 1.0 (0.2-1.3) mg/dL AST 44 H (14-36) IU/L ALT 18 (<35) IU/L Alkaline Phosphatase 38 (38-126) U/L Total Protein 7.3 (6.3-8.2) g/dL Albumin 4.6 (3.5-5.0) g/dL Globulin 2.7 (1.7-4.1) g/dL Albumin/Globulin Ratio 1.7 (1.0-2.8) Lipase 258 (23-300) U/L Urine Color Yellow Urine Appearance Clear Urine pH 6.0 (4.5-8.0) Ur Specific Mcgrath 1.025 (1.000-1.035) Urine Protein Negative (Negative) Urine Glucose (UA) Negative (Negative) g/dL Urine Ketones Negative (NEGATIVE) Urine Occult Blood Negative (Negative) Urine Nitrate Negative (Negative) Urine Bilirubin Negative (NEGATIVE) Urine Urobilinogen 0.2 (0.2) E.U./dL Ur Leukocyte Esterase Negative (NEGATIVE) Urine RBC None seen (0-5/HPF) Urine WBC 0-1/hpf (0-5/HPF) Ur Squamous Epith Cells 1-5 /hpf (0-5/HPF) Urine Bacteria Few (2-10) H (None) Ur Culture Indicated? Cult not indicated Vol Urine Centrifuged 10ml (spun) Imaging Data CT scan - abdomen/pelvis: Radiologist's Impression: Close Abdomen/Pelvis CT (Signed) Ash Broussard - 11/24/23 Abdomen X-Ray (Signed) Endy Mason - 11/23/23 Renal Scan Nuclear Medicine (Signed) Marine Li - 08/29/23 KUB X-Ray (Signed) Deejay Grey - 07/23/23 Renal Ultrasound (Signed) Collette Gomez - 07/19/23 Abdomen/Pelvis CT (Signed) RoulaEder - 07/18/23 Renal Scan Nuclear Medicine (Signed) RoulaEder - 07/07/23 Abdomen X-Ray (Signed) Juan Jose Pradhan - 06/20/23 Mandible X-Ray (Signed) Elva Esposito - 05/13/23 Renal Scan Nuclear Medicine (Signed) Endy Mason - 04/22/23 DI Result 04/08/[address] (Signed) Sanford,Kyaw - 01/18/23 Chest X-Ray (Signed) Christina,Kyaw - 01/18/23 Renal Scan Nuclear Medicine (Signed) Marine Li - 12/12/22 Knee X-Ray (Signed) Loly Nayak - 12/12/22 Abdomen/Pelvis CT (Signed) Ralph Nathan - 11/17/22 Abdomen/Pelvis CT (Signed) AguileraHermes lindsey - 10/24/22 Chest/Abdomen X-ray (Signed) Aguilera,Hermes - 10/21/22 Renal Ultrasound (Signed) Jessica Mcgarry - 08/27/22 Chest/Abdomen/Pelvis CT (Signed) Juan Jose Pradhan - 08/27/22 Abdomen X-Ray (Signed) Leslie,Sergio - 08/04/22 Abdomen/Pelvis CT (Signed) Aguilera,Hermes - 08/02/22 Chest/Abdomen X-ray (Signed) Aguilera,Hermes - 08/02/22 Abdomen/Pelvis CT (Signed) Loyda Nance - 07/16/22 DI Result CC 05/30/22 Echocardiogram Ultrasound (Signed) Maile Escobar - 02/28/21 Chest X-Ray (Signed) Deepa Li - 02/16/21 [employer] [place] [address] CT Scan Report Signed Patient: Chika Ortiz MR#: [id number] : 1950 Acct:[id number] Age/Sex: 73 / F Date of Service: 11/24/23 Loc: ED Accession Number: [id number] Procedure: CT abdomen pelvis w con Ordering Provider: Nani Judd D.O. PROCEDURE: CT ABDOMEN PELVIS W CON INDICATIONS: abd pain, was constipated but lg bm now diarrhea TECHNIQUE: After the administration of intravenous contrast, axial sections acquired from the lung bases to the pubic symphysis. Coronal and sagittal reformats were performed. For radiation dose reduction, the following was used: automated exposure control, adjustment of mA and/or kV according to patient size. COMPARISON: [facility], CT, CT KIDNEY URETER BLADDER (KUB), 07/18/2023, 21:36. [facility], CT, CT ABDOMEN PELVIS W CON, 11/18/2022, 0:17. FINDINGS: Image quality: Diagnostic. Lower Chest: No significant findings. ABDOMEN: Liver: No solid mass. Gallbladder: No radiopaque gallstones or wall thickening. Biliary ducts: No biliary dilation. Pancreas: No ductal dilation. Spleen: Size is within normal limits. Adrenal Glands: No adrenal nodules. Kidneys and Ureters: No hydronephrosis. No solid mass. No complex renal cystic lesion which requires follow up. Single, punctate, nonobstructing left-sided nephrolithiasis. Stomach and Bowel: A few skip segments bowel wall thickening. The segments are under distended. The large bowel contains significant fluid. Peritoneum: No abnormal intraperitoneal fluid. No free air. Ventral Wall: No significant ventral hernia. Abdominal Nodes: No retroperitoneal or mesenteric adenopathy by size criteria. Vessels: Aorta and inferior vena cava are normal in size. PELVIS: Pelvic Organs: Unremarkable. Bladder: No bladder wall thickening, accounting for underdistention. Pelvic Nodes: No enlarged lymph nodes. Miscellaneous: No inguinal hernias are seen. Bones: Grade 1 anterolisthesis of L4 on L5 due to facet arthrosis. Grade 1 retrolisthesis of L1 on L2. IMPRESSION: The large bowel is distended with fluid, consistent with diarrheal illness. Skip segments of bowel wall thickening, could represent atypical colitis, or artifact of underdistention, less likely malignancy. Consider correlation with colonoscopy, if not up-to-date. No fecal impaction. Dictated by: Ash Broussard M.D. on 11/24/2023 at 11:31 Approved by: Ash Broussard M.D. on 11/24/2023 at 11:39 ECG Data Attestation: I personally reviewed and interpreted this ECG as follows: Prior ECG tracings: available for review Interpretation: Sinus rhythm rate of 63 MS 164 QRS of 92 QTC 442.? No acute ST elevation or depression.? EKG shows nonspecific change from 01/18/2023. [facility] Narrative Medical decision making narrative: 73-year-old female what sounds like constipation after several medications last night had a very large bowel movement followed by diarrhea like stools, she took senna as well as several stool softeners and then some additional Dulcolax in his likely having some cramping and discomfort secondary to these after they improved her constipation. Patient has some mild tenderness on examination vitals are overall appropriate but based on her age and upcoming travel and two visist in 2 days after discussion we will obtain labs and imaging. Patient had a point of care urine which was negative yesterday. X-ray showed moderate amount of stool in the colon particularly distally. EKG shows sinus rhythm nonspecific change. Labs white count 8.9 hemoglobin of 14 platelets of 306. Sodium 136 otherwise normal electrolytes, renal function, LFTs AST of 44 slightly elevated lipase of 258. Urine shows few bacteria, 1 white cell no red cells no nitrates or leukocyte esterase. CT imaging, no fecal impaction, a few skipped segments of small bowel wall thickening segments or underdistended large bowel contained significant fluid consider correlation with a colonoscopy if not up-to-date as could represent atypical colitis or artifact from underdistention less likely malignancy. Discussed with patient can follow up with colonoscopy if persistent discomfort. Would hold off on any additional stool softeners. Discharge Plan Departure Patient Disposition: Home Clinical Impression: Abdominal pain Instructions: DI for Abdominal Pain-Adult Activity Restrictions/Additional Instructions: Follow up with your physician for recheck if you are having persistent abdominal discomfort, your imaging showed some fluid consistent with having taken stool softeners having a large bowel movement and then diarrhea. There was a little bit of thickening and a variety of areas in the colon, this could be from under distention but if you are having persistent abdominal discomfort or changes follow up for colonoscopy if you have not had 1 recently. Please return to your normal bowel regimen. Please return if you are having fevers new or worsening abdominal back or flank pain, any vomiting, black or bloody stools, lightheadedness or passing out or other new or concerning changes. Prescriptions: No Action benzonatate 200 mg capsule 200 mg PO TID PRN (Reason: cough) Qty: 30 0RF guaifenesin 1,200 mg tablet extended release 12hr 1,200 mg PO Q12H Qty: 30 0RF fluticasone propionate [Flonase Allergy Relief] 50 mcg/actuation spray,suspension 1 spray intranasal DAILY Qty: 16 2RF Rx Instructions: administer into each nostril amlodipine 2.5 mg tablet 2.5 mg PO DAILY Qty: 90 3RF olmesartan 40 mg tablet 40 mg PO DAILY Qty: 90 3RF atorvastatin 10 mg tablet 10 mg PO DAILY Qty: 90 3RF donepezil 5 mg tablet 5 mg PO BEDTIME Qty: 30 0RF mirtazapine 15 mg tablet 15 mg PO BEDTIME Qty: 30 5RF flecainide 50 mg tablet 50 mg PO BID diltiazem HCl 120 mg capsule,extended release 24hr 120 mg PO DAILY tafluprost (PF) 0.0015 % dropperette 1 drp EYE-BOTH ONCE PM timolol maleate 0.5 % drops 1 drp EYE-BOTH DAILY cholecalciferol (vitamin D3) 125 mcg (5,000 unit) capsule 125 mcg PO DAILY linaclotide 72 mcg capsule 72 mcg PO DAILY Qty: 30 5RF Eliquis 5 mg tablet 5 mg PO BID Qty: 60 0RF Referrals: Turner Lindquist MD [Primary Care Provider] - Stand Alone Forms: Patient Portal/API
[2023-11-24 09:59] VITALS: PULSE 56; O2SAT 96
[2023-11-24 10:00] VITALS: BP 133/60; PULSE 56; O2SAT 97
--- NOTE | 2023-11-24 10:28 | DI.CT.S_ITS ---
PROCEDURE: CT ABDOMEN PELVIS W CON INDICATIONS: abd pain, was constipated but lg bm now diarrhea TECHNIQUE: After the administration of intravenous contrast, axial sections acquired from the lung bases to the pubic symphysis. Coronal and sagittal reformats were performed. For radiation dose reduction, the following was used: automated exposure control, adjustment of mA and/or kV according to patient size. COMPARISON: [facility], CT, CT KIDNEY URETER BLADDER (KUB), 07/18/2023, 21:36. [facility], CT, CT ABDOMEN PELVIS W CON, 11/18/2022, 0:17. FINDINGS: Image quality: Diagnostic. Lower Chest: No significant findings. ABDOMEN: Liver: No solid mass. Gallbladder: No radiopaque gallstones or wall thickening. Biliary ducts: No biliary dilation. Pancreas: No ductal dilation. Spleen: Size is within normal limits. Adrenal Glands: No adrenal nodules. Kidneys and Ureters: No hydronephrosis. No solid mass. No complex renal cystic lesion which requires follow up. Single, punctate, nonobstructing left-sided nephrolithiasis. Stomach and Bowel: A few skip segments bowel wall thickening. The segments are under distended. The large bowel contains significant fluid. Peritoneum: No abnormal intraperitoneal fluid. No free air. Ventral Wall: No significant ventral hernia. Abdominal Nodes: No retroperitoneal or mesenteric adenopathy by size criteria. Vessels: Aorta and inferior vena cava are normal in size. PELVIS: Pelvic Organs: Unremarkable. Bladder: No bladder wall thickening, accounting for underdistention. Pelvic Nodes: No enlarged lymph nodes. Miscellaneous: No inguinal hernias are seen. Bones: Grade 1 anterolisthesis of L4 on L5 due to facet arthrosis. Grade 1 retrolisthesis of L1 on L2. IMPRESSION: The large bowel is distended with fluid, consistent with diarrheal illness. Skip segments of bowel wall thickening, could represent atypical colitis, or artifact of underdistention, less likely malignancy. Consider correlation with colonoscopy, if not up-to-date. No fecal impaction. Dictated by: Ash Broussard M.D. on 11/24/2023 at 11:31 Approved by: Ash Broussard M.D. on 11/24/2023 at 11:39
[2023-11-24 10:30] VITALS: BP 144/66; PULSE 62; O2SAT 98
[2023-11-24 10:37] LABS: Add Manual Diff / Slide Review NO; Basophils Absolute Auto 100 /uL (0-100); Basophils Percent Auto 0.6 % (0-2); Eosinophils Absolute Auto 100 /uL (0-450); Eosinophils Percent Auto 1.6 % (2-4); Hemoglobin 14.7 g/dL (12.0-16.0); Lymphocytes Absolute Auto 1400 /uL (1100-4500); Lymphocytes Percent Auto 16.2 % (25-40); Mean Corpuscular HGB Conc 33.3 % (30-36); Mean Corpuscular Hemoglobin 31.3 PG (26-34); Mean Corpuscular Volume 93.8 fL (80-100); Monocytes Absolute Auto 700 /uL (0-900); Neutrophils Absolute Auto 6600 /uL (1500-7000); Neutrophils Percent Auto 73.6 % (50-75); Platelet Count 306 X10^3/uL (150-400); Red Blood Cell Count 4.69 X10^6/uL (4.0-5.2); Red Cell Distribution Width 15.2 % (11.6-14.8); White Blood Cell Count 8.9 X10^3/uL (4.5-11.0)
[2023-11-24] MEDS: ACETAMINOPHEN 325 MG TABLET 975 MG PO (10:38)
[2023-11-24] MEDS: SODIUM CHLORIDE 0.9% 1,000 ML 1000 ML IV (10:38)
[2023-11-24 10:41] LABS: Alanine Aminotransferase 18 IU/L (<35); Albumin 4.6 g/dL (3.5-5.0); Albumin Globulin Ratio 1.7 (1.0-2.8); Alkaline Phosphatase 38 U/L (38-126); Aspartate Aminotransferase 44 IU/L (14-36); BUN Creatinine Ratio 17.1 (6-22); Blood Urea Nitrogen 14 mg/dL (7-17); Carbon Dioxide 26 mmol/L (22-32); Chloride 104 mmol/L (98-107); Estimated Glomerular Filt Rate > 60 mL/min (>60); Globulin 2.7 g/dL (1.7-4.1); Glucose 98 mg/dL (80-110); HEMOLYSIS 32 (0-50); Lipase 258 U/L (23-300); Potassium 3.7 mmol/L (3.4-5.1); Sodium 136 mmol/L (137-145); Total Protein 7.3 g/dL (6.3-8.2)
[2023-11-24 11:04] LABS: Appearance Urine UA CLEAR; Bilirubin Urine UA NEGATIVE (NEGATIVE); Color Urine UA YELLOW; Glucose Urine UA NEGATIVE (Negative); Ketones Urine UA NEGATIVE (NEGATIVE); Leukocyte Esterase Urine UA NEGATIVE (NEGATIVE); Nitrite Urine UA NEGATIVE (Negative); Occult Blood Urine UA NEGATIVE (Negative); Protein Urine UA NEGATIVE (Negative); Specific Gravity Urine UA 1.025 (1.000-1.035); Urobilinogen Urine UA 0.2 E.U./dL (0.2)
[2023-11-24 11:21] LABS: Bacteria Urine Few (2-10); Culture Indicated Urine Cult Not Indicated; RBC Urine None Seen (0-5/HPF); Squamous Epithelial Cell Urine 1-5 /HPF (0-5/HPF); Urine Volume 10mL (spun); WBC Urine 0-1/HPF (0-5/HPF)
[2023-11-24 11:49] VITALS: BP 136/62; PULSE 62; RESP 18; O2SAT 96
== END 2023-11-24 12:19 | disposition home or self-care (01) ==
PROVIDERS: Emergency Provider Emergency Medicine; PCP Internal Medicine
DX: R10.9 Unspecified abdominal pain (principal); R19.7 Diarrhea, unspecified; Z79.01 Long term (current) use of anticoagulants
CPT/HCPCS: 36415; 74177; 80053; 81001; 83690; 85025; 93005; 96360; 99284; Q9967

== ENCOUNTER 2023-11-28 10:14 | Emergency (ER) | payer MEDICARE, SELFPAY ==
[2022-10-30 14:01] VITALS: BMI 17.9
[2023-11-28 10:17] VITALS: BP 159/71; PULSE 61; RESP 14; TEMP 36.7; O2SAT 99; BMI 18.8
[2023-11-28 10:20] VITALS: BP 159/71; PULSE 62; O2SAT 99
--- NOTE | 2023-11-28 10:43 | ED.ABDPAIN ---
HPI - Abdominal Pain General Chief Complaint: Abdominal Pain Stated Complaint: constipation Time Seen by Provider: 11/28/23 10:21 Source: patient Mode of arrival: Ambulatory History of Present Illness HPI narrative: Patient here with . Complains of possible constipation. Patient seen here 5 days ago for constipation. X-ray showed stool retention. She did take home laxatives and had improvement with diarrhea the following day, Friday and Friday she started feeling better but she did return on Friday for repeat imaging because of diarrhea which showed fluid content in the intestines. Friday and Friday started feeling better until today she felt like she was getting constipated again. She is only taken her Linzess and prune juice as her routine medications she takes regularly. Did have diarrhea today. No black or bloody stools. Patient in no distress. Related Data Home Medications Medication Instructions Recorded Confirmed cholecalciferol (vitamin D3) 125 125 mcg PO DAILY 10/25/22 11/19/23 mcg (5,000 unit) capsule diltiazem HCl 120 mg 120 mg PO DAILY 10/25/22 11/19/23 capsule,extended release 24 hr flecainide 50 mg tablet 50 mg PO BID 10/25/22 11/19/23 tafluprost (PF) 0.0015 % eye drops 1 drp EYE-BOTH ONCE PM 10/25/22 11/19/23 in a dropperette timolol maleate 0.5 % eye drops 1 drp EYE-BOTH DAILY 10/25/22 11/19/23 Previous Rx's Medication Instructions Recorded apixaban 5 mg tablet (Eliquis) 5 mg PO BID #60 tabs 02/16/21 linaclotide 72 mcg capsule 72 mcg PO DAILY #30 caps 01/14/23 amlodipine 2.5 mg tablet 2.5 mg PO DAILY #90 tabs 03/27/23 mirtazapine 15 mg tablet 15 mg PO BEDTIME #30 tabs 04/08/23 olmesartan 40 mg tablet 40 mg PO DAILY #90 tabs 04/14/23 atorvastatin 10 mg tablet 10 mg PO DAILY #90 tabs 07/03/23 benzonatate 200 mg capsule 200 mg PO TID PRN cough #30 caps 10/18/23 fluticasone propionate 50 1 spray intranasal DAILY #16 grams 10/18/23 mcg/actuation nasal spray,suspension (Flonase Allergy Relief) guaifenesin 1,200 mg tablet, 1,200 mg PO Q12H #30 tabs 10/18/23 extended release 12 hr donepezil 5 mg tablet 5 mg PO BEDTIME #30 tabs 11/06/23 Allergies Allergy/AdvReac Type Severity Reaction Status Date / Time Sulfa (Sulfonamide Allergy Hives Verified 11/28/23 10:21 Antibiotics) Review of Systems Review of Systems Narrative: GENERAL: negative chills, fatigue, malaise, fever, sweats. HEENT: negative sinus pain, ear pain, sore throat RESPIRATORY: negative dyspnea, cough CARDIOVASCULAR: negative chest pain, palpitations GASTROINTESTINAL: negative nausea, vomiting, positive diarrhea and abdominal pain : negative dysuria, frequency, hematuria MUSCULOSKELETAL: negative muscle or bony pain SKIN: negative rash, skin lesions NEUROLOGIC: negative weakness, numbness ROS Unobtainable: All systems reviewed & are unremarkable except as noted in HPI and below Patient History Medical History History of UTI Hyponatremia Hydronephrosis History of cardioversion (01/2021) Mouth problem Strain of right knee History of nephrolithiasis Mild cognitive impairment B12 deficiency Renal calculus, left Obstruction of right ureteropelvic junction (UPJ) Right inguinal hernia H/O nephrolithotomy with removal of calculi Osteopenia Rubella Measles Malaria Chicken pox Kidney stones Irritable bowel syndrome Skin cancer (~2011) Melanoma (~2019) Mixed hyperlipidemia Essential hypertension (~2000) Paroxysmal atrial fibrillation (~2021) Slow transit constipation Chronic anticoagulation Surgical History History of tubal ligation History of breast biopsy History of colon surgery Previous back surgery Family History Mother Cancer Hyperlipidemia Father CAD in [place] artery Hypertension Family/Other Bacterial UTI Social History marital status: number of children: 3 household members: spouse lives independently: Yes occupational status: previously employed Smoking Status: Never smoker alcohol intake: current substance use type: does not use Type(s) of exercise: walking frequency: daily Smoking Status: Never smoker alcohol intake frequency: 0-2 drinks per day Alcohol type: wine Substance Use Type: does not use Exam Narrative Exam Narrative: GENERAL: in no distress, not toxic not dyspneic HEAD: Normocephalic. EYES: Pupils equal round ENT: Mucous membranes moist. NECK: Trachea midline. CARDIOVASCULAR: Regular rate and rhythm RESPIRATORY: Clear to auscultation. Breath sounds equal bilaterally. No wheezes, rales, or rhonchi. GASTROINTESTINAL: Abdomen soft, non-tender, abdomen is soft flat nontender no peritoneal signs bowel sounds are present. No pain out of portion exam. No rebound no guarding no CVA tenderness EXTREMITIES: No gross deformities. BACK: No flank tenderness. NEURO: AOx4. Clear speech SKIN: Warm and dry PSYCH: Not anxious, is cooperative Initial Vital Signs Initial Vital Signs: Vital Signs Temperature 98.1 F 11/28/23 10:17 Pulse Rate 61 11/28/23 10:17 Respiratory Rate 14 11/28/23 10:17 Blood Pressure 159/71 H 11/28/23 10:17 Pulse Oximetry 99 11/28/23 10:17 Oxygen Delivery Method Room Air 11/28/23 10:17 Course Orders Ordered: ED Orders 11/28/23 10:52 XR abdomen 1V Stat Vital Signs Vital signs: Vital Signs - 8 hr 11/28/23 10:17 11/28/23 10:20 11/28/23 10:20 Temperature 98.1 F Pulse Rate 61 62 Respiratory Rate 14 Blood Pressure 159/71 H 159/71 H Pulse Oximetry 99 99 Oxygen Delivery Method Room Air MDM - Abdominal Pain Imaging Data Abdominal x-ray: Radiologist's Impression: [address] [address] XRay Report Signed Patient: Chika Ortiz MR#: [id number] : 1950 Acct:[id number] Age/Sex: 73 / F Date of Service: 11/28/23 Loc: ED Accession Number: [id number] Procedure: XR abdomen 1V Ordering Provider: Sergio Mix MD PROCEDURE: XR ABDOMEN 1V INDICATIONS: Abdominal pain/constipation TECHNIQUE: One view of the abdomen acquired. COMPARISON: [facility], , XR ABDOMEN 1V, 11/23/2023, 7:28. FINDINGS: Visualized lung bases unremarkable. No definitive free intraperitoneal air. Nonobstructive bowel gas pattern. Mild gaseous distension of the colon in the right hemiabdomen. No significant stool burden. 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 IMPRESSION: Nonobstructive bowel gas pattern. Dictated by: Minoo Guidry M.D. on 11/28/2023 at 12:00 Approved by: Minoo Guidry M.D. on 11/28/2023 at 12:[address] [facility] Narrative Medical decision making narrative: Patient here with . Complains of possible constipation. Patient seen here 5 days ago for constipation. X-ray showed stool retention. She did take home laxatives and had improvement with diarrhea the following day, Friday and Friday she started feeling better but she did return on Friday for repeat imaging because of diarrhea which showed fluid content in the intestines. Friday and Friday started feeling better until today she felt like she was getting constipated again. She is only taken her Linzess and prune juice as her routine medications she takes regularly. Did have diarrhea today. No black or bloody stools. Patient in no distress. After history and exam, exam is reassuring. X-ray abdomen appropriate this time. No blood work. [facility] Medical records reviewed: ER visits here this past Friday and Friday Differential considered: Includes but not limited to constipation bowel obstruction Lab Test results independently reviewed as above. Pertinent findings: None indicated this time Independently reviewed EKG not indicated at this time Imaging studies independently reviewed: X-ray abdomen nonspecific gas pattern Consultations: Treatments: None indicated Re-evaluations: 12:30 p.m.. Updated patient has been results. No diarrhea during course of stay. No abdominal pain. Return precautions reviewed. Not toxic at discharge. They desire discharge home. Discussion: Appropriate for discharge home exam is reassuring. Not toxic at discharge. Patient will discontinue prune juice for a couple of days. They desire discharge home. Return precautions reviewed Diagnosis: Abdominal pain Discharge Plan Departure Patient Disposition: Home Clinical Impression: Abdominal pain Qualifiers: Abdominal location: upper abdomen, unspecified Qualified Code(s): R10.10 - Upper abdominal pain, unspecified Instructions: DI for Abdominal Pain-Adult Activity Restrictions/Additional Instructions: Your exam and x-ray are reassuring today. No blood work was indicated. You may continue home medications. Please do not take prune juice for the neck a couple of days. Keep well hydrated. Return if worse if any questions or concerns. See your family doctor when you return from your vacation. Prescriptions: No Action benzonatate 200 mg capsule 200 mg PO TID PRN (Reason: cough) Qty: 30 0RF guaifenesin 1,200 mg tablet extended release 12hr 1,200 mg PO Q12H Qty: 30 0RF fluticasone propionate [Flonase Allergy Relief] 50 mcg/actuation spray,suspension 1 spray intranasal DAILY Qty: 16 2RF Rx Instructions: administer into each nostril amlodipine 2.5 mg tablet 2.5 mg PO DAILY Qty: 90 3RF olmesartan 40 mg tablet 40 mg PO DAILY Qty: 90 3RF atorvastatin 10 mg tablet 10 mg PO DAILY Qty: 90 3RF donepezil 5 mg tablet 5 mg PO BEDTIME Qty: 30 0RF mirtazapine 15 mg tablet 15 mg PO BEDTIME Qty: 30 5RF flecainide 50 mg tablet 50 mg PO BID diltiazem HCl 120 mg capsule,extended release 24hr 120 mg PO DAILY tafluprost (PF) 0.0015 % dropperette 1 drp EYE-BOTH ONCE PM timolol maleate 0.5 % drops 1 drp EYE-BOTH DAILY cholecalciferol (vitamin D3) 125 mcg (5,000 unit) capsule 125 mcg PO DAILY linaclotide 72 mcg capsule 72 mcg PO DAILY Qty: 30 5RF Eliquis 5 mg tablet 5 mg PO BID Qty: 60 0RF Referrals: Turner Lindquist MD [Primary Care Provider] - Stand Alone Forms: Patient Portal/API
--- NOTE | 2023-11-28 10:52 | DI.RAD.S_ITS ---
PROCEDURE: XR ABDOMEN 1V INDICATIONS: Abdominal pain/constipation TECHNIQUE: One view of the abdomen acquired. COMPARISON: [facility], CR, XR ABDOMEN 1V, 11/23/2023, 7:28. FINDINGS: Visualized lung bases unremarkable. No definitive free intraperitoneal air. Nonobstructive bowel gas pattern. Mild gaseous distension of the colon in the right hemiabdomen. No significant stool burden. 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 IMPRESSION: Nonobstructive bowel gas pattern. Dictated by: Minoo Guidry M.D. on 11/28/2023 at 12:00 Approved by: Minoo Guidry M.D. on 11/28/2023 at 12:04
[2023-11-28 12:48] VITALS: BP 142/63; PULSE 58; O2SAT 98
== END 2023-11-28 12:48 | disposition home or self-care (01) ==
PROVIDERS: Emergency Provider Emergency Medicine; PCP Internal Medicine
DX: R10.10 Upper abdominal pain, unspecified (principal); Z79.01 Long term (current) use of anticoagulants; Z79.899 Other long term (current) drug therapy
CPT/HCPCS: 74018; 99283

== ENCOUNTER → 2024-02-07 09:35 | Outpatient (CLI) | payer MEDICARE, SELFPAY ==
[2022-10-30 14:01] VITALS: BMI 17.9
[2024-02-07 09:58] LABS: Hematocrit 43.2 % (36-46); Hemoglobin 14.3 g/dL (12.0-16.0); Mean Corpuscular Hemoglobin 32.6 PG (26-34); Mean Corpuscular Volume 98.7 fL (80-100); Platelet Count 288 X10^3/uL (150-400); Red Blood Cell Count 4.38 X10^6/uL (4.0-5.2); White Blood Cell Count 7.4 X10^3/uL (4.5-11.0)
[2024-02-07 10:21] LABS: BUN Creatinine Ratio 26.3 (6-22); Blood Urea Nitrogen 21 mg/dL (7-17); Calcium 9.8 mg/dL (8.4-10.2); Carbon Dioxide 32 mmol/L (22-32); Chloride 101 mmol/L (98-107); Cholesterol 189 mg/dL (140-199); Estimated Glomerular Filt Rate > 60 mL/min (>60); Glucose 108 mg/dL (80-110); HDL Cholesterol 108 mg/dL (40-60); HEMOLYSIS < 15 (0-50); LDL Cholesterol Calculated 58 mg/dL (<100); Potassium 3.9 mmol/L (3.4-5.1); Sodium 136 mmol/L (137-145); Triglycerides 116 mg/dL (35-150)
== END ==
PROVIDERS: PCP Internal Medicine; Referring Provider Internal Medicine Cardiovascular Disease; Visit Provider Internal Medicine Cardiovascular Disease
DX: E78.5 Hyperlipidemia, unspecified (principal); Z79.01 Long term (current) use of anticoagulants; I10 Essential (primary) hypertension
CPT/HCPCS: 36415; 80048; 80061; 85027

== ENCOUNTER → 2024-02-16 15:20 | Outpatient (CLI) | payer MEDICARE, SELFPAY ==
[2022-10-30 14:01] VITALS: BMI 17.9
--- NOTE | 2024-02-16 15:20 | DI.MG.S_ITS ---
BILATERAL DIGITAL SCREENING MAMMOGRAM 3D/2D WITH CAD: 02/16/2024 CLINICAL: Routine screening. Family history of breast cancer. Comparison is made to exams dated: 04/05/2022 mammogram, 02/02/2021 mammogram, and 01/04/2020 mammogram - outside location. The breasts are heterogeneously dense, which may obscure small masses (category c / 51-75% glandular tissue). Current study was also evaluated with a Computer Aided Detection (CAD) system. There are benign post operative findings in the right breast. No significant masses, calcifications, or other findings are seen in either breast. There has been no significant interval change. IMPRESSION: BENIGN There is no mammographic evidence of malignancy. A 1 year screening mammogram is recommended. Based on the Tyrer Cuzick model (a risk assessment model) the patient's lifetime risk is 10.7% and her 10 year risk is 10.7%. According to the ACR, ACS, and NCCN guidelines, an annual breast MRI exam along with mammogram is recommended if the patient's lifetime risk is 20% or greater. This exam was interpreted at Station ID: [id number]. NOTE: For mammograms, a report in lay terms will be sent to the patient. Approximately 15% of breast malignancies will not be visualized mammographically. In the management of a palpable breast mass, a negative mammogram must not discourage biopsy of a clinically suspicious lesion. Electronically Signed By: Collette Gomez M.D., Ph.D. salvatore/venita:02/17/2024 08:36:06 letter sent: Normal Exam ACR BI-RADS Category 2: Benign
== END ==
PROVIDERS: PCP Internal Medicine; Referring Provider Internal Medicine; Visit Provider Internal Medicine
DX: Z12.31 Encounter for screening mammogram for malignant neoplasm of breast (principal); Z80.3 Family history of malignant neoplasm of breast; R92.333 Mammographic heterogeneous density, bilateral breasts
CPT/HCPCS: 77063; 77067

== ENCOUNTER → 2024-03-03 07:41 | Outpatient (CLI) | payer MEDICARE, SELFPAY ==
[2022-10-30 14:01] VITALS: BMI 17.9
--- NOTE | 2024-03-03 07:42 | DI.NM.S_ITS ---
PROCEDURE: [place] RENAL FUNCTION W LASIX RADIOPHARMACEUTICAL: 10.2 mCi Tc-99m MAG3 IV and 40 mg furosemide IV. INDICATIONS: Bilateral hydronephrosis TECHNIQUE: The patient was hydrated orally before the examination was begun. After intravenous administration of Tc-99m MAG3, posterior abdominal radionuclide angiogram and sequential (1 minute each frame) renal images were obtained. A time-activity curve for each kidney was generated and analyzed. To evaluate for obstruction, the patient was given 40 mg furosemide via slow intravenous injection after the start of the examination. Sequential images were obtained for up to an additional 20 minutes. COMPARISON: [place], [place], [place] RENAL FUNCTION W LASIX, 08/29/2023, 13:43. FINDINGS: Perfusion: There is normal vascular flow to both kidneys. Morphology: Both kidneys are normal in size and shape. No dilated collecting systems are seen. There is a persistent right-sided extrarenal pelvis present. The ureters and bladder fill with tracer, and appear normal. Function: Both kidneys demonstrate delayed cortical tracer uptake, with [id number] greater than 25 minutes. The right kidney contributes 46 % of total renal function. The left kidney contributes 54 % of total renal function. Lasix stimulation: After diuretic administration, there is delayed clearance of tracer activity from the renal collecting systems in both kidneys. The half-time of emptying of tracer activity from the right pelvicaliceal system is 29 minutes. The half-time of emptying from the left pelvicaliceal system is 22 minutes. Normal emptying half-times are less than 10 minutes; borderline ranges are from 10 to 20 minutes. IMPRESSION: Delayed cortical uptake and excretion by both kidneys, with delayed time to peak activity and delayed half time of tracer emptying from both kidneys, right greater than left. Persistent prominent right-sided extrarenal pelvis. Dictated by: Ash Broussard M.D. on 03/03/2024 at 12:40 Approved by: Ash Broussard M.D. on 03/03/2024 at 12:47
== END ==
PROVIDERS: PCP Internal Medicine; Referring Provider Urology; Visit Provider Urology
DX: N13.30 Unspecified hydronephrosis (principal)
CPT/HCPCS: 78708; A9562

== ENCOUNTER → 2024-03-04 12:38 | Outpatient (CLI) | payer MEDICARE, SELFPAY ==
[2022-10-30 14:01] VITALS: BMI 17.9
--- NOTE | 2024-03-04 12:40 | DI.RAD.S_ITS ---
PROCEDURE: XR HIP W PEL IF DONE RT 2V INDICATIONS: 1 mo pain low back to hip TECHNIQUE: AP pelvis with lateral view(s) of the right hip(s). COMPARISON: None. FINDINGS: Bones: No fractures or dislocations. Pelvic ring appears intact. No suspicious bony lesions. Minimal degenerative changes of the right hip. Lower lumbar spondylosis. Levocurvature of the lumbar spine. Moderate right sided facet arthropathy of the mid and lower lumbar spine. Soft tissues: The visualized bowel gas pattern is normal. No suspicious soft tissue calcifications. IMPRESSION: Pelvis/right hip without acute osseous abnormalities. Minimal degenerative changes of the right hip. Levocurvature of the lumbar spine with associated lumbar spondylosis and moderate right-sided mid to lower lumbar facet arthropathy. Dictated by: Jaspal Cruz M.D. on 03/05/2024 at 2:20 Approved by: Jaspal Cruz M.D. on 03/05/2024 at 2:22
--- NOTE | 2024-03-04 12:40 | DI.RAD.S_ITS ---
PROCEDURE: XR LUMBAR SPINE 2-3V INDICATIONS: 1 mo pain low back to hip TECHNIQUE: 3 views of the lumbar spine were acquired. COMPARISON: [facility], CR, XR CHEST 1V, 01/18/2023, 3:27. FINDINGS: Bones: 5 [id number] vertebrae are present. Riblets noted at T12. There is mild retrolisthesis of T12 on L1 and L1 on L2. There is grade 1 anterolisthesis of L4 on L5. Levocurvature of the lumbar spine centered at L3. Moderate right mid and lower lumbar facet arthropathy. Moderate multilevel lumbar spondylitic changes with degenerative endplate changes, disc space loss and endplate osteophyte formation. Findings are most pronounced at T12-L1, L1-2, and L4-5. No acute vertebral body compression fractures. No suspicious bony lesions. Soft tissues: Overlying bowel gas pattern is normal. No suspicious soft tissue calcifications. IMPRESSION: Moderate multilevel lumbar spondylosis with moderate right mid-lower lumbar facet arthropathy. Dictated by: Jaspal Cruz M.D. on 03/05/2024 at 2:22 Approved by: Jaspal Cruz M.D. on 03/05/2024 at 2:27
== END ==
PROVIDERS: PCP Internal Medicine; Referring Provider Physician Assistant; Visit Provider Physician Assistant
DX: M54.50 Low back pain, unspecified (principal); M25.559 Pain in unspecified hip; M47.816 Spondylosis without myelopathy or radiculopathy, lumbar region
CPT/HCPCS: 72100; 73502

== ENCOUNTER 2024-04-29 09:45 | Outpatient (RCR) | payer MEDICARE, SELFPAY ==
[2022-10-30 14:01] VITALS: BMI 17.9
--- NOTE | 2024-04-13 18:52 | PT.OIE ---
Current Diagnoses Unilateral primary osteoarthritis, right hip (04/13/24) Spondylosis without myelopathy or radiculopathy, lumbosacral region (04/13/24) Past Medical History (Last Reviewed 03/22/24 @ 05:54 by Turner Lindquist MD) B12 deficiency Chicken pox Chronic anticoagulation Essential hypertension (~2000) H/O nephrolithotomy with removal of calculi History of cardioversion (01/2021) History of nephrolithiasis History of UTI Hydronephrosis Hyponatremia Irritable bowel syndrome Kidney stones Malaria Measles Melanoma (~2019) Mild cognitive impairment Mixed hyperlipidemia Mouth problem Obstruction of right ureteropelvic junction (UPJ) Osteopenia Paroxysmal atrial fibrillation (~2021) Renal calculus, left Right inguinal hernia Rubella Skin cancer (~2011) Slow transit constipation Strain of right knee Past Surgical History (Last Reviewed 03/22/24 @ 05:54 by Turner Lindquist MD) History of breast biopsy History of colon surgery History of tubal ligation Previous back surgery Visit Care Team Role Provider Type Turner Lindquist MD Family Provider Physician Primary Care Provider Specialty: Internal Medicine Address: [address] [place] [address] Email: [email or web address] Carmelina Garcia PA-C Attending Provider Advanced Motorboat Mechanic Referring Provider Specialty: Medical Wound Care Address: [address] [place] [address], [facility] Email: [email or web address] Physical Therapy Initial Evaluation PT-OP-A Visit Information Start: 04/08/24 15:56 Freq: Status: Active Protocol: Document 04/13/24 10:52 LRN (Rec: 04/13/24 11:53 LRN [id number]) Out-Patient Physical Therapy Visit Information Visit Information Visit Type Initial Evaluation Visit Note Spouse in attendance during evaluation. Visit Start Time 10:52 Visit Stop Time 11:42 Visit Number 1 Evaluation Information Evaluation Date 04/13/24 Precautions Precautions Controlled HBP, A. fib controlled by meds, memory loss helped by meds. PT-OP-B Current Condition Start: 04/08/24 15:56 Freq: Status: Active Protocol: Document 04/13/24 10:52 LRN (Rec: 04/13/24 11:53 [facility] [id number]) Current Condition History of Current Condition Onset Date Feb 2024 Current Complaints Dull pain in the L low back with Tyenol pain is 4-5/10. History of Current Condition Pt reports she has had issues with LB off/on over the years that always resolved, but after returning from a trip to [place], after 3 days, trying to get ready for [employer], her LB became so painful she couldn't walk. Nothing was found in x-rays. Has been doing 8 ex's issued by Carmelina Garcia (Dr. Lindquist was not available to be seen) that has been very helpful. Her pain is sharp in nature in the LB, mainly right side. Now pain is dull and with discomfort in the morning. Pain onset is variable, 2-6/10 . Prior Treatments and Tests LB ex's given by Carmelina Garcia. Bone spur in LB removed - 2007 -2009. X-ray 03/04/24: Impression: Moderate multilevel lumbar spondylosis with moderate right mid-lower lumbar facet arthropathy (mild retrolisthesis of T12 on L1 and L1 on L2, grade 1 anterolisthesis of L4 on L5, curve of spine centered at L3) . Treatment Goals Patient/Caregiver Goals Pt goals: -Program to eliminate the pain or help her to manage her pain. -Getting out of bed w/o pain ( now is 2-3/10). -Improve ability to move without fear of pain. Personal Factors Other Personal Factors That May Effect Memory loss, mechanical Therapy/Recovery dysfunction of spine (mild retrolisthesis of T12 on L1 and L1 on L2, grade 1 anterolisthesis of L4 on L5, curve of spine centered at L3) . PT-OP-C Subjective Start: 04/08/24 15:56 Freq: Status: Active Protocol: Document 04/13/24 10:52 MIGEL (Rec: 04/13/24 11:53 [facility] [id number]) Patient Questionnaires Lower Extremity Functional Scale LEFS Score 50 OP-PT Pain Assessment Pain Assessment Grid Paper Pain Assessment Grid Completed Yes Location Rodney Low back Pain Location Details R LB & sometimes L lateral hip /LB Intensity 5 Scale Used Numeric (0 - 10) Description Dull,Sharp Description- Other Mostly sharp pain Frequency Intermittent Radiating Location Lower sacral region Other Pain Aggravating Factors Pain first in morning sometimes Pain Alleviating Factors Medication Comments Pain Comments Pt takes Vicodin as needed. PT-OP-H Neuro Start: 04/08/24 15:56 Freq: Status: Active Protocol: Document 04/13/24 10:52 LRN (Rec: 04/13/24 11:53 LRN [id number]) Sensation Evaluation Gross Sensation Gross Sensation WNL Deep Tendon Reflex & Clonus Assessment Deep Tendon Reflex Bilateral Achilles Deep Tendon Reflex 1+ Diminished Bilateral Patellar Deep Tendon Reflex 2+ Normal PT-OP-J Posture/Palpation/Skin Start: 04/08/24 15:56 Freq: Status: Active Protocol: Document 04/13/24 10:52 LRN (Rec: 04/13/24 11:53 LRN [id number]) Posture Evaluation Position Standing Head/C-Spine Posture Forward Head T-Spine Posture Increased Kyphosis Shoulder Posture (L) Elevated Pelvis Posture (L) Iliac Crest Superior,(R) PSIS Posterior Hip Posture (L) Flexed,(R) Flexed Knee Posture (L) Genu Varus,(R) Genu Varus Comments Posture Comments C-curve of back with apex ~T10 -T11 (x-ray indicates it is at L3). Palpation Assessment Location Low back Palpation Location Sacral region to the R side. Palpation Findings Muscle Guarding,Tenderness Palpation Details Tender at R Piriformis, L5-S1 , S1-S2, S2-S3. PT-OP-K Range of Motion Start: 04/08/24 15:56 Freq: Status: Active Protocol: Document 04/13/24 10:52 LRN (Rec: 04/13/24 11:53 LRN [id number]) Lumbar Spine Range of Motion Lumbar Spine Active Degrees Testing Position Standing Flexion 70 Extension 5 Rotation Left 10 Rotation Right 15 Lateral Flexion Left 5 Lateral Flexion Right 20 ROM Limitations Soft Tissue Tightness,Pain Comments No sharp pain noted with mobility. PT-OP-L Special Tests Start: 04/08/24 15:56 Freq: Status: Active Protocol: Document 04/13/24 10:52 LRN (Rec: 04/13/24 18:52 LRN [id number]) Special Tests Lumbar Spine Special Tests Slump Test Results + bilaterally Comments Provocation test ilicited R: pain behind knee, L: calf tightness PT-OP-M Strength Start: 04/08/24 15:56 Freq: Status: Active Protocol: Document 04/13/24 10:52 LRN (Rec: 04/13/24 11:53 LRN [id number]) Trunk Strength Trunk Manual Muscle Testing Core Stabilization Lacks core stability with leg mvmts in supine. Hip Strength Hip Manual Muscle Testing Right Flexion (L2) 5 Normal Comments MMT deferred due to R LBP/hip pain except as indicated above . Left Flexion (L2) 5 Normal Comments MMT deferred due to R LBP/hip pain except as indicated above . PT-OP-Q Treatments Start: 04/08/24 15:56 Freq: Status: Active Protocol: Document 04/13/24 10:52 LRN (Rec: 04/13/24 11:53 LRN [id number]) Therapeutic Exercises Supine Exercises Pelvic Tilt Supine Exercise Name Pt performed by flattening her back. Reps/Minutes 3' Comments Cued to brace core in neutral spine position, pt not able to understand. TA tighten in neutral Reps/Minutes x3 Comments Cuing to maintain neutral spine during TA tightening. Piriformis stretch Supine Exercise Name Leg crossed over opp leg > KTC Side bilateral Hamstring stretch Side bilateral Reps/Minutes 1x DKTC Side bilateral Reps/Minutes 1x SKTC Side bilateral Reps/Minutes x2 Self-Care/Home Management Treatment Education Other Education Discussed results of evaluation, goals, treatment, and plan of care (POC) with pt , attendance/cx/dns policy; pt agreeable to evaluation, goals, treatment, attendance/ cx/dns policy and POC. Activities Self-Care/Home Management Activities Modified pt's current HEP: DC 'd Lower trunk rot, and Stab ex of supine flattening back changed to Neutral spine TA tightening. PT-OP-T Assessment and Plan Start: 04/08/24 15:56 Freq: Status: Active Protocol: Document 04/13/24 10:52 LRN (Rec: 04/13/24 11:53 LRN [id number]) Physical Therapy Assessment Rehab Potential Rehabilitation Potential Good Evaluation Complexity Number of Personal Factors/Comorbidities 1-2 Number of Body Systems Impaired 4 or More Clinical Presentation at Evaluation Evolving Impairments Impairments Activity Tolerance,Functional Activities,Pain,Posture,ROM, Soft Tissue Mobility,Strength, Transfers Goals Three Impairment Decreased functional mobility due to fear of R LBP. Short Term Goal (STG) Pt will be able to demonstrate hip hinging with sit<>stand transfers and will be educated in proper body mechanics for ADLs and basic body mechanics. STG Duration 04/29/24 Senior Living Goal (LTG) Improve ability to move properly (body mechanics) without fear of pain. LTG Duration 05/04/24 Two Impairment R LBP with transfers (getting out of bed). Short Term Goal (STG) Pt will be able to demonstrate log roll technique for getting in/out of bed, and best practice method to get in /out of car. STG Duration 04/22/24 [employer] Goal (LTG) Getting out of bed w/o pain ( now is 2-06/07). LTG Duration 05/04/24 One Impairment HEP Short Term Goal (STG) Pt show understanding of best posturing in sit (car, plane, computer) and standing. STG Duration 04/29/24 [employer] Goal (LTG) Pt will be independt in HEP to help her to manage or eliminate her R<L LBP. LTG Duration 05/04/24 Assessment Summary Assessment Pt is a 73 yo female who presents with a mechanical dysfunction of the spine with postural changes ( retrolisthesis of T12 on L1 and L1 on L2, grade 1 anterolisthesis of L4 on L5, curve of spine centered at L3) , and mainly R lower back pain at sacral level. She has been started on LBP exercises that has felt good. Some of the exercise cause pain; therefore modification to her HEP is needed, along with training for proper body mechanics, posture, transfers and self care pain managment techniques. The pt is planning on leaving the are in 2 weeks for a month; therefore we will work towards discharging the pt onto a self care HEP, and reducing her pain through exercise and core stabilization. The pt will benefit from skilled physical therapy in the short time she will be around and may be able to manage her pain and progress on her own over time. If further therapy is needed after she returns, she will seek a new referral for therapy, which would be appropriate. Physical Therapy Plan Frequency and Duration Frequency of Treatment 2x/Week Duration of treatment (weeks) 3 Plan of Care Start Date 04/13/24 Plan of Care End Date 05/04/24 Therapeutic Interventions Therapeutic Interventions Home Exercise Program,Manual Therapy,Neuromuscular Re- education,Self-Care/Home Management,Soft Tissue Mobilization,Therapeutic Activities,Therapeutic Exercises Modalities Cold Pack/Ice Massage,Hot Packs Next Visit Focus/Plan Next Note Type Treatment Note Next Visit Plan Measure hip ROM and ex's as needed, teach neutral spine core bracing. Ther Act: transfers w/log roll technique and hip hinging , bedtime posturing, sit/stand posture trng, proper body mechanics for travel (car & plane). Exer: Postural correction ex' s: L4-L5 flexion ex's; T12 on L1 and L1 on L2 extension ex' s, core stabilization in neutral spine, HEP ( handout review). Self care: pain management ( ice, heat). POC: Therapeutic Ex ( strengthening/ROM), Therapeutic Activity (transfer training), manual therapy ( STM/JMT), Pt Education (HEP, Edema and pain mgmt, body mechanics).
--- NOTE | 2024-04-13 18:54 | PT.OPPOC ---
Physical, Occupational & Speech Therapy At [facility] Current Diagnoses Unilateral primary osteoarthritis, right hip (04/13/24) Spondylosis without myelopathy or radiculopathy, lumbosacral region (04/13/24) Visit Care Team Role Provider Type Turner Lindquist MD Family Provider Physician Primary Care Provider Specialty: Internal Medicine Address: [address] [place] [address], [id number] Email: [email or web address] Carmelina Garcia PA-C Attending Provider Advanced Food Packer Referring Provider Specialty: Medical Wound Care Address: [address] [place] [address], [address] Email: [email or web address] Plan Of Care PT-OP-B Current Condition Start: 04/08/24 15:56 Freq: Status: Active Protocol: Document 04/13/24 10:52 LRN (Rec: 04/13/24 11:53 LRN [id number]) Current Condition History of Current Condition Onset Date Feb 2024 Current Complaints Dull pain in the L low back with Tyenol pain is 4-5/10. History of Current Condition Pt reports she has had issues with LB off/on over the years that always resolved, but after returning from a trip to [place], after 3 days, trying to get ready for [employer], her LB became so painful she couldn't walk. Nothing was found in x-rays. Has been doing 8 ex's issued by Carmelina Garcia (Dr. Lindquist was not available to be seen) that has been very helpful. Her pain is sharp in nature in the LB, mainly right side. Now pain is dull and with discomfort in the morning. Pain onset is variable, 2-6/10 . Prior Treatments and Tests LB ex's given by Carmelina Garcia. Bone spur in LB removed - 2007 -2009. X-ray 03/04/24: Impression: Moderate multilevel lumbar spondylosis with moderate right mid-lower lumbar facet arthropathy (mild retrolisthesis of T12 on L1 and L1 on L2, grade 1 anterolisthesis of L4 on L5, curve of spine centered at L3) . Treatment Goals Patient/Caregiver Goals Pt goals: -Program to eliminate the pain or help her to manage her pain. -Getting out of bed w/o pain ( now is 2-3/10). -Improve ability to move without fear of pain. Personal Factors Other Personal Factors That May Effect Memory loss, mechanical Therapy/Recovery dysfunction of spine (mild retrolisthesis of T12 on L1 and L1 on L2, grade 1 anterolisthesis of L4 on L5, curve of spine centered at L3) . PT-OP-T Assessment and Plan Start: 04/08/24 15:56 Freq: Status: Active Protocol: Document 04/13/24 10:52 LRN (Rec: 04/13/24 11:53 LRN [id number]) Physical Therapy Assessment Rehab Potential Rehabilitation Potential Good Evaluation Complexity Number of Personal Factors/Comorbidities 1-2 Number of Body Systems Impaired 4 or More Clinical Presentation at Evaluation Evolving Impairments Impairments Activity Tolerance,Functional Activities,Pain,Posture,ROM, Soft Tissue Mobility,Strength, Transfers Goals Three Impairment Decreased functional mobility due to fear of R LBP. Short Term Goal (STG) Pt will be able to demonstrate hip hinging with sit<>stand transfers and will be educated in proper body mechanics for ADLs and basic body mechanics. STG Duration 04/29/24 [employer] Goal (LTG) Improve ability to move properly (body mechanics) without fear of pain. LTG Duration 05/04/24 Two Impairment R LBP with transfers (getting out of bed). Short Term Goal (STG) Pt will be able to demonstrate log roll technique for getting in/out of bed, and best practice method to get in /out of car. STG Duration 04/22/24 Professor [employer] Kines[employer] Goal (LTG) Getting out of bed w/o pain ( now is 2-3/10). LTG Duration 05/04/24 One Impairment HEP Short Term Goal (STG) Pt show understanding of best posturing in sit (car, plane, computer) and standing. STG Duration 04/29/24 Professor Of Kinesiology Goal (LTG) Pt will be independt in HEP to help her to manage or eliminate her R<L LBP. LTG Duration 05/04/24 Assessment Summary Assessment Pt is a 73 yo female who presents with a mechanical dysfunction of the spine with postural changes ( retrolisthesis of T12 on L1 and L1 on L2, grade 1 anterolisthesis of L4 on L5, curve of spine centered at L3) , and mainly R lower back pain at sacral level. She has been started on LBP exercises that has felt good. Some of the exercise cause pain; therefore modification to her HEP is needed, along with training for proper body mechanics, posture, transfers and self care pain managment techniques. The pt is planning on leaving the are in 2 weeks for a month; therefore we will work towards discharging the pt onto a self care HEP, and reducing her pain through exercise and core stabilization. The pt will benefit from skilled physical therapy in the short time she will be around and may be able to manage her pain and progress on her own over time. If further therapy is needed after she returns, she will seek a new referral for therapy, which would be appropriate. Physical Therapy Plan Frequency and Duration Frequency of Treatment 2x/Week Duration of treatment (weeks) 3 Plan of Care Start Date 04/13/24 Plan of Care End Date 05/04/24 Therapeutic Interventions Therapeutic Interventions Home Exercise Program,Manual Therapy,Neuromuscular Re- education,Self-Care/Home Management,Soft Tissue Mobilization,Therapeutic Activities,Therapeutic Exercises Modalities Cold Pack/Ice Massage,Hot Packs Next Visit Focus/Plan Next Note Type Treatment Note Next Visit Plan Measure hip ROM and ex's as needed, teach neutral spine core bracing. Ther Act: transfers w/log roll technique and hip hinging , bedtime posturing, sit/stand posture trng, proper body mechanics for travel (car & plane). Exer: Postural correction ex' s: L4-L5 flexion ex's; T12 on L1 and L1 on L2 extension ex' s, core stabilization in neutral spine, HEP ( handout review). Self care: pain management ( ice, heat). POC: Therapeutic Ex ( strengthening/ROM), Therapeutic Activity (transfer training), manual therapy ( STM/JMT), Pt Education (HEP, Edema and pain mgmt, body mechanics). Plan of Care Dates Plan of Care Start Date 04/13/24 Plan of Care End Date 05/04/24 Electronically Signed by: Jessica Esteves, PT 04/13/24 7201 If you are in agreement with this Plan of Care, please return a signed and dated copy. I have reviewed this Plan of Care and certify that the skilled therapy services above are required to meet the patient?s needs. Physician Signature Date Printed Name and Credentials Clinical Instructor Signature Printed Name and Credentials
--- NOTE | 2024-04-22 17:50 | PT.OTN ---
Current Diagnoses Unilateral primary osteoarthritis, right hip (04/22/24) Spondylosis without myelopathy or radiculopathy, lumbosacral region (04/22/24) Physical Therapy Treatment Note PT-OP-A Visit Information Start: 04/08/24 15:56 Freq: Status: Active Protocol: Document 04/22/24 09:03 LRN (Rec: 04/22/24 09:48 LRN [id number]) Out-Patient Physical Therapy Visit Information Visit Information Visit Type Treatment Note Visit Note Spouse present during treatment taking notes for pt. Visit Start Time 09:03 Visit Stop Time 09:45 Visit Number 2 Evaluation Information Evaluation Date 04/13/24 Precautions Precautions Controlled HBP, A. fib controlled by meds, memory loss helped by meds. PT-OP-B Current Condition Start: 04/08/24 15:56 Freq: Status: Active Protocol: Document 04/13/24 10:52 LRN (Rec: 04/13/24 11:53 LRN [id number]) Current Condition History of Current Condition Onset Date Feb 2024 Current Complaints Dull pain in the L low back with Tyenol pain is 4-5/10. History of Current Condition Pt reports she has had issues with LB off/on over the years that always resolved, but after returning from a trip to [place], after 3 days, trying to get ready for [employer], her LB became so painful she couldn't walk. Nothing was found in x-rays. Has been doing 8 ex's issued by Carmelina Garcia (Dr. Lindquist was not available to be seen) that has been very helpful. Her pain is sharp in nature in the LB, mainly right side. Now pain is dull and with discomfort in the morning. Pain onset is variable, 2-6/10 . Prior Treatments and Tests LB ex's given by Carmelina Garcia. Bone spur in LB removed - 2007 -2009. X-ray 03/04/24: Impression: Moderate multilevel lumbar spondylosis with moderate right mid-lower lumbar facet arthropathy (mild retrolisthesis of T12 on L1 and L1 on L2, grade 1 anterolisthesis of L4 on L5, curve of spine centered at L3) . Treatment Goals Patient/Caregiver Goals Pt goals: -Program to eliminate the pain or help her to manage her pain. -Getting out of bed w/o pain ( now is 2-3/10). -Improve ability to move without fear of pain. Personal Factors Other Personal Factors That May Effect Memory loss, mechanical Therapy/Recovery dysfunction of spine (mild retrolisthesis of T12 on L1 and L1 on L2, grade 1 anterolisthesis of L4 on L5, curve of spine centered at L3) . PT-OP-C Subjective Start: 04/08/24 15:56 Freq: Status: Active Protocol: Document 04/22/24 09:03 LRN (Rec: 04/22/24 09:48 LRN [id number]) OP-PT Subjective Patient Comments Patient Comments Pain is much less than when she first started to have pain . PT-OP-H Neuro Start: 04/08/24 15:56 Freq: Status: Active Protocol: Document 04/13/24 10:52 LRN (Rec: 04/13/24 11:53 LRN [id number]) Sensation Evaluation Gross Sensation Gross Sensation WNL Deep Tendon Reflex & Clonus Assessment Deep Tendon Reflex Bilateral Achilles Deep Tendon Reflex 1+ Diminished Bilateral Patellar Deep Tendon Reflex 2+ Normal PT-OP-J Posture/Palpation/Skin Start: 04/08/24 15:56 Freq: Status: Active Protocol: Document 04/13/24 10:52 LRN (Rec: 04/13/24 11:53 LRN [id number]) Posture Evaluation Position Standing Head/C-Spine Posture Forward Head T-Spine Posture Increased Kyphosis Shoulder Posture (L) Elevated Pelvis Posture (L) Iliac Crest Superior,(R) PSIS Posterior Hip Posture (L) Flexed,(R) Flexed Knee Posture (L) Genu Varus,(R) Genu Varus Comments Posture Comments C-curve of back with apex ~T10 -T11 (x-ray indicates it is at L3). Palpation Assessment Location Low back Palpation Location Sacral region to the R side. Palpation Findings Muscle Guarding,Tenderness Palpation Details Tender at R Piriformis, L5-S1 , S1-S2, S2-S3. PT-OP-K Range of Motion Start: 04/08/24 15:56 Freq: Status: Active Protocol: Document 04/13/24 10:52 LRN (Rec: 04/13/24 11:53 LRN [id number]) Lumbar Spine Range of Motion Lumbar Spine Active Degrees Testing Position Standing Flexion 70 Extension 5 Rotation Left 10 Rotation Right 15 Lateral Flexion Left 5 Lateral Flexion Right 20 ROM Limitations Soft Tissue Tightness,Pain Comments No sharp pain noted with mobility. PT-OP-L Special Tests Start: 04/08/24 15:56 Freq: Status: Active Protocol: Document 04/13/24 10:52 LRN (Rec: 04/13/24 18:52 LRN [id number]) Special Tests Lumbar Spine Special Tests Slump Test Results + bilaterally Comments Provocation test ilicited R: pain behind knee, L: calf tightness PT-OP-M Strength Start: 04/08/24 15:56 Freq: Status: Active Protocol: Document 04/13/24 10:52 LRN (Rec: 04/13/24 11:53 LRN [id number]) Trunk Strength Trunk Manual Muscle Testing Core Stabilization Lacks core stability with leg mvmts in supine. Hip Strength Hip Manual Muscle Testing Right Flexion (L2) 5 Normal Comments MMT deferred due to R LBP/hip pain except as indicated above . Left Flexion (L2) 5 Normal Comments MMT deferred due to R LBP/hip pain except as indicated above . PT-OP-Q Treatments Start: 04/08/24 15:56 Freq: Status: Active Protocol: Document 04/22/24 09:03 LRN (Rec: 04/22/24 09:48 LRN [id number]) Therapeutic Exercises Supine Exercises Wall squats w/Pelvic T Reps/Minutes 10x Comments Extra time for positioning and protective ROM for knees Standing Pelvic Tilts Reps/Minutes 5' Pelvic T w/SLR Side bilateral Reps/Minutes 10x Pelvic Tilt Supine Exercise Name Pelvic Tit with arm lifts (S & B) Reps/Minutes 6x each (SL & DL) Comments Pt needed phy cuing/asst to start. Piriformis stretch Supine Exercise Name Leg crossed over opp leg Side bilateral Reps/Minutes 10 SH x 4 Hamstring stretch Side right Reps/Minutes 10 SH x 3 DKTC Side bilateral Reps/Minutes 10 SH x 3 SKTC Side bilateral Reps/Minutes 10 SH x 3 Comments R posterior hip gets catch pain, that reduces with stretch Self-Care/Home Management Treatment Activities Self-Care/Home Management Activities Issued & reviewed HEP: Ankle over knee Piriformis stretch. PT-OP-T Assessment and Plan Start: 04/08/24 15:56 Freq: Status: Active Protocol: Document 04/22/24 09:03 LRN (Rec: 04/22/24 09:48 LRN [id number]) Physical Therapy Assessment Goals Three Impairment Decreased functional mobility due to fear of R LBP. Short Term Goal (STG) Pt will be able to demonstrate hip hinging with sit<>stand transfers and will be educated in proper body mechanics for ADLs and basic body mechanics. STG Duration 04/29/24 Morning Show Producer Goal (LTG) Improve ability to move properly (body mechanics) without fear of pain. LTG Duration 05/04/24 Two Impairment R LBP with transfers (getting out of bed). Short Term Goal (STG) Pt will be able to demonstrate log roll technique for getting in/out of bed, and best practice method to get in /out of car. STG Duration 04/22/24 Morning Show Producer Goal (LTG) Getting out of bed w/o pain ( now is 2-3/10). LTG Duration 05/04/24 One Impairment HEP Short Term Goal (STG) Pt show understanding of best posturing in sit (car, plane, computer) and standing. STG Duration 04/29/24 Morning Show Producer Goal (LTG) Pt will be independent in HEP to help her to manage or eliminate her R<L LBP. 04/22/24: R Piriformis stretch (ankle over knee>KTC) & HEP from MD issued HO: SKTC, DKTC, Hamstring, Piriformis ( cross legged), TA tighening w/ pelvic tilts, arm lifts, leg lifts, arm/leg lifts, SLR, & standing Calf stretch/Pelvic tilts/wall slides. LTG Duration 05/04/24 progressed 04/22/24 Assessment Summary Assessment 73 yo female w/R lower sacral hip pain due to postural changes (retrolisthesis of T12 on L1 and L1 on L2, grade 1 anterolisthesis of L4 on L5, curve of spine centered at L3) . Pt response to SKTC and DKTC stretch is the same, a feeling of improvement in R hip. Ex's today had no increase in R hip pain. Decrease in discomfort with stretch to posterior hip muscles. Spouse very supportive. Physical Therapy Plan Next Visit Focus/Plan Next Note Type Treatment Note Next Visit Plan Measure hip ROM and ex's as needed, teach neutral spine core bracing. Ther Act: transfers w/log roll technique and hip hinging , bedtime posturing, sit/stand posture trng, proper body mechanics for travel (car & plane). Exer: Postural correction ex' s: L4-L5 flexion ex's; T12 on L1 and L1 on L2 extension ex' s, core stabilization in neutral spine, HEP ( handout review). Self care: pain management ( ice, heat). POC: Therapeutic Ex ( strengthening/ROM), Therapeutic Activity (transfer training), manual therapy ( STM/JMT), Pt Education (HEP, Edema and pain mgmt, body mechanics).
--- NOTE | 2024-04-27 14:35 | PT.OTN ---
Current Diagnoses Unilateral primary osteoarthritis, right hip (04/27/24) Spondylosis without myelopathy or radiculopathy, lumbosacral region (04/27/24) Physical Therapy Treatment Note PT-OP-A Visit Information Start: 04/08/24 15:56 Freq: Status: Active Protocol: Document 04/27/24 13:20 NBM (Rec: 04/27/24 14:34 NBM [id number]) Out-Patient Physical Therapy Visit Information Visit Information Visit Type Treatment Note Visit Note Spouse present and engaged during treatment, taking notes . Visit Start Time 13:09 Visit Stop Time 14:08 Visit Number 3 Number of ROOFING MACHINE TENDER Visits 1 Evaluation Information Evaluation Date 04/13/24 Precautions Precautions Controlled HBP, A. fib controlled by meds, memory loss helped by meds. PT-OP-B Current Condition Start: 04/08/24 15:56 Freq: Status: Active Protocol: Document 04/13/24 10:52 LRN (Rec: 04/13/24 11:53 LRN [id number]) Current Condition History of Current Condition Onset Date Feb 2024 Current Complaints Dull pain in the L low back with Tyenol pain is 4-5/10. History of Current Condition Pt reports she has had issues with LB off/on over the years that always resolved, but after returning from a trip to [place], after 3 days, trying to get ready for [employer], her LB became so painful she couldn't walk. Nothing was found in x-rays. Has been doing 8 ex's issued by Carmelina Garcia (Dr. Lindquist was not available to be seen) that has been very helpful. Her pain is sharp in nature in the LB, mainly right side. Now pain is dull and with discomfort in the morning. Pain onset is variable, 2-6/10 . Prior Treatments and Tests LB ex's given by [facility]. Bone spur in LB removed - 2007 -2009. X-ray 03/04/24: Impression: Moderate multilevel lumbar spondylosis with moderate right mid-lower lumbar facet arthropathy (mild retrolisthesis of T12 on L1 and L1 on L2, grade 1 anterolisthesis of L4 on L5, curve of spine centered at L3) . Treatment Goals Patient/Caregiver Goals Pt goals: -Program to eliminate the pain or help her to manage her pain. -Getting out of bed w/o pain ( now is 2-3/10). -Improve ability to move without fear of pain. Personal Factors Other Personal Factors That May Effect Memory loss, mechanical Therapy/Recovery dysfunction of spine (mild retrolisthesis of T12 on L1 and L1 on L2, grade 1 anterolisthesis of L4 on L5, curve of spine centered at L3) . PT-OP-C Subjective Start: 04/08/24 15:56 Freq: Status: Active Protocol: Document 04/27/24 13:20 NBM (Rec: 04/27/24 14:34 NBM [id number]) OP-PT Subjective Patient Comments Patient Comments Chika and spouse report she walked on the beach 2 hours yesterday with dog and she woke up sore today and is still sore. Wants to review ex 's for correct form. Their flight for upcoming trip is 6 hours. Pt reports they've had same mattress 25 years but spouse reports mattress about 8-10 years old; pt thinks it's too soft. PT-OP-H Neuro Start: 04/08/24 15:56 Freq: Status: Active Protocol: Document 04/13/24 10:52 LRN (Rec: 04/13/24 11:53 LRN [id number]) Sensation Evaluation Gross Sensation Gross Sensation WNL Deep Tendon Reflex & Clonus Assessment Deep Tendon Reflex Bilateral Achilles Deep Tendon Reflex 1+ Diminished Bilateral Patellar Deep Tendon Reflex 2+ Normal PT-OP-J Posture/Palpation/Skin Start: 04/08/24 15:56 Freq: Status: Active Protocol: Document 04/13/24 10:52 LRN (Rec: 04/13/24 11:53 LRN [id number]) Posture Evaluation Position Standing Head/C-Spine Posture Forward Head T-Spine Posture Increased Kyphosis Shoulder Posture (L) Elevated Pelvis Posture (L) Iliac Crest Superior,(R) PSIS Posterior Hip Posture (L) Flexed,(R) Flexed Knee Posture (L) Genu Varus,(R) Genu Varus Comments Posture Comments C-curve of back with apex ~T10 -T11 (x-ray indicates it is at L3). Palpation Assessment Location Low back Palpation Location Sacral region to the R side. Palpation Findings Muscle Guarding,Tenderness Palpation Details Tender at R Piriformis, L5-S1 , S1-S2, S2-S3. PT-OP-K Range of Motion Start: 04/08/24 15:56 Freq: Status: Active Protocol: Document 04/13/24 10:52 LRN (Rec: 04/13/24 11:53 LRN [id number]) Lumbar Spine Range of Motion Lumbar Spine Active Degrees Testing Position Standing Flexion 70 Extension 5 Rotation Left 10 Rotation Right 15 Lateral Flexion Left 5 Lateral Flexion Right 20 ROM Limitations Soft Tissue Tightness,Pain Comments No sharp pain noted with mobility. PT-OP-L Special Tests Start: 04/08/24 15:56 Freq: Status: Active Protocol: Document 04/13/24 10:52 LRN (Rec: 04/13/24 18:52 LRN [id number]) Special Tests Lumbar Spine Special Tests Slump Test Results + bilaterally Comments Provocation test ilicited R: pain behind knee, L: calf tightness PT-OP-M Strength Start: 04/08/24 15:56 Freq: Status: Active Protocol: Document 04/13/24 10:52 LRN (Rec: 04/13/24 11:53 LRN [id number]) Trunk Strength Trunk Manual Muscle Testing Core Stabilization Lacks core stability with leg mvmts in supine. Hip Strength Hip Manual Muscle Testing Right Flexion (L2) 5 Normal Comments MMT deferred due to R LBP/hip pain except as indicated above . Left Flexion (L2) 5 Normal Comments MMT deferred due to R LBP/hip pain except as indicated above . PT-OP-Q Treatments Start: 04/08/24 15:56 Freq: Status: Active Protocol: Document 04/27/24 13:20 NBM (Rec: 04/27/24 14:34 NBM [id number]) Therapeutic Exercises Supine Exercises Wall squats w/Pelvic T Supine Exercise Name standing Reps/Minutes 10x Comments cue feet positioning away from wall Standing Pelvic Tilts Supine Exercise Name at wall Equipment Used pillow behind head d/t incresaed thoracic kyphosis Reps/Minutes 5' Pelvic T w/SLR Side bilateral Reps/Minutes 10x Comments tactile cues to maintain PPT and heavy cueing for breathwork Pelvic Tilt Supine Exercise Name Pelvic Tit with arm lifts (S & Rodney) Reps/Minutes 6x each (SL & DL) Comments Pt needed phy cuing/asst to start. TA tighten in neutral Reps/Minutes 20x3 Comments Cuing to maintain neutral spine during TA tightening. Piriformis stretch Supine Exercise Name Leg crossed over opp leg Side bilateral Reps/Minutes 10 SH x 3 Comments pain-free, cues hand positioning Hamstring stretch Side bilateral Reps/Minutes 10 SH x 3 Comments vc dorsiflexion DKTC Side bilateral Reps/Minutes 10 SH x 3 Comments I love feeling my back on the floor. SKTC Side bilateral Reps/Minutes 10 SH x 3 Comments I love feeling my back on the floor. Therapeutic Activity Therapeutic Activity log roll Reps/Minutes 8' Comments in/out of bed using mat table 25.5 to simulate home PT-OP-T Assessment and Plan Start: 04/08/24 15:56 Freq: Status: Active Protocol: Document 04/27/24 13:20 NB (Rec: 04/27/24 14:34 [facility] [id number]) Physical Therapy Assessment Goals Three Impairment Decreased functional mobility due to fear of R LBP. Short Term Goal (STG) Pt will be able to demonstrate hip hinging with sit<>stand transfers and will be educated in proper body mechanics for ADLs and basic body mechanics. STG Duration 04/29/24 Energy Auditor Goal (LTG) Improve ability to move properly (body mechanics) without fear of pain. LTG Duration 05/04/24 Two Impairment R LBP with transfers (getting out of bed). Short Term Goal (STG) Pt will be able to demonstrate log roll technique for getting in/out of bed, and best practice method to get in /out of car. 04/27/24: Pt requires initial cues for log roll technique into bed, demos improved technique with initial cueing and repetition. STG Duration 04/22/24 Snf Goal (LTG) Getting out of bed w/o pain ( now is 2-3/10). LTG Duration 05/04/24 One Impairment HEP Short Term Goal (STG) Pt show understanding of best posturing in sit (car, plane, computer) and standing. STG Duration 04/29/24 Energy Auditor Goal (LTG) Pt will be independent in HEP to help her to manage or eliminate her R<L LBP. 04/22/24: R Piriformis stretch (ankle over knee>KTC) & HEP from MD issued HO: SKTC, DKTC, Hamstring, Piriformis ( cross legged), TA tighening w/ pelvic tilts, arm lifts, leg lifts, arm/leg lifts, SLR, & standing Calf stretch/Pelvic tilts/wall slides. LTG Duration 05/04/24 progressed 04/22/24 Assessment Summary Assessment Pt and spouse present with HEP handout. Treatment focus on HEP review and edu for log roll method for transfers in/ out of bed using mat table. Pt requires cues for arm support for log roll getting in to bed but demos improved form with initial cueing and repetition. She requires cueing throughout session for breathwork, most notably with core progression to supine SLR and PPT w/ arms/legs ( bug) due to breathholding and/ or difficulty maintaining PPT. Pt requires cues for hand placement with piriformis stretch but spouse demos appropriate knowledge for correct cueing. Standing PPT at wall modified to add pillow behind head due to pt's increased thoracic kyphosis, which improves form with PPT. Pt encouraged to trial more support on mattress with yoga mat or pad and report back. Physical Therapy Plan Frequency and Duration Frequency of Treatment 2x/Week Duration of treatment (weeks) 3 Plan of Care Start Date 04/13/24 Plan of Care End Date 05/04/24 Therapeutic Interventions Therapeutic Interventions Home Exercise Program,Manual Therapy,Neuromuscular Re- education,Self-Care/Home Management,Soft Tissue Mobilization,Therapeutic Activities,Therapeutic Exercises Modalities Cold Pack/Ice Massage,Hot Packs Next Visit Focus/Plan Next Note Type Treatment Note Next Visit Plan Next: Review supine PPT w arms , legs, arms/legs, SLR; standing wall PPT (pillow behind head) and wall squats. Hip hinge and bed posturing. POC: Measure hip ROM and ex's as needed, teach neutral spine core bracing. Ther Act: bedtime posturing, sit/stand posture trng, proper body mechanics for travel ( car & plane). Exer: Postural correction ex' s: L4-L5 flexion ex's; T12 on L1 and L1 on L2 extension ex' s, core stabilization in neutral spine, HEP ( handout review). Self care: pain management ( ice, heat). POC: Therapeutic Ex ( strengthening/ROM), Therapeutic Activity (transfer training), manual therapy ( STM/JMT), Pt Education (HEP, Edema and pain mgmt, body mechanics).
--- NOTE | 2024-04-29 10:49 | PT.OTN ---
Current Diagnoses Unilateral primary osteoarthritis, right hip (04/29/24) Spondylosis without myelopathy or radiculopathy, lumbosacral region (04/29/24) Physical Therapy Treatment Note PT-OP-A Visit Information Start: 04/08/24 15:56 Freq: Status: Active Protocol: Document 04/29/24 09:51 SP (Rec: 04/29/24 10:56 SP [id number]) Out-Patient Physical Therapy Visit Information Visit Information Visit Type Treatment Note Visit Note Spouse present and engaged during treatment, providing cues to pt with FUR GRADER, good carryover support. Visit Start Time 09:51 Visit Stop Time 10:49 Visit Number 4 Number of FUR GRADER Visits 2 Evaluation Information Evaluation Date 04/13/24 Precautions Precautions Controlled HBP, A. fib controlled by meds, memory loss helped by meds. PT-OP-B Current Condition Start: 04/08/24 15:56 Freq: Status: Active Protocol: Document 04/13/24 10:52 LRN (Rec: 04/13/24 11:53 LRN [id number]) Current Condition History of Current Condition Onset Date Feb 2024 Current Complaints Dull pain in the L low back with Tyenol pain is 4-5/10. History of Current Condition Pt reports she has had issues with LB off/on over the years that always resolved, but after returning from a trip to [place], after 3 days, trying to get ready for [employer], her LB became so painful she couldn't walk. Nothing was found in x-rays. Has been doing 8 ex's issued by Carmelina Garcia (Dr. Lindquist was not available to be seen) that has been very helpful. Her pain is sharp in nature in the LB, mainly right side. Now pain is dull and with discomfort in the morning. Pain onset is variable, 2-6/10 . Prior Treatments and Tests LB ex's given by Carmelina Garcia. Bone spur in LB removed - 2007 -2009. X-ray 03/04/24: Impression: Moderate multilevel lumbar spondylosis with moderate right mid-lower lumbar facet arthropathy (mild retrolisthesis of T12 on L1 and L1 on L2, grade 1 anterolisthesis of L4 on L5, curve of spine centered at L3) . Treatment Goals Patient/Caregiver Goals Pt goals: -Program to eliminate the pain or help her to manage her pain. -Getting out of bed w/o pain ( now is 2-3/10). -Improve ability to move without fear of pain. Personal Factors Other Personal Factors That May Effect Memory loss, mechanical Therapy/Recovery dysfunction of spine (mild retrolisthesis of T12 on L1 and L1 on L2, grade 1 anterolisthesis of L4 on L5, curve of spine centered at L3) . PT-OP-C Subjective Start: 04/08/24 15:56 Freq: Status: Active Protocol: Document 04/29/24 09:51 SP (Rec: 04/29/24 10:56 SP [id number]) OP-PT Subjective Patient Comments Patient Comments Pt stated compliant with HEP and give cues for proper form at home. She said pain still with rolling on side trying remember use TA for support, improved performance once retries. Going OOT til begginning May . She feels the HEP given helping and will continue. Doesn't feel where needs to be so will get new referral when returns to [facility], POC exp 05/06 and cant come in again to see PT for DC. PT-OP-H Neuro Start: 04/08/24 15:56 Freq: Status: Active Protocol: Document 04/13/24 10:52 LRN (Rec: 04/13/24 11:53 LRN [id number]) Sensation Evaluation Gross Sensation Gross Sensation WNL Deep Tendon Reflex & Clonus Assessment Deep Tendon Reflex Bilateral Achilles Deep Tendon Reflex 1+ Diminished Bilateral Patellar Deep Tendon Reflex 2+ Normal PT-OP-J Posture/Palpation/Skin Start: 04/08/24 15:56 Freq: Status: Active Protocol: Document 04/13/24 10:52 LRN (Rec: 04/13/24 11:53 LRN [id number]) Posture Evaluation Position Standing Head/C-Spine Posture Forward Head T-Spine Posture Increased Kyphosis Shoulder Posture (L) Elevated Pelvis Posture (L) Iliac Crest Superior,(R) PSIS Posterior Hip Posture (L) Flexed,(R) Flexed Knee Posture (L) Genu Varus,(R) Genu Varus Comments Posture Comments C-curve of back with apex ~T10 -T11 (x-ray indicates it is at L3). Palpation Assessment Location Low back Palpation Location Sacral region to the R side. Palpation Findings Muscle Guarding,Tenderness Palpation Details Tender at R Piriformis, L5-S1 , S1-S2, S2-S3. PT-OP-K Range of Motion Start: 04/08/24 15:56 Freq: Status: Active Protocol: Document 04/13/24 10:52 LRN (Rec: 04/13/24 11:53 LRN [id number]) Lumbar Spine Range of Motion Lumbar Spine Active Degrees Testing Position Standing Flexion 70 Extension 5 Rotation Left 10 Rotation Right 15 Lateral Flexion Left 5 Lateral Flexion Right 20 ROM Limitations Soft Tissue Tightness,Pain Comments No sharp pain noted with mobility. PT-OP-L Special Tests Start: 04/08/24 15:56 Freq: Status: Active Protocol: Document 04/13/24 10:52 LRN (Rec: 04/13/24 18:52 LRN [id number]) Special Tests Lumbar Spine Special Tests Slump Test Results + bilaterally Comments Provocation test ilicited R: pain behind knee, L: calf tightness PT-OP-M Strength Start: 04/08/24 15:56 Freq: Status: Active Protocol: Document 04/13/24 10:52 LRN (Rec: 04/13/24 11:53 LRN [id number]) Trunk Strength Trunk Manual Muscle Testing Core Stabilization Lacks core stability with leg mvmts in supine. Hip Strength Hip Manual Muscle Testing Right Flexion (L2) 5 Normal Comments MMT deferred due to R LBP/hip pain except as indicated above . Left Flexion (L2) 5 Normal Comments MMT deferred due to R LBP/hip pain except as indicated above . PT-OP-Q Treatments Start: 04/08/24 15:56 Freq: Status: Active Protocol: Document 04/29/24 09:51 SP (Rec: 04/29/24 10:56 SP [id number]) Therapeutic Exercises Supine Exercises Wall squats w/Pelvic T Supine Exercise Name standing Reps/Minutes 10x Comments cue feet positioning away from wall, improved form elevated ribcage TA Standing Pelvic Tilts Supine Exercise Name at wall then progressed off wall Equipment Used pillow behind head d/t incresaed thoracic kyphosis Reps/Minutes cued TA draw in count 10 reps x3 Comments cued TA, LS toward wall, open chest, arms as side, HT L midline- improved Pelvic T w/SLR Side bilateral Reps/Minutes 10x Comments tactile cues to maintain PPT & breath with counting TA tighten in neutral Supine Exercise Name sup, sit and stand Reps/Minutes 20x3 Comments Cuing to maintain neutral spine during TA tightening. Piriformis stretch Supine Exercise Name Leg crossed over opp leg- brief sitting for plane Side bilateral Equipment Used use towel, sit: hug knee opp shld Reps/Minutes 10 SH x 3 Comments pain-free, cues use towel at thigh and lift LE Hamstring stretch Side bilateral Equipment Used towel support (no SI soreness) Reps/Minutes 10 SH then ankle pump 10 reps x 3 Comments vc dorsiflexion DKTC Side bilateral Reps/Minutes 10 SH x 3 Comments I love feeling my back on the floor. SKTC Side bilateral Equipment Used opp LE bent> straight if pnfree (bent better stretch reported) Reps/Minutes 10 SH x 3, trialed holding 30 sec ok no pain each 1 rep Comments I love feeling my back on the floor. Sitting Exercises TA breath count posture Reps/Minutes 10 reps 5 SH breath Comments tactile cue elevate ribcage over pelvis, TA draw in, count - no pain Therapeutic Activity Therapeutic Activity STS Reps/Minutes 5 reps Comments hip hinge buttock back slower sit on body solid bench no UE support /c TA support, improved with reps and post cues. body mechanics Name squat picking tech items floor, standing and sititng postural alignment Reps/Minutes 3 reps Comments Initiated picking tech item on floor, LOB self recovery contact floor cued increase ADELINA, straight back hip hinge buttocks back, TA improved picking tech disc with no pain or LOB I can't believe how much easier this is. TIme spent sit posture /c TA, cued elevate ribcage draw in 10 SH X5 reps log roll Comments in/out of bed using mat table 25.5 to simulate home Self-Care/Home Management Treatment Education Patient Education Body Mechanics,Home Exercise Program,Joint Protection,Pain Management,Posture,Safety Caregiver Education and pt education on use pillows between BLEs and behind back in sidelying and under thighs for neutral pelvis for spinal support, good response. Further ed on proper alignment sitting in car/airplane support behind back elevated ribcage alignment feet front on floor, able perform FIg 4 and piriformis stretch for back and hip mobility riding period time and get up take small walks for recovery stiffness, with good understanding and confident in cues to , incorporated in his life with sciatica. Other Education Pt felt more confident with alignment sup/SL/Sit and standing use wall for awareness support then off wall. PT-OP-T Assessment and Plan Start: 04/08/24 15:56 Freq: Status: Active Protocol: Document 04/29/24 09:51 SP (Rec: 04/29/24 10:56 SP [id number]) Physical Therapy Assessment Goals Three Impairment Decreased functional mobility due to fear of R LBP. Short Term Goal (STG) Pt will be able to demonstrate hip hinging with sit<>stand transfers and will be educated in proper body mechanics for ADLs and basic body mechanics. 04/29/24: GOALMET: hip hinge slow descend better not need use UEs. STG Duration 04/29/24 GOAL MET Group Social Worker Goal (LTG) Improve ability to move properly (body mechanics) without fear of pain. 04/29/24: Improved post cues WBOS, hip hinge, straight back buttocks back, reaching between BLEs picking tech karen disc . NO pain or LOB. DIscussion close to item getting and full stand use TA and gluts then may picking tech feet to pivot no twisting. Good form. LTG Duration 05/04/24 GOAL MET 04/29/24 Two Impairment R LBP with transfers (getting out of bed). Short Term Goal (STG) Pt will be able to demonstrate log roll technique for getting in/out of bed, and best practice method to get in /out of car. 04/27/24: Progression ed: Pt requires initial cues for TA and kneew with shld, log roll technique into/out bed leg together then UE right trunk, demos improved technique with initial cueing and repetition. Discussion and demo shown for better technique for hips at this time, verbalized understanding: Car back up seate, hip hinge sit, then legs in. STG Duration 04/22/24 Group Social Worker Goal (LTG) Getting out of bed w/o pain ( now is 2-3/10). 04/29/24: ed use pillows and better log roll performance, TA during mobility. LTG Duration 05/04/24 progressing 04/29/24 One Impairment HEP Short Term Goal (STG) Pt show understanding of best posturing in sit (car, plane, computer) and standing. 04/29/24: progression ed: Further ed on proper alignment sitting in car/airplane support behind back elevated ribcage alignment feet front on floor, able perform FIg 4 and piriformis stretch for back and hip mobility riding period time and get up take small walks for recovery stiffness, with good understanding, confident in cues to does himself. STG Duration 04/29/24 progression ed Skilled Nursing Goal (LTG) Pt will be independent in HEP to help her to manage or eliminate her R<L LBP. 04/22/24: R Piriformis stretch (ankle over knee>KTC) & HEP from MD issued HO: SKTC, DKTC, Hamstring, Piriformis ( cross legged), TA tighening w/ pelvic tilts, arm lifts, leg lifts, arm/leg lifts, SLR, & standing Calf stretch/Pelvic tilts/wall slides. LTG Duration 05/04/24 progressed 04/22/24 Assessment Summary Assessment Pt improved back comfort post ed and trial use pillows between BLEs and thighs supine for back and hip health. Good response to stretching and addition of use towel support better, no posterior R hip SI pain with use towel today. Occasional cues for form with cueing support as well . Improved understanding postural alignment with seated /standing education/ performance and carryover body mechanics STS and squat end tx. Pt is headed out of [facility] til beginning of May and aware will DC and get new referral when returns, doesn't feel back to full mobility should be at like strength and balance progression would prefer next. FUR GRADER notified PT Lore to complete DC. Physical Therapy Plan Frequency and Duration Frequency of Treatment 2x/Week Duration of treatment (weeks) 3 Plan of Care Start Date 04/13/24 Plan of Care End Date 05/04/24 Therapeutic Interventions Therapeutic Interventions Home Exercise Program,Manual Therapy,Neuromuscular Re- education,Self-Care/Home Management,Soft Tissue Mobilization,Therapeutic Activities,Therapeutic Exercises Modalities Cold Pack/Ice Massage,Hot Packs Discharge Physical Therapy Discharge Reasons Patient Request Discharge Comments DC to HEP, going out of [facility] til May. WIll get new ref erral when returns. Next Visit Focus/Plan Next Note Type Discharge Summary Next Visit Plan PT to completed DC. Pt OOT [facility] May. WIll get new referral when returns to start again. Wants to progress balance, strength.
--- NOTE | 2024-04-29 10:49 | PT.OTN ---
Current Diagnoses Unilateral primary osteoarthritis, right hip (04/29/24) Spondylosis without myelopathy or radiculopathy, lumbosacral region (04/29/24) Physical Therapy Treatment Note PT-OP-A Visit Information Start: 04/08/24 15:56 Freq: Status: Active Protocol: Document 04/29/24 09:51 SP (Rec: 04/29/24 10:56 SP [id number]) Out-Patient Physical Therapy Visit Information Visit Information Visit Type Treatment Note Visit Note Spouse present and engaged during treatment, providing cues to pt with DRY CELL SEALER, good carryover support. Visit Start Time 09:51 Visit Stop Time 10:49 Visit Number 4 Number of DRY CELL SEALER Visits 2 Evaluation Information Evaluation Date 04/13/24 Precautions Precautions Controlled HBP, A. fib controlled by meds, memory loss helped by meds. PT-OP-B Current Condition Start: 04/08/24 15:56 Freq: Status: Active Protocol: Document 04/13/24 10:52 LRN (Rec: 04/13/24 11:53 LRN [id number]) Current Condition History of Current Condition Onset Date Feb 2024 Current Complaints Dull pain in the L low back with Tyenol pain is 4-5/10. History of Current Condition Pt reports she has had issues with LB off/on over the years that always resolved, but after returning from a trip to [place], after 3 days, trying to get ready for [employer] her LB became so painful she couldn't walk. Nothing was found in x-rays. Has been doing 8 ex's issued by Carmelina Garcia (Dr. Lindquist was not available to be seen) that has been very helpful. Her pain is sharp in nature in the LB, mainly right side. Now pain is dull and with discomfort in the morning. Pain onset is variable, 2-6/10 . Prior Treatments and Tests LB ex's given by Carmelina Garcia. Bone spur in LB removed - 2007 -2009. X-ray 03/04/24: Impression: Moderate multilevel lumbar spondylosis with moderate right mid-lower lumbar facet arthropathy (mild retrolisthesis of T12 on L1 and L1 on L2, grade 1 anterolisthesis of L4 on L5, curve of spine centered at L3) . Treatment Goals Patient/Caregiver Goals Pt goals: -Program to eliminate the pain or help her to manage her pain. -Getting out of bed w/o pain ( now is 2-3/10). -Improve ability to move without fear of pain. Personal Factors Other Personal Factors That May Effect Memory loss, mechanical Therapy/Recovery dysfunction of spine (mild retrolisthesis of T12 on L1 and L1 on L2, grade 1 anterolisthesis of L4 on L5, curve of spine centered at L3) . PT-OP-C Subjective Start: 04/08/24 15:56 Freq: Status: Active Protocol: Document 04/29/24 09:51 SP (Rec: 04/29/24 10:56 SP [id number]) OP-PT Subjective Patient Comments Patient Comments Pt stated compliant with HEP and give cues for proper form at home. She said pain still with rolling on side trying remember use TA for support, improved performance once retries. Going OOT til begginning May . She feels the HEP given helping and will continue. Doesn't feel where needs to be so will get new referral when returns to [facility], POC exp 05/06 and cant come in again to see PT for DC. PT-OP-H Neuro Start: 04/08/24 15:56 Freq: Status: Active Protocol: Document 04/13/24 10:52 LRN (Rec: 04/13/24 11:53 LRN [id number]) Sensation Evaluation Gross Sensation Gross Sensation WNL Deep Tendon Reflex & Clonus Assessment Deep Tendon Reflex Bilateral Achilles Deep Tendon Reflex 1+ Diminished Bilateral Patellar Deep Tendon Reflex 2+ Normal PT-OP-J Posture/Palpation/Skin Start: 04/08/24 15:56 Freq: Status: Active Protocol: Document 04/13/24 10:52 LRN (Rec: 04/13/24 11:53 LRN [id number]) Posture Evaluation Position Standing Head/C-Spine Posture Forward Head T-Spine Posture Increased Kyphosis Shoulder Posture (L) Elevated Pelvis Posture (L) Iliac Crest Superior,(R) PSIS Posterior Hip Posture (L) Flexed,(R) Flexed Knee Posture (L) Genu Varus,(R) Genu Varus Comments Posture Comments C-curve of back with apex ~T10 -T11 (x-ray indicates it is at L3). Palpation Assessment Location Low back Palpation Location Sacral region to the R side. Palpation Findings Muscle Guarding,Tenderness Palpation Details Tender at R Piriformis, L5-S1 , S1-S2, S2-S3. PT-OP-K Range of Motion Start: 04/08/24 15:56 Freq: Status: Active Protocol: Document 04/13/24 10:52 LRN (Rec: 04/13/24 11:53 LRN [id number]) Lumbar Spine Range of Motion Lumbar Spine Active Degrees Testing Position Standing Flexion 70 Extension 5 Rotation Left 10 Rotation Right 15 Lateral Flexion Left 5 Lateral Flexion Right 20 ROM Limitations Soft Tissue Tightness,Pain Comments No sharp pain noted with mobility. PT-OP-L Special Tests Start: 04/08/24 15:56 Freq: Status: Active Protocol: Document 04/13/24 10:52 LRN (Rec: 04/13/24 18:52 LRN [id number]) Special Tests Lumbar Spine Special Tests Slump Test Results + bilaterally Comments Provocation test ilicited R: pain behind knee, L: calf tightness PT-OP-M Strength Start: 04/08/24 15:56 Freq: Status: Active Protocol: Document 04/13/24 10:52 LRN (Rec: 04/13/24 11:53 LRN [id number]) Trunk Strength Trunk Manual Muscle Testing Core Stabilization Lacks core stability with leg mvmts in supine. Hip Strength Hip Manual Muscle Testing Right Flexion (L2) 5 Normal Comments MMT deferred due to R LBP/hip pain except as indicated above . Left Flexion (L2) 5 Normal Comments MMT deferred due to R LBP/hip pain except as indicated above . PT-OP-Q Treatments Start: 04/08/24 15:56 Freq: Status: Active Protocol: Document 04/29/24 09:51 SP (Rec: 04/29/24 10:56 SP [id number]) Therapeutic Exercises Supine Exercises Wall squats w/Pelvic T Supine Exercise Name standing Reps/Minutes 10x Comments cue feet positioning away from wall, improved form elevated ribcage TA Standing Pelvic Tilts Supine Exercise Name at wall then progressed off wall Equipment Used pillow behind head d/t incresaed thoracic kyphosis Reps/Minutes cued TA draw in count 10 reps x3 Comments cued TA, LS toward wall, open chest, arms as side, HT L midline- improved Pelvic T w/SLR Side bilateral Reps/Minutes 10x Comments tactile cues to maintain PPT & breath with counting TA tighten in neutral Supine Exercise Name sup, sit and stand Reps/Minutes 20x3 Comments Cuing to maintain neutral spine during TA tightening. Piriformis stretch Supine Exercise Name Leg crossed over opp leg- brief sitting for plane Side bilateral Equipment Used use towel, sit: hug knee opp shld Reps/Minutes 10 SH x 3 Comments pain-free, cues use towel at thigh and lift LE Hamstring stretch Side bilateral Equipment Used towel support (no SI soreness) Reps/Minutes 10 SH then ankle pump 10 reps x 3 Comments vc dorsiflexion DKTC Side bilateral Reps/Minutes 10 SH x 3 Comments I love feeling my back on the floor. SKTC Side bilateral Equipment Used opp LE bent> straight if pnfree (bent better stretch reported) Reps/Minutes 10 SH x 3, trialed holding 30 sec ok no pain each 1 rep Comments I love feeling my back on the floor. Sitting Exercises TA breath count posture Reps/Minutes 10 reps 5 SH breath Comments tactile cue elevate ribcage over pelvis, TA draw in, count - no pain Therapeutic Activity Therapeutic Activity STS Reps/Minutes 5 reps Comments hip hinge buttock back slower sit on body solid bench no UE support /c TA support, improved with reps and post cues. body mechanics Name squat sampler pickup items floor, standing and sititng postural alignment Reps/Minutes 3 reps Comments Initiated sampler pickup item on floor, LOB self recovery contact floor cued increase ADELINA, straight back hip hinge buttocks back, TA improved sampler pickup disc with no pain or LOB I can't believe how much easier this is. TIme spent sit posture /c TA, cued elevate ribcage draw in 10 SH X5 reps log roll Comments in/out of bed using mat table 25.5 to simulate home Self-Care/Home Management Treatment Education Patient Education Body Mechanics,Home Exercise Program,Joint Protection,Pain Management,Posture,Safety Caregiver Education and pt education on use pillows between BLEs and behind back in sidelying and under thighs for neutral pelvis for spinal support, good response. Further ed on proper alignment sitting in car/airplane support behind back elevated ribcage alignment feet front on floor, able perform FIg 4 and piriformis stretch for back and hip mobility riding period time and get up take small walks for recovery stiffness, with good understanding and confident in cues to , incorporated in his life with sciatica. Other Education Pt felt more confident with alignment sup/SL/Sit and standing use wall for awareness support then off wall. PT-OP-T Assessment and Plan Start: 04/08/24 15:56 Freq: Status: Active Protocol: Document 04/29/24 09:51 SP (Rec: 04/29/24 10:56 SP [id number]) Physical Therapy Assessment Goals Three Impairment Decreased functional mobility due to fear of R LBP. Short Term Goal (STG) Pt will be able to demonstrate hip hinging with sit<>stand transfers and will be educated in proper body mechanics for ADLs and basic body mechanics. 04/29/24: GOALMET: hip hinge slow descend better not need use UEs. STG Duration 04/29/24 GOAL MET Business Applications Manager Goal (LTG) Improve ability to move properly (body mechanics) without fear of pain. 04/29/24: Improved post cues WBOS, hip hinge, straight back buttocks back, reaching between BLEs sampler pickup karen disc . NO pain or LOB. DIscussion close to item getting and full stand use TA and gluts then may sampler pickup feet to pivot no twisting. Good form. LTG Duration 05/04/24 GOAL MET 04/29/24 Two Impairment R LBP with transfers (getting out of bed). Short Term Goal (STG) Pt will be able to demonstrate log roll technique for getting in/out of bed, and best practice method to get in /out of car. 04/27/24: Progression ed: Pt requires initial cues for TA and kneew with shld, log roll technique into/out bed leg together then UE right trunk, demos improved technique with initial cueing and repetition. Discussion and demo shown for better technique for hips at this time, verbalized understanding: Car back up seate, hip hinge sit, then legs in. STG Duration 04/22/24 Business Applications Manager Goal (LTG) Getting out of bed w/o pain ( now is 2-3/10). 04/29/24: ed use pillows and better log roll performance, TA during mobility. LTG Duration 05/04/24 progressing 04/29/24 One Impairment HEP Short Term Goal (STG) Pt show understanding of best posturing in sit (car, plane, computer) and standing. 04/29/24: progression ed: Further ed on proper alignment sitting in car/airplane support behind back elevated ribcage alignment feet front on floor, able perform FIg 4 and piriformis stretch for back and hip mobility riding period time and get up take small walks for recovery stiffness, with good understanding, confident in cues to does himself. STG Duration 04/29/24 progression ed Retirement Goal (LTG) Pt will be independent in HEP to help her to manage or eliminate her R<L LBP. 04/22/24: R Piriformis stretch (ankle over knee>KTC) & HEP from MD issued HO: SKTC, DKTC, Hamstring, Piriformis ( cross legged), TA tighening w/ pelvic tilts, arm lifts, leg lifts, arm/leg lifts, SLR, & standing Calf stretch/Pelvic tilts/wall slides. LTG Duration 05/04/24 progressed 04/22/24 Assessment Summary Assessment Pt improved back comfort post ed and trial use pillows between BLEs and thighs supine for back and hip health. Good response to stretching and addition of use towel support better, no posterior R hip SI pain with use towel today. Occasional cues for form with cueing support as well . Improved understanding postural alignment with seated /standing education/ performance and carryover body mechanics STS and squat end tx. Pt is headed out of [facility] beginning of May and aware will DC and get new referral when returns, doesn't feel back to full mobility should be at like strength and balance progression would prefer next. DRY CELL SEALER notified PT Lore to complete DC. Physical Therapy Plan Frequency and Duration Frequency of Treatment 2x/Week Duration of treatment (weeks) 3 Plan of Care Start Date 04/13/24 Plan of Care End Date 05/04/24 Therapeutic Interventions Therapeutic Interventions Home Exercise Program,Manual Therapy,Neuromuscular Re- education,Self-Care/Home Management,Soft Tissue Mobilization,Therapeutic Activities,Therapeutic Exercises Modalities Cold Pack/Ice Massage,Hot Packs Next Visit Focus/Plan Next Note Type Discharge Summary Next Visit Plan PT to completed DC. Pt OOT [facility] May. WIll get new referral when returns to start again. Wants to progress balance, strength.
--- NOTE | 2024-04-29 15:52 | PT.OPDS ---
Current Diagnoses Unilateral primary osteoarthritis, right hip (04/29/24) Spondylosis without myelopathy or radiculopathy, lumbosacral region (04/29/24) Visit Care Team Role Provider Type Turner Lindquist MD Family Provider Physician Primary Care Provider Specialty: Internal Medicine Address: [address] [place] [address] Email: [email or web address] Carmelina Garcia PA-C Attending Provider Advanced Heavy Equipment Sales Manager Referring Provider Specialty: Medical Wound Care Address: [address] [place] [address], [facility] Email: [email or web address] Visit Number Visit Number 4 Discharge Summary PT-OP-B Current Condition Start: 04/08/24 15:56 Freq: Status: Active Protocol: Document 04/13/24 10:52 LRN (Rec: 04/13/24 11:53 LRN [id number]) Current Condition History of Current Condition Onset Date Feb 2024 Current Complaints Dull pain in the L low back with Tyenol pain is 4-5/10. History of Current Condition Pt reports she has had issues with LB off/on over the years that always resolved, but after returning from a trip to [place], after 3 days, trying to get ready for [employer], her LB became so painful she couldn't walk. Nothing was found in x-rays. Has been doing 8 ex's issued by Carmelina Garcia (Dr. Lindquist was not available to be seen) that has been very helpful. Her pain is sharp in nature in the LB, mainly right side. Now pain is dull and with discomfort in the morning. Pain onset is variable, 2-6/10 . Prior Treatments and Tests LB ex's given by Carmelina Garcia. Bone spur in LB removed - 2007 -2009. X-ray 03/04/24: Impression: Moderate multilevel lumbar spondylosis with moderate right mid-lower lumbar facet arthropathy (mild retrolisthesis of T12 on L1 and L1 on L2, grade 1 anterolisthesis of L4 on L5, curve of spine centered at L3) . Treatment Goals Patient/Caregiver Goals Pt goals: -Program to eliminate the pain or help her to manage her pain. -Getting out of bed w/o pain ( now is 2-3/10). -Improve ability to move without fear of pain. Personal Factors Other Personal Factors That May Effect Memory loss, mechanical Therapy/Recovery dysfunction of spine (mild retrolisthesis of T12 on L1 and L1 on L2, grade 1 anterolisthesis of L4 on L5, curve of spine centered at L3) . PT-OP-C Subjective Start: 04/08/24 15:56 Freq: Status: Active Protocol: Document 04/29/24 09:51 SP (Rec: 04/29/24 10:56 SP [id number]) OP-PT Subjective Patient Comments Patient Comments Pt stated compliant with HEP and give cues for proper form at home. She said pain still with rolling on side trying remember use TA for support, improved performance once retries. Going OOT til begginning May . She feels the HEP given helping and will continue. Doesn't feel where needs to be so [facility] and cant come in again to see PT for DC. PT-OP-H Neuro Start: 04/08/24 15:56 Freq: Status: Active Protocol: Document 04/13/24 10:52 LRN (Rec: 04/13/24 11:53 LRN [id number]) Sensation Evaluation Gross Sensation Gross Sensation WNL Deep Tendon Reflex & Clonus Assessment Deep Tendon Reflex Bilateral Achilles Deep Tendon Reflex 1+ Diminished Bilateral Patellar Deep Tendon Reflex 2+ Normal PT-OP-J Posture/Palpation/Skin Start: 04/08/24 15:56 Freq: Status: Active Protocol: Document 04/13/24 10:52 LRN (Rec: 04/13/24 11:53 LRN [id number]) Posture Evaluation Position Standing Head/C-Spine Posture Forward Head T-Spine Posture Increased Kyphosis Shoulder Posture (L) Elevated Pelvis Posture (L) Iliac Crest Superior,(R) PSIS Posterior Hip Posture (L) Flexed,(R) Flexed Knee Posture (L) Genu Varus,(R) Genu Varus Comments Posture Comments C-curve of back with apex ~T10 -T11 (x-ray indicates it is at L3). Palpation Assessment Location Low back Palpation Location Sacral region to the R side. Palpation Findings Muscle Guarding,Tenderness Palpation Details Tender at R Piriformis, L5-S1 , S1-S2, S2-S3. PT-OP-K Range of Motion Start: 04/08/24 15:56 Freq: Status: Active Protocol: Document 04/13/24 10:52 LRN (Rec: 04/13/24 11:53 LRN [id number]) Lumbar Spine Range of Motion Lumbar Spine Active Degrees Testing Position Standing Flexion 70 Extension 5 Rotation Left 10 Rotation Right 15 Lateral Flexion Left 5 Lateral Flexion Right 20 ROM Limitations Soft Tissue Tightness,Pain Comments No sharp pain noted with mobility. PT-OP-L Special Tests Start: 04/08/24 15:56 Freq: Status: Active Protocol: Document 04/13/24 10:52 LRN (Rec: 04/13/24 18:52 LRN [id number]) Special Tests Lumbar Spine Special Tests Slump Test Results + bilaterally Comments Provocation test ilicited R: pain behind knee, L: calf tightness PT-OP-M Strength Start: 04/08/24 15:56 Freq: Status: Active Protocol: Document 04/13/24 10:52 LRN (Rec: 04/13/24 11:53 LRN [id number]) Trunk Strength Trunk Manual Muscle Testing Core Stabilization Lacks core stability with leg mvmts in supine. Hip Strength Hip Manual Muscle Testing Right Flexion (L2) 5 Normal Comments MMT deferred due to R LBP/hip pain except as indicated above . Left Flexion (L2) 5 Normal Comments MMT deferred due to R LBP/hip pain except as indicated above . PT-OP-T Assessment and Plan Start: 04/08/24 15:56 Freq: Status: Active Protocol: Document 04/29/24 15:40 LRN (Rec: 04/29/24 15:52 LRN [id number]) Physical Therapy Assessment Goals Three Impairment Decreased functional mobility due to fear of R LBP. Short Term Goal (STG) Pt will be able to demonstrate hip hinging with sit<>stand transfers and will be educated in proper body mechanics for ADLs and basic body mechanics. 04/29/24: GOALMET: hip hinge slow descend better not need use UEs. STG Duration 04/29/24 GOAL MET Starch Treating Assistant Goal (LTG) Improve ability to move properly (body mechanics) without fear of pain. 04/29/24: Improved post cues WBOS, hip hinge, straight back buttocks back, reaching between BLEs orange picker machine operator karen disc . NO pain or LOB. DIscussion close to item getting and full stand use TA and gluts then may orange picker machine operator feet to pivot no twisting. Good form. LTG Duration 05/04/24 GOAL MET 04/29/24 Two Impairment R LBP with transfers (getting out of bed). Short Term Goal (STG) Pt will be able to demonstrate log roll technique for getting in/out of bed, and best practice method to get in /out of car. 04/27/24: Progression ed: Pt requires initial cues for TA and kneew with shld, log roll technique into/out bed leg together then UE right trunk, demos improved technique with initial cueing and repetition. Discussion and demo shown for better technique for hips at this time, verbalized understanding: Car back up seate, hip hinge sit, then legs in. STG Duration 04/22/24 progressed 04/27/24 Starch Treating Assistant Goal (LTG) Getting out of bed w/o pain ( now is 2-3/10). 04/29/24: ed use pillows and better log roll performance, TA during mobility. LTG Duration 05/04/24 progressing 04/29/24 One Impairment HEP Short Term Goal (STG) Pt show understanding of best posturing in sit (car, plane, computer) and standing. 04/29/24: progression ed: Further ed on proper alignment sitting in car/airplane support behind back elevated ribcage alignment feet front on floor, able perform FIg 4 and piriformis stretch for back and hip mobility riding period time and get up take small walks for recovery stiffness, with good understanding, confident in cues to does himself. STG Duration 04/29/24 progression ed Starch Treating Assistant Goal (LTG) Pt will be independent in HEP to help her to manage or eliminate her R<L LBP. 04/22/24: R Piriformis stretch (ankle over knee>KTC) & HEP from MD issued HO: SKTC, DKTC, Hamstring, Piriformis ( cross legged), TA tighening w/ pelvic tilts, arm lifts, leg lifts, arm/leg lifts, SLR, & standing Calf stretch/Pelvic tilts/wall slides. LTG Duration 05/04/24 progressed 04/22/24 Assessment Summary Assessment Pt is a 73 yo female w/R lower sacral hip pain due to postural changes ( retrolisthesis of T12 on L1 and L1 on L2, grade 1 anterolisthesis of L4 on L5, curve of spine centered at L3) . Pt was able to progress in her functional mobility and transfer ability, although pain ratings not reported. All goals were not met. The pt is leaving the area for a couple of months and has a HEP to work on to improve her core stability to help minimize her pain. The pt hopes to restart physical therapy when she returns and understands she will need a new referral to return. Further therapy would be appropriate for this patient to reduce pain with functional activities. Physical Therapy Plan Discharge Physical Therapy Discharge Reasons Patient Request Discharge Comments DC to HEP, going out of town til May. Will get new referral when returns in order to get back to full mobility for picking objects off the floor, strength and balance.
== END 2024-04-30 10:03 | disposition home or self-care (01) ==
LOC: PHYS 09:45
PROVIDERS: Family Provider Internal Medicine; PCP Internal Medicine; Referring Provider Physician Assistant; Visit Provider Physician Assistant
DX: M16.11 Unilateral primary osteoarthritis, right hip (principal); M47.817 Spondylosis without myelopathy or radiculopathy, lumbosacral region
CPT/HCPCS: 97110; 97162; 97530; 97535

== ENCOUNTER 2024-07-08 19:59 | Emergency (ER) | payer MEDICARE, SELFPAY ==
[2022-10-30 14:01] VITALS: BMI 17.9
[2024-07-08 20:08] VITALS: BP 134/63; PULSE 62; RESP 18; TEMP 36.6; O2SAT 98
--- NOTE | 2024-07-08 23:40 | DI.RAD.S_ITS ---
PROCEDURE: XR ABDOMEN 1V INDICATIONS: constipation TECHNIQUE: One view of the abdomen acquired. COMPARISON: [facility], CR, XR ABDOMEN 1V, 11/28/2023, 10:55. FINDINGS: Surgical changes and devices: None. Bowel: Bowel gas pattern is normal. Moderate colonic stool. No obstruction. Soft tissues: No suspicious abdominal calcifications. Visualized solid organ contours appear normal in size. Bones: No suspicious bony lesions. IMPRESSION: Moderate colonic stool. No obstruction. Dictated by: Lacy Franks M.D. on 07/09/2024 at 0:13 Approved by: Lacy Franks M.D. on 07/09/2024 at 0:14
[2024-07-08 23:46] VITALS: O2SAT 98
[2024-07-08 23:47] VITALS: BP 175/77; PULSE 55; RESP 16; O2SAT 97
--- NOTE | 2024-07-08 23:49 | PC.NURSE ---
Pt ambulatory to imaging with unit aide tech.
--- NOTE | 2024-07-09 00:52 | ED_ITS ---
HPI - Abdominal Pain General Chief Complaint: Abdominal Pain Stated Complaint: gi issues Time Seen by Provider: 07/09/24 00:52 Source: patient Mode of arrival: Ambulatory History of Present Illness HPI narrative: 73-year-old female past medical history of hypertension, paroxysmal AFib on Eliquis, comes into the ED from home for evaluation of constipation. States that she has a longstanding history of this, states that she has had her typical constipation like symptoms over the past 4 days states that she has taken Dulcolax and stool softeners but without any relief, she states that in the past she has had a come into the ED for this. She denies any symptoms such as headache visual disturbances chest pain shortness breath fever chills nausea vomiting or any other GI/ symptoms time. Related Data Home Medications Medication Instructions Recorded Confirmed cholecalciferol (vitamin D3) 125 125 mcg PO DAILY 10/25/22 03/22/24 mcg (5,000 unit) capsule diltiazem HCl 120 mg 120 mg PO DAILY 10/25/22 03/22/24 capsule,extended release 24 hr flecainide 50 mg tablet 50 mg PO BID 10/25/22 03/22/24 tafluprost (PF) 0.0015 % eye drops 1 drp EYE-BOTH ONCE PM 10/25/22 03/22/24 in a dropperette timolol maleate 0.5 % eye drops 1 drp EYE-BOTH DAILY 10/25/22 03/22/24 acetaminophen 500 mg tablet 1,000 mg PO TID 03/09/24 03/22/24 (Tylenol Extra Strength) Previous Rx's Medication Instructions Recorded apixaban 5 mg tablet (Eliquis) 5 mg PO BID #60 tabs 02/16/21 mirtazapine 15 mg tablet 15 mg PO BEDTIME #30 tabs 04/08/23 linaclotide 72 mcg capsule 72 mcg PO DAILY #30 caps 02/16/24 cyclobenzaprine 5 mg tablet 5 mg PO BEDTIME PRN muscle spasm 03/09/24 #30 tabs denosumab 60 mg/mL subcutaneous 60 mg SUBCUT [id number] #1 mL 03/26/24 syringe (Prolia) amlodipine 2.5 mg tablet 2.5 mg PO DAILY #90 tabs 03/29/24 olmesartan 40 mg tablet 40 mg PO DAILY #90 tabs 04/06/24 donepezil 5 mg tablet 5 mg PO BEDTIME #90 tabs 04/26/24 atorvastatin 10 mg tablet 10 mg PO DAILY #90 tabs 06/28/24 Allergies Allergy/AdvReac Type Severity Reaction Status Date / Time Sulfa (Sulfonamide Allergy Hives Verified 03/22/24 10:25 Antibiotics) Review of Systems Review of Systems Narrative: General: Denies fever, chills, weight loss HEENT: Denies headache, eye drainage, eye irritation, head trauma, sore throat, voice change Cardiovascular: Denies any chest pain, palpitations, tachycardia Respiratory: Denies any shortness of breath, cough, wheeze, stridor GI/: Positive abdominal pain, constipation Denies nausea, vomiting, diarrhea, bright red blood per rectum, melanotic stools, urinary frequency, urinary retention, dysuria, hematuria MSK: Denies any joint pain, muscle pains, swelling Skin: Denies any rashes, lesions, discoloration Neuro: Denies any headache, lightheadedness, dizziness, fainting, weakness Psych: Denies SI/HI Patient History Medical History B12 deficiency Chicken pox Chronic anticoagulation Essential hypertension (~2000) H/O nephrolithotomy with removal of calculi History of cardioversion (01/2021) History of nephrolithiasis History of UTI Hydronephrosis Hyponatremia Irritable bowel syndrome Kidney stones Malaria Measles Melanoma (~2019) Mild cognitive impairment Mixed hyperlipidemia Mouth problem Obstruction of right ureteropelvic junction (UPJ) Osteopenia Paroxysmal atrial fibrillation (~2021) Renal calculus, left Right inguinal hernia Rubella Skin cancer (~2011) Slow transit constipation Strain of right knee Surgical History History of breast biopsy History of colon surgery History of tubal ligation Previous back surgery Family History Mother Cancer Hyperlipidemia Father CAD in [place] artery Hypertension Family/Other Bacterial UTI Social History marital status: number of children: 3 household members: spouse lives independently: Yes occupational status: previously employed alcohol intake: current substance use type: does not use Type(s) of exercise: walking frequency: daily alcohol intake frequency: 0-2 drinks per day Alcohol type: wine Exam Narrative Exam Narrative: General: Cooperative, well-developed, not in acute distress HEENT: Normocephalic, atraumatic, PERRLA, normal sclera, eyelids normal Neck: Active full range of motion, atraumatic Chest: Normal to inspection, negative crepitus, no overlying erythema ecchymosis Respiratory: Normal respiratory effort, not in acute respiratory distress, clear to auscultation bilaterally negative cough, wheeze, tachypnea, rhonchi, rales Cardiology: Regular rate rhythm negative gallop, murmur, rubs GI/: No tenderness to palpation, soft, non rigid, normal to inspection, exam deferred MSK: Full active range of motion in all 4 extremities, atraumatic, no tenderness to palpation of any bony prominences Skin: No rashes or lesions noted Neuro: Alert awake oriented x3, moves all 4 extremities spontaneously, cranial nerves intact, able to answer all questions appropriately follows commands appropriately Psych: Cooperative, negative suicidal or homicidal ideations Initial Vital Signs Initial Vital Signs: Vital Signs Temperature 97.9 F 07/08/24 20:08 Pulse Rate 62 07/08/24 20:08 Respiratory Rate 18 07/08/24 20:08 Blood Pressure 134/63 07/08/24 20:08 Pulse Oximetry 98 07/08/24 20:08 Oxygen Delivery Method Room Air 07/08/24 20:08 Course Orders Ordered: ED Orders 07/08/24 23:40 XR abdomen 1V Stat Vital Signs Vital signs: Vital Signs - 8 hr 07/08/24 20:08 07/08/24 23:46 07/08/24 23:47 Temperature 97.9 F Pulse Rate 62 Respiratory Rate 18 Blood Pressure 134/63 175/77 H Pulse Oximetry 98 98 Oxygen Delivery Method Room Air 07/08/24 23:47 Temperature Pulse Rate 55 L Respiratory Rate 16 Blood Pressure Pulse Oximetry 97 Oxygen Delivery Method Room Air MDM - Abdominal Pain Differential Diagnosis Differential diagnosis: Likely other (Constipation) Imaging Data X-ray abdomen: Radiologist's Impression: [address] [address] XRay Report Signed Patient: Chika Ortiz MR#: [id number] : 1950 Acct:[id number] Age/Sex: 73 / F Date of Service: 07/08/24 Loc: ED Accession Number: [id number] Procedure: XR abdomen 1V Ordering Provider: Mendoza Cervantes D.O. PROCEDURE: XR ABDOMEN 1V INDICATIONS: constipation TECHNIQUE: One view of the abdomen acquired. COMPARISON: [facility], CR, XR ABDOMEN 1V, 11/28/2023, 10:55. FINDINGS: Surgical changes and devices: None. Bowel: Bowel gas pattern is normal. Moderate colonic stool. No obstruction. Soft tissues: No suspicious abdominal calcifications. Visualized solid organ contours appear normal in size. Bones: No suspicious bony lesions. IMPRESSION: Moderate colonic stool. No obstruction. MDM Narrative Medical decision making narrative: 73-year-old female with a past medical history of AFib on Eliquis, hypertension, constipation presenting for constipation. States that she has a longstanding history of constipation, states this is exactly the same as previous, has some mild abdominal cramping states she has been constipated for the past 3 days has taken Dulcolax and stool softeners without any relief therefore decided come into the ED for further evaluation treatment. Patient had abdominal x-ray s howing a moderate colonic stool burden with no obstruction. She is well- appearing nontoxic, we will give patient dose GoLYTELY and instructed to follow up with primary care and GI in outpatient setting, she was given strict return precautions she verbalized understanding of this and agrees to being discharged home with outpatient follow up. Discharge Plan Departure Patient Disposition: Home Clinical Impression: Constipation Instructions: DI for Constipation Activity Restrictions/Additional Instructions: Please follow up with primary care and Gastroenterology in outpatient setting You can take 240-480 mL of GoLYTELY a day for your constipation Please read the discharge instructions sheet carefully and bring all papers to all doctor follow-up visits, as it may contain information that your doctor may want to see. Disease processes change and evolve, if your symptoms worsen or if you develop any new symptoms that are concerning to you please return for evaluation. Your evaluation today does not show any evidence of any life- threatening/serious illnesses requiring admission to the hospital or surgery. Please follow-up with your doctor for re-evaluation in approximately 1 day. Seek immediate medical attention for any worrisome symptoms. *If you do not have a primary care provider please contact the [facility] Resource line at [phone]. They will ask some questions about your medical history and help get you set up with a doctor in the community. Prescriptions: No Action linaclotide 72 mcg capsule 72 mcg PO DAILY Qty: 30 5RF amlodipine 2.5 mg tablet 2.5 mg PO DAILY Qty: 90 3RF olmesartan 40 mg tablet 40 mg PO DAILY Qty: 90 3RF donepezil 5 mg tablet 5 mg PO BEDTIME Qty: 90 3RF atorvastatin 10 mg tablet 10 mg PO DAILY Qty: 90 3RF mirtazapine 15 mg tablet 15 mg PO BEDTIME Qty: 30 5RF Prolia 60 mg/mL syringe 60 mg SUBCUT [id number] Qty: 1 1RF acetaminophen [Tylenol Extra Strength] 500 mg tablet 1,000 mg PO TID cyclobenzaprine 5 mg tablet 5 mg PO BEDTIME PRN (Reason: muscle spasm) Qty: 30 0RF flecainide 50 mg tablet 50 mg PO BID diltiazem HCl 120 mg capsule,extended release 24hr 120 mg PO DAILY tafluprost (PF) 0.0015 % dropperette 1 drp EYE-BOTH ONCE PM timolol maleate 0.5 % drops 1 drp EYE-BOTH DAILY cholecalciferol (vitamin D3) 125 mcg (5,000 unit) capsule 125 mcg PO DAILY Eliquis 5 mg tablet 5 mg PO BID Qty: 60 0RF Referrals: Kevin Davidson MD [Non-Staff] - Turner Lindquist MD [Primary Care Provider] - Stand Alone Forms: Patient Portal/API/Survey
[2024-07-09 01:48] VITALS: BP 144/76; PULSE 61; RESP 20; O2SAT 97
== END 2024-07-09 01:50 | disposition home or self-care (01) ==
PROVIDERS: Emergency Provider Student in an Organized Health Care Education/Training Program; Family Provider Internal Medicine; PCP Internal Medicine
DX: K59.00 Constipation, unspecified (principal)
CPT/HCPCS: 74018; 99281; 99283

== ENCOUNTER 2024-08-01 07:33 | Emergency (ER) | payer MEDICARE, SELFPAY ==
[2022-10-30 14:01] VITALS: BMI 17.9
[2024-08-01 07:51] VITALS: BP 174/77; PULSE 55; RESP 16; TEMP 36.6; O2SAT 97; BMI 18.5
[2024-08-01 08:05] LABS: Add Manual Diff / Slide Review NO; Basophils Absolute Auto 100 /uL (0-100); Basophils Percent Auto 0.7 % (0-2); Eosinophils Absolute Auto 0 /uL (0-450); Eosinophils Percent Auto 0.6 % (2-4); Hemoglobin 14.1 g/dL (12.0-16.0); Lymphocytes Absolute Auto 1400 /uL (1100-4500); Lymphocytes Percent Auto 18.9 % (25-40); Mean Corpuscular HGB Conc 34.4 % (30-36); Mean Corpuscular Hemoglobin 34.5 PG (26-34); Mean Corpuscular Volume 100.4 fL (80-100); Monocytes Absolute Auto 800 /uL (0-900); Monocytes Percent Auto 10.6 % (3-14); Neutrophils Absolute Auto 5000 /uL (1500-7000); Neutrophils Percent Auto 69.2 % (50-75); Platelet Count 244 X10^3/uL (150-400); Red Blood Cell Count 4.09 X10^6/uL (4.0-5.2); Red Cell Distribution Width 12.7 % (11.6-14.8); White Blood Cell Count 7.2 X10^3/uL (4.5-11.0)
[2024-08-01 08:18] LABS: Alanine Aminotransferase 19 IU/L (<35); Albumin 4.3 g/dL (3.5-5.0); Albumin Globulin Ratio 1.9 (1.0-2.8); Alkaline Phosphatase 37 U/L (38-126); Aspartate Aminotransferase 24 IU/L (14-36); BUN Creatinine Ratio 29.9 (6-22); Bilirubin Total 0.6 mg/dL (0.2-1.3); Blood Urea Nitrogen 20 mg/dL (7-17); Calcium 8.9 mg/dL (8.4-10.2); Carbon Dioxide 24 mmol/L (22-32); Chloride 107 mmol/L (98-107); Estimated Glomerular Filt Rate > 60 mL/min (>60); Globulin 2.3 g/dL (1.7-4.1); Glucose 110 mg/dL (70-99); HEMOLYSIS < 15 (0-50); Lipase 227 U/L (23-300); Potassium 3.9 mmol/L (3.4-5.1); Sodium 137 mmol/L (137-145); Total Protein 6.6 g/dL (6.3-8.2)
--- NOTE | 2024-08-01 08:27 | ED_ITS ---
HPI - Abdominal Pain General Chief Complaint: Abdominal Pain Stated Complaint: Feels Constipated Time Seen by Provider: 08/01/24 07:51 History of Present Illness HPI narrative: Patient is a 73-year-old female past medical history hypertension paroxysmal atrial fibrillation on Eliquis here for constipation. She was seen evaluated here 07/09/2024 for the same. Today she feels like she was having very small movements. No rectal discomfort or significant abdominal pain nausea or vomiting. Denies any chest pain or palpitations. Has previously had constipation issues in the past. Does take Dulcolax daily occasionally takes a laxative has not taken 1 in awhile. Related Data Home Medications Medication Instructions Recorded Confirmed cholecalciferol (vitamin D3) 125 125 mcg PO DAILY 10/25/22 07/13/24 mcg (5,000 unit) capsule diltiazem HCl 120 mg 120 mg PO DAILY 10/25/22 07/13/24 capsule,extended release 24 hr flecainide 50 mg tablet 50 mg PO BID 10/25/22 07/13/24 tafluprost (PF) 0.0015 % eye drops 1 drp EYE-BOTH ONCE PM 10/25/22 07/13/24 in a dropperette timolol maleate 0.5 % eye drops 1 drp EYE-BOTH DAILY 10/25/22 07/13/24 acetaminophen 500 mg tablet 1,000 mg PO TID 03/09/24 07/13/24 (Tylenol Extra Strength) Previous Rx's Medication Instructions Recorded apixaban 5 mg tablet (Eliquis) 5 mg PO BID #60 tabs 02/16/21 mirtazapine 15 mg tablet 15 mg PO BEDTIME #30 tabs 04/08/23 linaclotide 72 mcg capsule 72 mcg PO DAILY #30 caps 02/16/24 cyclobenzaprine 5 mg tablet 5 mg PO BEDTIME PRN muscle spasm 03/09/24 #30 tabs denosumab 60 mg/mL subcutaneous 60 mg SUBCUT [id number] #1 mL 03/26/24 syringe (Prolia) amlodipine 2.5 mg tablet 2.5 mg PO DAILY #90 tabs 03/29/24 olmesartan 40 mg tablet 40 mg PO DAILY #90 tabs 04/06/24 donepezil 5 mg tablet 5 mg PO BEDTIME #90 tabs 04/26/24 atorvastatin 10 mg tablet 10 mg PO DAILY #90 tabs 06/28/24 peg 3350-electrolytes 236 240 ml PO Q10M PRN constipation 07/09/24 gram-22.74 gram-6.74 gram-5.86 #4,000 mL gram solution (Golytely) Allergies Allergy/AdvReac Type Severity Reaction Status Date / Time Sulfa (Sulfonamide Allergy Hives Verified 07/13/24 16:06 Antibiotics) Patient History Medical History History of UTI Hyponatremia Hydronephrosis History of cardioversion (01/2021) Mouth problem Strain of right knee History of nephrolithiasis Mild cognitive impairment B12 deficiency Renal calculus, left Obstruction of right ureteropelvic junction (UPJ) Right inguinal hernia H/O nephrolithotomy with removal of calculi Osteopenia Rubella Measles Malaria Chicken pox Kidney stones Irritable bowel syndrome Skin cancer (~2011) Melanoma (~2019) Mixed hyperlipidemia Essential hypertension (~2000) Paroxysmal atrial fibrillation (~2021) Slow transit constipation Chronic anticoagulation Surgical History History of tubal ligation History of breast biopsy History of colon surgery Previous back surgery Family History Mother Cancer Hyperlipidemia Father CAD in [place] artery Hypertension Family/Other Bacterial UTI Social History marital status: number of children: 3 household members: spouse lives independently: Yes occupational status: previously employed alcohol intake: current substance use type: does not use Type(s) of exercise: walking frequency: daily alcohol intake frequency: 0-2 drinks per day Alcohol type: wine Exam Initial Vital Signs Initial Vital Signs: Vital Signs Temperature 97.8 F 08/01/24 07:51 Pulse Rate 55 L 08/01/24 07:51 Respiratory Rate 16 08/01/24 07:51 Blood Pressure 174/77 H 08/01/24 07:51 Pulse Oximetry 97 08/01/24 07:51 Oxygen Delivery Method Room Air 08/01/24 07:51 GENERAL: Alert pleasant well-appearing 73-year-old female HEENT: Head atraumatic,EOMI, pupils reactive, face symmetric, moist mucous membranes CARDIOVASCULAR: Regular rate and rhythm without murmurs, rubs or gallops. RESPIRATORY: Breath sounds equal bilaterally, no wheezes rales or rhonchi. ABDOMEN: Soft, nontender. Normoactive bowel sounds all 4 quadrants. No guarding or rebound. EXTREMITIES: Normal range of motion, no clubbing or edema. Neurovascularly intact NEUROLOGICAL: Alert and oriented x4.Normal gait and speech. Cranial nerves II through XII grossly intact. SKIN: Warm, dry, no laceration, no petechiae, no rashes or lesions. Course Orders Ordered: ED Orders 08/01/24 07:54 Complete Blood Count AUTO DIFF Stat Comprehensive Metabolic Panel Stat Lipase Stat 08/01/24 08:23 Ictotest Urine Stat Urine Microscopic Stat 08/01/24 08:31 CT abdomen pelvis w con Stat Discontinued Medications Ondansetron HCl (Ondansetron 4 Mg/2 Ml Inj) 4 mg IV NOW PRN PRN Reason: Nausea And Vomiting Ondansetron HCl (Ondansetron 4 Mg Odt) 4 mg PO NOW PRN PRN Reason: Nausea And Vomiting Vital Signs Vital signs: Vital Signs - 8 hr 08/01/24 07:51 08/01/24 10:21 Temperature 97.8 F 97.9 F Pulse Rate 55 L 51 L Respiratory Rate 16 16 Blood Pressure 174/77 H 174/77 H Pulse Oximetry 97 99 Oxygen Delivery Method Room Air Room Air MDM - Abdominal Pain Lab Data 08/01/24 07:54 08/01/24 07:54 Labs: Lab Results 08/01/24 08/01/24 Range/Units 07:54 08:23 WBC 7.2 (4.5-11.0) X10^3/uL RBC 4.09 (4.0-5.2) X10^6/uL Hgb 14.1 (12.0-16.0) g/dL Hct 41.0 (36-46) % MCV 100.4 H (80-100) fL MCH 34.5 H (26-34) PG MCHC 34.4 (30-36) % RDW 12.7 (11.6-14.8) % Plt Count 244 (150-400) X10^3/uL Neut % (Auto) 69.2 (50-75) % Lymph % (Auto) 18.9 L (25-40) % Johnston % (Auto) 10.6 (3-14) % Eos % (Auto) 0.6 L (2-4) % Baso % (Auto) 0.7 (0-2) % Neut # (Auto) 5000 (9702-6415) /uL Lymph # (Auto) 1400 (0299-1740) /uL Johnston # (Auto) 800 (0-900) /uL Eos # (Auto) 0 (0-450) /uL Baso # (Auto) 100 (0-100) /uL Sodium 137 (137-145) mmol/L Potassium 3.9 (3.4-5.1) mmol/L Chloride 107 (98-107) mmol/L Carbon Dioxide 24 (22-32) mmol/L BUN 20 H (7-17) mg/dL Creatinine 0.67 (0.52-1.04) mg/dL Estimated GFR > 60 (>60) mL/min BUN/Creatinine Ratio 29.9 H (6-22) Glucose 110 H (70-99) mg/dL Calcium 8.9 (8.4-10.2) mg/dL Total Bilirubin 0.6 (0.2-1.3) mg/dL AST 24 (14-36) IU/L ALT 19 (<35) IU/L Alkaline Phosphatase 37 L (38-126) U/L Total Protein 6.6 (6.3-8.2) g/dL Albumin 4.3 (3.5-5.0) g/dL Globulin 2.3 (1.7-4.1) g/dL Albumin/Globulin Ratio 1.9 (1.0-2.8) Lipase 227 (23-300) U/L Ur Bilirubin Confirm Negative (Negative) Urine RBC 0-1/hpf (0-5/HPF) Urine WBC 0-1/hpf (0-5/HPF) Ur Squamous Epith Cells 1-5 /hpf (0-5/HPF) Urine Bacteria Occasional (0-1) (None) Urine Mucus 2+ H (Negative) Ur Culture Indicated? Cult not indicated Vol Urine Centrifuged 10ml (spun) Point of care testing: Urine Dip Bedside Urine Glucose Negative Bedside Urine Bilirubin + 1 Bedside Urine Ketone - Negative Urine Specific [place] 1.020 Bedside Urine Occult Blood - Negative Bedside Urine pH 6.0 Bedside Urine Protein +/- 15 Bedside Urine Urobilinogen - Negative Bedside Urine Nitrite - Negative Bedside Urine Leukocytes - Negative Esterase Imaging Data CT scan - abdomen/pelvis: Radiologist's Impression: PROCEDURE: CT ABDOMEN PELVIS W CON INDICATIONS: pain constipation TECHNIQUE: After the administration of intravenous contrast, axial sections acquired from the lung bases to the pubic symphysis. Coronal and sagittal reformats were performed. For radiation dose reduction, the following was used: automated exposure control, adjustment of mA and/or kV according to patient size. COMPARISON: [facility], CT, CT ABDOMEN PELVIS W CON, 11/24/2023, 11:14. FINDINGS: Image quality: Diagnostic. Lower Chest: No significant findings. ABDOMEN: Liver: No solid mass. Gallbladder: No radiopaque gallstones or wall thickening. Biliary ducts: No biliary dilation. Pancreas: No ductal dilation. Spleen: Size is within normal limits. Adrenal Glands: No adrenal nodules. Kidneys and Ureters: Moderate right-sided pelviectasis and hydronephrosis. Punctate left nonobstructive stone.. Stomach and Bowel: Diffuse thickening of the distal stomach antrum which extends through the duodenum to the proximal jejunum. There is resolution within the proximal jejunum. The appendix is not confidently identified. There is a possible appendix on coronal image 44. Peritoneum: No abnormal intraperitoneal fluid. No free air. Ventral Wall: No significant ventral hernia. Abdominal Nodes: No retroperitoneal or mesenteric adenopathy by size criteria. Vessels: Aorta and inferior vena cava are normal in size. PELVIS: Pelvic Organs: Unremarkable. Bladder: The bladder is nondistended with diffusely thickened harris.. Pelvic Nodes: No enlarged lymph nodes. Miscellaneous: No inguinal hernias are seen. Bones: No aggressive osseous abnormality. 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 IMPRESSION: Diffuse thickening of the distal stomach and duodenum of unclear etiology. Correlate for enteritis and consideration of inflammatory bowel disease. Punctate left nephrolithiasis. Dictated by: Sergio Leslie M.D. on 08/01/2024 at 8:14 Approved by: Sergio Leslie M.D. on 08/01/2024 at 8:27 MDM Narrative Medical decision making narrative: Patient is 73-year-old female presenting to day with what feels like constipation. No significant pain abdomen is soft nontender no nausea or vomiting. Does not have any kind of peritoneal sign on exam. Blood work has been reviewed CBC shows no leukocytosis or anemia CMP no electrolyte abnormality no CONNIE glucose [address] does show thickening of distal stomach and duodenum. I have discussed findings with patient and has been. Recommend outpatient EGD for further evaluation of thickening. She has not had any nausea or vomiting. There is no constipation or fecal impaction at this time. Supportive care only. Discharge Plan Departure Patient Disposition: Home Clinical Impression: Abdominal pain Instructions: DI for Abdominal Pain-Adult Activity Restrictions/Additional Instructions: *You have been diagnosed with abdominal pain *What to do: At this time I do recommend an EGD as an outpatient. Your CT does show some thickening of your stomach and duodenum. This is not need to be done today. However I would call your primary to schedule outpatient follow up *Continue to take medications as directed May take [id number] laxatives as you feel fit *Follow up with your primary care provider in 2-3 days or call [phone] *Return to ER if you should have increasing abdominal pain nausea vomiting not tolerating any fluids or any new, worsening or concerning symptoms Prescriptions: No Action linaclotide 72 mcg capsule 72 mcg PO DAILY Qty: 30 5RF amlodipine 2.5 mg tablet 2.5 mg PO DAILY Qty: 90 3RF olmesartan 40 mg tablet 40 mg PO DAILY Qty: 90 3RF donepezil 5 mg tablet 5 mg PO BEDTIME Qty: 90 3RF atorvastatin 10 mg tablet 10 mg PO DAILY Qty: 90 3RF mirtazapine 15 mg tablet 15 mg PO BEDTIME Qty: 30 5RF Prolia 60 mg/mL syringe 60 mg SUBCUT [id number] Qty: 1 1RF acetaminophen [Tylenol Extra Strength] 500 mg tablet 1,000 mg PO TID cyclobenzaprine 5 mg tablet 5 mg PO BEDTIME PRN (Reason: muscle spasm) Qty: 30 0RF flecainide 50 mg tablet 50 mg PO BID diltiazem HCl 120 mg capsule,extended release 24hr 120 mg PO DAILY tafluprost (PF) 0.0015 % dropperette 1 drp EYE-BOTH ONCE PM timolol maleate 0.5 % drops 1 drp EYE-BOTH DAILY cholecalciferol (vitamin D3) 125 mcg (5,000 unit) capsule 125 mcg PO DAILY Eliquis 5 mg tablet 5 mg PO BID Qty: 60 0RF peg 3350-electrolytes [Golytely] 236-22.74-6.74 -5.86 gram recon soln 240 ml PO Q10M PRN (Reason: constipation) Qty: 4000 0RF Rx Instructions: until fecal effluent is clear Referrals: Turner Lindquist MD [Primary Care Provider] - Stand Alone Forms: Patient Portal/API/Survey
--- NOTE | 2024-08-01 08:31 | DI.CT.S_ITS ---
PROCEDURE: CT ABDOMEN PELVIS W CON INDICATIONS: pain constipation TECHNIQUE: After the administration of intravenous contrast, axial sections acquired from the lung bases to the pubic symphysis. Coronal and sagittal reformats were performed. For radiation dose reduction, the following was used: automated exposure control, adjustment of mA and/or kV according to patient size. COMPARISON: [facility], CT, CT ABDOMEN PELVIS W CON, 11/24/2023, 11:14. FINDINGS: Image quality: Diagnostic. Lower Chest: No significant findings. ABDOMEN: Liver: No solid mass. Gallbladder: No radiopaque gallstones or wall thickening. Biliary ducts: No biliary dilation. Pancreas: No ductal dilation. Spleen: Size is within normal limits. Adrenal Glands: No adrenal nodules. Kidneys and Ureters: Moderate right-sided pelviectasis and hydronephrosis. Punctate left nonobstructive stone.. Stomach and Bowel: Diffuse thickening of the distal stomach antrum which extends through the duodenum to the proximal jejunum. There is resolution within the proximal jejunum. The appendix is not confidently identified. There is a possible appendix on coronal image 44. Peritoneum: No abnormal intraperitoneal fluid. No free air. Ventral Wall: No significant ventral hernia. Abdominal Nodes: No retroperitoneal or mesenteric adenopathy by size criteria. Vessels: Aorta and inferior vena cava are normal in size. PELVIS: Pelvic Organs: Unremarkable. Bladder: The bladder is nondistended with diffusely thickened harris.. Pelvic Nodes: No enlarged lymph nodes. Miscellaneous: No inguinal hernias are seen. Bones: No aggressive osseous abnormality. 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 IMPRESSION: Diffuse thickening of the distal stomach and duodenum of unclear etiology. Correlate for enteritis and consideration of inflammatory bowel disease. Punctate left nephrolithiasis. Dictated by: Sergio Leslie M.D. on 08/01/2024 at 8:14 Approved by: Sergio Leslie M.D. on 08/01/2024 at 8:27
[2024-08-01 09:57] LABS: Bacteria Urine Occasional (0-1); Culture Indicated Urine Cult Not Indicated; Ictotest Urine Negative (Negative); Mucus Urine 2+ (Negative); RBC Urine 0-1/HPF (0-5/HPF); Squamous Epithelial Cell Urine 1-5 /HPF (0-5/HPF); Urine Volume 10mL (spun); WBC Urine 0-1/HPF (0-5/HPF)
[2024-08-01 10:21] VITALS: BP 174/77; PULSE 51; RESP 16; TEMP 36.6; O2SAT 99
== END 2024-08-01 10:21 | disposition home or self-care (01) ==
PROVIDERS: Emergency Provider Emergency Medicine; Family Provider Internal Medicine; PCP Internal Medicine
DX: R10.9 Unspecified abdominal pain (principal)
CPT/HCPCS: 74177; 80053; 81003; 81015; 83690; 85025; 99283; 99284; Q9967

== ENCOUNTER → 2024-09-01 13:24 | Outpatient (CLI) | payer MEDICARE, SELFPAY ==
[2022-10-30 14:01] VITALS: BMI 17.9
[2024-09-01 13:46] LABS: Hematocrit 42.7 % (36-46); Hemoglobin 14.4 g/dL (12.0-16.0); Mean Corpuscular HGB Conc 33.7 % (30-36); Mean Corpuscular Hemoglobin 34.1 PG (26-34); Mean Corpuscular Volume 101.2 fL (80-100); Platelet Count 284 X10^3/uL (150-400); Red Blood Cell Count 4.22 X10^6/uL (4.0-5.2); Red Cell Distribution Width 13.4 % (11.6-14.8); White Blood Cell Count 8.4 X10^3/uL (4.5-11.0)
[2024-09-01 14:02] LABS: Alanine Aminotransferase 17 IU/L (<35); Albumin 4.6 g/dL (3.5-5.0); Alkaline Phosphatase 34 U/L (38-126); Aspartate Aminotransferase 23 IU/L (14-36); BUN Creatinine Ratio 31.3 (6-22); Bilirubin Total 0.7 mg/dL (0.2-1.3); Blood Urea Nitrogen 25 mg/dL (7-17); Calcium 10.2 mg/dL (8.4-10.2); Carbon Dioxide 28 mmol/L (22-32); Chloride 102 mmol/L (98-107); Cholesterol 206 mg/dL (140-199); Estimated Glomerular Filt Rate > 60 mL/min (>60); Globulin 2.3 g/dL (1.7-4.1); Glucose 101 mg/dL (70-99); HDL Cholesterol 95 mg/dL (40-60); HEMOLYSIS < 15 (0-50); LDL Cholesterol Calculated 86 mg/dL (<100); Potassium 4.5 mmol/L (3.4-5.1); Sodium 138 mmol/L (137-145); Total Protein 6.9 g/dL (6.3-8.2); Triglycerides 125 mg/dL (35-150)
== END ==
PROVIDERS: Family Provider Internal Medicine; PCP Internal Medicine; Referring Provider Urology; Visit Provider Urology
DX: E78.2 Mixed hyperlipidemia (principal); I48.0 Paroxysmal atrial fibrillation
CPT/HCPCS: 36415; 80053; 80061; 85027

== ENCOUNTER 2024-09-26 14:17 | Emergency (ER) | payer MEDICARE, SELFPAY ==
[2022-10-30 14:01] VITALS: BMI 17.9
[2024-09-26 14:30] VITALS: BP 146/66; PULSE 60; RESP 18; TEMP 36.4; O2SAT 99; BMI 19.3
--- NOTE | 2024-09-26 15:32 | DI.RAD.S_ITS ---
PROCEDURE: XR ABDOMEN 1V INDICATIONS: Constipation TECHNIQUE: One view of the abdomen acquired. COMPARISON: [facility], CR, XR ABDOMEN 1V, 07/08/2024, 23:38. [facility], CR, XR ABDOMEN 1V, 11/28/2023, 10:55. FINDINGS AND IMPRESSION: Moderate to large colonic fecal loading, without specific radiographic signs for obstruction. Degenerative osseous changes and mild spinal curvature. No suspicious soft tissue calcifications. Dictated by: Minh Hayes M.D. on 09/26/2024 at 15:25 Approved by: Minh Hayes M.D. on 09/26/2024 at 15:25
--- NOTE | 2024-09-26 15:41 | ED.GENADULT ---
HPI - General Adult General Chief complaint: Abdominal Pain Stated complaint: Diff. Eliminating t-1 Time Seen by Provider: 09/26/24 15:19 Source: patient Mode of arrival: Ambulatory History of Present Illness HPI narrative: 73-year-old woman with a history of cognitive impairment, chronic low back pain, hypothyroidism, paroxysmal atrial fibrillation anticoagulated chronic constipation, irritable bowel and multiple bowel complaints with full workup, currently relatively stable on Linzess uses MiraLax and laxatives occasionally. She notes that she had felt that she was constipated 2 days ago used additional MiraLax with a laxative had quite a bit of stool come out now she has not had a bowel movement for 2 days as is concerned that she is constipated. She is not complaining of pain, fever, distention but is quite focused on how her bowels are functioning. Related Data Home Medications ?Medication ?Instructions ?Recorded ?Confirmed cholecalciferol (vitamin D3) 125 125 mcg PO DAILY 10/25/22 09/08/24 mcg (5,000 unit) capsule diltiazem HCl 120 mg 120 mg PO DAILY 10/25/22 09/08/24 capsule,extended release 24 hr flecainide 50 mg tablet 50 mg PO BID 10/25/22 09/08/24 tafluprost (PF) 0.0015 % eye drops 1 drp EYE-BOTH ONCE PM 10/25/22 09/08/24 in a dropperette timolol maleate 0.5 % eye drops 1 drp EYE-BOTH DAILY 10/25/22 09/08/24 acetaminophen 500 mg tablet 1,000 mg PO TID 03/09/24 09/08/24 (Tylenol Extra Strength) Previous Rx's ?Medication ?Instructions ?Recorded apixaban 5 mg tablet (Eliquis) 5 mg PO BID #60 tabs 02/16/21 mirtazapine 15 mg tablet 15 mg PO BEDTIME #30 tabs 04/08/23 linaclotide 72 mcg capsule 72 mcg PO DAILY #30 caps 02/16/24 cyclobenzaprine 5 mg tablet 5 mg PO BEDTIME PRN muscle spasm 03/09/24 #30 tabs denosumab 60 mg/mL subcutaneous 60 mg SUBCUT [id number] #1 mL 03/26/24 syringe (Prolia) amlodipine 2.5 mg tablet 2.5 mg PO DAILY #90 tabs 03/29/24 olmesartan 40 mg tablet 40 mg PO DAILY #90 tabs 04/06/24 donepezil 5 mg tablet 5 mg PO BEDTIME #90 tabs 04/26/24 atorvastatin 10 mg tablet 10 mg PO DAILY #90 tabs 06/28/24 peg 3350-electrolytes 236 240 ml PO Q10M PRN constipation 07/09/24 gram-22.74 gram-6.74 gram-5.86 #4,000 mL gram solution (Golytely) sodium,potassium,mag sulfates 17.5 See Rx Instructions PO .COMPLEX 09/15/24 gram-3.13 gram-1.6 gram oral soln #354 mL (Suprep Bowel Prep Kit) Allergies Allergy/AdvReac Type Severity Reaction Status Date / Time Sulfa (Sulfonamide AdvReac Hives Verified 09/26/24 14:30 Antibiotics) Review of Systems Review of Systems Narrative: Pertinent positive and negative findings as per HPI Patient History Medical History History of UTI Hyponatremia Hydronephrosis History of cardioversion (01/2021) Mouth problem Strain of right knee History of nephrolithiasis Mild cognitive impairment B12 deficiency Renal calculus, left Obstruction of right ureteropelvic junction (UPJ) Right inguinal hernia H/O nephrolithotomy with removal of calculi Osteopenia Rubella Measles Malaria Chicken pox Kidney stones Irritable bowel syndrome Skin cancer (~2011) Melanoma (~2019) Mixed hyperlipidemia Essential hypertension (~2000) Paroxysmal atrial fibrillation (~2021) Slow transit constipation Chronic anticoagulation Surgical History History of tubal ligation History of breast biopsy History of colon surgery Previous back surgery Family History Mother Cancer Hyperlipidemia Father CAD in [place] artery Hypertension Family/Other Bacterial UTI Social History marital status: number of children: 3 household members: spouse lives independently: Yes occupational status: previously employed alcohol intake: current substance use type: does not use Type(s) of exercise: walking frequency: daily Smoking Status: Never smoker alcohol intake frequency: 0-2 drinks per day Alcohol type: wine Exam Initial Vital Signs Initial Vital Signs: Vital Signs Temperature 97.5 F L 09/26/24 14:30 Pulse Rate 60 09/26/24 14:30 Respiratory Rate 18 09/26/24 14:30 Blood Pressure 146/66 H 09/26/24 14:30 Pulse Oximetry 99 09/26/24 14:30 Oxygen Delivery Method Room Air 09/26/24 14:30 General: Alert appropriate in no acute distress Respiratory: Able to speak in full sentences, no obvious respiratory distress Abdomen: Soft, no distention, nontender. Rectal exam shows soft small amount of stool guaiac negative in the rectal vault. No obstruction Skin: No obvious rashes, warm and dry Neurologic: Grossly intact no obvious asymmetries or abnormalities Psych: a it was but cooperative, cooperative Course Orders Ordered: ED Orders 09/26/24 15:32 XR abdomen 1V Stat Vital Signs Vital signs: Vital Signs - 8 hr 09/26/24 14:30 Temperature 97.5 F L Pulse Rate 60 Respiratory Rate 18 Blood Pressure 146/66 H Pulse Oximetry 99 Oxygen Delivery Method Room Air Medical Decision Making [facility] Narrative Medical decision making narrative: 73-year-old woman concerned that she is constipated because he has not had a bowel movement in 2 days. She had a large bowel movement and essentially cleaned her colon out 3 days ago. She isn't having pain, distention, fevers or other concerning signs. Requesting an x-ray to see if she is constipated. X-ray is done and she is not constipated, has a moderate amount of gas throughout the bowels. Findings reviewed with her as well as the fact that her rectal exam was reassuringly normal. At this point she simply does not have enough food that has you had accumulated in her colon to have a bowel movement after the large bowel movement a couple of days ago. Reassurance is given no additional medications prescribed encouraged her to continue her Linzess since it has been working well for her in the setting of IBS and chronic bowel issues. She is safe for discharge Discharge Plan Departure Patient Disposition: Home Clinical Impression: Abdominal pain Qualifiers: Abdominal location: generalized Qualified Code(s): R10.84 - Generalized abdominal pain Instructions: DI for Abdominal Pain-Adult Activity Restrictions/Additional Instructions: Thank you for coming in today Fortunately, I did not find any sign of significant constipation or bowel obstruction on your physical exam are with your x-ray. Had quite a bit of air through your bowels and allowing herself to pass the gas will likely be helpful. Currently there is minimal stool through your colon, the full cleanse that you did a couple of days ago seems to of cleaned out the majority of the stool that was there. You need to eat a bit more for more to accumulate so you can have your next bowel movement. At this time there is no reason for concern. I would continue all of your usual medications If you find that you are getting worse or develop any new symptoms, please feel free to return to the emergency department for further evaluation. Prescriptions: No Action linaclotide 72 mcg capsule 72 mcg PO DAILY Qty: 30 5RF amlodipine 2.5 mg tablet 2.5 mg PO DAILY Qty: 90 3RF olmesartan 40 mg tablet 40 mg PO DAILY Qty: 90 3RF donepezil 5 mg tablet 5 mg PO BEDTIME Qty: 90 3RF atorvastatin 10 mg tablet 10 mg PO DAILY Qty: 90 3RF sodium,potassium,mag sulfates [Suprep Bowel Prep Kit] 17.5-3.13-1.6 gram recon soln See Rx Instructions PO .COMPLEX Qty: 354 0RF Rx Instructions: DILUTE; drink full amount early evening before AND next morning at least 2 hr before procedure; follow w 32 oz. water PO mirtazapine 15 mg tablet 15 mg PO BEDTIME Qty: 30 5RF Prolia 60 mg/mL syringe 60 mg SUBCUT [id number] Qty: 1 1RF acetaminophen [Tylenol Extra Strength] 500 mg tablet 1,000 mg PO TID cyclobenzaprine 5 mg tablet 5 mg PO BEDTIME PRN (Reason: muscle spasm) Qty: 30 0RF flecainide 50 mg tablet 50 mg PO BID diltiazem HCl 120 mg capsule,extended release 24hr 120 mg PO DAILY tafluprost (PF) 0.0015 % dropperette 1 drp EYE-BOTH ONCE PM timolol maleate 0.5 % drops 1 drp EYE-BOTH DAILY cholecalciferol (vitamin D3) 125 mcg (5,000 unit) capsule 125 mcg PO DAILY Eliquis 5 mg tablet 5 mg PO BID Qty: 60 0RF peg 3350-electrolytes [Golytely] 236-22.74-6.74 -5.86 gram recon soln 240 ml PO Q10M PRN (Reason: constipation) Qty: 4000 0RF Rx Instructions: until fecal effluent is clear Referrals: Turner Lindquist MD [Primary Care Provider, Internal Medicine] Stand Alone Forms: Patient Portal/API
[2024-09-26 16:35] VITALS: BP 171/74; PULSE 63; RESP 14; O2SAT 98
== END 2024-09-26 16:40 | disposition home or self-care (01) ==
PROVIDERS: Emergency Provider Emergency Medicine; PCP Internal Medicine
DX: R10.84 Generalized abdominal pain (principal)
CPT/HCPCS: 74018; 99283

== ENCOUNTER → 2024-10-13 14:52 | Outpatient (CLI) | payer MEDICARE, SELFPAY ==
[2022-10-30 14:01] VITALS: BMI 17.9
--- NOTE | 2024-10-13 14:53 | DI.RAD.S_ITS ---
PROCEDURE: XR DEXA AXIAL SKELETON INDICATIONS: osteopenia COMPARISON: [facility], CR, XR ABDOMEN 1V, 09/26/2024, 16:00. FINDINGS: Lumbar Spine: Not evaluated Left Femoral Neck: Bone mineral density 0.570 g/cm2, T score -2.5. Left Hip: Bone mineral density 0.680 g/cm2, T score -2.1. Left Forearm: Bone mineral density 0.668 g/cm2, T score -0.4. Fracture Risk Calculation (when applicable): 10-year fracture risk of a major osteoporotic fracture 14 percent and of a hip fracture 4.7 percent. (T score greater or equal to -1.0 to: NORMAL) (T score from -1.1 to -2.4: OSTEOPENIA) (T score less than or equal to -2.5: OSTEOPOROSIS) IMPRESSION: Osteoporosis. Follow-up guidelines as follows: Osteoporosis: Consider a repeat DEXA and Vertebral Fracture Assessment (VFA) exam in 2 years or sooner if medically necessary, to reassess this patient's status. Osteopenia: Consider a repeat DEXA in 2-3 years to reassess this patient's status, or if there is a new clinical indication. Normal: Consider a repeat DEXA in 5 years or sooner, or if there is a new clinical indication. All treatment decisions require clinical judgment and consideration of individual patient factors, including patient preferences, comorbidities, previous drug use, risk factors not captured in the FRAX model (e.g., frailty, falls, vitamin D deficiency, increased bone turnover, interval significant decline in bone density ) and possible under- or over-estimation of fracture risk by FRAX. In addition, the NOF Guide recommends that FDA-approved medical therapies be considered in postmenopausal women and men age >= 50 years with a: * Hip or vertebral (clinical or morphometric) fracture * T-score of <=-2.5 at the spine or hip * Ten-year fracture probability by FRAX of >= 3% for hip fracture or >=20% for major osteoporotic fracture. Dictated by: Juan Jose Pradhan M.D. on 10/14/2024 at 12:18 Approved by: Juan Jose Pradhan M.D. on 10/14/2024 at 12:20
== END ==
PROVIDERS: PCP Internal Medicine; Referring Provider Internal Medicine; Visit Provider Internal Medicine
DX: M81.0 Age-related osteoporosis without current pathological fracture (principal)
CPT/HCPCS: 77080

== ENCOUNTER 2024-10-16 18:45 | Emergency (ER) | payer MEDICARE, SELFPAY ==
[2022-10-30 14:01] VITALS: BMI 17.9
[2024-10-16 18:53] VITALS: BP 148/68; PULSE 71; O2SAT 99
[2024-10-16 19:00] VITALS: BP 128/63; PULSE 65; O2SAT 100
--- NOTE | 2024-10-16 19:04 | DI.RAD.S_ITS ---
PROCEDURE: XR ABDOMEN 1V INDICATIONS: Left abdominal pain with constipation TECHNIQUE: One view of the abdomen acquired. COMPARISON: [facility], CR, XR ABDOMEN 1V, 09/26/2024, 16:00. [facility], CR, XR ABDOMEN 1V, 07/08/2024, 23:38. FINDINGS: Surgical changes and devices: None. Bowel: Bowel gas pattern is nonspecific without dilated loops of bowel. There is a single short air-fluid level in the right mid abdomen. Stool burden is normal. Soft tissues: No suspicious abdominal calcifications. Visualized solid organ contours appear normal in size. Bones: No suspicious bony lesions. IMPRESSION: Non-specific bowel gas pattern without overt obstruction. Dictated by: Diamante Mcginnis M.D. on 10/16/2024 at 18:35 Approved by: Diamante Mcginnis M.D. on 10/16/2024 at 18:36
[2024-10-16 19:05] VITALS: BP 148/68; PULSE 67; RESP 16; TEMP 36.7; O2SAT 100; BMI 19.1
--- NOTE | 2024-10-16 20:25 | ED.GENADULT ---
HPI - General Adult General Chief complaint: Abdominal Pain Stated complaint: constipation, cramping Time Seen by Provider: 10/16/24 18:45 Source: patient Mode of arrival: Ambulatory History of Present Illness HPI narrative: 73-year-old woman with cognitive decline and increasing focus on bowels, bowel function, constipation and abdominal pain. Was seen for similar complaints on September 26 and August 01. She has had a colonoscopy less than 2 years ago that was entirely unremarkable. She is followed by her primary care physician for her abdominal pain and has an EGD scheduled in the near future. She was concerned that she had not had much of a bowel movement for the last 3 days so she took stool softeners yesterday and this morning and then Dulcolax with senna x2 today. She had a moderate bowel movement followed by a couple of episodes of diarrhea in his complaining that she is having cramping in her left upper quadrant. No fevers, chills no change to medications no other specific concerns. Related Data Home Medications ?Medication ?Instructions ?Recorded ?Confirmed cholecalciferol (vitamin D3) 125 125 mcg PO DAILY 10/25/22 09/08/24 mcg (5,000 unit) capsule diltiazem HCl 120 mg 120 mg PO DAILY 10/25/22 09/08/24 capsule,extended release 24 hr flecainide 50 mg tablet 50 mg PO BID 10/25/22 09/08/24 tafluprost (PF) 0.0015 % eye drops 1 drp EYE-BOTH ONCE PM 10/25/22 09/08/24 in a dropperette timolol maleate 0.5 % eye drops 1 drp EYE-BOTH DAILY 10/25/22 09/08/24 acetaminophen 500 mg tablet 1,000 mg PO TID 03/09/24 09/08/24 (Tylenol Extra Strength) Previous Rx's ?Medication ?Instructions ?Recorded apixaban 5 mg tablet (Eliquis) 5 mg PO BID #60 tabs 02/16/21 mirtazapine 15 mg tablet 15 mg PO BEDTIME #30 tabs 04/08/23 linaclotide 72 mcg capsule 72 mcg PO DAILY #30 caps 02/16/24 cyclobenzaprine 5 mg tablet 5 mg PO BEDTIME PRN muscle spasm 03/09/24 #30 tabs denosumab 60 mg/mL subcutaneous 60 mg SUBCUT [id number] #1 mL 03/26/24 syringe (Prolia) amlodipine 2.5 mg tablet 2.5 mg PO DAILY #90 tabs 03/29/24 olmesartan 40 mg tablet 40 mg PO DAILY #90 tabs 04/06/24 donepezil 5 mg tablet 5 mg PO BEDTIME #90 tabs 04/26/24 atorvastatin 10 mg tablet 10 mg PO DAILY #90 tabs 06/28/24 peg 3350-electrolytes 236 240 ml PO Q10M PRN constipation 07/09/24 gram-22.74 gram-6.74 gram-5.86 #4,000 mL gram solution (Golytely) sodium,potassium,mag sulfates 17.5 See Rx Instructions PO .COMPLEX 09/15/24 gram-3.13 gram-1.6 gram oral soln #354 mL (Suprep Bowel Prep Kit) Allergies Allergy/AdvReac Type Severity Reaction Status Date / Time Sulfa (Sulfonamide AdvReac Hives Verified 09/26/24 14:30 Antibiotics) Review of Systems Review of Systems Narrative: Pertinent positive and negative findings as per HPI Patient History Medical History History of UTI Hyponatremia Hydronephrosis History of cardioversion (01/2021) Mouth problem Strain of right knee History of nephrolithiasis Mild cognitive impairment B12 deficiency Renal calculus, left Obstruction of right ureteropelvic junction (UPJ) Right inguinal hernia H/O nephrolithotomy with removal of calculi Osteopenia Rubella Measles Malaria Chicken pox Kidney stones Irritable bowel syndrome Skin cancer (~2011) Melanoma (~2019) Mixed hyperlipidemia Essential hypertension (~2000) Paroxysmal atrial fibrillation (~2021) Slow transit constipation Chronic anticoagulation Surgical History History of tubal ligation History of breast biopsy History of colon surgery Previous back surgery Family History Mother Cancer Hyperlipidemia Father CAD in [place] artery Hypertension Family/Other Bacterial UTI Social History marital status: number of children: 3 household members: spouse lives independently: Yes occupational status: previously employed alcohol intake: current substance use type: does not use Type(s) of exercise: walking frequency: daily alcohol intake frequency: 0-2 drinks per day Alcohol type: wine Exam Initial Vital Signs Initial Vital Signs: Vital Signs Pulse Rate 71 10/16/24 18:53 Blood Pressure 148/68 H 10/16/24 18:53 Pulse Oximetry 99 10/16/24 18:53 General: Alert appropriate in no acute distress Respiratory: Able to speak in full sentences, no obvious respiratory distress Cardiac: Regular rate and rhythm Abdomen: Soft, normal bowel tones, no rebound, no guarding, no flank pain Skin: No obvious rashes, warm and dry Neurologic: Grossly intact no obvious asymmetries or abnormalities Psych: appropriate insight and affect, cooperative Course Orders Ordered: ED Orders 10/16/24 19:04 XR abdomen 1V Stat Vital Signs Vital signs: Vital Signs - 8 hr 10/16/24 19:05 Temperature 98.1 F Pulse Rate 67 Respiratory Rate 16 Blood Pressure 148/68 H Pulse Oximetry 100 Oxygen Delivery Method Room Air Medical Decision Making [facility] Narrative Medical decision making narrative: 73-year-old woman with history of diarrhea constipation becoming more and more focused on her bowels. Has had appropriate workup looking for significant pathology that all has been benign. Her description of the events, mild constipation, stool softeners, laxatives including senna and then cramping diarrhea all fit with medication induced resolution of her constipation. With shared decision-making we opted to do an x-ray of her abdomen to confirm that there was no obstruction or other life-threatening abnormality. She does have quite a bit of gas in the splenic flexure area which is where she is complaining of the distention. There is no evidence of further pathology that would require hospitalization this time. A picture of her x-ray is shared with both her and her . We talked about not using docusate plus senna, rather just docusate alone to avoid any cramping. She found that MiraLax with something she did not like it and did not want to continue with. At this point she is safe for discharge Discharge Plan Departure Patient Disposition: Home Clinical Impression: Alternating constipation and diarrhea, Abdominal cramping Instructions: DI for Constipation Activity Restrictions/Additional Instructions: Thank you for coming in today The x-ray shows that you have some gas up in the left upper quadrant area which is where you are having the pain. This makes sense. There was no evidence of bowel obstruction and it does look like your stool softeners and laxatives today have gotten rid of the majority of the stool in your colon. I would recommend a regular bowel regimen for you. You said that you did not prefer MiraLax. You certainly can use a does state stool softener. I would prefer that may not use the kind that also has senna. Senna is a laxative and can cause the cramping that you are experiencing. Depending on a laxative to have a bowel movement can end up being problematic. Keeping your stool soft so that you can have a nonpainful bowel movement is a much better option. Please do keep your appointment for your upper endoscopy coming up. If you find that you are getting worse or develop any new symptoms, please feel free to return to the emergency department for further evaluation. Prescriptions: No Action linaclotide 72 mcg capsule 72 mcg PO DAILY Qty: 30 5RF amlodipine 2.5 mg tablet 2.5 mg PO DAILY Qty: 90 3RF olmesartan 40 mg tablet 40 mg PO DAILY Qty: 90 3RF donepezil 5 mg tablet 5 mg PO BEDTIME Qty: 90 3RF atorvastatin 10 mg tablet 10 mg PO DAILY Qty: 90 3RF sodium,potassium,mag sulfates [Suprep Bowel Prep Kit] 17.5-3.13-1.6 gram recon soln See Rx Instructions PO .COMPLEX Qty: 354 0RF Rx Instructions: DILUTE; drink full amount early evening before AND next morning at least 2 hr before procedure; follow w 32 oz. water PO mirtazapine 15 mg tablet 15 mg PO BEDTIME Qty: 30 5RF Prolia 60 mg/mL syringe 60 mg SUBCUT [id number] Qty: 1 1RF acetaminophen [Tylenol Extra Strength] 500 mg tablet 1,000 mg PO TID cyclobenzaprine 5 mg tablet 5 mg PO BEDTIME PRN (Reason: muscle spasm) Qty: 30 0RF flecainide 50 mg tablet 50 mg PO BID diltiazem HCl 120 mg capsule,extended release 24hr 120 mg PO DAILY tafluprost (PF) 0.0015 % dropperette 1 drp EYE-BOTH ONCE PM timolol maleate 0.5 % drops 1 drp EYE-BOTH DAILY cholecalciferol (vitamin D3) 125 mcg (5,000 unit) capsule 125 mcg PO DAILY Eliquis 5 mg tablet 5 mg PO BID Qty: 60 0RF peg 3350-electrolytes [Golytely] 236-22.74-6.74 -5.86 gram recon soln 240 ml PO Q10M PRN (Reason: constipation) Qty: 4000 0RF Rx Instructions: until fecal effluent is clear Referrals: Turner Lindquist MD [Primary Care Provider, Internal Medicine] Stand Alone Forms: Patient Portal/API
== END 2024-10-16 20:42 | disposition home or self-care (01) ==
PROVIDERS: Emergency Provider Emergency Medicine; PCP Internal Medicine
DX: K59.00 Constipation, unspecified (principal); R19.7 Diarrhea, unspecified; R10.9 Unspecified abdominal pain
CPT/HCPCS: 74018; 99281; 99283

== ENCOUNTER 2024-10-22 07:04 | Day surgery (SDC) | payer MEDICARE, SELFPAY ==
[2022-10-30 14:01] VITALS: BMI 17.9
--- NOTE | 2024-10-22 | PATH_ITS ---
[facility] Accession Number: [id number] No. of containers..02 Tissue . 01 Material submitted: . PART A: duodenum - DUODENUM PART B: stomach - ANTRUM . 01 Diagnosis: A. DUODENUM, BIOPSY: Duodenal mucosa with no diagnostic abnormality. Negative for active inflammation, features of sprue, dysplasia, or malignancy. . B. GASTRIC ANTRUM, BIOPSY: Gastric antral mucosa with mild features of reactive gastropathy. Negative for Helicobacter organisms by immunohistochemistry. Negative for intestinal metaplasia. Negative for dysplasia or malignancy. [facility] 11/02/2024 1250 Local . 01 Electronically signed: . Camilo Helton MD, PhD, Pathologist NPI- [id number] . 01 Gross description: . A. Received in formalin with two identifiers and duodenum biopsies, are three camacho soft tissue fragments ranging from 0.3 to 0.4 cm in greatest dimension, entirely submitted in A1. B. Received in formalin with two identifiers and antrum biopsies, are four camacho soft tissue fragments ranging from 0.2 to 0.4 cm in greatest dimension, entirely submitted in B1. ([id number]) /[facility] 10/29/2024 1813 Local . 01 Microscopic: . B. An immunohistochemical stain was performed to evaluate for Helicobacter organisms and is negative. The control stain showed appropriate reactivity. . * This test was developed and the performance characteristics were validated by [facility]. It has not been cleared or approved by the U.S. Food and Drug Administration. . 01 Pathologist provided ICD-10: K29.60 . 01 CPT . 449871, 463135, H99648 Specimen Comment: A courtesy copy of this report has been sent to [phone] Performed at: [address] [facility] [id number] MD Hermes Ledezma MD Phone: [phone]
[2024-10-22 07:34] VITALS: BP 169/70; PULSE 56; RESP 18; TEMP 36.8; O2SAT 100
[2024-10-22] MEDS: LACTATED RINGERS 1,000 ML 42 ML IV (07:59)
--- NOTE | 2024-10-22 08:15 | PM.HP.IH.1 ---
History of Present Illness History of Present Illness Date Patient Seen: 10/22/24 Time Patient Seen: 08:15 Chief complaint: EGD w/poss bx Narrative: Chika is a 73-year-old woman had an abnormal CT scan in July showing thickening in the distal stomach and duodenum. See the office note from August for details. [facility] Medical History (Updated 10/22/24 @ 08:17 by Ashwin Gross MD) Age-related osteoporosis without current pathological fracture History of UTI Hyponatremia Hydronephrosis History of cardioversion (01/2021) Mouth problem Strain of right knee History of nephrolithiasis Mild cognitive impairment B12 deficiency Renal calculus, left Obstruction of right ureteropelvic junction (UPJ) Right inguinal hernia H/O nephrolithotomy with removal of calculi Rubella Measles Malaria Chicken pox Kidney stones Irritable bowel syndrome Skin cancer (~2011) Melanoma (~2019) Mixed hyperlipidemia Essential hypertension (~2000) Paroxysmal atrial fibrillation (~2021) Slow transit constipation Chronic anticoagulation Surgical History History of tubal ligation History of breast biopsy History of colon surgery Previous back surgery Family History Mother Cancer Hyperlipidemia Father CAD in [place] artery Hypertension Family/Other Bacterial UTI Social History marital status: number of children: 3 household members: spouse lives independently: Yes occupational status: previously employed Smoking Status: Never smoker alcohol intake: never substance use type: does not use Type(s) of exercise: walking frequency: daily Meds Home Medications and Allergies Home Medications ?Medication ?Instructions ?Recorded ?Confirmed ?Type apixaban 5 mg tablet (Eliquis) 5 mg PO BID #60 tabs 02/16/21 10/22/24 Rx cholecalciferol (vitamin D3) 125 125 mcg PO DAILY 10/25/22 10/22/24 History mcg (5,000 unit) capsule diltiazem HCl 120 mg 120 mg PO DAILY 10/25/22 10/22/24 History capsule,extended release 24 hr flecainide 50 mg tablet 50 mg PO BID 10/25/22 10/22/24 History tafluprost (PF) 0.0015 % eye drops 1 drp EYE-BOTH ONCE PM 10/25/22 10/22/24 History in a dropperette timolol maleate 0.5 % eye drops 1 drp EYE-BOTH DAILY 10/25/22 10/22/24 History mirtazapine 15 mg tablet 15 mg PO BEDTIME #30 tabs 04/08/23 10/22/24 Rx acetaminophen 500 mg tablet 1,000 mg PO TID 03/09/24 10/22/24 History (Tylenol Extra Strength) cyclobenzaprine 5 mg tablet 5 mg PO BEDTIME PRN muscle spasm 03/09/24 10/22/24 Rx Held on 10/22/24. #30 tabs Instructions: USED FOR AN OLD PROCEDURE denosumab 60 mg/mL subcutaneous 60 mg SUBCUT [id number] #1 mL 03/26/24 10/22/24 Rx syringe (Prolia) amlodipine 2.5 mg tablet 2.5 mg PO DAILY #90 tabs 03/29/24 10/22/24 Rx olmesartan 40 mg tablet 40 mg PO DAILY #90 tabs 04/06/24 10/22/24 Rx donepezil 5 mg tablet 5 mg PO BEDTIME #90 tabs 04/26/24 10/22/24 Rx atorvastatin 10 mg tablet 10 mg PO DAILY #90 tabs 06/28/24 10/22/24 Rx peg 3350-electrolytes 236 240 ml PO Q10M PRN constipation 07/09/24 10/18/24 Rx gram-22.74 gram-6.74 gram-5.86 #4,000 mL gram solution (Golytely) linaclotide 72 mcg capsule 72 mcg PO DAILY #30 caps 10/21/24 10/22/24 Rx Allergies Allergy/AdvReac Type Severity Reaction Status Date / Time Sulfa (Sulfonamide AdvReac Hives Verified 10/22/24 07:25 Antibiotics) Exam Vital Signs (past 8 hours): - 10/22/24 07:34 Temperature 98.3 F Pulse Rate 56 L Respiratory Rate 18 Blood Pressure 169/70 H Pulse Oximetry 100 Oxygen Delivery Method Room Air Oxygen Delivery Method Room Air Const General: healthy appearing Assessment & Plan Assessment and plan (1) Abnormal CT scan, gastrointestinal tract: Status: Acute Plan Esophagogastroduodenoscopy Time-Based Coding :: [TOTAL MINUTES] spent with patient and on the chart (including review of chart, obtaining history, exam, reviewing outside data, placing orders, documenting exam and treatment plan, and counseling patient) on [DATE]. [employer] Document charge(s): No
--- NOTE | 2024-10-22 08:24 | SUR.OPER ---
Endoscope 809
[2024-10-22 08:37] VITALS: BP 122/57; PULSE 47; RESP 16; TEMP 36.9; O2SAT 99
--- NOTE | 2024-10-22 08:41 | PM.OP.EGD ---
Operative Date/Time/Diagnoses Date of procedure: 10/22/24 Time of procedure: 08:42 Pre-op diagnosis: Abnormal CT scan of the gastrointestinal tract Post-op diagnosis: same Procedure & Clinicians Study performed: Esophagogastroduodenoscopy Same procedure(s) as scheduled: Yes Surgeon: Ashwin Gross Anesthesia Type: MAC +/- Procedure Notes Procedure in detail: Surgeon: Ashwin Gross MD Anesthesia: Mary Dumont MARKETING AND DEVELOPMENT COORDINATOR A timeout was performed. A bite blocked was placed. The patient was positioned in the left lateral decubitus position. Anesthesia was administered. The endoscope was inserted through the bite block and passed through the esophagus and stomach and into the duodenum. The duodenal mucosa appeared normal. Random biopsies were taken with the cold forceps. The scope was withdrawn into the duodenal bulb and no abnormalities were seen.. The scope was withdrawn into the stomach. There were no gross abnormalities within the stomach. Random biopsies were taken of the antrum with cold forceps. The scope was retroflexed and no significant hiatal hernia was seen. The scope was withdrawn into the esophagus and no obvious abnormalities were found. The remainder of the esophagus was normal. The scope was withdrawn. The patient was awakened and brought to recovery. Sedation time: 7 minutes Findings: Grossly normal esophagus, stomach and duodenum Post-procedure Disposition: PACU
[2024-10-22 08:42] VITALS: BP 122/59; PULSE 53; RESP 18; O2SAT 99
[2024-10-22 08:57] VITALS: BP 133/59; PULSE 53; RESP 19; TEMP 36.9; O2SAT 99
== END 2024-10-22 09:06 | disposition home or self-care (01) ==
PROVIDERS: PCP Internal Medicine; Referring Provider Surgery; Visit Provider Surgery
PROC: 0DJ08ZZ Inspection of Upper Intestinal Tract, Via Natural or Artificial Opening Endoscopic (ICD-10-PCS; CPT 43239; principal; 2024-10-22 08:15)
DX: R93.5 Abnormal findings on diagnostic imaging of other abdominal regions, including retroperitoneum (principal); K31.89 Other diseases of stomach and duodenum
CPT/HCPCS: 43239; J2704

== ENCOUNTER 2024-10-24 07:02 | Emergency (ER) | payer MEDICARE, SELFPAY ==
[2022-10-30 14:01] VITALS: BMI 17.9
[2024-10-24] VITALS (12 sets, daily range): BP systolic 133–179; BP diastolic 65–82; PULSE 46–63; RESP 16–47; TEMP 36.4; O2SAT 95–98; BMI 18.7
--- NOTE | 2024-10-24 07:47 | DI.CT.S_ITS ---
PROCEDURE: CT ABDOMEN PELVIS W CON INDICATIONS: Epigastric pain, left upper quadrant pain. EGD on 10/22/2024 TECHNIQUE: After the administration of intravenous contrast, axial sections acquired from the lung bases to the pubic symphysis. Coronal and sagittal reformats were performed. For radiation dose reduction, the following was used: automated exposure control, adjustment of mA and/or kV according to patient size. COMPARISON: [facility], CT, CT ABDOMEN PELVIS W CON, 07/16/2022, 10:51. [facility], CT, CT ABDOMEN PELVIS W CON, 08/01/2024, 8:40. FINDINGS: Image quality: Diagnostic. Lower Chest: No significant findings. ABDOMEN: Liver: No solid mass. Gallbladder: No radiopaque gallstones or wall thickening. Biliary ducts: No biliary dilation. Pancreas: No ductal dilation. Spleen: Size is within normal limits. Adrenal Glands: No adrenal nodules. Kidneys and Ureters: Moderate bilateral hydronephrosis is similar prior exam. There is bladder wall thickening which is somewhat irregular, particularly at the right ureteral vesicle trigone. No calculi appreciated. Finding is overall stable from the prior exam 07/16/2022 Stomach and Bowel: There is smooth thickening of the gastric antrum again noted which appears slightly increased from the prior exam. Free fluid adjacent to the anterior abdominal wall mom also appears slightly heterogenous. Peritoneum: No abnormal intraperitoneal fluid. No free air. Ventral Wall: No significant ventral hernia. Abdominal Nodes: No retroperitoneal or mesenteric adenopathy by size criteria. Vessels: Aorta and inferior vena cava are normal in size. PELVIS: Pelvic Organs: Unremarkable. Bladder: No bladder wall thickening, accounting for underdistention. Pelvic Nodes: No enlarged lymph nodes. Miscellaneous: No inguinal hernias are seen. Bones: Disc space narrowing and hypertrophic facet joints noted particularly in the lower lumbar spine with grade 1 anterior spondylolisthesis L4-5. IMPRESSION: Abdominal free fluid adjacent to the ventral abdominal wall somewhat heterogenous but new the prior exams. Uncertain etiology, but should be followed to resolution with ultrasound to exclude carcinomatosis. Stable gastric antral smooth bowel wall thickening. No free air or evidence of bowel perforation. Moderate bilateral hydronephrosis, stable from the prior Approved by: Kyaw Christina M.D. on 10/24/2024 at 8:27
--- NOTE | 2024-10-24 07:48 | DI.RAD.S_ITS ---
PROCEDURE: XR CHEST 1V INDICATIONS: Epigastric pain TECHNIQUE: One view of the chest was acquired. COMPARISON: [facility], CT, CT ABDOMEN PELVIS W CON, 10/24/2024, 7:51. [facility], CR, XR CHEST 1V, 01/18/2023, 3:27. [facility], CR, XR CHEST 1V, 02/16/2021, 1:39. FINDINGS: Surgical changes and devices: None. Lungs and pleura: Lungs appear clear. No pleural effusions or pneumothorax. Mediastinum: Mediastinal contours appear unchanged. Heart size is unchanged. Bones and chest wall: No suspicious bony lesions. Overlying soft tissues appear unremarkable. IMPRESSION: No acute cardiopulmonary abnormality is seen. Dictated by: Deejay Grey M.D. on 10/24/2024 at 8:37 Approved by: Deejay Grey M.D. on 10/24/2024 at 8:38
--- NOTE | 2024-10-24 07:49 | ED.ABDPAIN ---
HPI - Abdominal Pain General Chief Complaint: Abdominal Pain Stated Complaint: GI Problems Time Seen by Provider: 10/24/24 07:09 Source: patient Mode of arrival: Ambulatory History of Present Illness HPI narrative: 73 years old female with history of hypertension, dyslipidemia, atrial fibrillation on Eliquis came in today complaining of epigastric pain, left upper quadrant pain for the last 2 days with constipation. She reported pain 6/10 in severity as cramping. She recently had EGD done because of abnormal CT scan showed thickening of the duodenum and stomach. The EGD was done on 10/22/2024 showed normal esophagus, stomach and duodenum status post random biopsy. She denied any chest pain, shortness of breath, fever, nausea vomiting, diarrhea, urine problem, dysuria, urgency, frequency urination, blood in the urine, melena, black stool, blood in the stool, vaginal discharge, vaginal bleeding, back pain. She has been passing gas. Related Data Home Medications ?Medication ?Instructions ?Recorded ?Confirmed cholecalciferol (vitamin D3) 125 125 mcg PO DAILY 10/25/22 10/22/24 mcg (5,000 unit) capsule diltiazem HCl 120 mg 120 mg PO DAILY 10/25/22 10/22/24 capsule,extended release 24 hr flecainide 50 mg tablet 50 mg PO BID 10/25/22 10/22/24 tafluprost (PF) 0.0015 % eye drops 1 drp EYE-BOTH ONCE PM 10/25/22 10/22/24 in a dropperette timolol maleate 0.5 % eye drops 1 drp EYE-BOTH DAILY 10/25/22 10/22/24 acetaminophen 500 mg tablet 1,000 mg PO TID 03/09/24 10/22/24 (Tylenol Extra Strength) Previous Rx's ?Medication ?Instructions ?Recorded apixaban 5 mg tablet (Eliquis) 5 mg PO BID #60 tabs 02/16/21 mirtazapine 15 mg tablet 15 mg PO BEDTIME #30 tabs 04/08/23 cyclobenzaprine 5 mg tablet 5 mg PO BEDTIME PRN muscle spasm 03/09/24 #30 tabs denosumab 60 mg/mL subcutaneous 60 mg SUBCUT [id number] #1 mL 03/26/24 syringe (Prolia) amlodipine 2.5 mg tablet 2.5 mg PO DAILY #90 tabs 03/29/24 olmesartan 40 mg tablet 40 mg PO DAILY #90 tabs 04/06/24 donepezil 5 mg tablet 5 mg PO BEDTIME #90 tabs 04/26/24 atorvastatin 10 mg tablet 10 mg PO DAILY #90 tabs 06/28/24 peg 3350-electrolytes 236 240 ml PO Q10M PRN constipation 07/09/24 gram-22.74 gram-6.74 gram-5.86 #4,000 mL gram solution (Golytely) linaclotide 72 mcg capsule 72 mcg PO DAILY #30 caps 10/25/24 Allergies Allergy/AdvReac Type Severity Reaction Status Date / Time Sulfa (Sulfonamide AdvReac Hives Verified 10/24/24 18:16 Antibiotics) Review of Systems Review of Systems Narrative: Positive for epigastric pain, left upper quadrant pain. Negative for chest pain, shortness of breath, fever, nausea vomiting, diarrhea, urine problem, dysuria, urgency, frequency urination, blood in the urine, melena, black stool, blood in the stool, vaginal discharge, vaginal bleeding, back pain. Patient History Medical History (Updated 10/24/24 @ 21:42 by Arcelia Altman RN) Age-related osteoporosis without current pathological fracture History of UTI Hyponatremia Hydronephrosis History of cardioversion (01/2021) Mouth problem Strain of right knee History of nephrolithiasis Mild cognitive impairment B12 deficiency Renal calculus, left Obstruction of right ureteropelvic junction (UPJ) Right inguinal hernia H/O nephrolithotomy with removal of calculi Rubella Measles Malaria Chicken pox Kidney stones Irritable bowel syndrome Skin cancer (~2011) Melanoma (~2019) Mixed hyperlipidemia Essential hypertension (~2000) Paroxysmal atrial fibrillation (~2021) Slow transit constipation Chronic anticoagulation Surgical History History of tubal ligation History of breast biopsy History of colon surgery Previous back surgery Family History Mother Cancer Hyperlipidemia Father CAD in upper [place] artery Hypertension Family/Other Bacterial UTI Social History marital status: number of children: 3 household members: spouse lives independently: Yes occupational status: previously employed alcohol intake: never substance use type: does not use Type(s) of exercise: walking frequency: daily Smoking Status: Never smoker alcohol intake frequency: 0-2 drinks per day Alcohol type: wine Exam Initial Vital Signs Initial Vital Signs: Vital Signs Pulse Rate 63 10/24/24 07:19 Respiratory Rate 18 10/24/24 07:19 Pulse Oximetry 95 10/24/24 07:19 Const General: cooperative, well developed and No acute distress Resp Other: Clear to auscultation bilaterally without wheezing or rhonchi or rales. No respiratory distress. Cardio Other: Normal S1-S2 without murmur. Regular rhythm. Bradycardia. GI Inspection: normal to inspection, no abdominal wall ecchymosis, no edema and non-distended Other: Soft. Mild tenderness on palpation epigastrium and left upper quadrant without guarding or rebound tenderness no distention. Active bowel sounds. Skin General: no rashes or lesions noted Neuro Other: Alert oriented x3. Answering questions appropriately. Moves all extremities. Extrem Other: No edema on both legs. Course Course Course Narrative: I reviewed the chest x-ray portable independently showed no acute finding. Additional Information: Discussed the case with another radiologist on-call for CT scan abdomen and pelvis suggested could be omental stranding at the ventral abdominal wall instead of free fluid. Orders Ordered: ED Orders 10/24/24 07:46 Complete Blood Count AUTO DIFF Stat Comprehensive Metabolic Panel Stat Lipase Stat EKG-12 Lead Stat 10/24/24 07:47 CT abdomen pelvis w con Stat 10/24/24 07:48 CXR [XR chest 1V] Stat Troponin I Stat Vital Signs Vital signs: Vital Signs - 8 hr 10/24/24 07:34 Temperature 97.6 F Pulse Rate 56 L Respiratory Rate 16 Blood Pressure 145/71 H Pulse Oximetry 96 Oxygen Delivery Method Room Air MDM - Abdominal Pain Lab Data 10/24/24 08:21 10/24/24 08:21 Labs: Lab Results 10/24/24 Range/Units 08:21 WBC 7.9 (4.5-11.0) X10^3/uL RBC 3.84 L (4.0-5.2) X10^6/uL Hgb 13.2 (12.0-16.0) g/dL Hct 38.3 (36-46) % MCV 99.5 (80-100) fL MCH 34.4 H (26-34) PG MCHC 34.6 (30-36) % RDW 13.0 (11.6-14.8) % Plt Count 244 (150-400) X10^3/uL Neut % (Auto) 72.4 (50-75) % Lymph % (Auto) 17.0 L (25-40) % [place] % (Auto) 9.1 (3-14) % Eos % (Auto) 0.5 L (2-4) % Baso % (Auto) 1.0 (0-2) % Neut # (Auto) 5700 (1901-8064) /uL Lymph # (Auto) 1300 (5157-2012) /uL [place] # (Auto) 700 (0-900) /uL Eos # (Auto) 0 (0-450) /uL Baso # (Auto) 100 (0-100) /uL Sodium 137 (137-145) mmol/L Potassium 4.3 (3.4-5.1) mmol/L Chloride 106 (98-107) mmol/L Carbon Dioxide 25 (22-32) mmol/L BUN 11 (7-17) mg/dL Creatinine 0.67 (0.52-1.04) mg/dL Estimated GFR > 60 (>60) mL/min BUN/Creatinine Ratio 16.4 (6-22) Glucose 99 (70-99) mg/dL Calcium 9.2 (8.4-10.2) mg/dL Total Bilirubin 0.4 (0.2-1.3) mg/dL AST 23 (14-36) IU/L ALT 19 (<35) IU/L Alkaline Phosphatase 34 L (38-126) U/L Troponin I < 0.012 (0.01-0.034) ng/mL Total Protein 6.4 (6.3-8.2) g/dL Albumin 4.2 (3.5-5.0) g/dL Globulin 2.2 (1.7-4.1) g/dL Albumin/Globulin Ratio 1.9 (1.0-2.8) Lipase 177 (23-300) U/L Point of care testing: Urine Dip Bedside Urine Glucose Negative Bedside Urine Bilirubin - Negative Bedside Urine Ketone - Negative Urine Specific [place] 1.005 Bedside Urine Occult Blood - Negative Bedside Urine pH 8.0 Bedside Urine Protein - Negative Bedside Urine Urobilinogen - Negative Bedside Urine Nitrite - Negative Bedside Urine Leukocytes - Negative Esterase Imaging Data Chest x-ray: Radiologist's Impression: PROCEDURE: XR CHEST 1V INDICATIONS: Epigastric pain TECHNIQUE: One view of the chest was acquired. COMPARISON: [facility], CT, CT ABDOMEN PELVIS W CON, 10/24/2024, 7:51. [facility], CR, XR CHEST 1V, 01/18/2023, 3:27. [facility], CR, XR CHEST 1V, 02/16/2021, 1:39. FINDINGS: Surgical changes and devices: None. Lungs and pleura: Lungs appear clear. No pleural effusions or pneumothorax. Mediastinum: Mediastinal contours appear unchanged. Heart size is unchanged. Bones and chest wall: No suspicious bony lesions. Overlying soft tissues appear unremarkable. IMPRESSION: No acute cardiopulmonary abnormality is seen. CT scan - abdomen/pelvis: Radiologist's Impression: PROCEDURE: CT ABDOMEN PELVIS W CON INDICATIONS: Epigastric pain, left upper quadrant pain. EGD on 10/22/2024 TECHNIQUE: After the administration of intravenous contrast, axial sections acquired from the lung bases to the pubic symphysis. Coronal and sagittal reformats were performed. For radiation dose reduction, the following was used: automated exposure control, adjustment of mA and/or kV according to patient size. COMPARISON: [facility], CT, CT ABDOMEN PELVIS W CON, 07/16/2022, 10:51. [facility], CT, CT ABDOMEN PELVIS W CON, 08/01/2024, 8:40. FINDINGS: Image quality: Diagnostic. Lower Chest: No significant findings. ABDOMEN: Liver: No solid mass. Gallbladder: No radiopaque gallstones or wall thickening. Biliary ducts: No biliary dilation. Pancreas: No ductal dilation. Spleen: Size is within normal limits. Adrenal Glands: No adrenal nodules. Kidneys and Ureters: Moderate bilateral hydronephrosis is similar prior exam. There is bladder wall thickening which is somewhat irregular, particularly at the right ureteral vesicle trigone. No calculi appreciated. Finding is overall stable from the prior exam 07/16/2022 Stomach and Bowel: There is smooth thickening of the gastric antrum again noted which appears slightly increased from the prior exam. Free fluid adjacent to the anterior abdominal wall mom also appears slightly heterogenous. Peritoneum: No abnormal intraperitoneal fluid. No free air. Ventral Wall: No significant ventral hernia. Abdominal Nodes: No retroperitoneal or mesenteric adenopathy by size criteria. Vessels: Aorta and inferior vena cava are normal in size. PELVIS: Pelvic Organs: Unremarkable. Bladder: No bladder wall thickening, accounting for underdistention. Pelvic Nodes: No enlarged lymph nodes. Miscellaneous: No inguinal hernias are seen. Bones: Disc space narrowing and hypertrophic facet joints noted particularly in the lower lumbar spine with grade 1 anterior spondylolisthesis L4-5. IMPRESSION: Abdominal free fluid adjacent to the ventral abdominal wall somewhat heterogenous but new the prior exams. Uncertain etiology, but should be followed to resolution with ultrasound to exclude carcinomatosis. Stable gastric antral smooth bowel wall thickening. No free air or evidence of bowel perforation. Moderate bilateral hydronephrosis, stable from the prior Approved by: Kyaw Christina M.D. on 10/24/2024 at 8:27 ECG Data Interpretation: EKG shows sinus bradycardia at 47 beats per minute without ischemic ST-T changes. Normal axis. MDM Narrative Medical decision making narrative: 73 years old female with history of hypertension, atrial fibrillation on Eliquis presented with epigastric pain, left upper quadrant pain for 2 days after EGD and biopsy done on 10/22/2024 without melena, blood in the stool, nausea vomiting, chest pain, shortness of breath. Her CV exam, lung exam were normal. Abdominal exam showed mild tenderness on palpation left upper quadrant without guarding or rebound tenderness or distention. Her CBC showed no leukocytosis and hemoglobin was 13.2. Her CMP and troponin were normal. Her lipase was normal. Her chest x-ray showed no acute. Moderate bilateral hydroureteronephrosis finding. Her CT scan abdomen and pelvis showed abdominal free fluid adjacent to ventral abdominal wall otherwise stable gastric antral smooth bowel wall thickening without free air or evidence of the bowel perforation, no changes moderate bilateral hydronephrosis. Her UA was normal. After discussion with another radiologist on-call who thinking about the free air could be omental fat pad stranding instead of free fluid unknown etiology. Asked the patient to set up primary care doctor and refinery operator helper crude unit to follow up outpatient. She will continue full liquid diet for the next 24 hours and slowly advanced her diet as tolerated. I discussed the case with her primary care doctor, the patient has been and the patient about the finding on the CT scan abdomen and pelvis and the patient will follow up with her PCP in the clinic for further follow up. Discharge Plan Departure Patient Disposition: Home Clinical Impression: Abdominal pain, LUQ Instructions: DI for Abdominal Pain-Adult Activity Restrictions/Additional Instructions: Please set up an appointment and to follow up with your primary care doctor and your refinery operator helper crude unit in the next 1 week. Please come back to the emergency room if any worsening symptoms including but not limited to worsening pain, fever, nausea vomiting, chest pain, shortness of breath. Please continue Prilosec 20 mg daily for the next 10 days. Prescriptions: No Action amlodipine 2.5 mg tablet 2.5 mg PO DAILY Qty: 90 3RF olmesartan 40 mg tablet 40 mg PO DAILY Qty: 90 3RF donepezil 5 mg tablet 5 mg PO BEDTIME Qty: 90 3RF atorvastatin 10 mg tablet 10 mg PO DAILY Qty: 90 3RF linaclotide 72 mcg capsule 72 mcg PO DAILY Qty: 30 5RF mirtazapine 15 mg tablet 15 mg PO BEDTIME Qty: 30 5RF Prolia 60 mg/mL syringe 60 mg SUBCUT [id number] Qty: 1 1RF acetaminophen [Tylenol Extra Strength] 500 mg tablet 1,000 mg PO TID cyclobenzaprine 5 mg tablet 5 mg PO BEDTIME PRN (Reason: muscle spasm) Qty: 30 0RF flecainide 50 mg tablet 50 mg PO BID diltiazem HCl 120 mg capsule,extended release 24hr 120 mg PO DAILY tafluprost (PF) 0.0015 % dropperette 1 drp EYE-BOTH ONCE PM timolol maleate 0.5 % drops 1 drp EYE-BOTH DAILY cholecalciferol (vitamin D3) 125 mcg (5,000 unit) capsule 125 mcg PO DAILY Eliquis 5 mg tablet 5 mg PO BID Qty: 60 0RF peg 3350-electrolytes [Golytely] 236-22.74-6.74 -5.86 gram recon soln 240 ml PO Q10M PRN (Reason: constipation) Qty: 4000 0RF Rx Instructions: until fecal effluent is clear Referrals: Turner Lindquist MD [Primary Care Provider, Internal Medicine] Stand Alone Forms: Patient Portal/API
--- NOTE | 2024-10-24 07:55 | EKG_ITS ---
[address] [address] Test Date: 2024-10-24 Pat Name: Chika Ortiz Department: Room: Gender: Female [employer] Justice: YOANDY : 1950 Requested By: Order Number: [id number] Reading MD: Zaid Porter Measurements Intervals [place] Rate: 47 P: 52 WI: 178 QRS: 29 QRSD: 96 T: 58 QT: 472 QTc: 417 Interpretive Statements Sinus bradycardia Electronically Signed On 11-05-2024 8:18:47 PDT by Zaid Porter
[2024-10-24 08:28] LABS: Add Manual Diff / Slide Review NO; Hematocrit 38.3 % (36-46); Hemoglobin 13.2 g/dL (12.0-16.0); Lymphocytes Absolute Auto 1300 /uL (1100-4500); Mean Corpuscular HGB Conc 34.6 % (30-36); Mean Corpuscular Hemoglobin 34.4 PG (26-34); Mean Corpuscular Volume 99.5 fL (80-100); Platelet Count 244 X10^3/uL (150-400)
[2024-10-24 08:40] LABS: Alanine Aminotransferase 19 IU/L (<35); Albumin 4.2 g/dL (3.5-5.0); Albumin Globulin Ratio 1.9 (1.0-2.8); Alkaline Phosphatase 34 U/L (38-126); Blood Urea Nitrogen 11 mg/dL (7-17); Calcium 9.2 mg/dL (8.4-10.2); Carbon Dioxide 25 mmol/L (22-32); Chloride 106 mmol/L (98-107); Estimated Glomerular Filt Rate > 60 mL/min (>60); Globulin 2.2 g/dL (1.7-4.1); Glucose 99 mg/dL (70-99); HEMOLYSIS < 15 (0-50); Lipase 177 U/L (23-300); Potassium 4.3 mmol/L (3.4-5.1); Sodium 137 mmol/L (137-145); Total Protein 6.4 g/dL (6.3-8.2)
[2024-10-24 08:52] LABS: Troponin I < 0.012 ng/mL (0.01-0.034)
== END 2024-10-24 11:47 | disposition home or self-care (01) ==
PROVIDERS: Emergency Provider Emergency Medicine; PCP Internal Medicine
DX: R10.12 Left upper quadrant pain (principal); R10.13 Epigastric pain; Z79.01 Long term (current) use of anticoagulants
CPT/HCPCS: 36415; 71045; 74177; 80053; 81003; 83690; 84484; 85025; 93005; 99281; 99283; 99284; Q9967

== ENCOUNTER 2024-10-24 18:10 | Emergency (ER) | payer MEDICARE, SELFPAY ==
[2022-10-30 14:01] VITALS: BMI 17.9
[2024-10-24 18:16] VITALS: BP 125/60; PULSE 70; RESP 18; TEMP 36.9; O2SAT 99; BMI 18.5
[2024-10-24 20:20] VITALS: BP 136/81; PULSE 79; RESP 18; O2SAT 96
--- NOTE | 2024-10-24 21:41 | PC.NURSE ---
Patient requesting to leave, stating it's getting too late. Educated on risk vs benefit.
== END 2024-10-24 21:42 | disposition left against medical advice (07) ==
PROVIDERS: Emergency Provider Emergency Medicine; PCP Internal Medicine

== ENCOUNTER 2024-11-05 08:30 | Day surgery (SDC) | payer MEDICARE, SELFPAY ==
[2022-10-30 14:01] VITALS: BMI 17.9
[2024-11-01 09:17] VITALS: BMI 18.1
[2024-11-05] VITALS (9 sets, daily range): BP systolic 131–169; BP diastolic 63–73; PULSE 45–68; RESP 15–16; TEMP 36.2–36.8; O2SAT 97–100; BMI 18.8
--- NOTE | 2024-11-05 | PATH_ITS ---
Note [facility] Accession Number: [id number] TESTS RESULT FLAG UNITS REF RANGE LAB Clinician Provided Cytology Information No. of containers..01 Other (Miscellaneous) Source: PERITONEAL FLUID DIAGNOSIS: PERITONEAL FLUID INCONCLUSIVE. RARE ATYPICAL CELLS; INSUFFICIENT ATYPICAL CELLULAR VOLUME FOR ANCILLARY STUDIES. THIS INTERPRETATION INCLUDES EVALUATION OF A CELL BLOCK. Pathologist ICD10: 01 R93.3 Signed out by: Yuridia Lara MD, Pathologist NPI- [id number] Performed by: Shubham Day, Narcotics Detective ([facility]) Gross description: 6 CC, YELLOW, CLEAR RECEIVED: FRESH IN BLUE CAP CONTAINER.VO /VDU 11/08/2024 1119 Local FLAG LEGEND: L-Low Normal,H-High Normal,LL-Alert Low,HH-Alert High <-Panic Low,>-Panic High,A-Abnormal,AA-Critical Abnormal Performed at: 01 =Z [facility] [address] [facility], [place] [address] Hermes Ledezma MD, Performed at: 01 [facility] [place] [address], [place], [place] [id number] MD Hermes Ledezma MD Phone: [phone]
--- NOTE | 2024-11-05 09:38 | PM.PREOP ---
Pre-operative Note COVID-19 COVID-19 status: Not tested Interval Note History & Physical reviewed/Exam performed by Physician: Yes Changes to H&P: No ASA Class (for procedural sedation): II
[2024-11-05] MEDS: LACTATED RINGERS 1,000 ML 42 ML IV (09:45)
--- NOTE | 2024-11-05 10:43 | SUR.OPER ---
Supine on padded OR bed, head on pillow, arms padded with gel pad and tucked at sides, legs uncrossed, safety belt at thigh, tape over blanket over lower legs .
[2024-11-05] MEDS: BUPIVACAINE 0.5% W/ EPI (PF) 30 ML VIAL INJ (10:49)
--- NOTE | 2024-11-05 11:00 | P.OP_ITS ---
Operative Date/Time/Diagnoses Date of procedure: 11/05/24 Time of procedure: 11:00 Pre-op diagnosis: Abnormal imaging Post-op diagnosis: same Procedure & Clinicians Procedure: Diagnostic laparoscopy Same procedure(s) as scheduled: Yes Surgeon: Ashwin Gross Service Advocate Contact: Flynn Ruth Anesthesia Type: General Operative Notes Findings: A small amount of free fluid in the pelvis Applied: none Estimated Blood Loss (mL): 3 Procedure in detail: The patient was brought to the operating room and general endotracheal anesthesia was induced. The abdomen was prepped and draped in the usual fashion and a time-out was performed. We made a 6 cm curvilinear infraumbilical incision. The umbilical stalk was grasped with a [place] clamp. We dissected down to the anterior sheath and scored the anterior sheath in the midline. A peon clamp was inserted and used to elkins the peritoneal cavity. A 5 mm trocar was inserted. The abdomen was insufflated to 15 mmHg. The camera was inserted and no evidence of injury was noted. Next a 5 mm port was placed in the right lower quadrant. The abdomen was inspected. There were no lesions visible on the liver. There was no evidence of peritoneal studding or omental caking. The bowel appeared normal. The patient was positioned in Trendelenburg in the pelvis was evaluated. There was a small amount of free fluid in the deep pelvis which was aspirated and sent to pathology. There were no masses noted. Finally the right lower quadrant 5 mm port was removed under direct vision. The umbilical port was removed. The fascia was closed with 2 interrupted 0 Vicryl sutures. Skin was closed with 4-0 Monocryl and Steri-Strips. Specimen: Pelvic fluid Complications: none Post-operative Condition: stable Disposition: PACU
[2024-11-05] MEDS: ACETAMINOPHEN IV 1,000 MG/100 ML VIAL 400 MG IV (11:58)
== END 2024-11-05 13:38 | disposition home or self-care (01) ==
PROVIDERS: PCP Internal Medicine; Referring Provider Surgery; Visit Provider Surgery
PROC: (CPT 49320; principal; 2024-11-05 10:30)
DX: R93.3 Abnormal findings on diagnostic imaging of other parts of digestive tract (principal); R18.8 Other ascites
CPT/HCPCS: 49322; A9270; J0131; J1100; J2405; J2704; J3010

== ENCOUNTER 2024-12-28 19:40 | Emergency (ER) | payer MEDICARE, SELFPAY ==
[2024-11-17 09:00] VITALS: BMI 17.9
[2024-12-28 19:47] VITALS: BP 193/77; PULSE 63; RESP 18; TEMP 36.4; O2SAT 100; BMI 18.3
--- NOTE | 2024-12-28 20:02 | EKG_ITS ---
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
[2024-12-28 20:26] VITALS: PULSE 56; O2SAT 96
[2024-12-28 20:27] VITALS: BP 136/65; PULSE 59; O2SAT 96
[2024-12-28 20:30] VITALS: BP 143/68; PULSE 55; RESP 25; O2SAT 96
[2024-12-28 20:31] LABS: Add Manual Diff / Slide Review NO; Hematocrit 42.7 % (36-46); Hemoglobin 14.4 g/dL (12.0-16.0); Lymphocytes Absolute Auto 1200 /uL (1100-4500); Mean Corpuscular HGB Conc 33.8 % (30-36); Mean Corpuscular Hemoglobin 33.3 PG (26-34); Mean Corpuscular Volume 98.6 fL (80-100); Platelet Count 250 X10^3/uL (150-400)
[2024-12-28 20:35] LABS: Alanine Aminotransferase 19 IU/L (<35); Albumin 4.6 g/dL (3.5-5.0); Albumin Globulin Ratio 1.8 (1.0-2.8); Alkaline Phosphatase 33 U/L (38-126); Blood Urea Nitrogen 25 mg/dL (7-17); Calcium 10.1 mg/dL (8.4-10.2); Carbon Dioxide 32 mmol/L (22-32); Chloride 101 mmol/L (98-107); Estimated Glomerular Filt Rate > 60 mL/min (>60); Globulin 2.6 g/dL (1.7-4.1); Glucose 102 mg/dL (70-99); HEMOLYSIS 30 (0-50); Lipase 223 U/L (23-300); Potassium 3.9 mmol/L (3.4-5.1); Sodium 138 mmol/L (137-145); Total Protein 7.2 g/dL (6.3-8.2)
--- NOTE | 2024-12-28 20:59 | ED.ABDPAIN ---
HPI - Abdominal Pain General Chief Complaint: Abdominal Pain Stated Complaint: Chronic GI Distress Time Seen by Provider: 12/28/24 20:59 Source: patient Mode of arrival: Ambulatory History of Present Illness HPI narrative: 74-year-old female patient with a history of hypertension, dyslipidemia, anticoagulation and chronic abdominal/gastrointestinal problems including irritable bowel syndrome who complains of loose stools, nausea and middle abdominal discomfort over the last 2 or 3 days. She went on an RV trip and thought she was dehydrated so took stool softeners and Gas-X for bloating and constipation. Patient feels better now with no pain. Related Data Home Medications ?Medication ?Instructions ?Recorded ?Confirmed cholecalciferol (vitamin D3) 125 125 mcg PO DAILY 10/25/22 11/30/24 mcg (5,000 unit) capsule diltiazem HCl 120 mg 120 mg PO DAILY 10/25/22 11/30/24 capsule,extended release 24 hr flecainide 50 mg tablet 50 mg PO BID 10/25/22 11/30/24 tafluprost (PF) 0.0015 % eye drops 1 drp EYE-BOTH ONCE PM 10/25/22 11/30/24 in a dropperette timolol maleate 0.5 % eye drops 1 drp EYE-BOTH DAILY 10/25/22 11/30/24 acetaminophen 500 mg tablet 1,000 mg PO TID 03/09/24 11/30/24 (Tylenol Extra Strength) Previous Rx's ?Medication ?Instructions ?Recorded apixaban 5 mg tablet (Eliquis) 5 mg PO BID #60 tabs 02/16/21 mirtazapine 15 mg tablet 15 mg PO BEDTIME #30 tabs 04/08/23 cyclobenzaprine 5 mg tablet 5 mg PO BEDTIME PRN muscle spasm 03/09/24 #30 tabs olmesartan 40 mg tablet 40 mg PO DAILY #90 tabs 04/06/24 donepezil 5 mg tablet 5 mg PO BEDTIME #90 tabs 04/26/24 atorvastatin 10 mg tablet 10 mg PO DAILY #90 tabs 06/28/24 linaclotide 72 mcg capsule 72 mcg PO DAILY #30 caps 10/25/24 denosumab 60 mg/mL subcutaneous 60 mg SUBCUT [id number] #1 mL 11/15/24 syringe (Prolia) amlodipine 2.5 mg tablet 2.5 mg PO DAILY #90 tabs 12/27/24 Allergies Allergy/AdvReac Type Severity Reaction Status Date / Time Sulfa (Sulfonamide AdvReac Hives Verified 11/30/24 15:34 Antibiotics) Review of Systems Review of Systems ROS Unobtainable: All systems reviewed & are unremarkable except as noted in HPI and below Gastrointestinal Gastrointestinal: Reports as per HPI Patient History Medical History (Updated 12/28/24 @ 21:10 by Dereck Wheeler MD) Generalized anxiety disorder HLD (hyperlipidemia) HTN (hypertension) Afib Ascites Age-related osteoporosis without current pathological fracture History of UTI Hyponatremia Hydronephrosis History of cardioversion (01/2021) Mouth problem Strain of right knee History of nephrolithiasis Mild cognitive impairment B12 deficiency Renal calculus, left Obstruction of right ureteropelvic junction (UPJ) Right inguinal hernia H/O nephrolithotomy with removal of calculi Rubella Measles Malaria Chicken pox Kidney stones Irritable bowel syndrome Skin cancer (~2011) Melanoma (~2019) Mixed hyperlipidemia Essential hypertension (~2000) Paroxysmal atrial fibrillation (~2021) Slow transit constipation Chronic anticoagulation Surgical History History of cystoscopy (06/20/23) History of tubal ligation History of breast biopsy History of colon surgery Previous back surgery Family History Mother Cancer Hyperlipidemia Father CAD in [place] artery Hypertension Family/Other Bacterial UTI Social History marital status: number of children: 3 household members: spouse lives independently: Yes occupational status: previously employed alcohol intake: never substance use type: does not use Type(s) of exercise: walking frequency: daily alcohol intake frequency: 0-2 drinks per day Alcohol type: wine Exam Narrative Exam Narrative: General: Alert and conversant. No distress. Appears well nourished and well hydrated Craniofacial: No evidence of trauma. Nontender and no swelling. Lungs: Clear to auscultation with good air movement. No wheezing, rales or rhonchi. No respiratory distress Cardiac: Regular rate and rhythm with no appreciable murmur or gallop Abdomen: Soft, nontender with no distention or masses. Normal bowel sounds. No rebound or guarding Musculoskeletal: Exam of the extremities, axial spine and ribcage reveals no deformity, bony tenderness or swelling. Range of motion intact Neuro: Alert and oriented. Cranial nerves, motor, sensory and cerebellar all grossly intact. No focal deficit Skin: Warm and normal color. No rashes Psychological: Normal affect and interaction. No evidence of delusion or psychosis. Normal mood. Initial Vital Signs Initial Vital Signs: Vital Signs Temperature 97.6 F 12/28/24 19:47 Pulse Rate 63 12/28/24 19:47 Respiratory Rate 18 12/28/24 19:47 Blood Pressure 193/77 H 12/28/24 19:47 Pulse Oximetry 100 12/28/24 19:47 Oxygen Delivery Method Room Air 12/28/24 19:47 Course Orders Ordered: ED Orders 12/28/24 19:54 EKG-12 Lead Stat 12/28/24 20:10 Complete Blood Count AUTO DIFF Stat Comprehensive Metabolic Panel Stat Lipase Stat Discontinued Medications Ondansetron HCl (Ondansetron 4 Mg/2 Ml Inj) 4 mg IV NOW PRN PRN Reason: Nausea And Vomiting Ondansetron HCl (Ondansetron 4 Mg Odt) 4 mg PO NOW PRN PRN Reason: Nausea And Vomiting Tramadol HCl (Tramadol 50 Mg Prepack) 1 bottle MISC DIRECTED ONE Stop: 12/28/24 21:10 Last Admin: 12/28/24 21:33 Dose: 1 bottle Vital Signs Vital signs: Vital Signs - 8 hr 12/28/24 19:47 12/28/24 20:26 12/28/24 20:27 Temperature 97.6 F Pulse Rate 63 56 L 59 L Respiratory Rate 18 Blood Pressure 193/77 H Pulse Oximetry 100 96 96 Oxygen Delivery Method Room Air 12/28/24 20:27 12/28/24 20:30 12/28/24 20:30 Temperature Pulse Rate 55 L Respiratory Rate 25 H Blood Pressure 136/65 143/68 H Pulse Oximetry 96 Oxygen Delivery Method 12/28/24 21:00 12/28/24 21:00 12/28/24 21:30 Temperature Pulse Rate 61 Respiratory Rate 25 H Blood Pressure 130/64 142/68 H Pulse Oximetry 97 Oxygen Delivery Method 12/28/24 21:30 12/28/24 21:36 Temperature Pulse Rate 51 L Respiratory Rate 22 Blood Pressure Pulse Oximetry 97 Oxygen Delivery Method Room Air MDM - Abdominal Pain Lab Data Attestation: I reviewed the patient's lab results. Lab results narrative: Mildly elevated WBCs of 13.5 with 83% neutrophils. CBC and CMP otherwise unremarkable. 12/28/24 20:10 12/28/24 20:10 Labs: Lab Results 12/28/24 Range/Units 20:10 WBC 13.5 H (4.5-11.0) X10^3/uL RBC 4.33 (4.0-5.2) X10^6/uL Hgb 14.4 (12.0-16.0) g/dL Hct 42.7 (36-46) % MCV 98.6 (80-100) fL MCH 33.3 (26-34) PG MCHC 33.8 (30-36) % RDW 12.9 (11.6-14.8) % Plt Count 250 (150-400) X10^3/uL Neut % (Auto) 83.1 H (50-75) % Lymph % (Auto) 8.9 L (25-40) % [place] % (Auto) 6.9 (3-14) % Eos % (Auto) 0.2 L (2-4) % Baso % (Auto) 0.9 (0-2) % Neut # (Auto) 64165 H (7248-0719) /uL Lymph # (Auto) 1200 (2327-7513) /uL [place] # (Auto) 900 (0-900) /uL Eos # (Auto) 0 (0-450) /uL Baso # (Auto) 100 (0-100) /uL Sodium 138 (137-145) mmol/L Potassium 3.9 (3.4-5.1) mmol/L Chloride 101 (98-107) mmol/L Carbon Dioxide 32 (22-32) mmol/L BUN 25 H (7-17) mg/dL Creatinine 0.78 (0.52-1.04) mg/dL Estimated GFR > 60 (>60) mL/min BUN/Creatinine Ratio 32.1 H (6-22) Glucose 102 H (70-99) mg/dL Calcium 10.1 (8.4-10.2) mg/dL Total Bilirubin 0.5 (0.2-1.3) mg/dL AST 25 (14-36) IU/L ALT 19 (<35) IU/L Alkaline Phosphatase 33 L (38-126) U/L Total Protein 7.2 (6.3-8.2) g/dL Albumin 4.6 (3.5-5.0) g/dL Globulin 2.6 (1.7-4.1) g/dL Albumin/Globulin Ratio 1.8 (1.0-2.8) Lipase 223 (23-300) U/L ECG Data Attestation: I personally reviewed and interpreted this ECG as follows: (Mild sinus bradycardia 56. Burket and intervals unremarkable and no ischemic changes) MDM Narrative Medical decision making narrative: Patient has a history of irritable bowel syndrome and symptoms consistent with a flare-up of irritable bowel which is now resolved with minimal discomfort in the ER. Physical exam reassuring with soft abdomen and normal vital signs. Mildly elevated WBCs but I do not believe she needs imaging based on physical exam and pattern of her symptoms. Patient was given instructions on managing irritable bowel syndrome with increased fiber and hydration and follow up closely with her doctor. Return to the ER if worse. Based on her history, physical exam, lab work and vitals I believe we have ruled out causes that would require CT scanning such as diverticulitis, appendicitis, cholecystitis or other surgical entities. No evidence of bowel obstruction based on physical or history. Discharge Plan Departure Patient Disposition: Home Clinical Impression: Irritable bowel syndrome Qualifiers: Irritable bowel syndrome type: with constipation Qualified Code(s): K58.1 - Irritable bowel syndrome with constipation Instructions: Irritable Bowel Syndrome Activity Restrictions/Additional Instructions: Plan: Hydration and adequate fiber, ideally via diet. Also may use [id number] stool softeners, laxatives and gas medicine as needed. Take-home pack of tramadol for severe pain. Follow up with your doctor to discuss managing irritable bowel symptoms. Return to the ER if worse. Prescriptions: No Action olmesartan 40 mg tablet 40 mg PO DAILY Qty: 90 3RF donepezil 5 mg tablet 5 mg PO BEDTIME Qty: 90 3RF atorvastatin 10 mg tablet 10 mg PO DAILY Qty: 90 3RF linaclotide 72 mcg capsule 72 mcg PO DAILY Qty: 30 5RF Prolia 60 mg/mL syringe 60 mg SUBCUT [id number] Qty: 1 1RF amlodipine 2.5 mg tablet 2.5 mg PO DAILY Qty: 90 0RF mirtazapine 15 mg tablet 15 mg PO BEDTIME Qty: 30 5RF acetaminophen [Tylenol Extra Strength] 500 mg tablet 1,000 mg PO TID cyclobenzaprine 5 mg tablet 5 mg PO BEDTIME PRN (Reason: muscle spasm) Qty: 30 0RF flecainide 50 mg tablet 50 mg PO BID diltiazem HCl 120 mg capsule,extended release 24hr 120 mg PO DAILY tafluprost (PF) 0.0015 % dropperette 1 drp EYE-BOTH ONCE PM timolol maleate 0.5 % drops 1 drp EYE-BOTH DAILY cholecalciferol (vitamin D3) 125 mcg (5,000 unit) capsule 125 mcg PO DAILY Eliquis 5 mg tablet 5 mg PO BID Qty: 60 0RF Referrals: Turner Lindquist MD [Primary Care Provider, Internal Medicine] Stand Alone Forms: Patient Portal/API
[2024-12-28 21:00] VITALS: BP 130/64; PULSE 61; RESP 25; O2SAT 97
[2024-12-28 21:30] VITALS: BP 142/68; PULSE 51; RESP 22; O2SAT 97
== END 2024-12-28 21:37 | disposition home or self-care (01) ==
PROVIDERS: Emergency Provider Emergency Medicine; PCP Internal Medicine
DX: K58.1 Irritable bowel syndrome with constipation (principal); R11.2 Nausea with vomiting, unspecified
CPT/HCPCS: 36415; 80053; 83690; 85025; 93005; 99283; 99284

== ENCOUNTER 2024-12-31 16:56 | Emergency (ER) | payer MEDICARE, SELFPAY ==
[2024-11-17 09:00] VITALS: BMI 17.9
[2024-12-31] VITALS (8 sets, daily range): BP systolic 154–225; BP diastolic 72–135; PULSE 48–55; RESP 16–24; TEMP 36.6; O2SAT 97–99; BMI 18.3
--- NOTE | 2024-12-31 17:29 | EKG_ITS ---
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
[2024-12-31 17:33] LABS: Add Manual Diff / Slide Review NO; Hematocrit 42.9 % (36-46); Hemoglobin 14.6 g/dL (12.0-16.0); Lymphocytes Absolute Auto 1300 /uL (1100-4500); Mean Corpuscular HGB Conc 34.1 % (30-36); Mean Corpuscular Hemoglobin 33.6 PG (26-34); Mean Corpuscular Volume 98.4 fL (80-100); Platelet Count 242 X10^3/uL (150-400)
[2024-12-31 17:45] LABS: Alanine Aminotransferase 21 IU/L (<35); Albumin 4.6 g/dL (3.5-5.0); Albumin Globulin Ratio 1.6 (1.0-2.8); Alkaline Phosphatase 30 U/L (38-126); Blood Urea Nitrogen 18 mg/dL (7-17); Calcium 10.1 mg/dL (8.4-10.2); Carbon Dioxide 30 mmol/L (22-32); Chloride 101 mmol/L (98-107); Estimated Glomerular Filt Rate > 60 mL/min (>60); Globulin 2.8 g/dL (1.7-4.1); Glucose 91 mg/dL (70-99); HEMOLYSIS 50 (0-50); Lipase 163 U/L (23-300); Potassium 4.2 mmol/L (3.4-5.1); Sodium 136 mmol/L (137-145); Total Protein 7.4 g/dL (6.3-8.2)
--- NOTE | 2024-12-31 18:10 | ED.ABDPAIN ---
HPI - Abdominal Pain General Chief Complaint: Abdominal Pain Stated Complaint: gi problems burning in gut Time Seen by Provider: 12/31/24 18:10 Source: patient, RN notes reviewed and old records reviewed Mode of arrival: Ambulatory Limitations: no limitations History of Present Illness HPI narrative: 74-year-old female with a history of IBS, hypertension, dyslipidemia, chronic abdominal/GI problems including IBS, atrial fibrillation on anticoagulation, memory issues with complains of abdominal pain patient states it has been more left-sided somewhat periumbilical and lower but that has currently epigastric. She states she has had symptoms on and off for the past 2 weeks. Was seen here on 12/28 had Gas-X which seemed to improve her symptoms and she had labs urine but was discharged home. She states since then she has continued to have intermittent pain. She denies any flank or back pain. No fevers or chills. She has had nausea but no vomiting. She states that is spicy food possibly makes it worse but states she has been eating a very bland diet. She had loose bowel movements this week but had 2 large solid normal stools today. Denies dysuria urgency or frequency. No vaginal bleeding or discharge. She denies any shortness of breath or upper chest pain. She has prior ex lap to evaluate her for abdominal pain, she has had an EGD in the past several months and a colonoscopy about a year and a half ago for similar symptoms. She notes only prior surgery was a tubal ligation. She is on anticoagulants for atrial fibrillation and diltiazem and flecainide or has been notes she is on donepezil for her memory, she takes omeprazole most nights at dinnertime. She had reports an allergy to sulfa. No tobacco, alcohol or recreational drugs. Dr. Lindquist is her primary care physician. Related Data Home Medications ?Medication ?Instructions ?Recorded ?Confirmed cholecalciferol (vitamin D3) 125 125 mcg PO DAILY 10/25/22 11/30/24 mcg (5,000 unit) capsule diltiazem HCl 120 mg 120 mg PO DAILY 10/25/22 11/30/24 capsule,extended release 24 hr flecainide 50 mg tablet 50 mg PO BID 10/25/22 11/30/24 tafluprost (PF) 0.0015 % eye drops 1 drp EYE-BOTH ONCE PM 10/25/22 11/30/24 in a dropperette timolol maleate 0.5 % eye drops 1 drp EYE-BOTH DAILY 10/25/22 11/30/24 acetaminophen 500 mg tablet 1,000 mg PO TID 03/09/24 11/30/24 (Tylenol Extra Strength) Previous Rx's ?Medication ?Instructions ?Recorded apixaban 5 mg tablet (Eliquis) 5 mg PO BID #60 tabs 02/16/21 mirtazapine 15 mg tablet 15 mg PO BEDTIME #30 tabs 04/08/23 cyclobenzaprine 5 mg tablet 5 mg PO BEDTIME PRN muscle spasm 03/09/24 #30 tabs olmesartan 40 mg tablet 40 mg PO DAILY #90 tabs 04/06/24 donepezil 5 mg tablet 5 mg PO BEDTIME #90 tabs 04/26/24 atorvastatin 10 mg tablet 10 mg PO DAILY #90 tabs 06/28/24 linaclotide 72 mcg capsule 72 mcg PO DAILY #30 caps 10/25/24 denosumab 60 mg/mL subcutaneous 60 mg SUBCUT [id number] #1 mL 11/15/24 syringe (Prolia) amlodipine 2.5 mg tablet 2.5 mg PO DAILY #90 tabs 12/27/24 sucralfate 1 gram tablet (Carafate) 1 g PO QACHS #30 tabs 12/31/24 Allergies Allergy/AdvReac Type Severity Reaction Status Date / Time Sulfa (Sulfonamide AdvReac Hives Verified 12/31/24 17:07 Antibiotics) Review of Systems Review of Systems ROS Unobtainable: All systems reviewed & are unremarkable except as noted in HPI and below Patient History Medical History Generalized anxiety disorder HLD (hyperlipidemia) HTN (hypertension) Afib Ascites Age-related osteoporosis without current pathological fracture History of UTI Hyponatremia Hydronephrosis History of cardioversion (01/2021) Mouth problem Strain of right knee History of nephrolithiasis Mild cognitive impairment B12 deficiency Renal calculus, left Obstruction of right ureteropelvic junction (UPJ) Right inguinal hernia H/O nephrolithotomy with removal of calculi Rubella Measles Malaria Chicken pox Kidney stones Irritable bowel syndrome Skin cancer (~2011) Melanoma (~2019) Mixed hyperlipidemia Essential hypertension (~2000) Paroxysmal atrial fibrillation (~2021) Slow transit constipation Chronic anticoagulation Surgical History History of cystoscopy (06/20/23) History of tubal ligation History of breast biopsy History of colon surgery Previous back surgery Family History Mother Cancer Hyperlipidemia Father CAD in [place] artery Hypertension Family/Other Bacterial UTI Social History marital status: number of children: 3 household members: spouse lives independently: Yes occupational status: previously employed Smoking Status: Never smoker alcohol intake: never substance use type: does not use Type(s) of exercise: walking frequency: daily Smoking Status: Never smoker alcohol intake frequency: 0-2 drinks per day Alcohol type: wine Exam Narrative Exam Narrative: GENERAL: Alert and oriented x three, mild distress HEENT: Head normocephalic, atraumatic, EOMI, pupils reactive, face symmetric, moist mucous membranes NECK: Supple, full range of motion CARDIOVASCULAR: Regular rate and rhythm without murmurs, rubs or gallops. RESPIRATORY: Breath sounds equal bilaterally, no wheezes rales or rhonchi. ABDOMEN: Soft, nontender. Nondistended. Normoactive bowel sounds all 4 quadrants. No guarding or rebound, rigidity, no mass. No rash or skin changes. : No CVA tenderness EXTREMITIES: Normal range of motion, no clubbing or edema. Neurovascularly intact NEUROLOGICAL: Cranial nerves II through XII grossly intact. Moving all extremities SKIN: Warm, dry, no petechiae, no rashes or lesions. Initial Vital Signs Initial Vital Signs: Vital Signs Temperature 97.8 F 12/31/24 17:07 Pulse Rate 55 L 12/31/24 17:07 Respiratory Rate 18 12/31/24 17:07 Blood Pressure 154/72 H 12/31/24 17:07 Pulse Oximetry 99 12/31/24 17:07 Oxygen Delivery Method Room Air 12/31/24 17:07 Course Orders Ordered: ED Orders 12/31/24 17:14 EKG-12 Lead Stat 12/31/24 17:15 Complete Blood Count AUTO DIFF Stat Comprehensive Metabolic Panel Stat Lipase Stat Troponin & CK Cardiac Panel Stat 12/31/24 18:34 CT abdomen pelvis w con Stat Discontinued Medications Ondansetron HCl (Ondansetron 4 Mg/2 Ml Inj) 4 mg IV NOW PRN PRN Reason: Nausea And Vomiting Ondansetron HCl (Ondansetron 4 Mg Odt) 4 mg PO NOW PRN PRN Reason: Nausea And Vomiting Pantoprazole Sodium (Pantoprazole 40 Mg Vial) 40 mg IV NOW ONE Stop: 12/31/24 18:35 Last Admin: 12/31/24 18:48 Dose: 40 mg Documented By: GISELA Vital Signs Vital signs: Vital Signs - 8 hr 12/31/24 17:07 12/31/24 18:06 12/31/24 18:07 Temperature 97.8 F Pulse Rate 55 L 53 L 48 L Respiratory Rate 18 20 Blood Pressure 154/72 H Pulse Oximetry 99 98 99 Oxygen Delivery Method Room Air 12/31/24 18:07 12/31/24 18:09 12/31/24 18:09 Temperature Pulse Rate 48 L Respiratory Rate 24 Blood Pressure 225/100 H 209/91 H Pulse Oximetry 99 Oxygen Delivery Method 12/31/24 18:30 12/31/24 18:30 12/31/24 18:58 Temperature Pulse Rate 49 L Respiratory Rate 16 Blood Pressure 196/91 H 198/135 H Pulse Oximetry 99 Oxygen Delivery Method 12/31/24 18:58 12/31/24 19:00 12/31/24 19:00 Temperature Pulse Rate 54 L 51 L Respiratory Rate 17 24 Blood Pressure 184/87 H Pulse Oximetry 97 99 Oxygen Delivery Method 12/31/24 19:30 12/31/24 19:30 Temperature Pulse Rate 50 L Respiratory Rate 20 Blood Pressure 184/83 H Pulse Oximetry 98 Oxygen Delivery Method MDM - Abdominal Pain Lab Data 12/31/24 17:15 12/31/24 17:15 Labs: Lab Results 12/31/24 Range/Units 17:15 WBC 7.0 (4.5-11.0) X10^3/uL RBC 4.36 (4.0-5.2) X10^6/uL Hgb 14.6 (12.0-16.0) g/dL Hct 42.9 (36-46) % MCV 98.4 (80-100) fL MCH 33.6 (26-34) PG MCHC 34.1 (30-36) % RDW 12.6 (11.6-14.8) % Plt Count 242 (150-400) X10^3/uL Neut % (Auto) 69.1 (50-75) % Lymph % (Auto) 18.9 L (25-40) % Coles % (Auto) 10.8 (3-14) % Eos % (Auto) 0.4 L (2-4) % Baso % (Auto) 0.8 (0-2) % Neut # (Auto) 4800 (9378-7405) /uL Lymph # (Auto) 1300 (9770-8669) /uL Coles # (Auto) 800 (0-900) /uL Eos # (Auto) 0 (0-450) /uL Baso # (Auto) 100 (0-100) /uL Sodium 136 L (137-145) mmol/L Potassium 4.2 (3.4-5.1) mmol/L Chloride 101 (98-107) mmol/L Carbon Dioxide 30 (22-32) mmol/L BUN 18 H (7-17) mg/dL Creatinine 0.68 (0.52-1.04) mg/dL Estimated GFR > 60 (>60) mL/min BUN/Creatinine Ratio 26.5 H (6-22) Glucose 91 (70-99) mg/dL Calcium 10.1 (8.4-10.2) mg/dL Total Bilirubin 0.4 (0.2-1.3) mg/dL AST 28 (14-36) IU/L ALT 21 (<35) IU/L Alkaline Phosphatase 30 L (38-126) U/L Total Creatine Kinase 34 (30-135) U/L Troponin I < 0.012 (0.01-0.034) ng/mL Total Protein 7.4 (6.3-8.2) g/dL Albumin 4.6 (3.5-5.0) g/dL Globulin 2.8 (1.7-4.1) g/dL Albumin/Globulin Ratio 1.6 (1.0-2.8) Lipase 163 (23-300) U/L Point of care testing: Urine Dip Bedside Urine Glucose Negative Bedside Urine Bilirubin - Negative Bedside Urine Ketone - Negative Urine Specific [place] 1.005 Bedside Urine Occult Blood - Negative Bedside Urine pH 7 Bedside Urine Protein - Negative Bedside Urine Urobilinogen - Negative Bedside Urine Nitrite - Negative Bedside Urine Leukocytes - Negative Esterase ECG Data Attestation: I personally reviewed and interpreted this ECG as follows: Interpretation: Sinus bradycardia rate of 57 AK 170 QRS of 92 QTC of 428. No acute ST-elevation or depression. Prior visits were reviewed and patient's heart rate has typically been 40s to 50s intermittently in the past. MDM Narrative Medical decision making narrative: Labs show white count of 7, hemoglobin of 14 platelets of 242 white count was 13.5 on 12/28/2024. Chemistries shows sodium 136 otherwise appropriate BUN 18 creatinine 0.68 glucose is 91 alk-phos is 30 has chronically been low but normal bilirubin AST ALT and lipase. Troponin Urine point of care is negative EKG shows sinus bradycardia CT abdomen pelvis, stable small free abdominal fluid adjacent to the ventral wall of uncertain etiology carcinomatosis is again in the differential and follow up imaging is recommended. Again seen smooth gastric antral wall thickening. Stable appearance of bilateral hydronephrosis. Prominent stool burden correlate for constipation. Patient had Protonix. She also took some Tums. She is feeling improved here in the department. On re-evaluation patient does feel improved, reviewed her findings from today she does have stable area of small free abdominal fluid sounds like she had an ex lap with Dr. Gross (general surgery) who did not see any free fluid in they were looking for this before. She has also had an upper endoscopy but they note once again smooth gastric wall anterior wall thickening and concern for possible carcinomatosis. Talk with your primary care your appointment on Friday to discuss next steps for your findings today. Discharge Plan Departure Patient Disposition: Home Clinical Impression: Abdominal pain Instructions: DI for Abdominal Pain-Adult Activity Restrictions/Additional Instructions: Follow up with Dr. Lindquist at your appointment on Friday. You do still have stable area of small free abdominal fluid adjacent to the ventral wall, there is a smooth gastric antral wall thickening discussed these findings with Dr. Lindquist. It sounds like you had an ex-lap of this area to evaluate for the free fluid with Dr. Gross. It's also noted that you have bilateral hydronephrosis or swelling of the kidneys which is stable and quite a bit of stool consistent with constipation. Continue with your home medications as prescribed. You can take acetaminophen up to a 1000 mg every 6 hours as needed for pain. You can try Carafate 4 times daily prior to meals to see if this improves your symptoms. Prescription was sent to [facility]. Please return for fevers, new or worsening abdominal back or flank pain, any persistent vomiting, black or bloody stools, lightheadedness or passing out or other new or concerning changes. Prescriptions: New sucralfate [Carafate] 1 gram tablet 1 g PO QACHS Qty: 30 0RF No Action olmesartan 40 mg tablet 40 mg PO DAILY Qty: 90 3RF donepezil 5 mg tablet 5 mg PO BEDTIME Qty: 90 3RF atorvastatin 10 mg tablet 10 mg PO DAILY Qty: 90 3RF linaclotide 72 mcg capsule 72 mcg PO DAILY Qty: 30 5RF Prolia 60 mg/mL syringe 60 mg SUBCUT [id number] Qty: 1 1RF amlodipine 2.5 mg tablet 2.5 mg PO DAILY Qty: 90 0RF mirtazapine 15 mg tablet 15 mg PO BEDTIME Qty: 30 5RF acetaminophen [Tylenol Extra Strength] 500 mg tablet 1,000 mg PO TID cyclobenzaprine 5 mg tablet 5 mg PO BEDTIME PRN (Reason: muscle spasm) Qty: 30 0RF flecainide 50 mg tablet 50 mg PO BID diltiazem HCl 120 mg capsule,extended release 24hr 120 mg PO DAILY tafluprost (PF) 0.0015 % dropperette 1 drp EYE-BOTH ONCE PM timolol maleate 0.5 % drops 1 drp EYE-BOTH DAILY cholecalciferol (vitamin D3) 125 mcg (5,000 unit) capsule 125 mcg PO DAILY Eliquis 5 mg tablet 5 mg PO BID Qty: 60 0RF Referrals: Turner Lindquist MD [Primary Care Provider, Internal Medicine] Stand Alone Forms: Patient Portal/API
--- NOTE | 2024-12-31 18:34 | DI.CT.S_ITS ---
PROCEDURE: CT ABDOMEN PELVIS W CON INDICATIONS: epigastric/abd pain periumbilical TECHNIQUE: After the administration of intravenous contrast, axial sections acquired from the lung bases to the pubic symphysis. Coronal and sagittal reformats were performed. For radiation dose reduction, the following was used: automated exposure control, adjustment of mA and/or kV according to patient size. COMPARISON: [facility], CT, CT ABDOMEN PELVIS W CON, 10/24/2024, 7:51. FINDINGS: Image quality: Diagnostic. Lower Chest: No significant findings. ABDOMEN: Liver: No solid mass. Gallbladder: No radiopaque gallstones or wall thickening. Biliary ducts: No biliary dilation. Pancreas: No ductal dilation. Spleen: Size is within normal limits. Adrenal Glands: No adrenal nodules. Kidneys and Ureters: Stable hydronephrosis, greater on the right. The kidneys appear malrotated.. No solid mass. No complex renal cystic lesion which requires follow up. Stomach and Bowel: Stable gastric antrum smooth wall thickening. Normal colonic caliber, without significant wall thickening. Prominent stool burden. Peritoneum: Again seen small free fluid adjacent to the ventral wall, similar to prior.. No free air. Ventral Wall: No significant ventral hernia. Abdominal Nodes: No retroperitoneal or mesenteric adenopathy by size criteria. Vessels: Aorta and inferior vena cava are normal in size. Atherosclerotic vascular calcifications. PELVIS: Pelvic Organs: Unremarkable. Bladder: No bladder wall thickening, accounting for underdistention. Pelvic Nodes: No enlarged lymph nodes. Miscellaneous: No inguinal hernias are seen. Bones: No aggressive osseous abnormality. Degenerative changes of the spine with levo scoliotic curvature. Grade 1 anterolisthesis of L4 on L5. IMPRESSION: 1. Stable small free abdominal fluid adjacent to the ventral wall of uncertain etiology. Carcinomatosis is again in the differential and follow-up imaging is recommended. 2. Again seen smooth gastric antral wall thickening. 3. Stable appearance of bilateral hydronephrosis. 4. Prominent stool burden, correlate for constipation. Dictated by: Eder Celeste M.D. on 12/31/2024 at 19:31 Approved by: Eder Celeste M.D. on 12/31/2024 at 19:37
[2024-12-31] MEDS: PANTOPRAZOLE 40 MG VIAL IV (18:48)
[2024-12-31 18:49] LABS: Creatine Kinase 34 U/L (30-135)
[2024-12-31 19:02] LABS: Troponin I < 0.012 ng/mL (0.01-0.034)
== END 2024-12-31 20:15 | disposition home or self-care (01) ==
PROVIDERS: Emergency Provider Emergency Medicine; PCP Internal Medicine
DX: R10.13 Epigastric pain (principal)
CPT/HCPCS: 74177; 80053; 81003; 82550; 83690; 84484; 85025; 93005; 96374; 99283; 99284; J2470; Q9967

== ENCOUNTER 2025-02-07 06:31 | Emergency (ER) | payer MEDICARE, SELFPAY ==
[2024-11-17 09:00] VITALS: BMI 17.9
[2025-02-07] VITALS (23 sets, daily range): BP systolic 138–185; BP diastolic 63–79; PULSE 52–67; RESP 16–45; TEMP 36.7; O2SAT 94–98; BMI 19.4
[2025-02-07 07:09] LABS: Add Manual Diff / Slide Review NO; Hematocrit 39.6 % (36-46); Hemoglobin 13.3 g/dL (12.0-16.0); Lymphocytes Absolute Auto 1100 /uL (1100-4500); Mean Corpuscular HGB Conc 33.6 % (30-36); Mean Corpuscular Hemoglobin 32.8 PG (26-34); Mean Corpuscular Volume 97.4 fL (80-100); Platelet Count 265 X10^3/uL (150-400)
[2025-02-07 07:15] LABS: Alanine Aminotransferase 26 IU/L (<35); Albumin 4.1 g/dL (3.5-5.0); Albumin Globulin Ratio 1.5 (1.0-2.8); Alkaline Phosphatase 43 U/L (38-126); Blood Urea Nitrogen 20 mg/dL (7-17); Calcium 9.0 mg/dL (8.4-10.2); Carbon Dioxide 25 mmol/L (22-32); Chloride 109 mmol/L (98-107); Estimated Glomerular Filt Rate > 60 mL/min (>60); Globulin 2.7 g/dL (1.7-4.1); Glucose 104 mg/dL (70-99); HEMOLYSIS < 15 (0-50); Lipase 233 U/L (23-300); Potassium 3.9 mmol/L (3.4-5.1); Sodium 143 mmol/L (137-145); Total Protein 6.8 g/dL (6.3-8.2)
[2025-02-07] MEDS: MORPHINE 4 MG/ML INJ 2 MG IV (07:19)
[2025-02-07] MEDS: ONDANSETRON 4 MG/2 ML INJ IV (07:19)
--- NOTE | 2025-02-07 07:21 | ED_ITS ---
HPI - Abdominal Pain
--- NOTE | 2025-02-07 07:21 | ED.ABDPAIN ---
HPI - Abdominal Pain General Chief Complaint: Abdominal Pain Stated Complaint: Maybe having an allergic reaction to new meds Time Seen by Provider: 02/07/25 06:58 Source: patient Mode of arrival: Ambulatory History of Present Illness HPI narrative: 74 years old female with history of irritable bowel syndrome, hypertension, dyslipidemia, atrial fibrillation on Eliquis came in today complaining of nausea vomiting twice last night, left upper abdominal pain, left midback pain 6/10 in severity without diarrhea, constipation, urine problem, chest pain, shortness of breath, fever, runny nose, sore throat, coughing. She was in our ED on 12/31/2024 for abdominal pain. Related Data Home Medications ?Medication ?Instructions ?Recorded ?Confirmed cholecalciferol (vitamin D3) 125 125 mcg PO DAILY 10/25/22 11/30/24 mcg (5,000 unit) capsule diltiazem HCl 120 mg 120 mg PO DAILY 10/25/22 11/30/24 capsule,extended release 24 hr flecainide 50 mg tablet 50 mg PO BID 10/25/22 11/30/24 tafluprost (PF) 0.0015 % eye drops 1 drp EYE-BOTH ONCE PM 10/25/22 11/30/24 in a dropperette timolol maleate 0.5 % eye drops 1 drp EYE-BOTH DAILY 10/25/22 11/30/24 acetaminophen 500 mg tablet 1,000 mg PO TID 03/09/24 11/30/24 (Tylenol Extra Strength) Previous Rx's ?Medication ?Instructions ?Recorded apixaban 5 mg tablet (Eliquis) 5 mg PO BID #60 tabs 02/16/21 olmesartan 40 mg tablet 40 mg PO DAILY #90 tabs 04/06/24 donepezil 5 mg tablet 5 mg PO BEDTIME #90 tabs 04/26/24 atorvastatin 10 mg tablet 10 mg PO DAILY #90 tabs 06/28/24 linaclotide 72 mcg capsule 72 mcg PO DAILY #30 caps 10/25/24 denosumab 60 mg/mL subcutaneous 60 mg SUBCUT [id number] #1 mL 11/15/24 syringe (Prolia) amlodipine 2.5 mg tablet 2.5 mg PO DAILY #90 tabs 12/27/24 sucralfate 1 gram tablet (Carafate) 1 g PO QACHS #30 tabs 12/31/24 mirtazapine 30 mg tablet 30 mg PO BEDTIME #90 tabs 01/03/25 doxycycline hyclate 100 mg capsule 100 mg PO BID #14 caps 02/07/25 ondansetron HCl 4 mg tablet 4 mg PO Q6H PRN nausea and 02/07/25 vomiting #20 tabs Allergies Allergy/AdvReac Type Severity Reaction Status Date / Time Sulfa (Sulfonamide AdvReac Hives Verified 01/03/25 08:30 Antibiotics) Review of Systems Review of Systems Narrative: complaining of nausea vomiting twice last night, left upper abdominal pain, left midback pain 09/07 in severity Negative for diarrhea, constipation, urine problem, chest pain, shortness of breath, fever, runny nose, sore throat, coughing. She was in our ED on 12/31/2024 for abdominal pain. Patient History Medical History Afib Age-related osteoporosis without current pathological fracture Ascites B12 deficiency Chicken pox Chronic anticoagulation Essential hypertension (~2000) Generalized anxiety disorder H/O nephrolithotomy with removal of calculi History of cardioversion (01/2021) History of nephrolithiasis History of UTI HLD (hyperlipidemia) HTN (hypertension) Hydronephrosis Hyponatremia Irritable bowel syndrome Kidney stones Malaria Measles Melanoma (~2019) Mild cognitive impairment Mixed hyperlipidemia Mouth problem Obstruction of right ureteropelvic junction (UPJ) Paroxysmal atrial fibrillation (~2021) Renal calculus, left Right inguinal hernia Rubella Skin cancer (~2011) Slow transit constipation Strain of right knee Surgical History History of breast biopsy History of colon surgery History of cystoscopy (06/20/23) History of tubal ligation Previous back surgery Family History Mother Cancer Hyperlipidemia Father CAD in [place] artery Hypertension Family/Other Bacterial UTI Social History marital status: number of children: 3 household members: spouse lives independently: Yes occupational status: previously employed Smoking Status: Never smoker alcohol intake: never substance use type: does not use Type(s) of exercise: walking frequency: daily Smoking Status: Never smoker alcohol intake frequency: 0-2 drinks per day Alcohol type: wine Exam Narrative Exam Narrative: GENERAL: Alert awake without acute distress. HEAD: Atraumatic. Normocephalic. NECK: Trachea midline. Non tender CARDIOVASCULAR: Regular rate and rhythm without murmurs, gallops, or rubs. RESPIRATORY: Clear to auscultation. Breath sounds equal bilaterally. No wheezes, rales, or rhonchi. GASTROINTESTINAL: Abdomen soft, mild tenderness on palpation left upper abdomen without guarding or rebound tenderness or distention. Active bowel sounds. EXTREMITIES: No edema or joint tenderness. BACK: Nontender without deformity or crepitance. No flank tenderness. NEURO: AOx3. SKIN: No rash or erythema of visible areas Initial Vital Signs Initial Vital Signs: Vital Signs Pulse Rate 67 02/07/25 06:36 Blood Pressure 176/74 H 02/07/25 06:36 Pulse Oximetry 97 02/07/25 06:36 Course Orders Ordered: Discontinued Medications Sodium Chloride (Normal Saline 0.9%) 1,000 mls @ 1,000 mls/hr IV BOLUS ONE Stop: 02/07/25 08:23 Last Admin: 02/07/25 07:52 Dose: Not Given Documented By: DEBBIE Morphine Sulfate (Morphine 4 Mg/Ml Inj) 2 mg IV NOW ONE Stop: 02/07/25 06:55 Last Admin: 02/07/25 07:19 Dose: 2 mg Documented By: JULIANO Ondansetron HCl (Ondansetron 4 Mg/2 Ml Inj) 4 mg IV NOW PRN PRN Reason: Nausea And Vomiting Last Admin: 02/07/25 07:19 Dose: 4 mg Documented By: JULIANO Vital Signs Vital signs: Vital Signs - 8 hr 02/07/25 07:00 02/07/25 07:00 02/07/25 07:30 Pulse Rate 65 54 L Respiratory Rate Blood Pressure 166/74 H Pulse Oximetry 96 97 02/07/25 07:30 02/07/25 08:00 02/07/25 08:00 Pulse Rate 55 L Respiratory Rate 16 Blood Pressure 144/67 H 144/66 H Pulse Oximetry 95 02/07/25 08:30 02/07/25 08:31 02/07/25 08:31 Pulse Rate 60 58 L Respiratory Rate 18 18 Blood Pressure 185/77 H Pulse Oximetry 95 95 02/07/25 09:00 02/07/25 09:01 02/07/25 09:01 Pulse Rate 61 63 Respiratory Rate 18 21 Blood Pressure 158/70 H Pulse Oximetry 97 96 02/07/25 09:30 02/07/25 09:30 02/07/25 10:00 Pulse Rate 54 L 53 L Respiratory Rate 17 20 Blood Pressure 167/71 H Pulse Oximetry 94 97 02/07/25 10:00 02/07/25 10:30 02/07/25 10:30 Pulse Rate 60 Respiratory Rate Blood Pressure 160/69 H 144/65 H Pulse Oximetry 96 02/07/25 11:00 02/07/25 11:00 02/07/25 11:30 Pulse Rate 53 L 56 L Respiratory Rate 23 22 Blood Pressure 148/68 H Pulse Oximetry 95 96 02/07/25 11:30 02/07/25 12:00 02/07/25 12:00 Pulse Rate 52 L Respiratory Rate 26 H Blood Pressure 160/73 H 157/70 H Pulse Oximetry 97 02/07/25 12:30 02/07/25 12:31 02/07/25 12:31 Pulse Rate 53 L 54 L Respiratory Rate 27 H 24 Blood Pressure 148/63 H Pulse Oximetry 97 97 02/07/25 12:55 02/07/25 12:55 02/07/25 13:00 Pulse Rate 64 52 L Respiratory Rate 18 33 H Blood Pressure 182/79 H Pulse Oximetry 97 96 02/07/25 13:00 02/07/25 13:30 02/07/25 13:30 Pulse Rate 59 L Respiratory Rate 31 H Blood Pressure 152/67 H 152/76 H Pulse Oximetry 02/07/25 14:00 02/07/25 14:00 02/07/25 14:30 Pulse Rate 65 63 Respiratory Rate 45 H 20 Blood Pressure 145/66 H Pulse Oximetry 97 97 02/07/25 14:30 Pulse Rate Respiratory Rate Blood Pressure 168/72 H Pulse Oximetry MDM - Abdominal Pain Lab Data 02/07/25 06:50 02/07/25 06:50 Labs: Lab Results 02/07/25 Range/Units 06:50 WBC 11.6 H (4.5-11.0) X10^3/uL RBC 4.07 (4.0-5.2) X10^6/uL Hgb 13.3 (12.0-16.0) g/dL Hct 39.6 (36-46) % MCV 97.4 (80-100) fL MCH 32.8 (26-34) PG MCHC 33.6 (30-36) % RDW 12.9 (11.6-14.8) % Plt Count 265 (150-400) X10^3/uL Neut % (Auto) 79.9 H (50-75) % Lymph % (Auto) 9.8 L (25-40) % [place] % (Auto) 8.4 (3-14) % Eos % (Auto) 0.6 L (2-4) % Baso % (Auto) 1.3 (0-2) % Neut # (Auto) 9300 H (2545-1763) /uL Lymph # (Auto) 1100 (1193-5325) /uL [place] # (Auto) 1000 H (0-900) /uL Eos # (Auto) 100 (0-450) /uL Baso # (Auto) 100 (0-100) /uL Sodium 143 (137-145) mmol/L Potassium 3.9 (3.4-5.1) mmol/L Chloride 109 H (98-107) mmol/L Carbon Dioxide 25 (22-32) mmol/L BUN 20 H (7-17) mg/dL Creatinine 0.68 (0.52-1.04) mg/dL Estimated GFR > 60 (>60) mL/min BUN/Creatinine Ratio 29.4 H (6-22) Glucose 104 H (70-99) mg/dL Calcium 9.0 (8.4-10.2) mg/dL Total Bilirubin 0.2 (0.2-1.3) mg/dL AST 33 (14-36) IU/L ALT 26 (<35) IU/L Alkaline Phosphatase 43 (38-126) U/L Total Protein 6.8 (6.3-8.2) g/dL Albumin 4.1 (3.5-5.0) g/dL Globulin 2.7 (1.7-4.1) g/dL Albumin/Globulin Ratio 1.5 (1.0-2.8) Lipase 233 (23-300) U/L Imaging Data CT scan - abdomen/pelvis: Radiologist's Impression: PROCEDURE: CT ABDOMEN PELVIS W CON INDICATIONS: Upper abdominal pain, nausea vomiting TECHNIQUE: After the administration of intravenous contrast, axial sections acquired from the lung bases to the pubic symphysis. Coronal and sagittal reformats were performed. For radiation dose reduction, the following was used: automated exposure control, adjustment of mA and/or kV according to patient size. COMPARISON: [facility], CT, CT ABDOMEN PELVIS W CON, 12/31/2024, 18:42. FINDINGS: Image quality: Diagnostic. Lower Chest: Focal consolidation in the right lower lobe medially ABDOMEN: Liver: No solid mass. Gallbladder: No radiopaque gallstones or wall thickening. Biliary ducts: No biliary dilation. Pancreas: No ductal dilation. Spleen: Size is within normal limits. Adrenal Glands: No adrenal nodules. Kidneys and Ureters: Moderate right hydronephrosis. No hydronephrosis on left. Bilateral ureters are decompressed. No calculus. Stomach and Bowel: Normal colonic caliber, without significant wall thickening. Normal appendix. Peritoneum: No abnormal intraperitoneal fluid. No free air. Increased attenuation of the omental region diffusely. Ventral Wall: Small fat containing ventral hernia. Abdominal Nodes: No retroperitoneal or mesenteric adenopathy by size criteria. Vessels: Aorta and inferior vena cava are normal in size. Moderate scattered calcified atherosclerotic plaque. PELVIS: Pelvic Organs: Unremarkable. Bladder: Mild diffuse bladder wall thickening, unchanged. Pelvic Nodes: No enlarged lymph nodes. Miscellaneous: Right inguinal hernia containing bowel without evidence of obstruction. Bones: No aggressive osseous abnormality. Severe degenerative changes of the lumbar spine with grade 2 anterolisthesis at L4-L5 secondary to pars defects. Retrolisthesis at L1-L2 and T12 L1.. Avascular necrosis of the right femoral head without articular surface collapse. IMPRESSION: Diffusely increased attenuation of the omentum similar to prior. No discrete solid nodule. Continued follow-up recommended for stability. Right lower lobe consolidation non-specific, but may represent pneumonia. Chronic moderate right hydronephrosis which may be due to UPJ stenosis. No stone or hydroureter. Avascular necrosis of the right femoral head. Bowel containing right inguinal hernia without evidence of obstruction or inflammation. Dictated by: Avery Yañez M.D. on 02/07/2025 at 8:31 Approved by: Avery Yañez M.D. on 02/07/2025 at 8:47 MDM Narrative Medical decision making narrative: 74 years old female with history of irritable bowel syndrome, hypertension, dyslipidemia, atrial fibrillation on Eliquis came in today complaining of nausea vomiting twice last night, left upper abdominal pain, left midback pain 6/10 in severity without diarrhea, constipation, urine problem, chest pain, shortness of breath, fever, runny nose, sore throat, coughing. She was in our ED on 12/31/2024 for abdominal pain. Abdomen soft, mild tenderness on palpation left upper abdomen without guarding or rebound tenderness or distention. Active bowel sounds. Her CV exam, lung exam were normal. She alert oriented x4 without acute distress. CT scan abdomen and pelvis showed diffuse increased attenuation of the omentum similar to prior CT scan without solid nodule, recommend follow up for stability, right lower lobe consolidation could be pneumonia, chronic moderate right hydronephrosis may be due to UPJ stenosis. No stone. Avascular necrosis of the right femoral head. Bowel containing right inguinal hernia without evidence of obstruction or inflammation. Lab showed WBC 11.6 otherwise normal CBC he has BNP was normal. Her LFT was normal. Her lipase was normal. Went to update her and the patient the lab results. We will get another chest x-ray and then discharged home. She denied any fever, rhinorrhea, sore throat, coughing, shortness of breath, chest pain. Reviewed the chest x-ray showed no acute finding. She was sent home with doxycycline, Zofran and to continue follow up with her PCP. Return to the ED precautions was given. Discharge Plan Departure Patient Disposition: Home Clinical Impression: Nausea & vomiting, Abdominal pain, Avascular necrosis of femur head, right, Right lower lobe pneumonia Instructions: DI for Abdominal Pain-Adult, Nausea and Vomiting-Adult Activity Restrictions/Additional Instructions: Please continue primary care doctor follow up outpatient. Please come back to the emergency room if any worsening symptoms including but not limited to fever, persistent vomiting, worsening pain, chest pain, shortness of breath, dehydration. Please showed the CT scan abdomen and pelvis results today to your primary care doctor as well. Please finish the antibiotic for possible pneumonia. Prescriptions: New doxycycline hyclate 100 mg capsule 100 mg PO BID Qty: 14 0RF ondansetron HCl 4 mg tablet 4 mg PO Q6H PRN (Reason: nausea and vomiting) Qty: 20 0RF No Action olmesartan 40 mg tablet 40 mg PO DAILY Qty: 90 3RF donepezil 5 mg tablet 5 mg PO BEDTIME Qty: 90 3RF atorvastatin 10 mg tablet 10 mg PO DAILY Qty: 90 3RF linaclotide 72 mcg capsule 72 mcg PO DAILY Qty: 30 5RF Prolia 60 mg/mL syringe 60 mg SUBCUT [id number] Qty: 1 1RF amlodipine 2.5 mg tablet 2.5 mg PO DAILY Qty: 90 0RF acetaminophen [Tylenol Extra Strength] 500 mg tablet 1,000 mg PO TID flecainide 50 mg tablet 50 mg PO BID diltiazem HCl 120 mg capsule,extended release 24hr 120 mg PO DAILY tafluprost (PF) 0.0015 % dropperette 1 drp EYE-BOTH ONCE PM timolol maleate 0.5 % drops 1 drp EYE-BOTH DAILY cholecalciferol (vitamin D3) 125 mcg (5,000 unit) capsule 125 mcg PO DAILY mirtazapine 30 mg tablet 30 mg PO BEDTIME Qty: 90 3RF Eliquis 5 mg tablet 5 mg PO BID Qty: 60 0RF sucralfate [Carafate] 1 gram tablet 1 g PO QACHS Qty: 30 0RF Patient Comments: Patient would like to discuss Rx, has not started 01/03/25 Referrals: Turner Lindquist MD [Primary Care Provider, Internal Medicine] Stand Alone Forms: Patient Portal/API
--- NOTE | 2025-02-07 07:24 | DI.CT.S_ITS ---
PROCEDURE: CT ABDOMEN PELVIS W CON
--- NOTE | 2025-02-07 14:29 | DI.RAD.S_ITS ---
PROCEDURE: XR CHEST 2V
== END 2025-02-07 15:30 | disposition home or self-care (01) ==
PROVIDERS: Family Medicine; Emergency Provider Emergency Medicine; PCP Internal Medicine
DX: J18.9 Pneumonia, unspecified organism (principal); M87.051 Idiopathic aseptic necrosis of right femur; R11.2 Nausea with vomiting, unspecified; R10.12 Left upper quadrant pain
CPT/HCPCS: 36415; 71046; 74177; 80053; 83690; 85025; 93005; 96374; 96375; 99284; J2272; J2405; Q9967

== ENCOUNTER → 2025-02-08 17:11 | Outpatient (ROUT) | payer MEDICARE, SELFPAY ==
[2024-11-17 09:00] VITALS: BMI 17.9
== END ==
PROVIDERS: PCP Internal Medicine
DX: L03.90 Cellulitis, unspecified (principal); D09.9 Carcinoma in situ, unspecified; Z79.899 Other long term (current) drug therapy
CPT/HCPCS: 87070; 87075; 87205

== ENCOUNTER → 2025-03-04 12:25 | Outpatient (CLI) | payer MEDICARE, SELFPAY ==
[2024-11-17 09:00] VITALS: BMI 17.9
[2025-03-04 14:27] LABS: Blood Urea Nitrogen 22 mg/dL (7-17); Calcium 9.6 mg/dL (8.4-10.2); Carbon Dioxide 28 mmol/L (22-32); Chloride 105 mmol/L (98-107); Estimated Glomerular Filt Rate > 60 mL/min (>60); Glucose 76 mg/dL (70-99); HEMOLYSIS < 15 (0-50); Potassium 5.0 mmol/L (3.4-5.1); Sodium 139 mmol/L (137-145)
== END ==
PROVIDERS: PCP Internal Medicine; Referring Provider Urology; Visit Provider Urology
DX: N13.30 Unspecified hydronephrosis (principal)
CPT/HCPCS: 36415; 80048

== ENCOUNTER → 2025-03-08 12:18 | Outpatient (CLI) | payer MEDICARE, SELFPAY ==
[2024-11-17 09:00] VITALS: BMI 17.9
[2025-03-08 13:41] LABS: Vitamin B12 Reflex MMA if <400 905 pg/mL (239-931)
== END ==
PROVIDERS: PCP Internal Medicine; Referring Provider Internal Medicine; Visit Provider Internal Medicine
DX: E53.8 Deficiency of other specified B group vitamins (principal)
CPT/HCPCS: 36415; 82607

== ENCOUNTER → 2025-03-29 12:55 | Outpatient (CLI) | payer MEDICARE, SELFPAY ==
[2024-11-17 09:00] VITALS: BMI 17.9
[2025-03-29 14:16] LABS: Blood Urea Nitrogen 21 mg/dL (7-17); Calcium 9.4 mg/dL (8.4-10.2); Carbon Dioxide 29 mmol/L (22-32); Chloride 106 mmol/L (98-107); Estimated Glomerular Filt Rate > 60 mL/min (>60); Glucose 89 mg/dL (70-99); HEMOLYSIS < 15 (0-50); Potassium 4.7 mmol/L (3.4-5.1); Sodium 139 mmol/L (137-145)
== END ==
PROVIDERS: PCP Internal Medicine; Referring Provider Internal Medicine Cardiovascular Disease; Visit Provider Internal Medicine Cardiovascular Disease
DX: I10 Essential (primary) hypertension (principal)
CPT/HCPCS: 36415; 80048